=== PATIENT | male | born 1940 | race Caucasian/White ===

== ENCOUNTER 2017-03-30 23:27 | Inpatient (IN) | payer MEDICARE, OTHER ==
[2017-03-30 23:33] VITALS: BMI 29.0
--- NOTE | 2017-03-30 23:49 | C.PDOC ---
History Of Present Illness A 76 year old male with a hx of diabetes and HTN, presents to the ED c/o right sided headache then vision loss in the right eye with sudden onset at 22:30 today. Patient notes that he initially did not have any vision on the right eye but is gradually seeing light. Patient denies any nausea, vomiting, trauma, LOC , or any other complaints. He is not currently on any medication. Time Seen by Provider: 03/30/17 23:35 Chief Complaint (Nursing): Headache History Per: Patient History/Exam Limitations: no limitations Onset/Duration Of Symptoms: Hrs Current Symptoms Are (Timing): Still Present Severity: Mild Associated Symptoms: Other (Loss of vision). denies: Nausea, Vomiting Past Medical History Reviewed: Historical Data, Nursing Documentation, Vital Signs Vital Signs: Last Vital Signs Temp 97.5 F L 03/30/17 23:38 Pulse 64 03/30/17 23:38 Resp 20 03/30/17 23:38 BP 163/56 H 03/30/17 23:38 Pulse Ox 98 03/31/17 00:02 - Medical History PMH: Arthritis, HTN, Hypercholesterolemia (NO MED ) Denies: Hyperthyroidism, Hypothyroidism, Chronic Kidney Disease Family History: States: Unknown Family Hx Review Of Systems Except As Marked, All Systems Reviewed And Found Negative. Constitutional: Negative for: Other (Trauma) Eyes: Positive for: Vision Change (Loss of vision right eye) Gastrointestinal: Negative for: Nausea, Vomiting Neurological: Positive for: Headache. Negative for: Other (LOC) Physical Exam - Physical Exam Appears: Non-toxic, No Acute Distress Skin: Normal Color, Warm, Dry Head: Atraumatic, Normacephalic Eye(s): right: Abnormal Pupil (Cataracts), Other (Loss of vision), left: Normal Inspection Oral Mucosa: Moist Lips: Normal Appearing Neck: Normal ROM, No Midline Cervical Tenderness Lymphatic: No Adenopathy Chest: Symmetrical Cardiovascular: Rhythm Regular, No Murmur Respiratory: Normal Breath Sounds, No Rales, No Rhonchi, No Wheezing Gastrointestinal/Abdominal: Normal Exam, Soft Extremity: Normal ROM, No Pedal Edema, Capillary Refill (normal) Extremity: Bilateral: Atraumatic, Normal Color And Temperature Pulses: Left Carotid: Normal, Right Carotid: Normal Neurological/Psych: Oriented x3, Normal Speech, Normal Cognition, Normal Cranial Nerves, Normal Motor, Normal Sensation, Normal Reflexes, Eyes Open With Command Extremity: Right: No Drift, Left: No Drift, Upper: No Drift, Lower: No Drift ED Course And Treatment ECG: Interpreted By Me ECG Rhythm: Sinus Rhythm (with Q waves V1-2) ECG Interpretation: No Acute Changes O2 Sat by Pulse Oximetry: 98 (Room air) Pulse Ox Interpretation: Normal - CT Scan/US CT Head w/o IV contrast Other Rad Studies (CT/US): Interpreted By Me, Read By Radiologist CT/US Interpretation: EXAM: CT Head Without Intravenous Contrast. CLINICAL HISTORY: 76 years old, male; Signs and symptoms; Altered mental status/memory loss; Confusion or. disorientation; Additional info: Code stroke. TECHNIQUE: Axial computed tomography images of the head/brain without intravenous contrast. This CT exam. was performed using one or more of the following dose reduction techniques: automated exposure. control, adjustment of the mA and/or kV according to patient size, and/or use of iterative. reconstruction technique. COMPARISON: No relevant prior studies available. FINDINGS: Brain : Mild atrophy. No intracranial hemorrhage. No mass. Few scattered foci of decreased. attenuation within periventricular/subcortical white matter. Probable chronic lacunar infarct within. RIGHT centrum semiovale, RIGHT cerebellum. No definite edema. Ventricles: No hydrocephalus. Bones/joints: No acute fracture. Chronic fracture deformity LEFT zygomatic arch. Soft tissues: Unremarkable. Vasculature: Mild atherosclerotic disease of intracranial arteries. Sinuses: Scattered minimal mucosal thickening. Mastoid air cells: No mastoid effusion. Orbits: Unremarkable as visualized. Other findings: Periauricular calcifications. IMPRESSION: 1. Nonspecific white matter changes. Acute infarction may be CT occult within first 24 hours. If a. focal deficit persists, consider followup CT or MRI for further evaluation. 2. Incidental/non-acute findings are described above. Reevaluation Time: 00:27 Reassessment Condition: Improved (vision is returning to normal) - Physician Consult Information Time Consulting Physician Contacted: 00:28 Physician Contacted: Tej Wilson Outcome Of Conversation: Patient to be admitted for repeat DT or MRI and carotid dopplers in the morning. NIHSS Stroke Scale - Date/Time Evaluation Performed Date Performed: 03/30/17 Time Performed: 23:50 When Was NIHSS Performed: Baseline - How Severe is the Stoke Level of Consciousness: 0=Alert LOC to Questions: 0=Both comments correct LOC to commands: 0=Obeys both correctly Best Gaze: 1=Partial gaze palsy Visual: 1=Partial hemianopia Facial: 0=Normal Motor Arm - Left: 0=No drift Motor Arm - Right: 0=No drift Motor Leg - Left: 0=No drift Motor Leg - Right: 0=No drift Limb Ataxia: 0=Absent Sensory: 0=Normal Best Language: 0=No aphasia Dysarthia: 0=Normal articulation Extinction & Inattention (Neglect): 0=Normal, no object Score: 2 Severity Of Stroke: 1-4= Minor Stroke Medical Decision Making Medical Decision Making: Plans: -Blood labs -CT Head w/o contrast -EKG -CXR -Reassess and disposition Disposition Counseled Patient/Family Regarding: Studies Performed - Disposition Disposition: HOSPITALIZED Disposition Time: 00:28 Condition: IMPROVED - POA Present On Arrival: Poor Glycemic Control Core Measure Indicators: Code Stroke - Clinical Impression Clinical Impression: Transient ischemic attack (TIA) - Scribe Statement The provider has reviewed the documentation as recorded by the Scribe Latanya mcclain All medical record entries made by the Ludwinibadeola were at my direction and personally dictated by me. I have reviewed the chart and agree that the record accurately reflects my personal performance of the history, physical exam, medical decision making, and the department course for this patient. I have also personally directed, reviewed, and agree with the discharge instructions and disposition.
--- NOTE | 2017-03-30 23:58 | CT ---
EXAM: CT Head Without Intravenous Contrast CLINICAL HISTORY: 76 years old, male; Signs and symptoms; Altered mental status/memory loss; Confusion or disorientation; Additional info: Code stroke TECHNIQUE: Axial computed tomography images of the head/brain without intravenous contrast. This CT exam was performed using one or more of the following dose reduction techniques: automated exposure control, adjustment of the mA and/or kV according to patient size, and/or use of iterative reconstruction technique. COMPARISON: No relevant prior studies available. FINDINGS: Brain: Mild atrophy. No intracranial hemorrhage. No mass. Few scattered foci of decreased attenuation within periventricular/subcortical white matter. Probable chronic lacunar infarct within RIGHT centrum semiovale, RIGHT cerebellum. No definite edema. Ventricles: No hydrocephalus. Bones/joints: No acute fracture. Chronic fracture deformity LEFT zygomatic arch. Soft tissues: Unremarkable. Vasculature: Mild atherosclerotic disease of intracranial arteries. Sinuses: Scattered minimal mucosal thickening. Mastoid air cells: No mastoid effusion. Orbits: Unremarkable as visualized. Other findings: Periauricular calcifications. IMPRESSION: 1. Nonspecific white matter changes. Acute infarction may be CT occult within first 24 hours. If a focal deficit persists, consider followup CT or MRI for further evaluation. 2. Incidental/non-acute findings are described above.
[2017-03-31 00:12] LABS: EOS # 0.1 K/uL (0.0-0.7); EOS % 1.8 % (0.0-4.0); HEMATOCRIT 41.8 % (35.0-51.0); LYMPH # 2.2 K/uL (1.0-4.3); LYMPH % 46.5 % (20.0-40.0); MEAN CELL VOLUME 87.4 fL (80.0-94.0); MEAN CORPUSCULAR HEMOGLOBIN 29.4 pg (27.0-31.0); MEAN CORPUSCULAR HGB CONC 33.6 g/dL (33.0-37.0); MEAN PLATELET VOLUME 8.6 fL (7.2-11.7); MONO # 0.6 K/uL (0.0-0.8); MONO % 11.4 % (0.0-10.0); NRBC % 0.1 % (0.0-2.0); RED CELL DISTRIBUTION WIDTH 13.9 % (11.5-14.5); WHITE BLOOD COUNT 4.8 K/uL (4.8-10.8)
[2017-03-31 00:24] LABS: CHLORIDE 99 mmol/L (98-107); POTASSIUM 4.1 mmol/L (3.6-5.2); SODIUM 137 mmol/L (132-148)
[2017-03-31 00:26] LABS: ALB/GLOB RATIO 1.2 (1.0-2.1); AST/SGOT 52 U/L (17-59); BILIRUBIN,TOTAL 0.6 mg/dL (0.2-1.3); CARBON DIOXIDE 27 mmol/L (22-30); CHOLESTEROL 190 mg/dL (0-199); GFR AFRICAN-AMERICAN > 60; TOTAL PROTEIN 6.7 g/dL (6.3-8.3)
[2017-03-31 00:27] LABS: ALKALINE PHOSPHATASE 108 U/L (38-126); ALT/SGPT 48 U/L (21-72); BLOOD UREA NITROGEN 19 mg/dL (9-20); CALCIUM 8.5 mg/dl (8.6-10.4); GLUCOSE,RANDOM 260 mg/dL (75-110)
[2017-03-31] MEDS ORDERED: Sodium Chloride 0.9% 1,000 ML IV ONE (00:55)
[2017-03-31] MEDS: (Novolog) Insulin Aspart, Recombinant 100 u/ml 10 ml vial SC SCH ×4 (09:09→21:52)
[2017-03-31] MEDS: Enoxaparin 40 mg Syringe SC SCH (10:09)
--- NOTE | 2017-03-31 10:32 | RAD ---
HISTORY: code stroke COMPARISON: None available FINDINGS: LUNGS: Prominent consolidative airspace opacities in the mid to lower lung zone; right greater than left with associated bilateral pleural effusions. PLEURA: As above. CARDIOVASCULAR: Cardiomegaly. OSSEOUS STRUCTURES: No significant abnormalities. VISUALIZED UPPER ABDOMEN: Normal. OTHER FINDINGS: None. IMPRESSION: Prominent consolidative airspace opacities in the mid to lower lung zone; right greater than left with associated bilateral pleural effusions.
[2017-03-31] MEDS ORDERED: (Novolog) Insulin Aspart, Recombinant 100 u/ml 10 ml vial ONE (13:15)
--- NOTE | 2017-03-31 18:40 | CP.PCM.HP ---
History of Present Illness - History of Present Illness History of Present Illness: 76-year-old male with history of diabetes history of hypertension came to the emergency room because of patient Emily the chest without nausea and vomiting with the loss of vision on the right eye which only happens the patient came to the emergency room neurologist walked contacted the patient had a CAT scan which revealed an acute infarct is restarted on the ST study eventually patient is hospitalized for further workup Present on Admission - Present on Admission Any Indicators Present on Admission: No Past Patient History - Past Medical History & Family History Past Medical History?: Yes - Past Social History Smoking Status: Never Smoked - CARDIAC Hx Hypercholesterolemia: Yes (NO MED ) Hx Hypertension: Yes - PULMONARY Hx Respiratory Disorders: No - NEUROLOGICAL Hx Neurological Disorder: No - HEENT Hx HEENT Problems: No - RENAL Hx Chronic Kidney Disease: No - ENDOCRINE/METABOLIC Hx Hyperthyroidism: No Hx Hypothyroidism: No - HEMATOLOGICAL/ONCOLOGICAL Hx Blood Disorders: No - INTEGUMENTARY Hx Dermatological Problems: No - MUSCULOSKELETAL/RHEUMATOLOGICAL Hx Arthritis: Yes - GASTROINTESTINAL Hx Gastrointestinal Disorders: No - GENITOURINARY/GYNECOLOGICAL Hx Genitourinary Disorders: No - PSYCHIATRIC Hx Psychophysiologic Disorder: No Hx Substance Use: No - SURGICAL HISTORY Hx Surgeries: No - ANESTHESIA Hx Anesthesia: No Meds Home Medications: Home Medication List Medication Instructions Recorded Confirmed Type Aspirin [Aspirin Chewable] 81 mg PO DAILY #30 04/02/17 Rx Simvastatin 20 mg PO HS #30 tablet 04/02/17 Rx Allergies/Adverse Reactions: Allergies Allergy/AdvReac Type Severity Reaction Status Date / Time No Known Allergies Allergy Unverified 04/23/13 12:26 Physical Exam - Constitutional Appears: Well - Head Exam Head Exam: ATRAUMATIC, NORMAL INSPECTION, NORMOCEPHALIC - Eye Exam Eye Exam: EOMI, Normal appearance, PERRL Pupil Exam: NORMAL ACCOMODATION, PERRL - ENT Exam ENT Exam: Mucous Membranes Moist, Normal Exam - Neck Exam Neck exam: Positive for: Normal Inspection - Respiratory Exam Respiratory Exam: Decreased Breath Sounds - Cardiovascular Exam Cardiovascular Exam: REGULAR RHYTHM, +S1, +S2 - GI/Abdominal Exam GI & Abdominal Exam: Soft - Rectal Exam Rectal Exam: Deferred Results - Vital Signs Recent Vital Signs: Last Vital Signs Temp 97.9 F 03/31/17 13:15 Pulse 66 03/31/17 15:00 Resp 16 03/31/17 15:00 BP 138/70 03/31/17 15:00 Pulse Ox 100 03/31/17 15:00 - Labs Result Diagrams: 04/03/17 07:23 04/03/17 07:23 Labs: Laboratory Results - last 24 hr 03/31/17 03/31/17 03/31/17 08:40 12:37 16:30 POC Glucose (mg/dL) 137 H 184 H 94 Assessment & Plan (1) Transient ischemic attack (TIA) Status: Acute - Assessment and Plan (Free Text) Plan: Protonix aspirin restarts urology consultation Lovenox repeat MRI and carotid workup neurologic workup
[2017-04-01 01:37] VITALS: RESP 20
[2017-04-01] MEDS: (Novolog) Insulin Aspart, Recombinant 100 u/ml 10 ml vial SC SCH ×4 (08:14→22:00)
[2017-04-01] MEDS: Enoxaparin 40 mg Syringe SC SCH (09:43)
--- NOTE | 2017-04-01 10:28 | CON ---
DATE: 04/01/2017 REASON FOR CONSULTATION: Loss of vision, right eye. HISTORY OF PRESENT ILLNESS: The patient is a 76-year-old male who came to the Emergency Room with co mplaints of right-sided headache followed by visual loss in the right eye. It lasted for a few minut es and then gradually getting better. The patient denies any focal weakness ____ appropriate. At th e moment, he feels fine. REVIEW OF SYSTEMS: Denies any headache, dizziness, chest pain, shortness of breath, abdominal pain, constipation, diarrhea, dysuria, pyuria, cough, sputum production. PAST MEDICAL HISTORY: Includes hypertension and diabetes mellitus. MEDICATIONS AT HOME: Included metformin and lisinopril. ALLERGIES: No known drug allergies. SOCIAL HISTORY: Denies smoking, use of alcohol or illicit drugs. FAMILY HISTORY: Reviewed and noncontributory to the case. PHYSICAL EXAMINATION: GENERAL: The patient is an elderly male lying on the bed, in no acute distress. VITAL SIGNS: His blood pressure is 129/63, heart rate 58 per minute, breathing at a rate of 16 per m inute, temperature is 98.1 degrees Fahrenheit. HEENT: Head is normocephalic, atraumatic. NECK: Supple. There are no carotid bruits. LUNGS: Clear. CARDIOVASCULAR: S1, S2 audible. No murmurs. ABDOMEN: Soft, nontender. Bowel sounds present. NEUROLOGIC EXAMINATION: MENTAL STATUS: The patient is awake, alert, oriented to time, place, person. Speech is fluent. Nam ing and repetition normal. CRANIAL NERVES: Pupils are 3 mm bilaterally reactive to light. Visual nixon are full. Extraocular movements are intact. There is no facial asymmetry. Palate is upgoing bilaterally and tongue is mi dline. MOTOR: Tone is normal. Power is 5/5 bilaterally in all extremities. REFLEXES: +1 and symmetrical. Plantars downgoing bilaterally. CEREBELLAR: [id number]-[id number] shows no dysmetria. LABORATORY DATA: Reviewed. Shows WBC 4.8, hemoglobin 14.1, hematocrit 41.8 and platelets of 148. I NR is 1.0. Sodium 137, potassium 4.1, chloride 99, carbon dioxide content 27, BUN of 19, creatinine 1.1, and glucose of 137. He had a CT scan of the head done which showed nonspecific white matter changes. IMPRESSION: Transient ischemic attack with likely amaurosis fugax involving the right eye. RECOMMENDATIONS: 1. The patient to have MRI of the brain without contrast. 2. The patient also to have a carotid ultrasound. 3. The patient to be continued on aspirin and statin. 4. Please continue other treatment. Thank you for the opportunity to participate in the care of this patient. Alona Aguilar MD cc: [id number] TT: 04/01/2017 10:27:07 Confirmation # [id number] Dictation # [id number] mn
--- NOTE | 2017-04-01 13:59 | CARD ---
APPROVED REPORT EKG Measurement Heart [id number] IN [id number] <Conclusion> Normal sinus rhythm Septal infarct, age undetermined Abnormal ECG
--- NOTE | 2017-04-01 15:38 | MRI ---
PROCEDURE: MRI BRAIN WITHOUT CONTRAST HISTORY: tia COMPARISON: Comparison is made to the previous x-ray of the head dated 03/30/2017 TECHNIQUE: Multiplanar, multisequence MR images of the brain were obtained without intravenous contrast enhancement. FINDINGS: HEMORRHAGE: None DWI: Focal diffusion restriction seen at the right occipital lobe suggestive of acute/ early subacute infarct. BRAIN PARENCHYMA: No mass effect or edema. Mild atrophy is noted. Eaek-hy-hmdvgylx white matter changes are also seen. VENTRICLES: Unremarkable. No hydrocephalus. CRANIUM: Unremarkable. ORBITS: Grossly unremarkable. PARANASAL SINUSES/MASTOIDS: Clear VASCULAR SYSTEM: Skull base flow voids intact. OTHER FINDINGS: None. IMPRESSION: Right occipital acute/early subacute moderate size infarct. Mild atrophy and pbyp-ut-imqyhauq white matter chronic microvascular ischemic disease.
--- NOTE | 2017-04-01 16:53 | CP.PCM.PN ---
Subjective - Date & Time of Evaluation Date of Evaluation: 04/01/17 Time of Evaluation: 13:00 - Subjective Subjective: clinically same Objective - Vital Signs/Intake and Output Vital Signs (last 24 hours): Temp Pulse Resp BP Pulse Ox 97.7 F 59 L 20 132/73 93 L 04/01/17 16:30 04/01/17 16:30 04/01/17 16:30 04/01/17 16:30 04/01/17 16:30 Intake and Output: 04/01/17 04/01/17 06:59 18:59 Intake Total 240 720 Balance 240 720 - Medications Medications: Current Medications Aspirin (Aspirin Chewable) 81 mg PO DAILY [facility] Last Admin: 04/01/17 09:43 Dose: 81 mg Enoxaparin Sodium (Lovenox) 40 mg SC DAILY [facility] Last Admin: 04/01/17 09:43 Dose: 40 mg Insulin Aspart (Novolog) 0 unit SC [facility] PRN Reason: Protocol Last Admin: 04/01/17 12:42 Dose: 2 unit Lisinopril (Zestril) 10 mg PO DAILY [facility] Last Admin: 04/01/17 09:43 Dose: 10 mg Metformin HCl (Glucophage) 1,000 mg PO BIDBS [facility] Last Admin: 04/01/17 08:46 Dose: 1,000 mg Rosuvastatin Calcium (Crestor) 10 mg PO HS [facility] Last Admin: 03/31/17 21:24 Dose: 10 mg - Labs Labs: PT 11.1 SECONDS (9.7-12.2) 03/30/17 23:59 INR 1.0 03/30/17 23:59 APTT 31 SECONDS (21-34) 03/30/17 23:59 - Constitutional Appears: Well - Head Exam Head Exam: ATRAUMATIC, NORMAL INSPECTION, NORMOCEPHALIC - Eye Exam Eye Exam: EOMI, Normal appearance, PERRL Pupil Exam: NORMAL ACCOMODATION, PERRL - ENT Exam ENT Exam: Mucous Membranes Moist, Normal Exam - Neck Exam Neck Exam: Full ROM, Normal Inspection. absent: Lymphadenopathy - Respiratory Exam Respiratory Exam: Decreased Breath Sounds - Cardiovascular Exam Cardiovascular Exam: REGULAR RHYTHM, +S1, +S2 - GI/Abdominal Exam GI & Abdominal Exam: Soft, Diminished Bowel Sounds - Rectal Exam Rectal Exam: Deferred Assessment and Plan (1) Diabetes mellitus Status: Acute (2) Hypertension Status: Acute (3) Transient ischemic attack (TIA) Status: Acute - Assessment and Plan (Free Text) Plan: fs coverage insulin coverage Protonix Lovenox lisinopril neurological follow Verenice hankins
[2017-04-02] MEDS: (Novolog) Insulin Aspart, Recombinant 100 u/ml 10 ml vial SC SCH ×4 (07:51→21:56)
--- NOTE | 2017-04-02 08:33 | CP.PCM.PN ---
Addendum entered and electronically signed by Argentina Galeano DO 04/02/17 10: 42: CXR 04/02/17 - right lower lobe opacity seen - f/u official report F/U Chest CT without contrast Original Note: <Argentina Galeano - Last Filed: 04/02/17 08:30> Subjective - Date & Time of Evaluation Date of Evaluation: 04/02/17 Time of Evaluation: 08:05 - Subjective Subjective: PGY2 Medicine Note - Dr. Ilir Wilson's service: Patient seen and examined at bedside this AM. Patient has no complaints. Patient says he is walking well. Patient has no vision complaints at this time. Patient says vision came back completely. Patient has full strength in all four extremities. Patient denies headache, chest pain, SOB. Objective - Vital Signs/Intake and Output Vital Signs (last 24 hours): Temp Pulse Resp BP Pulse Ox 98.0 F 66 20 110/57 L 100 04/02/17 07:10 04/02/17 08:07 04/02/17 07:10 04/02/17 07:10 04/02/17 07:10 Intake and Output: 04/02/17 04/02/17 06:59 18:59 Intake Total 120 Balance 120 - Medications Medications: Current Medications Aspirin (Aspirin Chewable) 81 mg PO DAILY [facility] Last Admin: 04/01/17 09:43 Dose: 81 mg Enoxaparin Sodium (Lovenox) 40 mg SC DAILY [facility] Last Admin: 04/01/17 09:43 Dose: 40 mg Insulin Aspart (Novolog) 0 unit SC [facility] PRN Reason: Protocol Last Admin: 04/02/17 07:51 Dose: Not Given Lisinopril (Zestril) 10 mg PO DAILY [facility] Metformin HCl (Glucophage) 1,000 mg PO BIDBS [facility] Last Admin: 04/02/17 08:30 Dose: 1,000 mg Rosuvastatin Calcium (Crestor) 10 mg PO HS [facility] Last Admin: 04/01/17 22:05 Dose: 10 mg - Labs Labs: PT 11.1 SECONDS (9.7-12.2) 03/30/17 23:59 INR 1.0 03/30/17 23:59 APTT 31 SECONDS (21-34) 03/30/17 23:59 - Constitutional Appears: Non-toxic, No Acute Distress - Head Exam Head Exam: NORMAL INSPECTION - Eye Exam Eye Exam: EOMI - ENT Exam ENT Exam: Mucous Membranes Moist - Respiratory Exam Respiratory Exam: Clear to Ausculation Bilateral, NORMAL BREATHING PATTERN. absent: Rales, Rhonchi, Wheezes - Cardiovascular Exam Cardiovascular Exam: REGULAR RHYTHM, +S1, +S2. absent: Gallop, Rubs, Murmur - GI/Abdominal Exam GI & Abdominal Exam: Soft, Normal Bowel Sounds. 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 Mild atrophy and mild to moderate white matter chronic microvascular ischemic disease F/U carotid US Neurology consult - Dr. Stanley Aguilar - help appreciated Physical therapy discharged him from PT and recommends D/C home ASA 81mg PO daily Crestor 10mg PO HS Will be given scripts for ASA 81mg PO daily #30 and Simvastatin 20mg PO HS #30 upon discharge home Airspace opacities CXR 03/30/17 - prominent consolidative airspace opacities in mid to lower lung zone R>L with associated b/l pleural effusions (please see full report) Patient currently denying cough or trouble breathing Lungs sound good on auscultation F/U repeat CXR HTN Continue home med of lisinopril 10mg PO daily Controlled Monitor DM HgbA1C 8.8 --> patient needs to follow up with PMD about better control Metformin 1000mg PO BID RISS accuchecks Prophylaxis Lovenox 40mg SC daily Pepcid 20mg PO BID <Tej Wilson - Last Filed: 06/05/17 13:54> Objective - Vital Signs/Intake and Output Vital Signs (last 24 hours): Temp Pulse Resp BP Pulse Ox 97.9 F 63 20 124/63 97 04/03/17 07:10 04/03/17 09:06 04/03/17 07:10 04/03/17 07:10 04/03/17 07:10 - Labs Labs: 04/03/17 07:23 04/03/17 07:23 PT 11.1 SECONDS (9.7-12.2) 03/30/17 23:59 INR 1.0 03/30/17 23:59 APTT 31 SECONDS (21-34) 03/30/17 23:59 Assessment and Plan (1) Diabetes mellitus Status: Acute (2) Hypertension Status: Acute (3) Transient ischemic attack (TIA) Status: Acute Attending/Attestation - Attestation I have personally seen and examined this patient.: Yes I have fully participated in the care of the patient.: Yes I have reviewed all pertinent clinical information, including history, physical exam and plan: Yes Notes (Text): Patients can move all the extremities appears to be acute infarct number MRI right occipital acute infarct early subacute moderate size infarct Ultrasound of the carotid follow-up Neurology consultation PT OT Aspirin Chest x-ray prominent consolidative airspace opacities follow-up chest x-ray in 3 weeks after discharge
[2017-04-02] MEDS: Enoxaparin 40 mg Syringe SC SCH (09:24)
[2017-04-02 11:43] LABS: BASO % 0.8 % (0.0-2.0); EOS # 0.1 K/uL (0.0-0.7); EOS % 1.7 % (0.0-4.0); HEMATOCRIT 40.7 % (35.0-51.0); LYMPH # 1.6 K/uL (1.0-4.3); LYMPH % 38.7 % (20.0-40.0); MEAN CELL VOLUME 88.1 fL (80.0-94.0); MEAN CORPUSCULAR HEMOGLOBIN 28.9 pg (27.0-31.0); MEAN CORPUSCULAR HGB CONC 32.8 g/dL (33.0-37.0); MEAN PLATELET VOLUME 9.2 fL (7.2-11.7); MONO # 0.5 K/uL (0.0-0.8); MONO % 12.2 % (0.0-10.0); NRBC % 0.1 % (0.0-2.0); RED CELL DISTRIBUTION WIDTH 13.6 % (11.5-14.5); WHITE BLOOD COUNT 4.1 K/uL (4.8-10.8)
[2017-04-02 11:49] LABS: CHLORIDE 101 mmol/L (98-107); SODIUM 136 mmol/L (132-148)
[2017-04-02 11:50] LABS: POTASSIUM 4.4 mmol/L (3.6-5.2)
[2017-04-02 11:52] LABS: ALB/GLOB RATIO 1.2 (1.0-2.1); ALKALINE PHOSPHATASE 83 U/L (38-126); ALT/SGPT 25 U/L (21-72); AST/SGOT 22 U/L (17-59); BILIRUBIN,TOTAL 0.8 mg/dL (0.2-1.3); BLOOD UREA NITROGEN 18 mg/dL (9-20); CALCIUM 8.4 mg/dl (8.6-10.4); CARBON DIOXIDE 28 mmol/L (22-30); GFR AFRICAN-AMERICAN > 60; GLUCOSE,RANDOM 204 mg/dL (75-110)
--- NOTE | 2017-04-02 15:18 | RAD ---
HISTORY: f/u airspace opacities. no symptoms now. COMPARISON: Comparison is made to the previous study dated 03/30/2027 TECHNIQUE: Chest PA and lateral FINDINGS: LUNGS: Interval improvement in the lungs especially on the right since the previous exam. PLEURA: No significant pleural effusion identified. No pneumothorax apparent. CARDIOVASCULAR: Mild cardiomegaly is again noted. OSSEOUS STRUCTURES: No significant abnormalities. VISUALIZED UPPER ABDOMEN: Normal. OTHER FINDINGS: None. IMPRESSION: Interval significant improvement in the lungs with residual small opacity at the right lower lung. Follow-up reassessment 2 weeks is suggested.
--- NOTE | 2017-04-02 15:36 | PN ---
DATE: 04/02/2017 SUBJECTIVE: The patient is lying on the bed, in no acute distress. Denies having any headache or di zziness. PHYSICAL EXAMINATION: VITAL SIGNS: His blood pressure is 110/57, heart rate is 66 per minute, breathing at the rate of 16 per minute, temperature is 98 degrees Fahrenheit. HEENT: Normocephalic, atraumatic. NECK: Supple. There are no carotid bruits. LUNGS: Clear. CARDIOVASCULAR: S1, S2 audible. No murmurs. ABDOMEN: Soft, nontender. Bowel sounds present. NEUROLOGIC EXAMINATION: MENTAL STATUS: The patient is awake, alert, oriented to place, year, person. Speech is fluent. Nam ing and repetition are normal. CRANIAL NERVE EXAMINATION: Pupils 3 mm bilaterally reactive to light. Visual field decreased on the left side. Palate is upgoing bilaterally and tongue is midline. MOTOR EXAMINATION: Tone is normal and power is 5/5 bilaterally in all extremities. Reflexes +1 and symmetrical. Plantars downgoing bilaterally. CEREBELLAR: Zpekdx-do-sede shows no dysmetria. Gait is deferred at the moment. LABORATORY DATA: Labs reviewed. MRI of the brain showed right occipital acute/early subacute modera te sized infarct. Mild atrophy and jcty-in-[id number] white matter chronic microvascular ischemic dise ase. IMPRESSION: Cerebrovascular accident with a right occipital infarct. RECOMMENDATIONS: 1. The patient to have carotid Doppler study. 2. The patient also to have an echocardiogram. 3. The patient to be continued on aspirin. 4. The patient also to be continued on statin. 5. The patient to have physical therapy for gait imbalance. 6. Please continue other treatment and supportive care. Thank you for the opportunity to participate in the care of this patient. Alona Aguilar MD cc: [id number] TT: 04/02/2017 15:35:21 Confirmation # [id number] Dictation # [id number]
--- NOTE | 2017-04-02 18:51 | CP.PCM.PN ---
Subjective - Date & Time of Evaluation Date of Evaluation: 04/02/17 Time of Evaluation: 13:00 - Subjective Subjective: clinically same Objective - Vital Signs/Intake and Output Vital Signs (last 24 hours): Temp Pulse Resp BP Pulse Ox 98 F 59 L 20 126/63 99 04/02/17 16:02 04/02/17 16:02 04/02/17 16:02 04/02/17 16:02 04/02/17 16:02 Intake and Output: 04/02/17 04/02/17 06:59 18:59 Intake Total 120 720 Balance 120 720 - Medications Medications: Current Medications Aspirin (Aspirin Chewable) 81 mg PO DAILY [facility] Last Admin: 04/02/17 09:24 Dose: 81 mg Enoxaparin Sodium (Lovenox) 40 mg SC DAILY [facility] Last Admin: 04/02/17 09:24 Dose: 40 mg Famotidine (Pepcid) 20 mg PO BID [facility] Last Admin: 04/02/17 09:24 Dose: 20 mg Insulin Aspart (Novolog) 0 unit SC [facility] PRN Reason: Protocol Last Admin: 04/02/17 12:18 Dose: 1 unit Lisinopril (Zestril) 10 mg PO DAILY [facility] Last Admin: 04/02/17 09:24 Dose: 10 mg Metformin HCl (Glucophage) 1,000 mg PO BIDBS [facility] Last Admin: 04/02/17 08:30 Dose: 1,000 mg Rosuvastatin Calcium (Crestor) 10 mg PO HS [facility] Last Admin: 04/01/17 22:05 Dose: 10 mg - Labs Labs: 04/02/17 11:34 04/02/17 11:34 PT 11.1 SECONDS (9.7-12.2) 03/30/17 23:59 INR 1.0 03/30/17 23:59 APTT 31 SECONDS (21-34) 03/30/17 23:59 - Constitutional Appears: Well - Head Exam Head Exam: ATRAUMATIC, NORMAL INSPECTION, NORMOCEPHALIC - Eye Exam Eye Exam: EOMI, Normal appearance, PERRL Pupil Exam: NORMAL ACCOMODATION, PERRL - ENT Exam ENT Exam: Mucous Membranes Moist, Normal Exam - Neck Exam Neck Exam: Full ROM, Normal Inspection. absent: Lymphadenopathy - Respiratory Exam Respiratory Exam: Decreased Breath Sounds - Cardiovascular Exam Cardiovascular Exam: REGULAR RHYTHM, +S1, +S2 - GI/Abdominal Exam GI & Abdominal Exam: Soft, Diminished Bowel Sounds - Rectal Exam Rectal Exam: Deferred Assessment and Plan (1) Diabetes mellitus Status: Acute (2) Hypertension Status: Acute (3) Transient ischemic attack (TIA) Status: Acute - Assessment and Plan (Free Text) Plan: Patients can move all the extremities appears to be acute infarct number MRI right occipital acute infarct early subacute moderate size infarct Ultrasound of the carotid follow-up Neurology consultation PT OT Aspirin Chest x-ray prominent consolidative airspace opacities follow-up chest x-ray in 3 weeks after discharge
--- NOTE | 2017-04-02 19:14 | VASCLAB ---
PROCEDURE: HISTORY: tia COMPARISON: None available. TECHNIQUE: Grayscale and duplex Doppler evaluation of the cervical carotid and vertebral arteries were performed. The common carotid, carotid bifurcations and cervical Internal Carotid Artery (ICA) and proximal External Carotid Artery (ECA) were evaluated. The vertebral arteries were evaluated for gross patency and flow direction. Report prepared by Allan Gee, BS, RVT FINDINGS: RIGHT CAROTID ARTERIES: 1. Common Carotid Artery: Mild scattered heterogeneous plaque formation of the right common carotid artery. Intimal hyperplasia. Maximum Peak Systolic velocity: 64 cm/sec: End-diastolic velocity 10 cm/sec. 2. Carotid Bifurcation: Irregular Homogeneous plaque formation. Maximum Peak Systolic velocity: 58 cm/sec: End-diastolic velocity 10 cm/sec. 3. Internal Carotid Artery: Minimal plaque formation of the right proximal ICA which does not result in hemodynamically significant stenosis. Plaque description: Heterogeneous 3.1. Proximal Segment: Peak systolic velocity 62 cm/sec: End-diastolic velocity 12 cm/sec - % stenosis 0-15% 3.2. Middle Segment: Peak systolic velocity 97 cm/sec: End-diastolic velocity 22 cm/sec - % stenosis 0-15% 3.3. Distal Segment: Peak systolic velocity 97 cm/sec: End-diastolic velocity 21 cm/sec - % stenosis 0-15% 4. External Carotid Artery: Mild heterogeneous plaque formation. Peak systolic velocity 103 cm/sec 5. ICA/CCA Ratio: 1.5 LEFT CAROTID ARTERIES: 1. Common Carotid Artery: No significant focal plaque formation of the left common carotid artery. Intimal hyperplasia. Maximum Peak Systolic velocity: 85 cm/sec: End-diastolic velocity 11 cm/sec. 2. Carotid Bifurcation: Homogeneous plaque formation. Maximum Peak Systolic velocity: 81 cm/sec: End-diastolic velocity 10 cm/sec. 3. Internal Carotid Artery: Minimal plaque formation of the left proximal ICA which does not result in hemodynamically significant stenosis. Plaque description: Homogeneous 3.1. Proximal Segment: Peak systolic velocity 91 cm/sec: End-diastolic velocity 17 cm/sec - % stenosis 0-15% 3.2. Middle Segment: Peak systolic velocity 85 cm/sec: End-diastolic velocity 19 cm/sec - % stenosis 0-15% 3.3. Distal Segment: Peak systolic velocity 96 cm/sec: End-diastolic velocity 22 cm/sec - % stenosis 0-15% 4. External Carotid Artery: No significant focal plaque formation. Peak systolic velocity 103 cm/sec 5. ICA/CCA Ratio: 1.1 VERTEBRAL ARTERIES: 1. Right Vertebral Artery: The right vertebral artery flow direction is antegrade. 2. Left Vertebral Artery: The left vertebral artery flow direction is antegrade. OTHER FINDINGS: 1. Right Brachial Blood pressure: 120 mmHg. 2. Left Brachial Blood pressure: 120 mmHg. IMPRESSION: RIGHT: Duplex scan does not suggest hemodynamically significant stenosis of the right extracranial carotid arteries. LEFT: Duplex scan does not suggest hemodynamically significant stenosis of the left extracranial carotid arteries.
[2017-04-03 07:31] LABS: BASO % 0.6 % (0.0-2.0); EOS # 0.1 K/uL (0.0-0.7); EOS % 1.7 % (0.0-4.0); HEMATOCRIT 42.7 % (35.0-51.0); LYMPH # 2.2 K/uL (1.0-4.3); LYMPH % 41.9 % (20.0-40.0); MEAN CELL VOLUME 87.9 fL (80.0-94.0); MEAN CORPUSCULAR HEMOGLOBIN 28.9 pg (27.0-31.0); MEAN CORPUSCULAR HGB CONC 32.9 g/dL (33.0-37.0); MEAN PLATELET VOLUME 9.2 fL (7.2-11.7); MONO # 0.6 K/uL (0.0-0.8); MONO % 11.1 % (0.0-10.0); RED CELL DISTRIBUTION WIDTH 13.7 % (11.5-14.5); WHITE BLOOD COUNT 5.2 K/uL (4.8-10.8)
[2017-04-03 07:46] LABS: CHLORIDE 102 mmol/L (98-107); POTASSIUM 4.6 mmol/L (3.6-5.2); SODIUM 139 mmol/L (132-148)
[2017-04-03 07:48] LABS: BILIRUBIN,TOTAL 0.9 mg/dL (0.2-1.3); GFR AFRICAN-AMERICAN > 60
[2017-04-03 07:49] LABS: ALB/GLOB RATIO 1.2 (1.0-2.1); ALKALINE PHOSPHATASE 90 U/L (38-126); ALT/SGPT 37 U/L (21-72); AST/SGOT 26 U/L (17-59); BLOOD UREA NITROGEN 19 mg/dL (9-20); CARBON DIOXIDE 29 mmol/L (22-30); GLUCOSE,RANDOM 102 mg/dL (75-110); TOTAL PROTEIN 6.8 g/dL (6.3-8.3)
[2017-04-03 07:50] LABS: CALCIUM 8.7 mg/dl (8.6-10.4)
[2017-04-03] MEDS: (Novolog) Insulin Aspart, Recombinant 100 u/ml 10 ml vial SC SCH ×2 (07:52→12:11)
[2017-04-03 08:05] VITALS: BP 124/63; TEMP 97.9; O2SAT 97
--- NOTE | 2017-04-03 08:36 | PN ---
DATE: 04/03/2017 SUBJECTIVE: The patient is lying on the bed, in no acute distress. Denies having any headache or di zziness. PHYSICAL EXAMINATION: VITAL SIGNS: His blood pressure is 124/60, heart rate is 65 per minute, breathing at a rate of 16 pe r minute, temperature is 98.1 degrees Fahrenheit. HEENT: Head is normocephalic, atraumatic. NECK: Supple. There are no carotid bruits. LUNGS: Clear. CARDIOVASCULAR: S1, S2 audible. No murmurs. ABDOMEN: Soft, nontender, bowel sounds present. NEUROLOGIC EXAMINATION: MENTAL STATUS: The patient is awake, alert, oriented to place, year, person. Speech is fluent. Nam ing and repetition are normal. Memory and cognition appear intact. CRANIAL NERVE: Pupils are 3 mm, bilaterally reactive to light. Extraocular movements are intact. T here is decreased visual field on the left side. There is no facial asymmetry. MOTOR: Power appears to be 5/5 bilaterally in all extremities. Plantars downgoing bilaterally. LABORATORY DATA: Reviewed. Carotid Doppler shows no significant stenosis. IMPRESSION: Cerebrovascular accident with right occipital infarct causing left side visual field def ect. RECOMMENDATIONS: 1. The patient to have an echocardiogram. 2. The patient to be continued on aspirin. 3. The patient also to be continued on statin. 4. The patient to have physical therapy for gait and balance. 5. The patient had an echocardiogram done; however, the report is still awaited. 6. If the patient's echocardiogram does not show any evidence of thrombus, then he may be discharged on aspirin and statin with outpatient followup. Thank you for the opportunity to participate in the care of this patient. Alona Aguilar MD cc: [id number] TT: 04/03/2017 08:36:12 Confirmation # [id number] Dictation # [id number]
[2017-04-03 09:06] VITALS: PULSE 63
[2017-04-03] MEDS: Enoxaparin 40 mg Syringe SC SCH (09:43)
--- NOTE | 2017-04-03 11:28 | CP.PCM.PN ---
Subjective - Date & Time of Evaluation Date of Evaluation: 04/03/17 Time of Evaluation: 08:55 - Subjective Subjective: PGY2 Medicine Note - Dr. Ilir Wilson's service: Patient seen and examined at bedside this AM. Patient has no complaints. Patient says he is walking well. Patient has no vision complaints at this time. Patient says vision came back completely. Patient has full strength in all four extremities. Patient denies headache, chest pain, SOB, cough, fever, chills. Objective - Vital Signs/Intake and Output Vital Signs (last 24 hours): Temp Pulse Resp BP Pulse Ox 97.9 F 63 20 124/63 97 04/03/17 07:10 04/03/17 09:06 04/03/17 07:10 04/03/17 07:10 04/03/17 07:10 Intake and Output: 04/03/17 04/03/17 06:59 18:59 Intake Total 360 Balance 360 - Medications Medications: Current Medications Aspirin (Aspirin Chewable) 81 mg PO DAILY [facility] Last Admin: 04/03/17 09:43 Dose: 81 mg Enoxaparin Sodium (Lovenox) 40 mg SC DAILY [facility] Last Admin: 04/03/17 09:43 Dose: 40 mg Famotidine (Pepcid) 20 mg PO BID [facility] Last Admin: 04/02/17 18:50 Dose: 20 mg Insulin Aspart (Novolog) 0 unit SC [facility] PRN Reason: Protocol Last Admin: 04/03/17 07:52 Dose: Not Given Lisinopril (Zestril) 10 mg PO DAILY [facility] Last Admin: 04/03/17 09:43 Dose: 10 mg Metformin HCl (Glucophage) 1,000 mg PO BIDBS [facility] Last Admin: 04/03/17 08:34 Dose: 1,000 mg Rosuvastatin Calcium (Crestor) 10 mg PO HS [facility] Last Admin: 04/02/17 21:56 Dose: 10 mg - Labs Labs: 04/03/17 07:23 04/03/17 07:23 PT 11.1 SECONDS (9.7-12.2) 03/30/17 23:59 INR 1.0 03/30/17 23:59 APTT 31 SECONDS (21-34) 03/30/17 23:59 - Constitutional Appears: Non-toxic, No Acute Distress - Head Exam Head Exam: NORMAL INSPECTION - Eye Exam Eye Exam: EOMI - ENT Exam ENT Exam: Mucous Membranes Moist - Respiratory Exam Respiratory Exam: Rhonchi (right chest), NORMAL BREATHING PATTERN. absent: Accessory Muscle Use, Chest Wall Tenderness, Respiratory Distress - Cardiovascular Exam Cardiovascular Exam: REGULAR RHYTHM, +S1, +S2. absent: Gallop, Rubs, Murmur - GI/Abdominal Exam GI & Abdominal Exam: Soft, Normal Bowel Sounds. absent: Tenderness - Extremities Exam Extremities Exam: absent: Pedal Edema - Neurological Exam Neurological Exam: Alert, Oriented x3 - Psychiatric Exam Psychiatric exam: Normal Affect, Normal Mood - Skin Skin Exam: Normal Color, Warm Assessment and Plan - Assessment and Plan (Free Text) Assessment: TIA symptoms resolved within [address] - normal Brain MRI 04/01/17 - right occipital acute/ early subacute moderate size infarct. Mild atrophy and mild to moderate white matter chronic microvascular ischemic disease Carotid US negative for hemodynamically significant stenosis F/U ECHO report before discharge per Dr. Stanley Aguilar Neurology consult - Dr. Stanley Aguilar - help appreciated Physical therapy discharged him from PT and recommends D/C home ASA 81mg PO daily Crestor 10mg PO HS Will be given scripts for ASA 81mg PO daily #30 and Simvastatin 20mg PO HS #30 upon discharge home Airspace opacities CXR 03/30/17 - prominent consolidative airspace opacities in mid to lower lung zone R>L with associated b/l pleural effusions (please see full report) Patient currently denying cough or trouble breathing Lungs sound good on auscultation CXR 04/02/17 - right lower lobe opacity seen - f/u official report F/U Chest CT without contrast report Fluid or mass seen in right fissure - went to radiology floor but radiologist had just stepped out, awaiting call back from radiologist. Will go down again to follow up after lunch HTN Continue home med of lisinopril 10mg PO daily Controlled Monitor DM HgbA1C 8.8 --> patient needs to follow up with PMD about better control Metformin 1000mg PO BID RISS accuchecks Prophylaxis Lovenox 40mg SC daily Pepcid 20mg PO BID
--- NOTE | 2017-04-03 11:47 | CT ---
PROCEDURE: CT Chest without contrast HISTORY: right lobe opacity COMPARISON: April 02, 2017. Two-view chest. Summary of findings on the comparison examination: Interval improvement with residual small opacity right lower lobe. 03/30/2017 portable chest TECHNIQUE: Contiguous axial images were obtained through the chest without intravenous contrast enhancement. Sagittal and coronal reconstructions were performed. Radiation dose (DLP): 292.82 mGy-cm. This CT exam was performed using one or more of the following dose reduction techniques: Automated exposure control, adjustment of the mA and/or kV according to patient size, and/or use of iterative reconstruction technique. FINDINGS: LUNGS: Biapical scarring, areas of spiculation in the apices, the findings are indeterminate. Scarring can assume this appearance. Spiculated masses, primary neoplasm of the lungs could also assume this appearance. Scarring at the lung bases trace pleural effusions. MEDIASTINUM: Unremarkable thoracic aorta. No aneurysm. Cardiomegaly. No evidence of acute, significant cardiovascular disease. Mildly dilated main pulmonary artery 3.4 cm. No lymphadenopathy. . PLEURA: The correlate to findings on recent chest radiographs defect represents fluid in the major fissure. There is no discrete infiltrate in the right lung. BONES: No fracture. No destructive lesion. UPPER ABDOMEN: Cholelithiasis without CT evidence of acute cholecystitis. OTHER FINDINGS: None. IMPRESSION: Tech CT correlate to findings on recent chest x-rays status loculated fluid in the major fissure. Biapical scarring is likely accounting for findings in the apices. Neoplastic process ease are much less likely considerations. Cholelithiasis without CT evidence of acute cholecystitis.
--- NOTE | 2017-04-03 13:43 | CARD ---
APPROVED REPORT EXAM: Two-dimensional and M-mode echocardiogram with Doppler and color Doppler. Other Information Quality : GoodRhythm : NSR INDICATION CVA/TIA RISK FACTORS Hypertension Hyperlipidemia M-Mode DIMENSIONS Left Atrium (MM)4.37 (2.5-4.0cm)Aortic Root3.32 (2.2-3.7cm) Aortic Cusp Exc.2.19 (1.5-2.0cm) Aortic Valve AoV Peak Yawkzyaz796.1cm/Rito Peak GR.6mmHgAI P 1/2 [id number] Mitral Valve MV E Natadhcs89.5cm/sMV A Dufhowka76.2cm/sE/A ratio2.6 TDI E/Lateral E'0.0E/Medial E'0.0 Tricuspid Valve TR Peak [id number]/sTR Peak Gr.[id number] LEFT VENTRICLE The left ventricle is normal size. There is moderate concentric left ventricular hypertrophy. The Ejection Fraction is 55-60%. There is normal LV segmental wall motion. The left atrial pressure is mildly elevated. RIGHT VENTRICLE The right ventricle is normal size. The right ventricular systolic function is normal. ATRIA The left atrium is moderately dilated. The right atrium size is normal. The interatrial septum is intact with no evidence for an atrial septal defect. AORTIC VALVE The aortic valve is normal in structure. There is trace aortic regurgitation. MITRAL VALVE The mitral valve is normal in structure. Mitral regurgitation is mild. TRICUSPID VALVE The tricuspid valve is normal in structure. There is mild to moderate tricuspid regurgitation. Right ventricular systolic pressure is estimated at 58 mmHg. There is moderate pulmonary hypertension. PULMONIC VALVE The pulmonary valve is normal in structure. There is trace pulmonic valvular regurgitation. GREAT VESSELS The aortic root is normal in size. The IVC is normal in size and collapses >50% with inspiration. PERICARDIAL EFFUSION There is no pericardial effusion. <Conclusion> m mode is not available for lv. The left ventricle is normal size. There is moderate concentric left ventricular hypertrophy. The Ejection Fraction is 55-60%. The left atrial pressure is mildly elevated. The left atrium is moderately dilated. Mitral regurgitation is mild. There is mild to moderate tricuspid regurgitation. Right ventricular systolic pressure is estimated at 58 mmHg. There is moderate pulmonary hypertension.
== END 2017-04-03 14:58 | disposition home or self-care (01) | DRG 69 ==
LOC: C.ER 23:27 → C.9E 03-31 00:29 → C.6T 03-31 16:48
PROVIDERS: ADMIT Internal Medicine Nephrology; ATTEND Internal Medicine Nephrology
DX: G45.9 Transient cerebral ischemic attack, unspecified (principal); G45.3 Amaurosis fugax; E11.9 Type 2 diabetes mellitus without complications; I10 Essential (primary) hypertension; M19.90 Unspecified osteoarthritis, unspecified site; E78.00 Pure hypercholesterolemia, unspecified

== ENCOUNTER 2018-01-23 18:49 | Inpatient (IN) | payer MEDICARE, OTHER ==
[2018-01-23 18:50] VITALS: BMI 29.0
[2018-01-23] MEDS ORDERED: Sodium Chloride 0.9% 1,000 ML IV ONE ×2 (20:12→23:12)
--- NOTE | 2018-01-23 20:12 | C.PDOC ---
History Of Present Illness 77 y/o male presents to ED c/o diffuse crampy abdominal pain worse in the periumbilical region for the last 5-6 hours. Denies n/v/d, chest pain, palpitations, or fever. Time Seen by Provider: 01/23/18 20:12 Chief Complaint (Nursing): Abdominal Pain History Per: Patient History/Exam Limitations: no limitations Onset/Duration Of Symptoms: Hrs (6) Current Symptoms Are (Timing): Still Present Severity: Severe Pain Scale Rating Of: 8 Location Of Pain/Discomfort: Periumbilical Radiation Of Pain To:: None Quality Of Discomfort: Cramping Associated Symptoms: denies: Fever, Chills, Nausea, Vomiting, Diarrhea, Loss Of Appetite, Back Pain, Chest Pain, Constipation, Urinary Symptoms Exacerbating Factors: None Alleviating Factors: None Recent travel outside of the [place]: No Additional History Per: Patient Past Medical History Reviewed: Historical Data, Nursing Documentation, Vital Signs Vital Signs: Last Vital Signs Temp 102.7 F H 01/24/18 00:06 Pulse 88 01/24/18 00:06 Resp 18 01/24/18 00:06 BP 132/71 01/24/18 00:06 Pulse Ox 99 01/24/18 00:06 - Medical History PMH: Arthritis, HTN, Hypercholesterolemia (NO MED ) Denies: Hyperthyroidism, Hypothyroidism, Chronic Kidney Disease Family History: States: Unknown Family Hx - Social History Hx Alcohol Use: No Hx Substance Use: No - Immunization History Hx Tetanus Toxoid Vaccination: No Hx Influenza Vaccination: No Review Of Systems Constitutional: Positive for: Fever, Malaise. Negative for: Chills Cardiovascular: Negative for: Chest Pain, Palpitations Respiratory: Negative for: Cough, Shortness of Breath Gastrointestinal: Positive for: Abdominal Pain. Negative for: Nausea, Vomiting , Diarrhea, Constipation Genitourinary: Negative for: Dysuria, Frequency, Hematuria Musculoskeletal: Negative for: Neck Pain, Back Pain Skin: Negative for: Rash, Bruising Neurological: Negative for: Headache, Dizziness Psych: Negative for: Anxiety Physical Exam - Physical Exam Appears: Non-toxic Skin: Warm, Dry, No Rash Head: Normacephalic Eye(s): bilateral: Normal Inspection Oral Mucosa: Dry Neck: Trachea Midline, Supple Chest: Symmetrical Cardiovascular: Rhythm Regular Respiratory: No Accessory Muscle Use, No Rales, No Rhonchi, No Wheezing Gastrointestinal/Abdominal: Soft, Tenderness (periumbilical), Distention (mild) , Guarding (voluntary), No Rebound Back: Normal Inspection Extremity: Normal ROM Extremity: Bilateral: Atraumatic Pulses: Left Dorsalis Pedis: Normal, Right Dorsalis Pedis: Normal Neurological/Psych: Oriented x3 Gait: Steady ED Course And Treatment - Laboratory Results Result Diagrams: 01/23/18 20:22 01/23/18 20:22 ECG: Interpreted By Me, Viewed By Me ECG Rhythm: Sinus Rhythm (75), Nonspecific Changes O2 Sat by Pulse Oximetry: 99 Pulse Ox Interpretation: Normal - Radiology CXR: Interpreted by Me, Viewed By Me CXR Interpretation: No: Infiltrates, Fracture, Pnemothorax - CT Scan/US CT A/P Other Rad Studies (CT/US): Interpreted By Me, Read By Radiologist CT/US Interpretation: EXAM: CT Abdomen and Pelvis With Intravenous Contrast. EXAM DATE/TIME: Examination ordered 01/23/2018 8:35 PM. Image number total count reviewed 515. CLINICAL HISTORY: The patient is 77 years old and is male ; Pain; Abdominal pain; Periumbilical; Additional info: Periumbilical severe pain Facility exam id and description: Ct_abdpelciv abd pelvis iv contrast only. TECHNIQUE: Axial computed tomography images of the abdomen and pelvis with intravenous contrast. All CT. scans at this facility use one or more dose reduction techniques, viz.: automated exposure control;. ma/kV adjustment per patient size (including targeted exams where dose is matched to indication; i.e. head); or iterative reconstruction technique. Coronal and sagittal reformatted images were created and reviewed. CONTRAST: 100 mL of OMNIPAQUE 300 administered intravenously. COMPARISON: No relevant prior studies available. FINDINGS: LIMITATIONS: Lack of portal venous phase enhancement and endogenous fat contrast somewhat. limits the exam. There is also a lack of oral contrast. LOWER THORAX: There is marked cardiomegaly with moderate bilateral pleural effusions noted. There is LEFT ventricular hypertrophy. There is interstitial thickening at the lung bases suggesting. pulmonary edema. ABDOMEN: LIVER: Prominence of the intrahepatic veins and intrahepatic IVC could be related to tricuspid. regurgitation. GALLBLADDER AND BILE DUCTS: There is a large gallstone in the gallbladder with gallbladder. distention although NO wall thickening on CT. PANCREAS: There are fatty involutional changes of the pancreas. NO findings to suggest. pancreatitis. SPLEEN: Unremarkable. No splenomegaly. No splenic lesion noted. ADRENALS: Unremarkable. No mass. KIDNEYS AND URETERS: There is cortical thinning along with low-attenuation in the upper pole of. the LEFT kidney and this could represent a somewhat indistinct but possibly wedge-shaped subacute. infarct. It could also represent a more chronic infarct. Additionally, acute pyelonephritis may also. have this appearance, since the scan is in the arterial phase of imaging only and not the. nephrographic phase. Correlate with urinalysis and consider immediately rescanning the patient at. this time. STOMACH AND BOWEL: There is an abundant amount of stool within the colonic lumen. No obstruction. No mucosal thickening. APPENDIX: No findings to suggest acute appendicitis. PELVIS: BLADDER: The urinary bladder is unremarkable. REPRODUCTIVE: The prostate gland is enlarged. ABDOMEN and PELVIS: INTRAPERITONEAL SPACE: There is mild ascites in the RIGHT subhepatic region. Mild free fluid. is noted in the LEFT pelvis as well. This is an abnormal finding in a male patient. Etiology is unclear. No free air. BONES/JOINTS: There are degenerative changes of the spine. No acute fracture. No dislocation. SOFT TISSUES: Unremarkable. VASCULATURE: See above. LYMPH NODES : Unremarkable. No significant retroperitoneal or pelvic lymphadenopathy. IMPRESSION: 1. There is cortical thinning along with low-attenuation in the upper pole of the LEFT kidney and this. could represent a somewhat indistinct but possibly wedge-shaped subacute infarct. It could also. represent a more chronic infarct. Additionally, acute pyelonephritis may also have this appearance,. since the scan is in the arterial phase of imaging only and not the nephrographic phase. Correlate. with urinalysis and consider immediately rescanning the patient at this time. 2. There is mild ascites in the RIGHT subhepatic region. Mild free fluid is noted in the LEFT pelvis as. well. This is an abnormal finding in a male patient. Etiology is unclear but may be secondary to the. above. Thank you for allowing us to participate in the care of your patient. Dictated and Authenticated by: Adria Lopez MD. 01/23/2018 10 :41 PM Eastern Time ([place] & [place]) Critical Care Time - Critical Care Note Total Time (in mins): 30 Documented critical care: time excludes all time spent performing seperately billable procedures. Medical Decision Making Medical Decision Making: Plan: Blood work Urinalysis Abd & Pelvis CT CXR/EKG Morphine, Pepcid, Toradol, Zofran, IV fluids Disposition Discussed With : Tej Wilson Comment: accepted the pt on his service and took over the care at12:18 AM Doctor Will See Patient In The: Hospital Counseled Patient/Family Regarding: Studies Performed, Diagnosis - Disposition Disposition: HOSPITALIZED Disposition Time: 20:12 Condition: GUARDED Forms: [facility] ([place]) - POA Present On Arrival: Poor Glycemic Control - Clinical Impression Clinical Impression: Abdominal pain, CHF (congestive heart failure) - Scribe Statement The provider has reviewed the documentation as recorded by the Scribe John Wilson All medical record entries made by the Scribe were at my direction and personally dictated by me. I have reviewed the chart and agree that the record accurately reflects my personal performance of the history, physical exam, medical decision making, and the department course for this patient. I have also personally directed, reviewed, and agree with the discharge instructions and disposition.
[2018-01-23] MEDS ORDERED: Sodium Chloride 0.9% 1,000 ML ONE (20:26)
[2018-01-23 20:28] LABS: BASO % 0.5 % (0.0-2.0); EOS % 0.2 % (0.0-4.0); HEMOGLOBIN 12.2 g/dL (12.0-18.0); LYMPH # 0.8 K/uL (1.0-4.3); LYMPH % 15.1 % (20.0-40.0); MEAN CELL VOLUME 89.7 fL (80.0-94.0); MEAN CORPUSCULAR HGB CONC 33.5 g/dL (33.0-37.0); MEAN PLATELET VOLUME 8.9 fL (7.2-11.7); MONO # 0.4 K/uL (0.0-0.8); MONO % 7.5 % (0.0-10.0); NEUT # 4.1 K/uL (1.8-7.0); NEUT % 76.7 % (50.0-75.0); RBC 4.06 Mil/uL (4.40-5.90); RED CELL DISTRIBUTION WIDTH 14.1 % (11.5-14.5); WHITE BLOOD COUNT 5.3 K/uL (4.8-10.8)
[2018-01-23 20:40] LABS: CALCIUM 8.8 mg/dl (8.6-10.4); GFR AFRICAN-AMERICAN > 60; GFR NON-AFRICAN AMERICAN > 60; LIPASE 37 U/L (23-300)
[2018-01-23 20:41] LABS: ALB/GLOB RATIO 1.1 (1.0-2.1); ALBUMIN 3.6 g/dL (3.5-5.0); ALT/SGPT 40 U/L (21-72); AST/SGOT 39 U/L (17-59); BLOOD UREA NITROGEN 16 mg/dL (9-20)
[2018-01-23 20:43] LABS: INR 1.2; PROTHROMBIN TIME 13.6 SECONDS (9.7-12.2)
[2018-01-23] MEDS ORDERED: Iohexol 300 100 ML IJ ONE (21:00)
--- NOTE | 2018-01-23 22:41 | CT ---
EXAM: CT Abdomen and Pelvis With Intravenous Contrast EXAM DATE/TIME: Examination ordered 01/23/2018 8:35 PM. Image number total count reviewed 515 CLINICAL HISTORY: The patient is 77 years old and is male; Pain; Abdominal pain; Periumbilical; Additional info: Periumbilical severe pain Facility exam id and description: Ct abdpelciv abd pelvis iv contrast only TECHNIQUE: Axial computed tomography images of the abdomen and pelvis with intravenous contrast. All CT scans at this facility use one or more dose reduction techniques, viz.: automated exposure control; ma/kV adjustment per patient size (including targeted exams where dose is matched to indication; i.e. head); or iterative reconstruction technique. Coronal and sagittal reformatted images were created and reviewed. CONTRAST: 100 mL of OMNIPAQUE 300 administered intravenously. COMPARISON: No relevant prior studies available. FINDINGS: LIMITATIONS: Lack of portal venous phase enhancement and endogenous fat contrast somewhat limits the exam. There is also a lack of oral contrast. LOWER THORAX: There is marked cardiomegaly with moderate bilateral pleural effusions noted. There is LEFT ventricular hypertrophy. There is interstitial thickening at the lung bases suggesting pulmonary edema. ABDOMEN: LIVER: Prominence of the intrahepatic veins and intrahepatic IVC could be related to tricuspid regurgitation. GALLBLADDER AND BILE DUCTS: There is a large gallstone in the gallbladder with gallbladder distention although NO wall thickening on CT. PANCREAS: There are fatty involutional changes of the pancreas. NO findings to suggest pancreatitis. SPLEEN: Unremarkable. No splenomegaly. No splenic lesion noted. ADRENALS: Unremarkable. No mass. KIDNEYS AND URETERS: There is cortical thinning along with low-attenuation in the upper pole of the LEFT kidney and this could represent a somewhat indistinct but possibly wedge-shaped subacute infarct. It could also represent a more chronic infarct. Additionally, acute pyelonephritis may also have this appearance, since the scan is in the arterial phase of imaging only and not the nephrographic phase. Correlate with urinalysis and consider immediately rescanning the patient at this time. STOMACH AND BOWEL: There is an abundant amount of stool within the colonic lumen. No obstruction. No mucosal thickening. APPENDIX: No findings to suggest acute appendicitis. PELVIS: BLADDER: The urinary bladder is unremarkable. REPRODUCTIVE: The prostate gland is enlarged. ABDOMEN and PELVIS: INTRAPERITONEAL SPACE: There is mild ascites in the RIGHT subhepatic region. Mild free fluid is noted in the LEFT pelvis as well. This is an abnormal finding in a male patient. Etiology is unclear. No free air. BONES/JOINTS: There are degenerative changes of the spine. No acute fracture. No dislocation. SOFT TISSUES: Unremarkable. VASCULATURE: See above. LYMPH NODES: Unremarkable. No significant retroperitoneal or pelvic lymphadenopathy. IMPRESSION: 1. There is cortical thinning along with low-attenuation in the upper pole of the LEFT kidney and this could represent a somewhat indistinct but possibly wedge-shaped subacute infarct. It could also represent a more chronic infarct. Additionally, acute pyelonephritis may also have this appearance, since the scan is in the arterial phase of imaging only and not the nephrographic phase. Correlate with urinalysis and consider immediately rescanning the patient at this time. 2. There is mild ascites in the RIGHT subhepatic region. Mild free fluid is noted in the LEFT pelvis as well. This is an abnormal finding in a male patient. Etiology is unclear but may be secondary to the above.
[2018-01-24] MEDS ORDERED: Piperacillin/Tazobact 3.375 gm 100 ML IVPB STA (00:05)
[2018-01-24] MEDS ORDERED: Piperacillin/Tazobact 3.375 gm 100 ML IVPB ONE (00:10)
[2018-01-24] MEDS ORDERED: Vancomycin 1 GM 1 GM/250 ML BAG IVPB SCH (00:15)
[2018-01-24 00:35] LABS: URINE BACTERIA RARE (<OCC); URINE BILIRUBIN NEGATIVE (NEGATIVE); URINE BLOOD NEGATIVE (NEGATIVE); URINE CLARITY Clear (Clear); URINE COLOR Yellow (YELLOW); URINE GLUCOSE (UA) NORMAL (Normal); URINE LEUKOCYTE ESTERASE NEG Leu/uL (Negative); URINE NITRATE NEGATIVE (NEGATIVE); URINE PROTEIN 1+ mg/dL (NEGATIVE)
[2018-01-24] MEDS ORDERED: Vancomycin 1 gm/NS 200 ml 1 GM/200 ML BAG IVPB STA (00:55)
--- NOTE | 2018-01-24 06:54 | RAD ---
Chest x-ray single frontal view History: Abdominal pain. Comparison: 03/30/2017 Findings: Biapical pleural thickening with upper lobe granulomatous changes. Bibasilar breast and nipple shadows. Nodular density at the left lung base likely represents nipple shadow. Correlation with nipple marker may be helpful. Patchy increased markings at the right lung base. Bilateral hilar prominence. Venous congestion. Linear atelectasis in the right midlung zone. Mild cardiomegaly. Tortuous aorta. Degenerative changes in the spine and shoulders. Impression: Biapical pleural thickening with upper lobe granulomatous changes. Bibasilar breast and nipple shadows. Nodular density at the left lung base likely represents nipple shadow. Correlation with nipple marker may be helpful. Patchy increased markings at the right lung base. Bilateral hilar prominence. Venous congestion. Linear atelectasis in the right midlung zone.
[2018-01-24] MEDS ORDERED: TAZOBACTAM IVPB SCH (09:45)
[2018-01-24] MEDS ORDERED: PIPERACILLIN IVPB SCH (09:45)
--- NOTE | 2018-01-24 11:19 | CP.PCM.CON ---
<Kevin Stewart - Last Filed: 01/24/18 11:14> History of Present Illness - History of Present Illness History of Present Illness: PGY5 GI Fellow Consult Note Patient is a 77yo male with PMHx significant for HTN, DM, dyslipidemia, osteoarthritis, H pylori gastritis, pandiverticulosis who presented to the ED with abdominal pain. Pain began suddenly yesterday at 2PM in the left and right lower quadrants, slowly generalizing to the entire abdomen. He became nauseated , vomiting and felt short of breath, thus he had a family member bring him to the ED for further evaluation. States that since his arrival, pain medication has helped improve his symptoms which he rates 4/10 at this time. Admits to daily BM, most recently passing stool yesterday morning without issue. Denies any hematochezia, melena, weight loss, postprandial discomfort, heartburn. Of note, patient had fever 102.7F on arrival to the ED. He had CT scan of the abdomen revealing a large gallstone, questionable left kidney wedge infarct and significant constipation. PMHx: See HPI PSHx: Denies any prior surgical interventions FHx: Discussed with patient and denies any pertinent family history Social: Quit tobacco use >45 yrs ago, rare EtOH use, no illicit drug use Endo: EGD/Colonoscopy - 12/2015 - H pylori + gastritis, hyperplastic polyp of transverse colon, pandiverticulosis 12 system ROS performed and negative except where stated. Past Patient History - Infectious Disease Hx of Infectious Diseases: None - Past Medical History & Family History Past Medical History?: Yes - Past Social History Smoking Status: Never Smoked - CARDIAC Hx Hypercholesterolemia: Yes (NO MED ) Hx Hypertension: Yes - PULMONARY Hx Respiratory Disorders: No - NEUROLOGICAL Hx Neurological Disorder: No - HEENT Hx HEENT Problems: No - RENAL Hx Chronic Kidney Disease: No - ENDOCRINE/METABOLIC Hx Hyperthyroidism: No Hx Hypothyroidism: No - HEMATOLOGICAL/ONCOLOGICAL Hx Blood Disorders: No - INTEGUMENTARY Hx Dermatological Problems: No - MUSCULOSKELETAL/RHEUMATOLOGICAL Hx Arthritis: Yes - GASTROINTESTINAL Hx Gastrointestinal Disorders: No - GENITOURINARY/GYNECOLOGICAL Hx Genitourinary Disorders: No - PSYCHIATRIC Hx Substance Use: No - SURGICAL HISTORY Hx Surgeries: No - ANESTHESIA Hx Anesthesia: No Meds Allergies/Adverse Reactions: Allergies Allergy/AdvReac Type Severity Reaction Status Date / Time No Known Allergies Allergy Unverified 01/23/18 20:02 - Medications Medications: Current Medications Aspirin (Aspirin Chewable) 81 mg PO DAILY [facility] Piperacillin Sod/Tazobactam Sod (Zosyn 3.375 In Ns 100ml) 3.375 mls @ 100 mls/ hr IVPB Q6H [facility] Lisinopril (Zestril) 10 mg PO DAILY [facility] Rosuvastatin Calcium (Crestor) 5 mg PO HS [facility] Physical Exam - Constitutional Appears: Non-toxic, No Acute Distress - Eye Exam Eye Exam: EOMI, PERRL - ENT Exam ENT Exam: Mucous Membranes Moist - Respiratory Exam Respiratory Exam: Clear to Auscultation Bilateral. absent: Rales, Rhonchi, Wheezes - Cardiovascular Exam Cardiovascular Exam: RRR, +S1, +S2, Systolic Murmur - GI/Abdominal Exam GI & Abdominal Exam: Guarding, Normal Bowel Sounds, Soft, Tenderness (+Jo sign; tenderness in the LLQ/RLQ). absent: Distended, Firm, Hernia, Organomegaly , Rigid - Extremities Exam Extremities exam: Positive for: normal inspection. Negative for: pedal edema - Neurological Exam Neurological exam: Alert, Oriented x3 - Psychiatric Exam Psychiatric exam: Normal Affect, Normal Mood - Skin Skin Exam: Dry, Warm Results - Vital Signs Recent Vital Signs: Last Vital Signs Temp 97.9 F 01/24/18 09:43 Pulse 80 01/24/18 09:43 Resp 18 01/24/18 09:43 BP 116/68 01/24/18 09:43 Pulse Ox 98 01/24/18 09:43 - Labs Result Diagrams: 01/23/18 20:22 01/23/18 20:22 Labs: Laboratory Results - last 24 hr 01/23/18 01/23/18 01/23/18 20:07 20:22 20:22 WBC 5.3 RBC 4.06 L Hgb 12.2 Hct 36.4 MCV 89.7 MCH 30.0 MCHC 33.5 RDW 14.1 Plt Count 154 MPV 8.9 Neut % (Auto) 76.7 H Lymph % (Auto) 15.1 L [place] % (Auto) 7.5 Eos % (Auto) 0.2 Baso % (Auto) 0.5 Neut # (Auto) 4.1 Lymph # (Auto) 0.8 L [place] # (Auto) 0.4 Eos # (Auto) 0.0 Baso # (Auto) 0.0 PT 13.6 H INR 1.2 APTT 34 Sodium Potassium Chloride Carbon Dioxide Anion Gap BUN Creatinine Est GFR ( Amer) Est GFR (Non-Af Amer) POC Glucose (mg/dL) 174 H Random Glucose Calcium Total Bilirubin AST ALT Alkaline Phosphatase NT-Pro-B Natriuret Pep Total Protein Albumin Globulin Albumin/Globulin Ratio Lipase Urine Color Urine Clarity Urine pH Ur Specific [place] Urine Protein Urine Glucose (UA) Urine Ketones Urine Blood Urine Nitrate Urine Bilirubin Urine Urobilinogen Ur Leukocyte Esterase Urine WBC (Auto) Urine RBC (Auto) Ur Transition Epith Cell Urine Bacteria 01/23/18 01/23/18 01/24/18 20:22 23:46 00:25 WBC RBC Hgb Hct MCV MCH MCHC RDW Plt Count MPV Neut % (Auto) Lymph % (Auto) [place] % (Auto) Eos % (Auto) Baso % (Auto) Neut # (Auto) Lymph # (Auto) [place] # (Auto) Eos # (Auto) Baso # (Auto) PT INR APTT Sodium 135 Potassium 4.9 Chloride 99 Carbon Dioxide 24 Anion Gap 17 BUN 16 Creatinine 1.1 Est GFR ( Amer) > 60 Est GFR (Non-Af Amer) > 60 POC Glucose (mg/dL) Random Glucose 155 H Calcium 8.8 Total Bilirubin 1.2 AST 39 ALT 40 Alkaline Phosphatase 135 H NT-Pro-B Natriuret Pep 3400 H Total Protein 6.8 Albumin 3.6 Globulin 3.2 Albumin/Globulin Ratio 1.1 Lipase 37 Urine Color Yellow Urine Clarity Clear Urine pH 5.0 Ur Specific [place] > 1.060 H Urine Protein 1+ H Urine Glucose (UA) Normal Urine Ketones Trace Urine Blood Negative Urine Nitrate Negative Urine Bilirubin Negative Urine Urobilinogen 2.0 Ur Leukocyte Esterase Neg Urine WBC (Auto) < 1 Urine RBC (Auto) 2 Ur Transition Epith Cell < 1 Urine Bacteria Rare 01/24/18 09:12 WBC RBC Hgb Hct MCV MCH MCHC RDW Plt Count MPV Neut % (Auto) Lymph % (Auto) [place] % (Auto) Eos % (Auto) Baso % (Auto) Neut # (Auto) Lymph # (Auto) [place] # (Auto) Eos # (Auto) Baso # (Auto) PT INR APTT Sodium Potassium Chloride Carbon Dioxide Anion Gap BUN Creatinine Est GFR ( Amer) Est GFR (Non-Af Amer) POC Glucose (mg/dL) 84 Random Glucose Calcium Total Bilirubin AST ALT Alkaline Phosphatase NT-Pro-B Natriuret Pep Total Protein Albumin Globulin Albumin/Globulin Ratio Lipase Urine Color Urine Clarity Urine pH Ur Specific [place] Urine Protein Urine Glucose (UA) Urine Ketones Urine Blood Urine Nitrate Urine Bilirubin Urine Urobilinogen Ur Leukocyte Esterase Urine WBC (Auto) Urine RBC (Auto) Ur Transition Epith Cell Urine Bacteria Assessment & Plan - Assessment and Plan (Free Text) Assessment: Patient is a 77yo male with PMHx significant for HTN, DM, dyslipidemia, osteoarthritis, H pylori gastritis, pandiverticulosis who presented to the ED with abdominal pain -Abdominal pain, R/O acute cholecystits -Febrile illness, 102.7F on admission -Constipation -? left renal infarct noted on CT Plan: -Recommend U/S abdomen to R/O choledocolithiasis, cholecystitis -CT and blood work reviewed -Agree with broad spectrum antibiotic coverage -Check blood/urine cultures -Consider surgical evaluation pending U/S findings -Miralax 17g PO QD -Liquid diet for now - Date & Time Date: 01/24/18 Time: 10:40 <Lopez Florentino - Last Filed: 01/24/18 11:31> Meds - Medications Medications: Current Medications Aspirin (Aspirin Chewable) 81 mg PO DAILY [facility] Piperacillin Sod/Tazobactam Sod (Zosyn 3.375 In Ns 100ml) 3.375 mls @ 100 mls/ hr IVPB Q6H [facility] Lisinopril (Zestril) 10 mg PO DAILY [facility] Rosuvastatin Calcium (Crestor) 5 mg PO HS [facility] Results - Vital Signs Recent Vital Signs: Last Vital Signs Temp 97.9 F 01/24/18 09:43 Pulse 80 01/24/18 09:43 Resp 18 01/24/18 09:43 BP 116/68 01/24/18 09:43 Pulse Ox 98 01/24/18 09:43 - Labs Result Diagrams: 01/23/18 20:22 01/23/18 20:22 Labs: Laboratory Results - last 24 hr 01/23/18 01/23/18 01/23/18 20:07 20:22 20:22 WBC 5.3 RBC 4.06 L Hgb 12.2 Hct 36.4 MCV 89.7 MCH 30.0 MCHC 33.5 RDW 14.1 Plt Count 154 MPV 8.9 Neut % (Auto) 76.7 H Lymph % (Auto) 15.1 L [place] % (Auto) 7.5 Eos % (Auto) 0.2 Baso % (Auto) 0.5 Neut # (Auto) 4.1 Lymph # (Auto) 0.8 L [place] # (Auto) 0.4 Eos # (Auto) 0.0 Baso # (Auto) 0.0 PT 13.6 H INR 1.2 APTT 34 Sodium Potassium Chloride Carbon Dioxide Anion Gap BUN Creatinine Est GFR ( Amer) Est GFR (Non-Af Amer) POC Glucose (mg/dL) 174 H Random Glucose Calcium Total Bilirubin AST ALT Alkaline Phosphatase NT-Pro-B Natriuret Pep Total Protein Albumin Globulin Albumin/Globulin Ratio Lipase Urine Color Urine Clarity Urine pH Ur Specific [place] Urine Protein Urine Glucose (UA) Urine Ketones Urine Blood Urine Nitrate Urine Bilirubin Urine Urobilinogen Ur Leukocyte Esterase Urine WBC (Auto) Urine RBC (Auto) Ur Transition Epith Cell Urine Bacteria 01/23/18 01/23/18 01/24/18 20:22 23:46 00:25 WBC RBC Hgb Hct MCV MCH MCHC RDW Plt Count MPV Neut % (Auto) Lymph % (Auto) [place] % (Auto) Eos % (Auto) Baso % (Auto) Neut # (Auto) Lymph # (Auto) [place] # (Auto) Eos # (Auto) Baso # (Auto) PT INR APTT Sodium 135 Potassium 4.9 Chloride 99 Carbon Dioxide 24 Anion Gap 17 BUN 16 Creatinine 1.1 Est GFR ( Amer) > 60 Est GFR (Non-Af Amer) > 60 POC Glucose (mg/dL) Random Glucose 155 H Calcium 8.8 Total Bilirubin 1.2 AST 39 ALT 40 Alkaline Phosphatase 135 H NT-Pro-B Natriuret Pep 3400 H Total Protein 6.8 Albumin 3.6 Globulin 3.2 Albumin/Globulin Ratio 1.1 Lipase 37 Urine Color Yellow Urine Clarity Clear Urine pH 5.0 Ur Specific [place] > 1.060 H Urine Protein 1+ H Urine Glucose (UA) Normal Urine Ketones Trace Urine Blood Negative Urine Nitrate Negative Urine Bilirubin Negative Urine Urobilinogen 2.0 Ur Leukocyte Esterase Neg Urine WBC (Auto) < 1 Urine RBC (Auto) 2 Ur Transition Epith Cell < 1 Urine Bacteria Rare 01/24/18 09:12 WBC RBC Hgb Hct MCV MCH MCHC RDW Plt Count MPV Neut % (Auto) Lymph % (Auto) [place] % (Auto) Eos % (Auto) Baso % (Auto) Neut # (Auto) Lymph # (Auto) [place] # (Auto) Eos # (Auto) Baso # (Auto) PT INR APTT Sodium Potassium Chloride Carbon Dioxide Anion Gap BUN Creatinine Est GFR ( Amer) Est GFR (Non-Af Amer) POC Glucose (mg/dL) 84 Random Glucose Calcium Total Bilirubin AST ALT Alkaline Phosphatase NT-Pro-B Natriuret Pep Total Protein Albumin Globulin Albumin/Globulin Ratio Lipase Urine Color Urine Clarity Urine pH Ur Specific [place] Urine Protein Urine Glucose (UA) Urine Ketones Urine Blood Urine Nitrate Urine Bilirubin Urine Urobilinogen Ur Leukocyte Esterase Urine WBC (Auto) Urine RBC (Auto) Ur Transition Epith Cell Urine Bacteria Attending/Attestation - Attestation I have personally seen and examined this patient.: Yes I have fully participated in the care of the patient.: Yes I have reviewed all pertinent clinical information: Yes Notes (Text): 01/24/18 11:25 I have seen and examined patient with GI fellow. Agree with above documentation with the following additions. In brief, this is a 77 year old male with history of DM, HTN, hyperlipidemia who presents to hospital with complaint of abdominal pain. He describes sudden onset generalized discomfort, 6/10 intensity which started yesterday with radiation to RL/RUQ. This was associated with nausea and one episode of non-bloody emesis. Prior to this he was in usual state of health. He reports recent constipation with straining during defecation but otherwise denies weight loss or rectal bleeding. He was noted to be febrile on arrival to hospital. He had an EGD/colonoscopy in December 2015 which showed gardner diverticulosis, helicobacter pylori associated gastritis. Review of vitals from today are normal. DM / HTN Hyperlipidemia Constipation Abdominal pain, fever (tmax of 102.7) CT imaging reviewed by me showing fecal retention, cholelithiasis, ?renal infarct - Liquid diet as tolerated - Obtain abdominal US, r/o cholecystitis - Follow up blood culture results - LFTs normal, continue to monitor - Initiate bowel regimen for treatment of constipation - Continue with antibiotic therapy - Will continue to monitor patient clinical course
[2018-01-24 12:01] LABS: BASO % 0.4 % (0.0-2.0); HEMOGLOBIN 12.2 g/dL (12.0-18.0); LYMPH # 0.7 K/uL (1.0-4.3); LYMPH % 5.8 % (20.0-40.0); MEAN CELL VOLUME 90.3 fL (80.0-94.0); MEAN CORPUSCULAR HEMOGLOBIN 29.9 pg (27.0-31.0); MEAN CORPUSCULAR HGB CONC 33.1 g/dL (33.0-37.0); MEAN PLATELET VOLUME 8.9 fL (7.2-11.7); MONO # 0.6 K/uL (0.0-0.8); NEUT # 10.3 K/uL (1.8-7.0); NEUT % 88.8 % (50.0-75.0); PLATELET COUNT 152 K/uL (130-400); RBC 4.07 Mil/uL (4.40-5.90); RED CELL DISTRIBUTION WIDTH 13.9 % (11.5-14.5); WHITE BLOOD COUNT 11.6 K/uL (4.8-10.8)
[2018-01-24 12:12] LABS: ALB/GLOB RATIO 1.1 (1.0-2.1); ALBUMIN 3.4 g/dL (3.5-5.0); CALCIUM 8.3 mg/dl (8.6-10.4)
[2018-01-24] MEDS: POLYETHYLENE GLYCOL 3350 17 GM/Dose PACKET PO SCH (12:14)
[2018-01-24 12:42] LABS: ANISOCYTOSIS SLIGHT; BANDS 15 % (0-2); LYMPHOCYTE 7 % (20-40); MONOCYTE 4 % (0-10); NEUTROPHIL 74 % (50-75); PLATELET ESTIMATE NORMAL (NORMAL); TOTAL CELLS COUNTED 100
[2018-01-24 12:43] LABS: HYPOCHROMIC SLIGHT; POLYCHROMIC SLIGHT; TOXIC GRANULATION PRESENT
--- NOTE | 2018-01-24 14:25 | US ---
Abdominal ultrasound History: Abdominal pain. Comparison: CT scan dated 01/23/2018 Technique: Real-time sonography was performed through the abdomen. Findings: Liver: 16 centimeters in length. Prominent. Increased echogenicity suggestive for hepatic parenchymal disease versus fatty infiltration. Clinical correlation. Perihepatic ascites noted. Gallbladder: Cholelithiasis and sludge noted. Gallbladder wall is thickened measuring up 4.8 millimeters. Associated wall edema. Negative sonographic Jo's sign. Common bile duct measures 3 millimeters, within normal limits. Limited visualization of the pancreas. Spleen measures 10.4 centimeters in length, mildly prominent. Visualized aorta is preserved. Pulsatile bidirectional flow of the portal vein. Clinical correlation. Limited visualization of the aorta. Right kidney: 9.8 x 4.6 x 4.9 centimeters. Increased echogenicity of the renal parenchymal cortex suggestive for medical renal disease. No calculi or hydronephrosis. Left kidney: 9.8 x 5.2 x 5.0 centimeters. Increased echogenicity of the renal parenchymal cortex suggestive for medical renal disease. Focal area of low attenuation within the upper pole seen on recent CT scan was not as well delineated on this study. Lower pole hypoechoic cyst measuring 8 x 8 x 9 millimeters. Impression: 1. Cholelithiasis with gallbladder sludge with associated gallbladder wall thickening and edema. Underlying cholecystitis cannot entirely be excluded. Clinical correlation. 2. Prominent liver measuring up to 16 centimeters in length with increased echogenicity suggestive for fatty infiltration versus hepatic parenchymal disease. Clinical correlation. 3. Pulsatile bidirectional flow of the portal vein. Clinical correlation. 4. Limited visualization of the pancreas and aorta. 5. Increased echogenicity of the bilateral renal parenchymal cortices suggestive for medical renal disease. 6. 9 millimeter left renal cyst. 7. Hypoattenuated focus in the upper pole of the left kidney on the prior CT scan was not as well appreciated on the current study. 8. Abdominal ascites.
--- NOTE | 2018-01-24 16:56 | CP.PCM.HP ---
Past Patient History - Infectious Disease Hx of Infectious Diseases: None - Past Medical History & Family History Past Medical History?: Yes - Past Social History Smoking Status: Never Smoked - CARDIAC Hx Hypercholesterolemia: Yes (NO MED ) Hx Hypertension: Yes - PULMONARY Hx Respiratory Disorders: No - NEUROLOGICAL Hx Neurological Disorder: No - HEENT Hx HEENT Problems: No - RENAL Hx Chronic Kidney Disease: No - ENDOCRINE/METABOLIC Hx Hyperthyroidism: No Hx Hypothyroidism: No - HEMATOLOGICAL/ONCOLOGICAL Hx Blood Disorders: No - INTEGUMENTARY Hx Dermatological Problems: No - MUSCULOSKELETAL/RHEUMATOLOGICAL Hx Arthritis: Yes - GASTROINTESTINAL Hx Gastrointestinal Disorders: No - GENITOURINARY/GYNECOLOGICAL Hx Genitourinary Disorders: No - PSYCHIATRIC Hx Substance Use: No - SURGICAL HISTORY Hx Surgeries: No - ANESTHESIA Hx Anesthesia: No Meds Allergies/Adverse Reactions: Allergies Allergy/AdvReac Type Severity Reaction Status Date / Time No Known Allergies Allergy Unverified 01/23/18 20:02 Physical Exam - Constitutional Appears: Well - Head Exam Head Exam: ATRAUMATIC, NORMAL INSPECTION, NORMOCEPHALIC - Eye Exam Eye Exam: EOMI, Normal appearance, PERRL Pupil Exam: NORMAL ACCOMODATION, PERRL - ENT Exam ENT Exam: Mucous Membranes Moist, Normal Exam - Neck Exam Neck exam: Positive for: Normal Inspection - Respiratory Exam Respiratory Exam: Decreased Breath Sounds - Cardiovascular Exam Cardiovascular Exam: REGULAR RHYTHM, +S1, +S2 - GI/Abdominal Exam GI & Abdominal Exam: Diminished Bowel Sounds, Soft - Rectal Exam Rectal Exam: Deferred Results - Vital Signs Recent Vital Signs: Last Vital Signs Temp 97.9 F 01/24/18 09:43 Pulse 80 01/24/18 09:43 Resp 18 01/24/18 09:43 BP 116/68 01/24/18 09:43 Pulse Ox 98 01/24/18 09:43 - Labs Result Diagrams: 01/24/18 11:47 01/24/18 11:47 Labs: Laboratory Results - last 24 hr 01/23/18 01/23/18 01/23/18 20:07 20:22 20:22 WBC 5.3 RBC 4.06 L Hgb 12.2 Hct 36.4 MCV 89.7 MCH 30.0 MCHC 33.5 RDW 14.1 Plt Count 154 MPV 8.9 Neut % (Auto) 76.7 H Lymph % (Auto) 15.1 L [place] % (Auto) 7.5 Eos % (Auto) 0.2 Baso % (Auto) 0.5 Neut # (Auto) 4.1 Lymph # (Auto) 0.8 L [place] # (Auto) 0.4 Eos # (Auto) 0.0 Baso # (Auto) 0.0 Neutrophils % (Manual) Band Neutrophils % Lymphocytes % (Manual) Monocytes % (Manual) Toxic Granulation Platelet Estimate Polychromasia Hypochromasia (manual) Anisocytosis (manual) PT 13.6 H INR 1.2 APTT 34 Sodium Potassium Chloride Carbon Dioxide Anion Gap BUN Creatinine Est GFR ( Amer) Est GFR (Non-Af Amer) POC Glucose (mg/dL) 174 H Random Glucose Calcium Total Bilirubin AST ALT Alkaline Phosphatase NT-Pro-B Natriuret Pep Total Protein Albumin Globulin Albumin/Globulin Ratio Lipase Urine Color Urine Clarity Urine pH Ur Specific [place] Urine Protein Urine Glucose (UA) Urine Ketones Urine Blood Urine Nitrate Urine Bilirubin Urine Urobilinogen Ur Leukocyte Esterase Urine WBC (Auto) Urine RBC (Auto) Ur Transition Epith Cell Urine Bacteria 01/23/18 01/23/18 01/24/18 20:22 23:46 00:25 WBC RBC Hgb Hct MCV MCH MCHC RDW Plt Count MPV Neut % (Auto) Lymph % (Auto) [place] % (Auto) Eos % (Auto) Baso % (Auto) Neut # (Auto) Lymph # (Auto) [place] # (Auto) Eos # (Auto) Baso # (Auto) Neutrophils % (Manual) Band Neutrophils % Lymphocytes % (Manual) Monocytes % (Manual) Toxic Granulation Platelet Estimate Polychromasia Hypochromasia (manual) Anisocytosis (manual) PT INR APTT Sodium 135 Potassium 4.9 Chloride 99 Carbon Dioxide 24 Anion Gap 17 BUN 16 Creatinine 1.1 Est GFR ( Amer) > 60 Est GFR (Non-Af Amer) > 60 POC Glucose (mg/dL) Random Glucose 155 H Calcium 8.8 Total Bilirubin 1.2 AST 39 ALT 40 Alkaline Phosphatase 135 H NT-Pro-B Natriuret Pep 3400 H Total Protein 6.8 Albumin 3.6 Globulin 3.2 Albumin/Globulin Ratio 1.1 Lipase 37 Urine Color Yellow Urine Clarity Clear Urine pH 5.0 Ur Specific [place] > 1.060 H Urine Protein 1+ H Urine Glucose (UA) Normal Urine Ketones Trace Urine Blood Negative Urine Nitrate Negative Urine Bilirubin Negative Urine Urobilinogen 2.0 Ur Leukocyte Esterase Neg Urine WBC (Auto) < 1 Urine RBC (Auto) 2 Ur Transition Epith Cell < 1 Urine Bacteria Rare 01/24/18 01/24/18 01/24/18 09:12 11:47 11:47 WBC 11.6 H D RBC 4.07 L Hgb 12.2 Hct 36.8 MCV 90.3 MCH 29.9 MCHC 33.1 RDW 13.9 Plt Count 152 MPV 8.9 Neut % (Auto) 88.8 H Lymph % (Auto) 5.8 L [place] % (Auto) 5.0 Eos % (Auto) 0.0 Baso % (Auto) 0.4 Neut # (Auto) 10.3 H Lymph # (Auto) 0.7 L [place] # (Auto) 0.6 Eos # (Auto) 0.0 Baso # (Auto) 0.0 Neutrophils % (Manual) 74 Band Neutrophils % 15 H* Lymphocytes % (Manual) 7 L Monocytes % (Manual) 4 Toxic Granulation Present Platelet Estimate Normal Polychromasia Slight Hypochromasia (manual) Slight Anisocytosis (manual) Slight PT INR APTT Sodium 134 Potassium 5.1 Chloride 97 L Carbon Dioxide 26 Anion Gap 16 BUN 24 H Creatinine 1.5 Est GFR ( Amer) 55 Est GFR (Non-Af Amer) 45 POC Glucose (mg/dL) 84 Random Glucose 217 H Calcium 8.3 L Total Bilirubin 1.7 H AST 41 ALT 47 Alkaline Phosphatase 111 NT-Pro-B Natriuret Pep Total Protein 6.6 Albumin 3.4 L Globulin 3.2 Albumin/Globulin Ratio 1.1 Lipase Urine Color Urine Clarity Urine pH Ur Specific [place] Urine Protein Urine Glucose (UA) Urine Ketones Urine Blood Urine Nitrate Urine Bilirubin Urine Urobilinogen Ur Leukocyte Esterase Urine WBC (Auto) Urine RBC (Auto) Ur Transition Epith Cell Urine Bacteria
[2018-01-24] MEDS: Piperacillin/Tazobact 3.375 GM in Sodium Chloride 0.9% 100 ML IVPB SCH (20:30)
[2018-01-25] MEDS: Piperacillin/Tazobact 3.375 GM in Sodium Chloride 0.9% 100 ML IVPB SCH ×4 (02:26→20:00)
[2018-01-25] MEDS ORDERED: Influenza Vaccine 60 mcg/0.5 mL SYR (4YR UP) IM ONE (06:40)
[2018-01-25] MEDS ORDERED: Pneumococcal 23-Valent Vaccine IM ONE (06:40)
[2018-01-25 08:16] LABS: BASO % 0.3 % (0.0-2.0); HEMOGLOBIN 11.6 g/dL (12.0-18.0); LYMPH # 1.2 K/uL (1.0-4.3); LYMPH % 10.7 % (20.0-40.0); MEAN CELL VOLUME 89.1 fL (80.0-94.0); MEAN CORPUSCULAR HEMOGLOBIN 30.3 pg (27.0-31.0); MEAN PLATELET VOLUME 8.7 fL (7.2-11.7); MONO % 8.4 % (0.0-10.0); NEUT # 9.3 K/uL (1.8-7.0); NEUT % 80.6 % (50.0-75.0); RBC 3.83 Mil/uL (4.40-5.90); RED CELL DISTRIBUTION WIDTH 14.5 % (11.5-14.5); WHITE BLOOD COUNT 11.6 K/uL (4.8-10.8)
--- NOTE | 2018-01-25 08:31 | CP.PCM.PN ---
<Kevin Stewart - Last Filed: 01/25/18 10:11> Subjective - Date & Time of Evaluation Date of Evaluation: 01/25/18 Time of Evaluation: 07:15 - Subjective Subjective: PGY5 GI Fellow Progress Note Patient seen and examined bedside this morning. The patient states that he does not have much abdominal pain but is very tender on palpation of the abdomen. He had a BM last night. No fevers overnight. Denies any other complaints. 12 system ROS performed and negative except where stated. Objective - Vital Signs/Intake and Output Vital Signs (last 24 hours): Temp Pulse Resp BP Pulse Ox 98.6 F 94 H 22 147/78 96 01/25/18 03:21 01/25/18 03:21 01/25/18 03:21 01/25/18 03:21 01/25/18 03:21 Intake and Output: 01/25/18 01/25/18 06:59 18:59 Intake Total 210 Balance 210 - Medications Medications: Current Medications Aspirin (Aspirin Chewable) 81 mg PO DAILY [facility] Last Admin: 01/24/18 11:34 Dose: 81 mg Piperacillin Sod/Tazobactam (Sod 3.375 gm/ Sodium Chloride) 100 mls @ 100 mls/ hr IVPB Q6H [facility] Last Admin: 01/25/18 08:21 Dose: 100 mls/hr Lisinopril (Zestril) 10 mg PO DAILY [facility] Last Admin: 01/24/18 11:56 Dose: 10 mg Polyethylene Glycol (Miralax) 17 gm PO DAILY [facility] Last Admin: 01/24/18 12:14 Dose: 17 gm Rosuvastatin Calcium (Crestor) 5 mg PO HS [facility] Last Admin: 01/24/18 23:36 Dose: 5 mg - Labs Labs: 01/25/18 08:06 01/24/18 11:47 PT 13.6 SECONDS (9.7-12.2) H 01/23/18 20:22 INR 1.2 01/23/18 20:22 APTT 34 SECONDS (21-34) 01/23/18 20:22 - Constitutional Appears: Non-toxic, No Acute Distress - Eye Exam Eye Exam: EOMI, PERRL - ENT Exam ENT Exam: Mucous Membranes Moist - Respiratory Exam Respiratory Exam: Clear to Ausculation Bilateral. absent: Rales, Rhonchi, Wheezes - Cardiovascular Exam Cardiovascular Exam: RRR, +S1, +S2 - GI/Abdominal Exam GI & Abdominal Exam: Guarding, Soft, Tenderness (significant in RUQ, epigastric) , Normal Bowel Sounds. absent: Distended, Firm, Rigid, Organomegaly - Extremities Exam Extremities Exam: Normal Inspection. absent: Pedal Edema - Neurological Exam Neurological Exam: Alert, Awake, Oriented x3 - Psychiatric Exam Psychiatric exam: Normal Affect, Normal Mood - Skin Skin Exam: Dry, Warm Assessment and Plan - Assessment and Plan (Free Text) Assessment: Patient is a 77yo male with PMHx significant for HTN, DM, dyslipidemia, osteoarthritis, H pylori gastritis, pandiverticulosis who presented to the ED with abdominal pain -Abdominal pain, suspect acute cholecystits -Constipation -? left renal infarct noted on CT Plan: -U/S and clinical findings suspicious for acute cholecystitis - more tender in RUQ today -Recommend surgical consultation -Continue empiric antibiotic coverage with zosyn -Blood/urine cx pending - no growth thus far -Miralax 17g PO QD <Lopez Florentino - Last Filed: 01/25/18 10:34> Objective - Vital Signs/Intake and Output Vital Signs (last 24 hours): Temp Pulse Resp BP Pulse Ox 99.7 F H 82 20 134/73 99 01/25/18 08:45 01/25/18 08:45 01/25/18 08:45 01/25/18 08:45 01/25/18 08:45 Intake and Output: 01/25/18 01/25/18 06:59 18:59 Intake Total 210 Balance 210 - Medications Medications: Current Medications Aspirin (Aspirin Chewable) 81 mg PO DAILY [facility] Last Admin: 01/25/18 10:23 Dose: 81 mg Piperacillin Sod/Tazobactam (Sod 3.375 gm/ Sodium Chloride) 100 mls @ 100 mls/ hr IVPB Q6H [facility] Last Admin: 01/25/18 08:21 Dose: 100 mls/hr Lisinopril (Zestril) 10 mg PO DAILY [facility] Last Admin: 01/25/18 10:23 Dose: 10 mg Polyethylene Glycol (Miralax) 17 gm PO DAILY [facility] Last Admin: 01/25/18 10:23 Dose: 17 gm Rosuvastatin Calcium (Crestor) 5 mg PO HS [facility] Last Admin: 01/24/18 23:36 Dose: 5 mg - Labs Labs: 01/25/18 08:06 01/25/18 08:06 PT 13.6 SECONDS (9.7-12.2) H 01/23/18 20:22 INR 1.2 01/23/18 20:22 APTT 34 SECONDS (21-34) 01/23/18 20:22 Attending/Attestation - Attestation I have personally seen and examined this patient.: Yes I have fully participated in the care of the patient.: Yes I have reviewed all pertinent clinical information, including history, physical exam and plan: Yes Notes (Text): 01/25/18 10:28 I have seen and examined patient with GI fellow. No acute events overnight, he is seen resting in bed comfortably. He continues to endorse sharp abdominal pain, worse in RUQ. He otherwise denies nausea, vomiting, fever/chills. Tolerating PO liquids without difficultly. Review of vitals from today are normal. DM / HTN CHF Hyperlipidemia Abdominal pain Fever - resolved Abdominal US reviewed by me showing + abdominal smitha hepatic ascites, GB wall thickening and edema, normal caliber CBD - Liquid diet as tolerated - Continue with antibiotic therapy - Suggest surgical consultation given RUQ abdominal pain, initial fever on presentation to hospital, and radiographic findings on US - Follow up blood culture results - Recommend diagnostic paracentesis given presence of ascites - Obtain viral hepatitis panel - Will continue to monitor patient clinical course
[2018-01-25 08:48] LABS: CALCIUM 8.2 mg/dl (8.6-10.4)
[2018-01-25] MEDS: POLYETHYLENE GLYCOL 3350 17 GM/Dose PACKET PO SCH (10:23)
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
[2018-01-25] MEDS ORDERED: HYDROmorphone 0.5 mg/0.5 ml ISec IVP PRN (11:48)
[2018-01-25 13:48] LABS: HEPATITIS B SURFACE AG Negative (NEGATIVE)
[2018-01-25 13:55] LABS: HEPATITIS A IGM NEGATIVE (NEGATIVE); HEPATITIS B CORE AB NEGATIVE (NEGATIVE)
[2018-01-25 14:06] LABS: HEPATITIS C ANTIBODY NEGATIVE (NEGATIVE)
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
--- NOTE | 2018-01-25 16:27 | CP.PCM.PN ---
Subjective - Date & Time of Evaluation Date of Evaluation: 01/25/18 Time of Evaluation: 15:20 - Subjective Subjective: clinically same Objective - Vital Signs/Intake and Output Vital Signs (last 24 hours): Temp Pulse Resp BP Pulse Ox 99.7 F H 84 20 134/73 99 01/25/18 08:45 01/25/18 15:51 01/25/18 08:45 01/25/18 08:45 01/25/18 08:45 Intake and Output: 01/25/18 01/25/18 06:59 18:59 Intake Total 210 680 Output Total 600 Balance 210 80 - Medications Medications: Current Medications Aspirin (Aspirin Chewable) 81 mg PO DAILY [facility] Last Admin: 01/25/18 10:23 Dose: 81 mg Furosemide (Lasix) 40 mg PO DAILY [facility] Hydromorphone HCl (Dilaudid) 0.5 mg IVP Q6H PRN PRN Reason: Pain, severe (8-10) Piperacillin Sod/Tazobactam (Sod 3.375 gm/ Sodium Chloride) 100 mls @ 100 mls/ hr IVPB Q6H [facility] Last Admin: 01/25/18 14:25 Dose: 100 mls/hr Polyethylene Glycol (Miralax) 17 gm PO DAILY [facility] Last Admin: 01/25/18 10:23 Dose: 17 gm Rosuvastatin Calcium (Crestor) 5 mg PO HS [facility] Last Admin: 01/24/18 23:36 Dose: 5 mg - Labs Labs: 01/25/18 08:06 01/25/18 08:06 PT 13.6 SECONDS (9.7-12.2) H 01/23/18 20:22 INR 1.2 01/23/18 20:22 APTT 34 SECONDS (21-34) 01/23/18 20:22
[2018-01-26] MEDS: Piperacillin/Tazobact 3.375 GM in Sodium Chloride 0.9% 100 ML IVPB SCH ×4 (02:14→20:35)
[2018-01-26 07:43] LABS: MAGNESIUM 1.7 mg/dL (1.6-2.3)
--- NOTE | 2018-01-26 07:45 | CP.PCM.PN ---
<Kevin Stewart - Last Filed: 01/26/18 12:47> Subjective - Date & Time of Evaluation Date of Evaluation: 01/26/18 Time of Evaluation: 06:45 - Subjective Subjective: PGY5 GI Fellow Progress Note Patient seen and examined bedside this morning. The patient states that he is continuing to have 8-9/10 right sided abdominal pain. Symptoms are not exacerbated by liquid diet and worsened significantly with palpation. Denies any nausea, vomiting. No fever, chills since arrival in ED. 12 system ROS performed and negative except where stated. Objective - Vital Signs/Intake and Output Vital Signs (last 24 hours): Temp Pulse Resp BP Pulse Ox 99.5 F 81 20 113/67 98 01/25/18 23:10 01/25/18 23:10 01/25/18 23:10 01/25/18 23:10 01/25/18 23:10 Intake and Output: 01/26/18 01/26/18 06:59 18:59 Intake Total 100 Balance 100 - Medications Medications: Current Medications Aspirin (Aspirin Chewable) 81 mg PO DAILY [facility] Last Admin: 01/25/18 10:23 Dose: 81 mg Furosemide (Lasix) 40 mg PO DAILY [facility] Last Admin: 01/25/18 17:51 Dose: 40 mg Hydromorphone HCl (Dilaudid) 0.5 mg IVP Q6H PRN PRN Reason: Pain, severe (8-10) Piperacillin Sod/Tazobactam (Sod 3.375 gm/ Sodium Chloride) 100 mls @ 100 mls/ hr IVPB Q6H [facility] Last Admin: 01/26/18 02:14 Dose: 100 mls/hr Polyethylene Glycol (Miralax) 17 gm PO DAILY [facility] Last Admin: 01/25/18 10:23 Dose: 17 gm Rosuvastatin Calcium (Crestor) 5 mg PO HS [facility] Last Admin: 01/25/18 21:18 Dose: 5 mg - Labs Labs: 01/25/18 08:06 01/25/18 08:06 PT 13.6 SECONDS (9.7-12.2) H 01/23/18 20:22 INR 1.2 01/23/18 20:22 APTT 34 SECONDS (21-34) 01/23/18 20:22 - Constitutional Appears: Non-toxic, No Acute Distress - Eye Exam Eye Exam: EOMI, PERRL - ENT Exam ENT Exam: Mucous Membranes Moist - Respiratory Exam Respiratory Exam: Clear to Ausculation Bilateral. absent: Rales, Rhonchi, Wheezes - Cardiovascular Exam Cardiovascular Exam: RRR, +S1, +S2 - GI/Abdominal Exam GI & Abdominal Exam: Guarding, Soft, Tenderness (RUQ, epigastric), Normal Bowel Sounds. absent: Distended, Firm, Rigid, Hernia, Organomegaly - Extremities Exam Extremities Exam: Normal Inspection. absent: Pedal Edema - Neurological Exam Neurological Exam: Alert, Awake, Oriented x3 - Psychiatric Exam Psychiatric exam: Normal Affect, Normal Mood - Skin Skin Exam: Dry, Warm Assessment and Plan - Assessment and Plan (Free Text) Assessment: Patient is a 77yo male with PMHx significant for HTN, DM, dyslipidemia, osteoarthritis, H pylori gastritis, pandiverticulosis who presented to the ED with abdominal pain -Abdominal pain, suspect acute cholecystits -Perihepatic ascites on imaging -Constipation -? left renal infarct noted on CT Plan: -Continued RUQ/epigastric abdominal pain; not exacerbated with liquid diet -Patient has not requested any opiates PRN -U/S reviewed showing cholelithiasis, thickened GB wall and some edema, suspicious for acute cholecystitis in this clinical setting -Case discussed with educational institution president - MRCP ordered -MRCP was reviewed and negative for choledocolithiasis -Empiric antibiotic coverage with zosyn -Cultures with NGTD -Ascites noted on both CT and U/S - recommend diagnostic paracentesis with fluid analysis including cell count, albumin, total protein, C&S to help determine etiology - possibly cardiac in setting of BNP 3400 -Check echocardiogram -Hepatitis serologies negative -Miralax 17g PO QD <Pichardo,Taruna - Last Filed: 01/26/18 21:25> Objective - Vital Signs/Intake and Output Vital Signs (last 24 hours): Temp Pulse Resp BP Pulse Ox 97.3 F L 76 20 158/80 H 96 01/26/18 17:17 01/26/18 17:17 01/26/18 17:17 01/26/18 17:17 01/26/18 17:17 Intake and Output: 01/26/18 01/27/18 18:59 06:59 Intake Total 1250 Output Total 150 Balance 1100 - Medications Medications: Current Medications Aspirin (Aspirin Chewable) 81 mg PO DAILY [facility] Last Admin: 01/26/18 11:23 Dose: Not Given Furosemide (Lasix) 40 mg PO DAILY [facility] Last Admin: 01/26/18 11:30 Dose: 40 mg Hydromorphone HCl (Dilaudid) 0.5 mg IVP Q3H PRN PRN Reason: Pain, severe (8-10) Piperacillin Sod/Tazobactam (Sod 3.375 gm/ Sodium Chloride) 100 mls @ 100 mls/ hr IVPB Q6H [facility] Last Admin: 01/26/18 20:35 Dose: 100 mls/hr Lactated Ringer's (Lactated Ringer's) 1,000 mls @ 100 mls/hr IV .Q10H [facility] Last Admin: 01/26/18 16:09 Dose: Not Given Ondansetron HCl (Zofran Inj) 4 mg IV Q6 PRN PRN Reason: Nausea/Vomiting Polyethylene Glycol (Miralax) 17 gm PO DAILY [facility] Last Admin: 01/26/18 11:25 Dose: Not Given Rosuvastatin Calcium (Crestor) 5 mg PO HS [facility] Last Admin: 01/25/18 21:18 Dose: 5 mg - Labs Labs: 01/25/18 08:06 01/26/18 06:58 PT 13.6 SECONDS (9.7-12.2) H 01/23/18 20:22 INR 1.2 01/23/18 20:22 APTT 34 SECONDS (21-34) 01/23/18 20:22 Attending/Attestation - Attestation I have personally seen and examined this patient.: Yes I have fully participated in the care of the patient.: Yes I have reviewed all pertinent clinical information, including history, physical exam and plan: Yes Notes (Text): 01/26/18 21:23 Patient is a 77yo male with PMHx significant for HTN, DM, dyslipidemia, osteoarthritis, H pylori gastritis, pandiverticulosis who presented to the ED with abdominal pain in setting of acute cholecystits. Sonogram reviewed showing cholelithiasis, thickened GB wall and some edema, suspicious for acute cholecystitis in this clinical setting. MRCP was reviewed and negative for choledocolithiasis. Ascites noted on both CT and U/S - recommend diagnostic paracentesis with fluid analysis including cell count, albumin, total protein, C &S to help determine etiology - possibly cardiac in setting of BNP 3400. Check echocardiogram. Hepatitis serologies negative. Miralax 17g PO QD for constipation. Further plan per surgery. No role for ERCP
--- NOTE | 2018-01-26 11:23 | CP.PCM.PN ---
Subjective - Date & Time of Evaluation Date of Evaluation: 01/26/18 Time of Evaluation: 11:20 - Subjective Subjective: still with severe RUQ pain MRCP pending Renal scan also pending Has been febrile;no nausea, vomiting now renal function about same no new events otherwise Objective - Vital Signs/Intake and Output Vital Signs (last 24 hours): Temp Pulse Resp BP Pulse Ox 99.5 F 81 20 113/67 98 01/25/18 23:10 01/25/18 23:10 01/25/18 23:10 01/25/18 23:10 01/25/18 23:10 Intake and Output: 01/26/18 01/26/18 06:59 18:59 Intake Total 100 Balance 100 - Medications Medications: Current Medications Aspirin (Aspirin Chewable) 81 mg PO DAILY [facility] Last Admin: 01/25/18 10:23 Dose: 81 mg Furosemide (Lasix) 40 mg PO DAILY [facility] Last Admin: 01/25/18 17:51 Dose: 40 mg Hydromorphone HCl (Dilaudid) 0.5 mg IVP Q6H PRN PRN Reason: Pain, severe (8-10) Piperacillin Sod/Tazobactam (Sod 3.375 gm/ Sodium Chloride) 100 mls @ 100 mls/ hr IVPB Q6H [facility] Last Admin: 01/26/18 08:16 Dose: 100 mls/hr Polyethylene Glycol (Miralax) 17 gm PO DAILY [facility] Last Admin: 01/25/18 10:23 Dose: 17 gm Rosuvastatin Calcium (Crestor) 5 mg PO HS [facility] Last Admin: 01/25/18 21:18 Dose: 5 mg - Labs Labs: 01/25/18 08:06 01/26/18 06:58 PT 13.6 SECONDS (9.7-12.2) H 01/23/18 20:22 INR 1.2 01/23/18 20:22 APTT 34 SECONDS (21-34) 01/23/18 20:22 - Constitutional Appears: In Acute Distress, Chronically Ill - Head Exam Head Exam: ATRAUMATIC, NORMAL INSPECTION - Eye Exam Eye Exam: EOMI, Normal appearance - Neck Exam Neck Exam: Normal Inspection. absent: Tenderness - Respiratory Exam Respiratory Exam: Clear to Ausculation Bilateral, NORMAL BREATHING PATTERN - Cardiovascular Exam Cardiovascular Exam: REGULAR RHYTHM, +S1 - GI/Abdominal Exam GI & Abdominal Exam: Tenderness, Normal Bowel Sounds - Extremities Exam Extremities Exam: Tenderness. absent: Normal Inspection - Neurological Exam Neurological Exam: Alert, CN II-XII Intact - Skin Skin Exam: Dry, Warm Assessment and Plan (1) KARIS (acute kidney injury) Status: Acute (2) DM type 2 (diabetes mellitus, type 2) Status: Acute (3) CHF (congestive heart failure) Status: Acute (4) Gallstone Status: Acute - Assessment and Plan (Free Text) Plan: Repeat chemistries renal scan MRCP today hold WILL I IV ABs for now
--- NOTE | 2018-01-26 11:24 | MRI ---
PROCEDURE: Magnetic Resonance Cholangiopancreatography HISTORY: Abdominal pain COMPARISON: Comparison is made to the previous CT of the abdomen and pelvis dated 01/23/2018 ultrasound of the abdomen dated 01/24/2018. TECHNIQUE: Multiplanar, multisequence MR images of the abdomen were obtained, including heavily T2 weighted MRCP images of the biliary system. Rotating maximum intensity projection images of the biliary system were generated. FINDINGS: MRCP: The common bile duct is of slightly dilated measures 8.5 millimeter. No evidence of choledocholithiasis. No intrahepatic biliary ductal dilatation. LIVER: Mild hepatomegaly is noted. No evidence of mass lesion in the liver. Mild hepatic steatosis is noted. GALLBLADDER: The gallbladder is distended. There is large gallstone measures 1.8 x 2.3 centimeter. Diffuse mild gallbladder wall thickening is noted. SPLEEN: Unremarkable. PANCREAS: Unremarkable. ADRENALS: Unremarkable. KIDNEYS: Unremarkable. AORTA: No aneurysm. ASCITES: None. OTHER FINDINGS: Small bilateral pleural effusions are again noted. IMPRESSION: Slightly dilated common bile duct measures 8.5 millimeter. No evidence of choledocholithiasis. No evidence of intrahepatic biliary ductal dilatation. Mild hepatomegaly. Distended gallbladder demonstrate mild diffuse wall thickening and contains large gallstone. Small bilateral pleural effusions.
[2018-01-26] MEDS: POLYETHYLENE GLYCOL 3350 17 GM/Dose PACKET PO SCH (11:25)
[2018-01-26] MEDS ORDERED: Lidocaine/Epinephrine 1% 1:100000 10 ML IJ ONE (13:08)
[2018-01-26] MEDS ORDERED: Bupivacaine HCl 0.25% PF (10 ml) Inj ONE (13:08)
[2018-01-26] MEDS ORDERED: Propofol 10 mg/ml Inj (20 ML) ONE (13:18)
[2018-01-26] MEDS ORDERED: Midazolam 2 MG/2 ML VIAL ONE (13:18)
[2018-01-26] MEDS ORDERED: Rocuronium 10 mg/ml (10 ml) ONE (13:20)
[2018-01-26] MEDS ORDERED: Neostigmine Methylsulfate 3mg/3ml Syringe IV ONE (14:59)
--- NOTE | 2018-01-26 15:15 | NM ---
PROCEDURE: Renal scan and flow study HISTORY: evaluate left infarct COMPARISON: 01/23/2018 CT abdomen and pelvis TECHNIQUE: 20.3 mCi technetium 99 M DTPA administered intravenously. FINDINGS: Right Kidney: Flow component: Normal flow to the right kidney Time to peak: 2.5 minutes Peak to T1/2 Peak: 7 minutes Left Kidney: Flow component: Normal flow to the left kidney Time to peak: 3.5 minutes Peak to T1/2 Peak: 6 minutes. Split Renal Function: Right kidney 56 % Left kidney 44 % IMPRESSION: Mildly asymmetric renal function right greater than left (56% versus 44% of the left kidney.) Normal perfusion. No evidence of obstructive uropathy.
[2018-01-26] MEDS ORDERED: HYDROmorphone 0.5 mg/0.5 ml ISec IVP PRN (15:29)
--- NOTE | 2018-01-26 15:33 | PCM.SURG1 ---
Surgeon's Initial Post Op Note - Surgeon's Notes Surgeon: Madonna Formulation Scientist: [id number] Type of Anesthesia: General Endo, Local Pre-Operative Diagnosis: Acute cholelithiasis Operative Findings: gangrenous gallbladder, see op note Post-Operative Diagnosis: Acute cholelithiasis Operation Performed: Laparoscopic cholecystectomy, drainage of perihepatic abscess Specimen/Specimens Removed: gallbladder Estimated Blood Loss: EBL {In ML}: 30 Blood Products Given: N/A Drains Used: Binu Post-Op Condition: Good Date of Surgery/Procedure: 01/26/18 Time of Surgery/Procedure: 13:20
[2018-01-26] MEDS: Lactated Ringer's 1,000 ML IV SCH (16:09)
--- NOTE | 2018-01-26 19:20 | CP.PCM.PN ---
Subjective - Date & Time of Evaluation Date of Evaluation: 01/26/18 Time of Evaluation: 14:00 - Subjective Subjective: clinically same Objective - Vital Signs/Intake and Output Vital Signs (last 24 hours): Temp Pulse Resp BP Pulse Ox 97.3 F L 76 20 158/80 H 96 01/26/18 17:17 01/26/18 17:17 01/26/18 17:17 01/26/18 17:17 01/26/18 17:17 Intake and Output: 01/26/18 01/27/18 18:59 06:59 Intake Total 1250 Output Total 150 Balance 1100 - Medications Medications: Current Medications Aspirin (Aspirin Chewable) 81 mg PO DAILY [facility] Last Admin: 01/26/18 11:23 Dose: Not Given Furosemide (Lasix) 40 mg PO DAILY [facility] Last Admin: 01/26/18 11:30 Dose: 40 mg Hydromorphone HCl (Dilaudid) 0.5 mg IVP Q3H PRN PRN Reason: Pain, severe (8-10) Piperacillin Sod/Tazobactam (Sod 3.375 gm/ Sodium Chloride) 100 mls @ 100 mls/ hr IVPB Q6H [facility] Last Admin: 01/26/18 13:40 Dose: 100 mls Lactated Ringer's (Lactated Ringer's) 1,000 mls @ 100 mls/hr IV .Q10H [facility] Last Admin: 01/26/18 16:09 Dose: Not Given Ondansetron HCl (Zofran Inj) 4 mg IV Q6 PRN PRN Reason: Nausea/Vomiting Polyethylene Glycol (Miralax) 17 gm PO DAILY [facility] Last Admin: 01/26/18 11:25 Dose: Not Given Rosuvastatin Calcium (Crestor) 5 mg PO HS [facility] Last Admin: 01/25/18 21:18 Dose: 5 mg - Labs Labs: 01/25/18 08:06 01/26/18 06:58 PT 13.6 SECONDS (9.7-12.2) H 01/23/18 20:22 INR 1.2 01/23/18 20:22 APTT 34 SECONDS (21-34) 01/23/18 20:22 - Constitutional Appears: Well - Head Exam Head Exam: ATRAUMATIC, NORMAL INSPECTION, NORMOCEPHALIC - Eye Exam Eye Exam: EOMI, Normal appearance, PERRL Pupil Exam: NORMAL ACCOMODATION, PERRL - ENT Exam ENT Exam: Mucous Membranes Moist, Normal Exam - Neck Exam Neck Exam: Full ROM, Normal Inspection. absent: Lymphadenopathy - Respiratory Exam Respiratory Exam: Decreased Breath Sounds - Cardiovascular Exam Cardiovascular Exam: REGULAR RHYTHM, +S1, +S2 - GI/Abdominal Exam GI & Abdominal Exam: Soft, Diminished Bowel Sounds - Rectal Exam Rectal Exam: Deferred
[2018-01-27] MEDS: HYDROmorphone 0.5 mg/0.5 ml ISec IVP PRN ×2 (00:44→10:57)
[2018-01-27] MEDS: Piperacillin/Tazobact 3.375 GM in Sodium Chloride 0.9% 100 ML IVPB SCH ×4 (02:00→19:54)
[2018-01-27] MEDS: Lactated Ringer's 1,000 ML IV SCH ×3 (02:00→21:40)
--- NOTE | 2018-01-27 03:06 | OP ---
PROCEDURE DATE: 01/26/2018 PREOPERATIVE DIAGNOSES: 1. Acute cholecystitis. 2. Cholelithiasis with severe leukocytosis. 3. Sepsis. POSTOPERATIVE DIAGNOSES: 1. Wblay-ki-egcakjd phlegmonous and gangrenous cholecystitis. 2. Cholelithiasis. 3. Fatty hepatic abscess. 4. Phlegmonous postinflammatory extensive adhesions. PROCEDURES DONE: 1. Laparoscopic cholecystectomy. 2. Laparoscopic extensive lysis of adhesion. 3. Laparoscopic drainage of perihepatic and pericholecystic abscess. SURGEON: Silvano Peacock MD. DIRECTOR ENTERPRISE SYSTEMS: Eugene Maynard, PGY-4 Resident. TYPE OF ANESTHESIA: General endotracheal tube anesthesia. ESTIMATED BLOOD LOSS: Around 50 mL. DRAINS: 19 Ni[place] Binu drain was placed. COMPLICATIONS: None. PATHOLOGY: Gallstone was sent to Pathology. INTRAOPERATIVE FINDINGS: The patient had extensive postinfectious adhesion with large phlegmonous mass of omentum colon attached to the necrotic gallbladder with perihepatic and pericholecystic abscess and the patient had approximately 50 mL of blood loss and on intraoperative step, this 77-year-old male was diagnosed with acute cholecystitis and cholelithiasis and the patient was consented for laparoscopic cholecystectomy possible open. After MRCP report of normal CBD, the patient was brought to the OR, placed supine on the operating table. After induction of anesthesia, abdomen was prepped and draped in usual sterile fashion. A supraumbilical transverse incision was made after incising the skin, subcutaneous tissue, and the fascia. The Thomas port was placed, pneumo was created, a #2 5 mm port was placed in mid clavicular and antiaxillary line and a 12-mm port was placed in the midline. Below costal margin, 12 mm port was introduced and gallbladder appeared to be extremely thick and covered with large phlegmonous mass of the omentum with abscess in the perihepatic as well as the pericholecystic area. First, extensive lysis of adhesion was done to identify the gallbladder from the phlegmonous mass and the gallbladder was from the colon as well as from the duodenum and perihepatic abscess as well as pericholecystic collection was drained and the calot's triangle dissection was done. Cystic duct and cystic artery were identified, clipped at 3 places and cut in between 2 clips in the gallbladder. Gallbladder was dissected free from the gallbladder fossa. There was proper hemostasis in each and every part of the procedure and after proper suction irrigation, a 19-Niuean Binu drain was placed and gallbladder was taken out through the umbilical port site and sent to the table for the pathology. All the port was taken out under vision, pneumo was deflated, umbilical port site was closed in two layers, fascia with 0 Vicryl interrupted sutures, skin with 4-0 Monocryl and vascular dressing was applied. The patient tolerated the procedure well. Count of the instrument and gauze was correct. There was no apparent complication. Silvano Peacock MD [facility]
--- NOTE | 2018-01-27 07:53 | CARD ---
APPROVED REPORT EXAM: Two-dimensional and M-mode echocardiogram with Doppler and color Doppler. Other Information Quality : GoodRhythm : INDICATION Congestive Heart Failure RISK FACTORS Hypertension Hyperlipidemia 2D DIMENSIONS IVSd1.9 (0.7-1.1cm)LVDd4.8 (3.9-5.9cm) PWd1.4 (0.7-1.1cm)LVDs4.1 (2.5-4.0cm) FS (%) 14.4 %LVEF (%)30.6 (>50%) M-Mode DIMENSIONS RVDd2.60 (2.1-3.2cm)Left Atrium (MM)4.07 (2.5-4.0cm) IVSd2.01 (0.7-1.1cm)Aortic Root3.72 (2.2-3.7cm) LVDd5.03 (4.0-5.6cm)Aortic Cusp Exc.2.05 (1.5-2.0cm) PWd1.42 (0.7-1.1cm)FS (%) 12 % LVDs4.41 (2.0-3.8cm)LVEF (%)27 (>50%) Aortic Valve AI P 1/2 [id number] Mitral Valve MV E Mqberqzw39.7cm/sMV A Bcvtbutd45.6cm/sE/A ratio1.5 TDI E/Lateral E'0.0E/Medial E'0.0 Tricuspid Valve TR Peak [id number]/sTR Peak Gr.[id number] LEFT VENTRICLE The left ventricle is normal size. There is moderate to severe concentric left ventricular hypertrophy. Left ventricle systolic function is severely impaired. The Ejection Fraction is 25-30%. There is global severe hypokinesis of the left ventricle. The left ventricular diastolic function is normal. RIGHT VENTRICLE The right ventricle is moderately dilated. There is normal right ventricular wall thickness. Systolic function is severely reduced. ATRIA The left atrium is moderately dilated. The right atrium is moderately dilated. The interatrial septum is intact with no evidence for an atrial septal defect. AORTIC VALVE The aortic valve is normal in structure. There is moderate aortic regurgitation. There is no aortic valvular stenosis. MITRAL VALVE The mitral valve is normal in structure. There is no evidence of mitral valve prolapse. There is no mitral valve stenosis. Mitral regurgitation is mild to moderate. TRICUSPID VALVE The tricuspid valve is normal in structure. There is severe tricuspid regurgitation. Right ventricular systolic pressure is estimated at 50-60 mmHg. There is moderate-severe pulmonary hypertension. PULMONIC VALVE The pulmonic valve is not well visualized. There is mild pulmonic valvular regurgitation. GREAT VESSELS The aortic root is normal in size. Dilated IVC with poor inspiration collapse is consistent with elevated right atrial pressure. PERICARDIAL EFFUSION There is no significant pericardial effusion. <Conclusion> Left ventricle systolic function is severely impaired. The Ejection Fraction is 25-30%. Hypertensive heart disease. There is moderate aortic regurgitation. Mitral regurgitation is mild to moderate. There is severe tricuspid regurgitation. There is moderate-severe pulmonary hypertension. There is mild pulmonic valvular regurgitation.
--- NOTE | 2018-01-27 08:28 | CP.PCM.PN ---
Subjective - Date & Time of Evaluation Date of Evaluation: 01/27/18 Time of Evaluation: 06:45 - Subjective Subjective: General Surgery- Dr. Peacock patient seen and examined at bedside this AM. Had urinary retention post op. Mota was inserted and had 1500cc overnight. Binu 150cc serosang fluid since post op. Abdominal pain is better. appropriately tender around incision site. Objective - Vital Signs/Intake and Output Vital Signs (last 24 hours): Temp Pulse Resp BP Pulse Ox 99.7 F H 82 20 134/82 96 01/27/18 08:11 01/27/18 08:11 01/27/18 08:11 01/27/18 08:11 01/27/18 08:11 Intake and Output: 01/27/18 01/27/18 06:59 18:59 Intake Total 1320 Output Total 1710 Balance -390 - Medications Medications: Current Medications Aspirin (Aspirin Chewable) 81 mg PO DAILY COUNT INCLUDES [facility] Last Admin: 01/26/18 11:23 Dose: Not Given Furosemide (Lasix) 40 mg PO DAILY COUNT INCLUDES [facility] Last Admin: 01/26/18 11:30 Dose: 40 mg Hydromorphone HCl (Dilaudid) 0.5 mg IVP Q3H PRN PRN Reason: Pain, severe (8-10) Last Admin: 01/27/18 00:44 Dose: 0.5 mg Piperacillin Sod/Tazobactam (Sod 3.375 gm/ Sodium Chloride) 100 mls @ 100 mls/ hr IVPB Q6H COUNT INCLUDES THE [facility] Last Admin: 01/27/18 08:00 Dose: 100 mls/hr Lactated Ringer's (Lactated Ringer's) 1,000 mls @ 100 mls/hr IV .Q10H COUNT INCLUDES THE [facility] Last Admin: 01/27/18 02:00 Dose: Not Given Ondansetron HCl (Zofran Inj) 4 mg IV Q6 PRN PRN Reason: Nausea/Vomiting Polyethylene Glycol (Miralax) 17 gm PO DAILY COUNT [facility]CLUDES [facility] Last Admin: 01/26/18 11:25 Dose: Not Given Rosuvastatin Calcium (Crestor) 5 mg PO HS COUNT INCLUDES THE [facility] Last Admin: 01/26/18 21:48 Dose: Not Given - Labs Labs: 01/25/18 08:06 01/26/18 06:58 PT 13.6 SECONDS (9.7-12.2) H 01/23/18 20:22 INR 1.2 01/23/18 20:22 APTT 34 SECONDS (21-34) 01/23/18 20:22 - Constitutional Appears: Non-toxic, No Acute Distress - Eye Exam Eye Exam: EOMI. absent: Scleral icterus - ENT Exam ENT Exam: Mucous Membranes Moist - Respiratory Exam Respiratory Exam: NORMAL BREATHING PATTERN. absent: Accessory Muscle Use, Respiratory Distress - Cardiovascular Exam Cardiovascular Exam: +S1, +S2. absent: Bradycardia, Tachycardia - GI/Abdominal Exam GI & Abdominal Exam: Soft. absent: Firm, Guarding, Rigid, Tenderness - Neurological Exam Neurological Exam: Alert, Awake, Oriented x3 - Skin Skin Exam: Intact, Warm Assessment and Plan - Assessment and Plan (Free Text) Assessment: 77M s/p laparoscopic cholecystectomy of gangrenous GB, drainage of hepatic abscess POD#1 Plan: - IVabx - diet as tolerated - pain control and anti-emetic PRN - pull mota later today; void trial - encourage OOB and IC use - Trend labs - further recs per Dr. Peacock surgical attending PGY1
[2018-01-27 08:34] LABS: BASO # 0.1 K/uL (0.0-0.2); BASO % 0.5 % (0.0-2.0); EOS % 0.1 % (0.0-4.0); LYMPH % 7.6 % (20.0-40.0); MEAN CELL VOLUME 88.9 fL (80.0-94.0); MEAN CORPUSCULAR HGB CONC 33.8 g/dL (33.0-37.0); MEAN PLATELET VOLUME 8.6 fL (7.2-11.7); MONO # 1.3 K/uL (0.0-0.8); NEUT # 10.4 K/uL (1.8-7.0); NEUT % 81.8 % (50.0-75.0); PLATELET COUNT 193 K/uL (130-400); RBC 4.32 Mil/uL (4.40-5.90); RED CELL DISTRIBUTION WIDTH 14.3 % (11.5-14.5); WHITE BLOOD COUNT 12.7 K/uL (4.8-10.8)
[2018-01-27 08:56] LABS: ALB/GLOB RATIO 0.9 (1.0-2.1); ALT/SGPT 68 U/L (21-72); AST/SGOT 99 U/L (17-59); BLOOD UREA NITROGEN 24 mg/dL (9-20); CALCIUM 7.9 mg/dl (8.6-10.4); GFR AFRICAN-AMERICAN > 60; GFR NON-AFRICAN AMERICAN 53
--- NOTE | 2018-01-27 09:19 | CP.PCM.PN ---
<Kevin Stewart - Last Filed: 01/27/18 09:22> Subjective - Date & Time of Evaluation Date of Evaluation: 01/27/18 Time of Evaluation: 06:45 - Subjective Subjective: PGy5 GI Fellow Progress Note Patient seen and examined bedside this morning. The patient states that he is feeling much better following surgery yesterday. Pain is significantly lessened. No nausea, vomiting, fever, chills overnight. Tolerating liquid diet without issue. 12 system ROS performed and negative except where stated. Objective - Vital Signs/Intake and Output Vital Signs (last 24 hours): Temp Pulse Resp BP Pulse Ox 99.7 F H 82 20 134/82 96 01/27/18 08:11 01/27/18 08:11 01/27/18 08:11 01/27/18 08:11 01/27/18 08:11 Intake and Output: 01/27/18 01/27/18 06:59 18:59 Intake Total 1320 Output Total 1710 Balance -390 - Medications Medications: Current Medications Aspirin (Aspirin Chewable) 81 mg PO DAILY [facility] Last Admin: 01/26/18 11:23 Dose: Not Given Furosemide (Lasix) 40 mg PO DAILY [facility] Last Admin: 01/26/18 11:30 Dose: 40 mg Hydromorphone HCl (Dilaudid) 0.5 mg IVP Q3H PRN PRN Reason: Pain, severe (8-10) Last Admin: 01/27/18 00:44 Dose: 0.5 mg Piperacillin Sod/Tazobactam (Sod 3.375 gm/ Sodium Chloride) 100 mls @ 100 mls/ hr IVPB Q6H [facility] Last Admin: 01/27/18 08:00 Dose: 100 mls/hr Lactated Ringer's (Lactated Ringer's) 1,000 mls @ 100 mls/hr IV .Q10H [facility] Last Admin: 01/27/18 02:00 Dose: Not Given Ondansetron HCl (Zofran Inj) 4 mg IV Q6 PRN PRN Reason: Nausea/Vomiting Polyethylene Glycol (Miralax) 17 gm PO DAILY [facility] Last Admin: 01/26/18 11:25 Dose: Not Given Rosuvastatin Calcium (Crestor) 5 mg PO HS [facility] Last Admin: 01/26/18 21:48 Dose: Not Given - Labs Labs: 01/27/18 08:22 01/27/18 08:22 PT 13.6 SECONDS (9.7-12.2) H 01/23/18 20:22 INR 1.2 01/23/18 20:22 APTT 34 SECONDS (21-34) 01/23/18 20:22 - Constitutional Appears: Non-toxic, No Acute Distress - Eye Exam Eye Exam: EOMI, PERRL - ENT Exam ENT Exam: Mucous Membranes Moist - Respiratory Exam Respiratory Exam: Clear to Ausculation Bilateral. absent: Rales, Rhonchi, Wheezes - Cardiovascular Exam Cardiovascular Exam: RRR, +S1, +S2 - GI/Abdominal Exam GI & Abdominal Exam: Soft, Normal Bowel Sounds. absent: Distended, Firm, Guarding, Rigid, Tenderness, Organomegaly Additional comments: laparoscopic incision sites clean, covered, EMIR drain noted with serosanguinous output - Extremities Exam Extremities Exam: Normal Inspection. absent: Pedal Edema - Neurological Exam Neurological Exam: Alert, Awake, Oriented x3 - Psychiatric Exam Psychiatric exam: Normal Affect, Normal Mood - Skin Skin Exam: Dry, Warm Assessment and Plan - Assessment and Plan (Free Text) Assessment: Patient is a 77yo male with PMHx significant for HTN, DM, dyslipidemia, osteoarthritis, H pylori gastritis, pandiverticulosis who presented to the ED with abdominal pain -Acute cholecystits with perihepatic abscess formation s/p laparoscopic cholecystectomy POD#1 -Constipation -? left renal infarct noted on CT -Systolic CHF with significant drop in EF on echocardiogram Plan: -POD#1 laparoscopic cholecystectomy and perihepatic abscess drainage -Pain significantly improved -Liquid diet as tolerated -On continued antibiotic coverage with zosyn -Suspect perihepatic collection to have been abscess formation which was drained by surgery yesterday; cancel paracentesis and fluid analysis -Echo performed with concern for cardiac ascites - however it should be noted that EF has declined from 55-60% to 25-30% in approximately 9 months along with mod-severe pulm HTN -No active chest pain, breathlessness - would recommend cardiology evaluation or outpatient follow up -Miralax 17g PO QD <Lopez Florentino - Last Filed: 01/27/18 12:13> Objective - Vital Signs/Intake and Output Vital Signs (last 24 hours): Temp Pulse Resp BP Pulse Ox 99.7 F H 82 20 161/71 H 96 01/27/18 08:11 01/27/18 08:11 01/27/18 08:11 01/27/18 10:58 01/27/18 08:11 Intake and Output: 01/27/18 01/27/18 06:59 18:59 Intake Total 1320 Output Total 1710 Balance -390 - Medications Medications: Current Medications Aspirin (Aspirin Chewable) 81 mg PO DAILY [facility] Last Admin: 01/27/18 10:59 Dose: 81 mg Furosemide (Lasix) 40 mg PO DAILY [facility] Last Admin: 01/27/18 10:58 Dose: 40 mg Hydromorphone HCl (Dilaudid) 0.5 mg IVP Q3H PRN PRN Reason: Pain, severe (8-10) Last Admin: 01/27/18 10:57 Dose: 0.5 mg Piperacillin Sod/Tazobactam (Sod 3.375 gm/ Sodium Chloride) 100 mls @ 100 mls/ hr IVPB Q6H [facility] Last Admin: 01/27/18 08:00 Dose: 100 mls/hr Lactated Ringer's (Lactated Ringer's) 1,000 mls @ 100 mls/hr IV .Q10H [facility] Last Admin: 01/27/18 02:00 Dose: Not Given Ondansetron HCl (Zofran Inj) 4 mg IV Q6 PRN PRN Reason: Nausea/Vomiting Polyethylene Glycol (Miralax) 17 gm PO DAILY [facility] Last Admin: 01/27/18 10:58 Dose: 17 gm Rosuvastatin Calcium (Crestor) 5 mg PO HS [facility] Last Admin: 01/26/18 21:48 Dose: Not Given - Labs Labs: 01/27/18 08:22 01/27/18 08:22 PT 13.6 SECONDS (9.7-12.2) H 01/23/18 20:22 INR 1.2 01/23/18 20:22 APTT 34 SECONDS (21-34) 01/23/18 20:22 Attending/Attestation - Attestation I have personally seen and examined this patient.: Yes I have fully participated in the care of the patient.: Yes I have reviewed all pertinent clinical information, including history, physical exam and plan: Yes Notes (Text): 01/27/18 12:09 I have seen and examined patient with GI fellow. No acute events overnight, he underwent cholecystectomy yesterday. His abdominal pain has significantly improved and he denies nausea, vomiting, diarrhea, fever/chills. Tolerating PO liquids without difficulty. Review of vitals from today shows low grade temperature of 99.7 DM / HTN Hyperlipidemia Abdominal pain, acute cholecystitis s/p cholecystectomy Perihepatic abscess - Liquid diet as tolerated - Continue with antibiotic therapy - Follow up surgical recommendations - No follow up of suspected ascites indicated at this time, fluid visualized on imaging likely secondary to abscess - No further planned GI intervention, will sign off case. Please reconsult as necessary, thank you.
[2018-01-27 09:23] LABS: LYMPHOCYTE 5 % (20-40); MONOCYTE 4 % (0-10); NEUTROPHIL 91 % (50-75); TOTAL CELLS COUNTED 100
[2018-01-27 09:25] LABS: PLATELET ESTIMATE NORMAL (NORMAL)
[2018-01-27] MEDS: POLYETHYLENE GLYCOL 3350 17 GM/Dose PACKET PO SCH (10:58)
--- NOTE | 2018-01-27 12:29 | CP.PCM.PN ---
Subjective - Date & Time of Evaluation Date of Evaluation: 01/27/18 Time of Evaluation: 12:28 - Subjective Subjective: seen and examined s/p surgery for acute cholecystitis on liquid diet Renal US, REnal scan and abd CT report reviewed pt is somewhat somnolent, c/o pain in abdomen. Received dilaudid this am. mota out, hasnt urinated since Objective - Vital Signs/Intake and Output Vital Signs (last 24 hours): Temp Pulse Resp BP Pulse Ox 99.7 F H 82 20 161/71 H 96 01/27/18 08:11 01/27/18 08:11 01/27/18 08:11 01/27/18 10:58 01/27/18 08:11 Intake and Output: 01/27/18 01/27/18 06:59 18:59 Intake Total 1320 Output Total 1710 Balance -390 - Medications Medications: Current Medications Aspirin (Aspirin Chewable) 81 mg PO DAILY [facility] Last Admin: 01/27/18 10:59 Dose: 81 mg Furosemide (Lasix) 40 mg PO DAILY [facility] Last Admin: 01/27/18 10:58 Dose: 40 mg Hydromorphone HCl (Dilaudid) 0.5 mg IVP Q3H PRN PRN Reason: Pain, severe (8-10) Last Admin: 01/27/18 10:57 Dose: 0.5 mg Piperacillin Sod/Tazobactam (Sod 3.375 gm/ Sodium Chloride) 100 mls @ 100 mls/ hr IVPB Q6H [facility] Last Admin: 01/27/18 08:00 Dose: 100 mls/hr Lactated Ringer's (Lactated Ringer's) 1,000 mls @ 100 mls/hr IV .Q10H [facility] Last Admin: 01/27/18 02:00 Dose: Not Given Ondansetron HCl (Zofran Inj) 4 mg IV Q6 PRN PRN Reason: Nausea/Vomiting Polyethylene Glycol (Miralax) 17 gm PO DAILY [facility] Last Admin: 01/27/18 10:58 Dose: 17 gm Rosuvastatin Calcium (Crestor) 5 mg PO HS [facility] Last Admin: 01/26/18 21:48 Dose: Not Given - Labs Labs: 01/27/18 08:22 01/27/18 08:22 PT 13.6 SECONDS (9.7-12.2) H 01/23/18 20:22 INR 1.2 01/23/18 20:22 APTT 34 SECONDS (21-34) 01/23/18 20:22 - Constitutional Appears: Non-toxic, No Acute Distress, Chronically Ill - Head Exam Head Exam: ATRAUMATIC, NORMAL INSPECTION - Eye Exam Eye Exam: Normal appearance, PERRL - ENT Exam ENT Exam: Mucous Membranes Moist, Normal Exam - Neck Exam Neck Exam: Normal Inspection - Respiratory Exam Respiratory Exam: Decreased Breath Sounds, NORMAL BREATHING PATTERN - Cardiovascular Exam Cardiovascular Exam: REGULAR RHYTHM, RRR - GI/Abdominal Exam GI & Abdominal Exam: Distended, Guarding (dressing ), Soft - Exam Bimanual exam: Uterine Enlargement - Extremities Exam Extremities Exam: Normal Inspection - Neurological Exam Neurological Exam: Alert, Awake - Psychiatric Exam Psychiatric exam: Normal Affect, Normal Mood - Skin Skin Exam: Dry, Warm Assessment and Plan (1) KARIS (acute kidney injury) Status: Acute (2) Abdominal pain Status: Acute (3) CHF (congestive heart failure) Status: Acute (4) DM type 2 (diabetes mellitus, type 2) Status: Acute (5) Hypertension Status: Acute - Assessment and Plan (Free Text) Assessment: improving renal function, hold ACEI/ARB on lasix no indication of renal infarct on repeat scans. if unable to urinate- replace mota. RN aware
--- NOTE | 2018-01-27 17:56 | CP.PCM.PN ---
Subjective - Date & Time of Evaluation Date of Evaluation: 01/27/18 Time of Evaluation: 15:40 - Subjective Subjective: clinically same Objective - Vital Signs/Intake and Output Vital Signs (last 24 hours): Temp Pulse Resp BP Pulse Ox 97.9 F 84 20 159/84 H 97 01/27/18 15:20 01/27/18 16:00 01/27/18 15:20 01/27/18 15:20 01/27/18 15:20 Intake and Output: 01/27/18 01/27/18 06:59 18:59 Intake Total 1320 1160 Output Total 1710 471 Balance -390 689 - Medications Medications: Current Medications Aspirin (Aspirin Chewable) 81 mg PO DAILY [facility] Last Admin: 01/27/18 10:59 Dose: 81 mg Furosemide (Lasix) 40 mg PO DAILY [facility] Last Admin: 01/27/18 10:58 Dose: 40 mg Hydromorphone HCl (Dilaudid) 0.5 mg IVP Q3H PRN PRN Reason: Pain, severe (8-10) Last Admin: 01/27/18 10:57 Dose: 0.5 mg Piperacillin Sod/Tazobactam (Sod 3.375 gm/ Sodium Chloride) 100 mls @ 100 mls/ hr IVPB Q6H [facility] Last Admin: 01/27/18 13:50 Dose: 100 mls/hr Lactated Ringer's (Lactated Ringer's) 1,000 mls @ 100 mls/hr IV .Q10H [facility] Last Admin: 01/27/18 12:45 Dose: 100 mls/hr Ondansetron HCl (Zofran Inj) 4 mg IV Q6 PRN PRN Reason: Nausea/Vomiting Polyethylene Glycol (Miralax) 17 gm PO DAILY [facility] Last Admin: 01/27/18 10:58 Dose: 17 gm Rosuvastatin Calcium (Crestor) 5 mg PO HS [facility] Last Admin: 01/26/18 21:48 Dose: Not Given Tamsulosin HCl (Flomax) 0.4 mg PO DAILY [facility] - Labs Labs: 01/27/18 08:22 01/27/18 08:22 PT 13.6 SECONDS (9.7-12.2) H 01/23/18 20:22 INR 1.2 01/23/18 20:22 APTT 34 SECONDS (21-34) 01/23/18 20:22 - Constitutional Appears: Well - Head Exam Head Exam: ATRAUMATIC, NORMAL INSPECTION, NORMOCEPHALIC - Eye Exam Eye Exam: EOMI, Normal appearance, PERRL Pupil Exam: NORMAL ACCOMODATION, PERRL - ENT Exam ENT Exam: Mucous Membranes Moist, Normal Exam - Neck Exam Neck Exam: Full ROM, Normal Inspection. absent: Lymphadenopathy - Respiratory Exam Respiratory Exam: Decreased Breath Sounds - Cardiovascular Exam Cardiovascular Exam: REGULAR RHYTHM, +S1, +S2 - GI/Abdominal Exam GI & Abdominal Exam: Soft, Diminished Bowel Sounds - Rectal Exam Rectal Exam: Deferred
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
[2018-01-28] MEDS: Piperacillin/Tazobact 3.375 GM in Sodium Chloride 0.9% 100 ML IVPB SCH ×3 (01:01→13:45)
[2018-01-28] MEDS: Lactated Ringer's 1,000 ML IV SCH ×3 (01:02→17:54)
[2018-01-28] MEDS: HYDROmorphone 0.5 mg/0.5 ml ISec IVP PRN (06:41)
--- NOTE | 2018-01-28 07:51 | CARD ---
APPROVED REPORT EKG Measurement Heart [id number] <Conclusion> Normal sinus rhythm Right axis deviation T wave abnormality, consider inferior ischemia Abnormal ECG
[2018-01-28 08:00] LABS: ALBUMIN 2.9 g/dL (3.5-5.0); ALT/SGPT 55 U/L (21-72); AST/SGOT 62 U/L (17-59); BLOOD UREA NITROGEN 19 mg/dL (9-20); GFR AFRICAN-AMERICAN > 60; GFR NON-AFRICAN AMERICAN > 60
[2018-01-28] MEDS: POLYETHYLENE GLYCOL 3350 17 GM/Dose PACKET PO SCH (10:16)
--- NOTE | 2018-01-28 12:43 | CP.PCM.PN ---
Subjective - Date & Time of Evaluation Date of Evaluation: 01/28/18 Time of Evaluation: 12:40 - Subjective Subjective: s/p lap choley and abscess drainage renal function has improved only excisional pain, tired but feels better BP stable K low- needs repletion Objective - Vital Signs/Intake and Output Vital Signs (last 24 hours): Temp Pulse Resp BP Pulse Ox 97.3 F L 64 20 132/71 99 01/28/18 08:53 01/28/18 08:53 01/28/18 08:53 01/28/18 10:16 01/28/18 08:53 Intake and Output: 01/28/18 01/28/18 06:59 18:59 Intake Total 2100 Output Total 1690 Balance 410 - Medications Medications: Current Medications Aspirin (Aspirin Chewable) 81 mg PO DAILY [facility] Last Admin: 01/28/18 10:16 Dose: 81 mg Furosemide (Lasix) 40 mg PO DAILY [facility] Last Admin: 01/28/18 10:16 Dose: 40 mg Hydromorphone HCl (Dilaudid) 0.5 mg IVP Q3H PRN PRN Reason: Pain, severe (8-10) Last Admin: 01/28/18 06:41 Dose: 0.5 mg Piperacillin Sod/Tazobactam (Sod 3.375 gm/ Sodium Chloride) 100 mls @ 100 mls/ hr IVPB Q6H [facility] Last Admin: 01/28/18 08:09 Dose: 100 mls/hr Lactated Ringer's (Lactated Ringer's) 1,000 mls @ 100 mls/hr IV .Q10H [facility] Last Admin: 01/28/18 12:06 Dose: Not Given Ondansetron HCl (Zofran Inj) 4 mg IV Q6 PRN PRN Reason: Nausea/Vomiting Polyethylene Glycol (Miralax) 17 gm PO DAILY [facility] Last Admin: 01/28/18 10:16 Dose: 17 gm Rosuvastatin Calcium (Crestor) 5 mg PO HS [facility] Last Admin: 01/27/18 21:31 Dose: 5 mg Tamsulosin HCl (Flomax) 0.4 mg PO DAILY [facility] Last Admin: 01/28/18 10:16 Dose: 0.4 mg - Labs Labs: 01/27/18 08:22 01/28/18 07:19 PT 13.6 SECONDS (9.7-12.2) H 01/23/18 20:22 INR 1.2 01/23/18 20:22 APTT 34 SECONDS (21-34) 01/23/18 20:22 - Constitutional Appears: No Acute Distress, Chronically Ill - Head Exam Head Exam: ATRAUMATIC, NORMAL INSPECTION - Eye Exam Eye Exam: EOMI, Normal appearance - Neck Exam Neck Exam: Normal Inspection. absent: Tenderness - Respiratory Exam Respiratory Exam: Clear to Ausculation Bilateral, NORMAL BREATHING PATTERN - Cardiovascular Exam Cardiovascular Exam: REGULAR RHYTHM, +S1 - GI/Abdominal Exam GI & Abdominal Exam: Soft, Tenderness - Extremities Exam Extremities Exam: Tenderness. absent: Normal Inspection - Neurological Exam Neurological Exam: Awake, CN II-XII Intact - Skin Skin Exam: Dry, Warm Assessment and Plan (1) KARIS (acute kidney injury) Status: Acute (2) DM type 2 (diabetes mellitus, type 2) Status: Acute (3) CHF (congestive heart failure) Status: Acute (4) Gallstone Status: Acute - Assessment and Plan (Free Text) Plan: Replete K follow up lytes no evidence of renal infarct
[2018-01-28] MEDS ORDERED: Potassium Chloride 20 mEq/15 ml LIQ UD PO ONE (12:45)
[2018-01-28 16:05] VITALS: BP 131/67; RESP 18; TEMP 97.2; O2SAT 96
[2018-01-28 16:35] VITALS: PULSE 76
--- NOTE | 2018-01-28 17:14 | CP.PCM.PN ---
Subjective - Date & Time of Evaluation Date of Evaluation: 01/28/18 Time of Evaluation: 17:11 - Subjective Subjective: General surgery progress note for Dr. Angi Bosch, PGY-1 Pt S & E at bedside. Pt reports abdominal pain minimal. Still with drain in place, with 75cc serous output over last 12H. Denies N & V, F & C. Pt taught how to empty drain at bedside. Objective - Vital Signs/Intake and Output Vital Signs (last 24 hours): Temp Pulse Resp BP Pulse Ox 97.2 F L 76 18 131/67 96 01/28/18 15:34 01/28/18 16:00 01/28/18 15:34 01/28/18 15:34 01/28/18 15:34 Intake and Output: 01/28/18 01/28/18 06:59 18:59 Intake Total 2100 1400 Output Total 1690 475 Balance 410 925 - Medications Medications: Current Medications Aspirin (Aspirin Chewable) 81 mg PO DAILY [facility] Last Admin: 01/28/18 10:16 Dose: 81 mg Furosemide (Lasix) 40 mg PO DAILY [facility] Last Admin: 01/28/18 10:16 Dose: 40 mg Hydromorphone HCl (Dilaudid) 0.5 mg IVP Q3H PRN PRN Reason: Pain, severe (8-10) Last Admin: 01/28/18 06:41 Dose: 0.5 mg Piperacillin Sod/Tazobactam (Sod 3.375 gm/ Sodium Chloride) 100 mls @ 100 mls/ hr IVPB Q6H [facility] Last Admin: 01/28/18 13:45 Dose: 100 mls/hr Lactated Ringer's (Lactated Ringer's) 1,000 mls @ 100 mls/hr IV .Q10H [facility] Last Admin: 01/28/18 12:06 Dose: Not Given Ondansetron HCl (Zofran Inj) 4 mg IV Q6 PRN PRN Reason: Nausea/Vomiting Polyethylene Glycol (Miralax) 17 gm PO DAILY [facility] Last Admin: 01/28/18 10:16 Dose: 17 gm Rosuvastatin Calcium (Crestor) 5 mg PO HS [facility] Last Admin: 01/27/18 21:31 Dose: 5 mg Tamsulosin HCl (Flomax) 0.4 mg PO DAILY [facility] Last Admin: 01/28/18 10:16 Dose: 0.4 mg - Labs Labs: 01/27/18 08:22 01/28/18 07:19 PT 13.6 SECONDS (9.7-12.2) H 01/23/18 20:22 INR 1.2 01/23/18 20:22 APTT 34 SECONDS (21-34) 01/23/18 20:22 - Constitutional Appears: Non-toxic, No Acute Distress - Head Exam Head Exam: ATRAUMATIC, NORMAL INSPECTION, NORMOCEPHALIC - Eye Exam Eye Exam: EOMI, Normal appearance - ENT Exam ENT Exam: Mucous Membranes Moist, Normal Exam - Neck Exam Neck Exam: Full ROM, Normal Inspection - Respiratory Exam Respiratory Exam: NORMAL BREATHING PATTERN - Cardiovascular Exam Cardiovascular Exam: REGULAR RHYTHM, +S1, +S2 - GI/Abdominal Exam GI & Abdominal Exam: Soft, Tenderness (over surgical sites ). absent: Distended , Firm, Guarding Additional comments: abdomen with dressings in place, lap sites dressings clean/dry/intact. Drain saturated with serous output- changed - Extremities Exam Extremities Exam: Full ROM, Normal Inspection - Neurological Exam Neurological Exam: Alert, Awake, CN II-XII Intact, Oriented x3 - Psychiatric Exam Psychiatric exam: Normal Affect, Normal Mood - Skin Skin Exam: Dry, Intact, Normal Color, Warm Assessment and Plan - Assessment and Plan (Free Text) Assessment: 77M s/p laparoscopic cholecystectomy of gangrenous GB, drainage of hepatic abscess POD#2 Plan: Pt cleared for d/c home or [facility] with instructions on how to empty drain and Rx for ABx x 5 days (in chart). Recommend home nursing for drain care Pain control Diet as tolerated OOBTC Ambulate Encourage IS To FU w/Dr Peacock in the office next week To record drain output at home Educated at bedside how to empty drain DW attending Danitza, PGY-1
--- NOTE | 2018-01-28 17:14 | CP.PCM.PN ---
Subjective - Date & Time of Evaluation Date of Evaluation: 01/28/18 Time of Evaluation: 17:00 Objective - Vital Signs/Intake and Output Vital Signs (last 24 hours): Temp Pulse Resp BP Pulse Ox 97.2 F L 76 18 131/67 96 01/28/18 15:34 01/28/18 16:00 01/28/18 15:34 01/28/18 15:34 01/28/18 15:34 Intake and Output: 01/28/18 01/28/18 06:59 18:59 Intake Total 2100 1400 Output Total 1690 475 Balance 410 925 - Medications Medications: Current Medications Aspirin (Aspirin Chewable) 81 mg PO DAILY [facility] Last Admin: 01/28/18 10:16 Dose: 81 mg Furosemide (Lasix) 40 mg PO DAILY [facility] Last Admin: 01/28/18 10:16 Dose: 40 mg Hydromorphone HCl (Dilaudid) 0.5 mg IVP Q3H PRN PRN Reason: Pain, severe (8-10) Last Admin: 01/28/18 06:41 Dose: 0.5 mg Piperacillin Sod/Tazobactam (Sod 3.375 gm/ Sodium Chloride) 100 mls @ 100 mls/ hr IVPB Q6H [facility] Last Admin: 01/28/18 13:45 Dose: 100 mls/hr Lactated Ringer's (Lactated Ringer's) 1,000 mls @ 100 mls/hr IV .Q10H [facility] Last Admin: 01/28/18 12:06 Dose: Not Given Ondansetron HCl (Zofran Inj) 4 mg IV Q6 PRN PRN Reason: Nausea/Vomiting Polyethylene Glycol (Miralax) 17 gm PO DAILY [facility] Last Admin: 01/28/18 10:16 Dose: 17 gm Rosuvastatin Calcium (Crestor) 5 mg PO HS [facility] Last Admin: 01/27/18 21:31 Dose: 5 mg Tamsulosin HCl (Flomax) 0.4 mg PO DAILY [facility] Last Admin: 01/28/18 10:16 Dose: 0.4 mg - Labs Labs: 01/27/18 08:22 01/28/18 07:19 PT 13.6 SECONDS (9.7-12.2) H 01/23/18 20:22 INR 1.2 01/23/18 20:22 APTT 34 SECONDS (21-34) 01/23/18 20:22
--- NOTE | 2018-01-28 17:46 | CP.PCM.PN ---
Subjective - Date & Time of Evaluation Date of Evaluation: 01/28/18 Time of Evaluation: 15:00 - Subjective Subjective: clinically same Objective - Vital Signs/Intake and Output Vital Signs (last 24 hours): Temp Pulse Resp BP Pulse Ox 97.2 F L 76 18 131/67 96 01/28/18 15:34 01/28/18 16:00 01/28/18 15:34 01/28/18 15:34 01/28/18 15:34 Intake and Output: 01/28/18 01/28/18 06:59 18:59 Intake Total 2100 1400 Output Total 1690 475 Balance 410 925 - Medications Medications: Current Medications Aspirin (Aspirin Chewable) 81 mg PO DAILY [facility] Last Admin: 01/28/18 10:16 Dose: 81 mg Furosemide (Lasix) 40 mg PO DAILY [facility] Last Admin: 01/28/18 10:16 Dose: 40 mg Hydromorphone HCl (Dilaudid) 0.5 mg IVP Q3H PRN PRN Reason: Pain, severe (8-10) Last Admin: 01/28/18 06:41 Dose: 0.5 mg Piperacillin Sod/Tazobactam (Sod 3.375 gm/ Sodium Chloride) 100 mls @ 100 mls/ hr IVPB Q6H [facility] Last Admin: 01/28/18 13:45 Dose: 100 mls/hr Lactated Ringer's (Lactated Ringer's) 1,000 mls @ 100 mls/hr IV .Q10H [facility] Last Admin: 01/28/18 12:06 Dose: Not Given Ondansetron HCl (Zofran Inj) 4 mg IV Q6 PRN PRN Reason: Nausea/Vomiting Polyethylene Glycol (Miralax) 17 gm PO DAILY [facility] Last Admin: 01/28/18 10:16 Dose: 17 gm Rosuvastatin Calcium (Crestor) 5 mg PO HS [facility] Last Admin: 01/27/18 21:31 Dose: 5 mg Tamsulosin HCl (Flomax) 0.4 mg PO DAILY [facility] Last Admin: 01/28/18 10:16 Dose: 0.4 mg - Labs Labs: 01/27/18 08:22 01/28/18 07:19 PT 13.6 SECONDS (9.7-12.2) H 01/23/18 20:22 INR 1.2 01/23/18 20:22 APTT 34 SECONDS (21-34) 01/23/18 20:22 - Constitutional Appears: Well - Head Exam Head Exam: ATRAUMATIC, NORMAL INSPECTION, NORMOCEPHALIC - Eye Exam Eye Exam: EOMI, Normal appearance, PERRL Pupil Exam: NORMAL ACCOMODATION, PERRL - ENT Exam ENT Exam: Mucous Membranes Moist, Normal Exam - Neck Exam Neck Exam: Full ROM, Normal Inspection. absent: Lymphadenopathy - Respiratory Exam Respiratory Exam: Decreased Breath Sounds - Cardiovascular Exam Cardiovascular Exam: REGULAR RHYTHM, +S1, +S2 - GI/Abdominal Exam GI & Abdominal Exam: Soft, Diminished Bowel Sounds - Rectal Exam Rectal Exam: Deferred
[2018-01-29] MEDS ORDERED: Potassium Chloride 10 mEq ER Tab PO SCH (08:00)
--- NOTE | 2018-01-29 23:05 | CARD ---
APPROVED REPORT EKG Measurement Heart [id number] <Conclusion> Normal sinus rhythm Low voltage QRS Septal infarct, age undetermined Abnormal ECG
== END 2018-01-28 19:20 | disposition home or self-care (01) | DRG 417 ==
LOC: C.ER 18:49 → C.9E 01-24 00:12 → C.6T 01-25 02:01
PROVIDERS: ADMIT Internal Medicine Nephrology; ATTEND Internal Medicine Nephrology
PROC: 0FT44ZZ Resection of Gallbladder, Percutaneous Endoscopic Approach (ICD-10-PCS; 2018-01-26)
PROC: 0F904ZZ Drainage of Liver, Percutaneous Endoscopic Approach (ICD-10-PCS; 2018-01-26)
PROC: 0DNW4ZZ Release Peritoneum, Percutaneous Endoscopic Approach (ICD-10-PCS; principal; 2018-01-26 13:30)
DX: K80.00 Calculus of gallbladder with acute cholecystitis without obstruction (principal); K75.0 Abscess of liver; I11.0 Hypertensive heart disease with heart failure; N17.9 Acute kidney failure, unspecified; R18.8 Other ascites; I50.22 Chronic systolic (congestive) heart failure; E11.9 Type 2 diabetes mellitus without complications; K66.0 Peritoneal adhesions (postprocedural) (postinfection); Z87.891 Personal history of nicotine dependence; E78.5 Hyperlipidemia, unspecified; E78.00 Pure hypercholesterolemia, unspecified; R33.9 Retention of urine, unspecified; Z79.899 Other long term (current) drug therapy

== ENCOUNTER 2018-01-31 16:13 | Observation (INO) | payer MEDICARE, OTHER ==
[2018-01-31 16:14] VITALS: BMI 29.0
--- NOTE | 2018-01-31 16:36 | C.PDOC ---
History Of Present Illness Pt is a 77 yo male who is 1 week s/p lap yuli with Dr Snider,now with c/o increased drainage from around the site of EMIR drain.Denies any fevers chills, worsening pain. Pt apparently had a gangrenous GB at the time of the lap yuli with hepatic abscess hence the EMIR drain Chief Complaint (Nursing): Abdominal Pain Past Medical History Vital Signs: Last Vital Signs Temp 97.5 F L 01/31/18 17:56 Pulse 82 01/31/18 17:56 Resp 20 01/31/18 17:56 BP 153/78 H 01/31/18 17:56 Pulse Ox 98 01/31/18 17:56 - Medical History PMH: Arthritis, CHF, HTN, Hypercholesterolemia (NO MED ) Denies: Hyperthyroidism, Hypothyroidism, Chronic Kidney Disease Surgical History: Cholecystectomy (Jan 2018) - [facility] Procedures DRAINAGE OF LIVER, PERCUTANEOUS ENDOSCOPIC APPROACH (01/24/18) RELEASE PERITONEUM, PERCUTANEOUS ENDOSCOPIC APPROACH (01/24/18) RESECTION OF GALLBLADDER, PERCUTANEOUS ENDOSCOPIC APPROACH (01/24/18) Family History: States: Unknown Family Hx - Social History Hx Alcohol Use: No Hx Substance Use: No - Immunization History Hx Tetanus Toxoid Vaccination: No Hx Influenza Vaccination: No Physical Exam - Physical Exam Appears: In Acute Distress Skin: Normal Color Head: Atraumatic Nose: Normal Oral Mucosa: Moist Tongue: Normal Appearing Neck: Normal Lymphatic: Deferred Chest: Symmetrical Cardiovascular: Rhythm Regular Respiratory: Normal Breath Sounds Gastrointestinal/Abdominal: Normal Exam, Other (EMIR drain noted to R costal margin at ant axill line.Serous drainage emanating from around the tube) Back: Normal Inspection Extremity: Normal ROM Neurological/Psych: Oriented x3 ED Course And Treatment - Laboratory Results Result Diagrams: 01/31/18 17:00 01/31/18 17:00 O2 Sat by Pulse Oximetry: 98 Disposition - Disposition Disposition: HOSPITALIZED Disposition Time: 00:25 Condition: FAIR - Clinical Impression Clinical Impression: Abdominal colic, Post-op pain
[2018-01-31] MEDS ORDERED: Morphine 4 MG/ML VIAL IV ONE (16:38)
[2018-01-31 17:03] LABS: BASO # 0.1 K/uL (0.0-0.2); BASO % 1.6 % (0.0-2.0); EOS # 0.1 K/uL (0.0-0.7); EOS % 2.1 % (0.0-4.0); HEMOGLOBIN 13.2 g/dL (12.0-18.0); LYMPH # 1.1 K/uL (1.0-4.3); LYMPH % 16.5 % (20.0-40.0); MEAN CELL VOLUME 88.1 fL (80.0-94.0); MEAN CORPUSCULAR HEMOGLOBIN 29.7 pg (27.0-31.0); MEAN CORPUSCULAR HGB CONC 33.8 g/dL (33.0-37.0); MEAN PLATELET VOLUME 7.7 fL (7.2-11.7); MONO # 0.7 K/uL (0.0-0.8); MONO % 10.1 % (0.0-10.0); NEUT # 4.7 K/uL (1.8-7.0); NEUT % 69.7 % (50.0-75.0); RBC 4.44 Mil/uL (4.40-5.90); RED CELL DISTRIBUTION WIDTH 14.1 % (11.5-14.5); WHITE BLOOD COUNT 6.7 K/uL (4.8-10.8)
[2018-01-31 17:11] LABS: URINE BACTERIA RARE (<OCC); URINE BILIRUBIN NEGATIVE (NEGATIVE); URINE BLOOD NEGATIVE (NEGATIVE); URINE CLARITY Clear (Clear); URINE COLOR Yellow (YELLOW); URINE GLUCOSE (UA) 1+ mg/dL (Normal); URINE LEUKOCYTE ESTERASE NEG Leu/uL (Negative); URINE NITRATE NEGATIVE (NEGATIVE); URINE PROTEIN 1+ mg/dL (NEGATIVE)
[2018-01-31] MEDS ORDERED: Morphine 4 MG/ML VIAL ONE (17:22)
[2018-01-31 17:23] LABS: ALB/GLOB RATIO 0.9 (1.0-2.1); ALBUMIN 2.9 g/dL (3.5-5.0); ALT/SGPT 47 U/L (21-72); AST/SGOT 41 U/L (17-59); BLOOD UREA NITROGEN 15 mg/dL (9-20); CALCIUM 8.4 mg/dl (8.6-10.4); GFR AFRICAN-AMERICAN > 60; GFR NON-AFRICAN AMERICAN > 60; LIPASE 65 U/L (23-300)
[2018-01-31 18:08] VITALS: RESP 20
--- NOTE | 2018-01-31 18:13 | CP.PCM.HP ---
Past Patient History - Infectious Disease Hx of Infectious Diseases: None - Past Medical History & Family History Past Medical History?: Yes - Past Social History Smoking Status: Former Smoker - CARDIAC Hx Congestive Heart Failure: Yes Hx Hypercholesterolemia: Yes (NO MED ) Hx Hypertension: Yes - PULMONARY Hx Respiratory Disorders: No - NEUROLOGICAL Hx Neurological Disorder: No - HEENT Hx HEENT Problems: No - RENAL Hx Chronic Kidney Disease: No - ENDOCRINE/METABOLIC Hx Hyperthyroidism: No Hx Hypothyroidism: No - HEMATOLOGICAL/ONCOLOGICAL Hx Blood Disorders: No - INTEGUMENTARY Hx Dermatological Problems: No - MUSCULOSKELETAL/RHEUMATOLOGICAL Hx Arthritis: Yes - GASTROINTESTINAL Hx Gastrointestinal Disorders: No - GENITOURINARY/GYNECOLOGICAL Hx Genitourinary Disorders: No - PSYCHIATRIC Hx Substance Use: No - SURGICAL HISTORY Hx Cholecystectomy: Yes (Jan 2018) - ANESTHESIA Hx Anesthesia: Yes Hx Anesthesia Reactions: No Hx Malignant Hyperthermia: No Meds Allergies/Adverse Reactions: Allergies Allergy/AdvReac Type Severity Reaction Status Date / Time No Known Allergies Allergy Verified 01/31/18 16:29 Physical Exam - Constitutional Appears: Well - Head Exam Head Exam: ATRAUMATIC, NORMAL INSPECTION, NORMOCEPHALIC - Eye Exam Eye Exam: EOMI, Normal appearance, PERRL Pupil Exam: NORMAL ACCOMODATION, PERRL - ENT Exam ENT Exam: Mucous Membranes Moist, Normal Exam - Neck Exam Neck exam: Positive for: Normal Inspection - Respiratory Exam Respiratory Exam: Decreased Breath Sounds - Cardiovascular Exam Cardiovascular Exam: REGULAR RHYTHM, +S1, +S2 - GI/Abdominal Exam GI & Abdominal Exam: Diminished Bowel Sounds, Soft - Rectal Exam Rectal Exam: Deferred Results - Vital Signs Recent Vital Signs: Last Vital Signs Temp 97.5 F L 01/31/18 17:56 Pulse 82 01/31/18 17:56 Resp 20 01/31/18 17:56 BP 153/78 H 01/31/18 17:56 Pulse Ox 98 01/31/18 17:56 - Labs Result Diagrams: 01/31/18 17:00 01/31/18 17:00 Labs: Laboratory Results - last 24 hr 01/31/18 01/31/18 01/31/18 17:00 17:00 17:04 WBC 6.7 RBC 4.44 Hgb 13.2 Hct 39.1 MCV 88.1 MCH 29.7 MCHC 33.8 RDW 14.1 Plt Count 306 D MPV 7.7 Neut % (Auto) 69.7 Lymph % (Auto) 16.5 L [place] % (Auto) 10.1 H Eos % (Auto) 2.1 Baso % (Auto) 1.6 Neut # (Auto) 4.7 Lymph # (Auto) 1.1 [place] # (Auto) 0.7 Eos # (Auto) 0.1 Baso # (Auto) 0.1 Sodium 135 Potassium 4.0 Chloride 98 Carbon Dioxide 29 Anion Gap 12 BUN 15 Creatinine 0.8 Est GFR ( Amer) > 60 Est GFR (Non-Af Amer) > 60 Random Glucose 185 H Calcium 8.4 L Total Bilirubin 0.9 AST 41 ALT 47 Alkaline Phosphatase 173 H D Total Protein 6.2 L Albumin 2.9 L Globulin 3.3 Albumin/Globulin Ratio 0.9 L Lipase 65 Urine Color Yellow Urine Clarity Clear Urine pH 7.0 Ur Specific [place] 1.015 Urine Protein 1+ H Urine Glucose (UA) 1+ H Urine Ketones Negative Urine Blood Negative Urine Nitrate Negative Urine Bilirubin Negative Urine Urobilinogen 2.0 Ur Leukocyte Esterase Neg Urine WBC (Auto) < 1 Urine RBC (Auto) 1 Urine Bacteria Rare Assessment & Plan - Assessment and Plan (Free Text) Plan: Surgical consult with Dr. vaughn ID antibiotic As needed for ID consultations Rocephin IV daily Protonix daily Lovenox daily Continue same
[2018-01-31] MEDS ORDERED: Piperacillin/Tazobact 3.375 GM in Sodium Chloride 0.9% 100 ML IVPB SCH (19:00)
--- NOTE | 2018-01-31 19:16 | CP.PCM.CON ---
<Wayne Montesinos - Last Filed: 01/31/18 19:11> History of Present Illness - History of Present Illness History of Present Illness: General Surgery: Dr Peacock Pt S&E. Post-op one week from lap yuli for gangrenous gallbladder. Pt was sent to ED for evaluation because home nurse felt there was too much output from YE drain. Family is bedside who reports pt has had ~350cc daily since discharge. Pt states he has no abdominal pain except some tenderness around drain insertion site. Has been tolerating diet, though has minimal appetite. Denies N/V, F/C. Review of Systems - Review of Systems All systems: reviewed and no additional remarkable complaints except (as per hpi ) Past Patient History - Infectious Disease Hx of Infectious Diseases: None - Past Medical History & Family History Past Medical History?: Yes - Past Social History Smoking Status: Former Smoker - CARDIAC Hx Congestive Heart Failure: Yes Hx Hypercholesterolemia: Yes (NO MED ) Hx Hypertension: Yes - PULMONARY Hx Respiratory Disorders: No - NEUROLOGICAL Hx Neurological Disorder: No - HEENT Hx HEENT Problems: No - RENAL Hx Chronic Kidney Disease: No - ENDOCRINE/METABOLIC Hx Hyperthyroidism: No Hx Hypothyroidism: No - HEMATOLOGICAL/ONCOLOGICAL Hx Blood Disorders: No - INTEGUMENTARY Hx Dermatological Problems: No - MUSCULOSKELETAL/RHEUMATOLOGICAL Hx Falls: No - GASTROINTESTINAL Hx Gastrointestinal Disorders: No - GENITOURINARY/GYNECOLOGICAL Hx Genitourinary Disorders: No - PSYCHIATRIC Hx Substance Use: No - SURGICAL HISTORY Hx Cholecystectomy: Yes (Jan 2018) - ANESTHESIA Hx Anesthesia: Yes Hx Anesthesia Reactions: No Hx Malignant Hyperthermia: No Meds Allergies/Adverse Reactions: Allergies Allergy/AdvReac Type Severity Reaction Status Date / Time No Known Allergies Allergy Verified 01/31/18 16:29 - Medications Medications: Current Medications Aspirin (Aspirin Chewable) 81 mg PO DAILY [facility] Lisinopril (Zestril) 10 mg PO DAILY [facility] Metformin HCl (Glucophage) 1,000 mg PO BID [facility] Pantoprazole Sodium (Protonix Ec Tab) 40 mg PO DAILY [facility] Rosuvastatin Calcium (Crestor) 5 mg PO HS [facility] Physical Exam - Constitutional Appears: Non-toxic, No Acute Distress - Head Exam Head Exam: NORMAL INSPECTION - ENT Exam ENT Exam: Mucous Membranes Moist - Respiratory Exam Respiratory Exam: absent: Accessory Muscle Use, Respiratory Distress - Cardiovascular Exam Cardiovascular Exam: REGULAR RHYTHM. absent: Tachycardia - GI/Abdominal Exam GI & Abdominal Exam: Soft, Tenderness (around drain site but otherwise non- tender). absent: Distended, Firm, Guarding, Hernia, Rigid Additional comments: Ye with serosanguinous output - Extremities Exam Extremities exam: Negative for: pedal edema - Neurological Exam Neurological exam: Alert, Oriented x3 - Psychiatric Exam Psychiatric exam: Normal Affect - Skin Skin Exam: Normal Color, Warm Results - Vital Signs Recent Vital Signs: Last Vital Signs Temp 97.5 F L 01/31/18 17:56 Pulse 82 01/31/18 17:56 Resp 20 01/31/18 17:56 BP 153/78 H 01/31/18 17:56 Pulse Ox 98 01/31/18 17:56 - Labs Result Diagrams: 01/31/18 17:00 01/31/18 17:00 Labs: Laboratory Results - last 24 hr 01/31/18 01/31/18 01/31/18 17:00 17:00 17:04 WBC 6.7 RBC 4.44 Hgb 13.2 Hct 39.1 MCV 88.1 MCH 29.7 MCHC 33.8 RDW 14.1 Plt Count 306 D MPV 7.7 Neut % (Auto) 69.7 Lymph % (Auto) 16.5 L [place] % (Auto) 10.1 H Eos % (Auto) 2.1 Baso % (Auto) 1.6 Neut # (Auto) 4.7 Lymph # (Auto) 1.1 [place] # (Auto) 0.7 Eos # (Auto) 0.1 Baso # (Auto) 0.1 Sodium 135 Potassium 4.0 Chloride 98 Carbon Dioxide 29 Anion Gap 12 BUN 15 Creatinine 0.8 Est GFR ( Amer) > 60 Est GFR (Non-Af Amer) > 60 Random Glucose 185 H Calcium 8.4 L Total Bilirubin 0.9 AST 41 ALT 47 Alkaline Phosphatase 173 H D Total Protein 6.2 L Albumin 2.9 L Globulin 3.3 Albumin/Globulin Ratio 0.9 L Lipase 65 Urine Color Yellow Urine Clarity Clear Urine pH 7.0 Ur Specific [place] 1.015 Urine Protein 1+ H Urine Glucose (UA) 1+ H Urine Ketones Negative Urine Blood Negative Urine Nitrate Negative Urine Bilirubin Negative Urine Urobilinogen 2.0 Ur Leukocyte Esterase Neg Urine WBC (Auto) < 1 Urine RBC (Auto) 1 Urine Bacteria Rare Assessment & Plan - Assessment and Plan (Free Text) Assessment: 77M readmitted s/p lap yuli due to drain output Plan: given gangrenous nature of gallbladder there is nothing unusual about the drain output labs all WNL resume regular diet no need for abx pt clear for discharge from surgical standpoint f/u in office next friday will d/w Dr Madonna Montesinos, PGY3 <Silvano Peacock B - Last Filed: 02/02/18 11:37> Meds - Medications Medications: Current Medications Albuterol/Ipratropium (Duoneb 3 Mg/0.5 Mg (3 Ml) Ud) 3 ml INH RQ6 [facility] Last Admin: 02/02/18 07:37 Dose: 3 ml Aspirin (Aspirin Chewable) 81 mg PO DAILY [facility] Last Admin: 02/02/18 09:56 Dose: 81 mg Enoxaparin Sodium (Lovenox) 40 mg SC DAILY [facility] Last Admin: 02/02/18 09:55 Dose: 40 mg Insulin Human Regular (Novolin R) 0 unit SC [facility] PRN Reason: Protocol Lisinopril (Zestril) 10 mg PO DAILY [facility] Last Admin: 02/02/18 09:56 Dose: 10 mg Metformin HCl (Glucophage) 1,000 mg PO BID [facility] Last Admin: 02/02/18 09:56 Dose: 1,000 mg Methylprednisolone (Solu-Medrol) 40 mg IVP Q8 [facility] Last Admin: 02/02/18 05:53 Dose: 40 mg Metoclopramide HCl (Reglan) 5 mg PO Q6 PRN PRN Reason: Hiccups Last Admin: 02/02/18 10:08 Dose: 5 mg Morphine Sulfate (Morphine) 1 mg IVP Q4 PRN PRN Reason: Pain, severe (8-10) Last Admin: 02/02/18 05:53 Dose: 1 mg Pantoprazole Sodium (Protonix Ec Tab) 40 mg PO DAILY [facility] Last Admin: 02/02/18 09:56 Dose: 40 mg Rosuvastatin Calcium (Crestor) 5 mg PO HS [facility] Last Admin: 02/01/18 22:07 Dose: 5 mg Results - Vital Signs Recent Vital Signs: Last Vital Signs Temp 98.2 F 02/02/18 07:57 Pulse 80 02/02/18 07:57 Resp 20 02/02/18 07:57 BP 151/79 H 02/02/18 07:57 Pulse Ox 100 02/02/18 07:57 - Labs Result Diagrams: 01/31/18 17:00 01/31/18 17:00 Labs: Laboratory Results - last 24 hr 02/01/18 02/01/18 02/01/18 14:08 14:08 14:08 POC Glucose (mg/dL) Lactic Acid 1.2 Total Creatine Kinase 35 L CK-MB (Mass) 1.52 Troponin I 0.1140 NT-Pro-B Natriuret Pep 74675 H Procalcitonin 0.28 02/01/18 02/01/18 02/02/18 18:16 21:45 07:05 POC Glucose (mg/dL) 163 H 256 H 244 H Lactic Acid Total Creatine Kinase CK-MB (Mass) Troponin I NT-Pro-B Natriuret Pep Procalcitonin 02/02/18 11:09 POC Glucose (mg/dL) 327 H Lactic Acid Total Creatine Kinase CK-MB (Mass) Troponin I NT-Pro-B Natriuret Pep Procalcitonin Attending/Attestation - Attestation I have personally seen and examined this patient.: Yes I have fully participated in the care of the patient.: Yes I have reviewed all pertinent clinical information: Yes Notes (Text): Pt was seen and examined at bedside Agree with above note and assessment Pt is s/p Lap cholecystectomy, GRAY and Drainage of collection Pt was sent back to hospital due to Serous Drain out put Abdomen: Soft, NT, ND Labs and radiology reviewed C/w current mx Drain removal DC plan Plan d.w pt in detail. Risk and benefit explained in detail
[2018-01-31] MEDS ORDERED: Pneumococcal 23-Valent Vaccine IM ONE (19:17)
--- NOTE | 2018-02-01 06:22 | CP.PCM.PN ---
<Wayne Montesinos - Last Filed: 02/01/18 06:20> Subjective - Date & Time of Evaluation Date of Evaluation: 02/01/18 Time of Evaluation: 06:20 - Subjective Subjective: General Surgery: Dr Peacock Pt S&E. [place]. Resting comfortably. Condition remains unchanged. Tolerating diet. Denies N/V, F/C, or SOB. EMIR remains serous with no evidence of bleed or bile leak. Objective - Vital Signs/Intake and Output Vital Signs (last 24 hours): Temp Pulse Resp BP Pulse Ox 97.5 F L 74 20 142/74 98 02/01/18 00:00 02/01/18 00:00 02/01/18 00:00 02/01/18 00:00 02/01/18 00:26 Intake and Output: 01/31/18 02/01/18 18:59 06:59 Output Total 10 Balance -10 - Medications Medications: Current Medications Aspirin (Aspirin Chewable) 81 mg PO DAILY [facility] Enoxaparin Sodium (Lovenox) 40 mg SC DAILY [facility] Ceftriaxone Sodium 1 gm/ (Sodium Chloride) 100 mls @ 100 mls/hr IVPB DAILY [facility] Azithromycin 500 mg/ Sodium (Chloride) 250 mls @ 250 mls/hr IVPB DAILY [facility] Lisinopril (Zestril) 10 mg PO DAILY [facility] Metformin HCl (Glucophage) 1,000 mg PO BID [facility] Pantoprazole Sodium (Protonix Ec Tab) 40 mg PO DAILY [facility] Pneumococcal Polyvalent Vaccine (Pneumovax 23 Vaccine) 0.5 ml IM .ONCE ONE Stop: 02/02/18 10:01 Rosuvastatin Calcium (Crestor) [address] [facility] Last Admin: 01/31/18 21:24 Dose: 5 mg - Labs Labs: 01/31/18 17:00 01/31/18 17:00 - Constitutional Appears: Non-toxic, No Acute Distress - ENT Exam ENT Exam: Mucous Membranes Moist - Respiratory Exam Respiratory Exam: absent: Respiratory Distress - Cardiovascular Exam Cardiovascular Exam: REGULAR RHYTHM. absent: Tachycardia - GI/Abdominal Exam GI & Abdominal Exam: Soft. absent: Distended, Firm, Guarding, Tenderness - Neurological Exam Neurological Exam: Alert, Awake, Oriented x3 - Psychiatric Exam Psychiatric exam: Normal Affect, Normal Mood - Skin Skin Exam: Normal Color, Warm Assessment and Plan - Assessment and Plan (Free Text) Assessment: 77M s/p lap yuli w/ increased drain output Plan: cont regular diet no need for abx or CT scan pt is clear for d/c and follow up with Dr Peacock in office friday explained to pt ok to remove dressings and take a shower d/w Dr Madonna Montesinos, PGY3 <Silvano Peacock B - Last Filed: 02/02/18 11:38> Objective - Vital Signs/Intake and Output Vital Signs (last 24 hours): Temp Pulse Resp BP Pulse Ox 98.2 F 80 20 151/79 H 100 02/02/18 07:57 02/02/18 07:57 02/02/18 07:57 02/02/18 07:57 02/02/18 07:57 Intake and Output: 02/02/18 02/02/18 06:59 18:59 Intake Total 180 Balance 180 - Medications Medications: Current Medications Albuterol/Ipratropium (Duoneb 3 Mg/0.5 Mg (3 Ml) Ud) 3 ml INH RQ6 [facility] Last Admin: 02/02/18 07:37 Dose: 3 ml Aspirin (Aspirin Chewable) 81 mg PO DAILY [facility] Last Admin: 02/02/18 09:56 Dose: 81 mg Enoxaparin Sodium (Lovenox) 40 mg SC DAILY [facility] Last Admin: 02/02/18 09:55 Dose: 40 mg Insulin Human Regular (Novolin R) 0 unit SC ACHS [facility] PRN Reason: Protocol Lisinopril (Zestril) 10 mg PO DAILY [facility] Last Admin: 02/02/18 09:56 Dose: 10 mg Metformin HCl (Glucophage) 1,000 mg PO BID [facility] Last Admin: 02/02/18 09:56 Dose: 1,000 mg Methylprednisolone (Solu-Medrol) 40 mg IVP Q12H [facility] Metoclopramide HCl (Reglan) 5 mg PO Q6 PRN PRN Reason: Hiccups Last Admin: 02/02/18 10:08 Dose: 5 mg Morphine Sulfate (Morphine) 1 mg IVP Q4 PRN PRN Reason: Pain, severe (8-10) Last Admin: 02/02/18 05:53 Dose: 1 mg Pantoprazole Sodium (Protonix Ec Tab) 40 mg PO DAILY [facility] Last Admin: 02/02/18 09:56 Dose: 40 mg Rosuvastatin Calcium (Crestor) 5 mg PO HS [facility] Last Admin: 02/01/18 22:07 Dose: 5 mg - Labs Labs: 01/31/18 17:00 01/31/18 17:00 Attending/Attestation - Attestation I have personally seen and examined this patient.: Yes I have fully participated in the care of the patient.: Yes I have reviewed all pertinent clinical information, including history, physical exam and plan: Yes Notes (Text): Pt was seen and examined at bedside Agree with above note and assessment Pt is improving clinically Drain removal DC Plan Plan d.w pt in detail.
[2018-02-01] MEDS ORDERED: Azithromycin 500 MG in Sodium Chloride 0.9% 250 ML IVPB SCH (10:00)
[2018-02-01] MEDS: Enoxaparin 40 mg Syringe SC SCH (10:35)
[2018-02-01] MEDS: Pantoprazole 40 mg EC Tab PO SCH (10:35)
[2018-02-01] MEDS ORDERED: Simethicone 80 mg Chewtab PO ONE (13:09)
[2018-02-01] MEDS: MethylPREDNISolone 40 mg Vial IVP SCH ×2 (14:02→22:07)
[2018-02-01 14:43] LABS: CK-MB 1.52 ng/mL (0.0-3.38); TROPONIN I 0.114 ng/mL (0.00-0.120)
--- NOTE | 2018-02-01 15:49 | CP.PCM.PN ---
Subjective - Date & Time of Evaluation Date of Evaluation: 02/01/18 Time of Evaluation: 08:10 - Subjective Subjective: clinically same Objective - Vital Signs/Intake and Output Vital Signs (last 24 hours): Temp Pulse Resp BP Pulse Ox 98.7 F 92 H 20 159/76 H 96 02/01/18 09:36 02/01/18 09:36 02/01/18 09:36 02/01/18 09:36 02/01/18 09:36 Intake and Output: 02/01/18 02/01/18 06:59 18:59 Intake Total 180 Output Total 110 Balance 70 - Medications Medications: Current Medications Albuterol/Ipratropium (Duoneb 3 Mg/0.5 Mg (3 Ml) Ud) 3 ml INH RQ6 [facility] Aspirin (Aspirin Chewable) 81 mg PO DAILY [facility] Last Admin: 02/01/18 10:33 Dose: 81 mg Enoxaparin Sodium (Lovenox) 40 mg SC DAILY [facility] Last Admin: 02/01/18 10:35 Dose: 40 mg Ceftriaxone Sodium 1 gm/ (Sodium Chloride) 100 mls @ 100 mls/hr IVPB DAILY [facility] Last Admin: 02/01/18 10:36 Dose: 100 mls/hr Azithromycin 500 mg/ Sodium (Chloride) 250 mls @ 250 mls/hr IVPB DAILY [facility] Last Admin: 02/01/18 11:24 Dose: 250 mls/hr Lisinopril (Zestril) 10 mg PO DAILY [facility] Last Admin: 02/01/18 10:32 Dose: 10 mg Metformin HCl (Glucophage) 1,000 mg PO BID [facility] Last Admin: 02/01/18 10:33 Dose: 1,000 mg Methylprednisolone (Solu-Medrol) 40 mg IVP Q8 [facility] Last Admin: 02/01/18 14:02 Dose: 40 mg Metoclopramide HCl (Reglan) 10 mg PO ONCE ONE Stop: 02/01/18 16:01 Morphine Sulfate (Morphine) 1 mg IVP Q4 PRN PRN Reason: Pain, severe (8-10) Last Admin: 02/01/18 14:02 Dose: 1 mg Pantoprazole Sodium (Protonix Ec Tab) 40 mg PO DAILY [facility] Last Admin: 02/01/18 10:35 Dose: 40 mg Pneumococcal Polyvalent Vaccine (Pneumovax 23 Vaccine) 0.5 ml IM .ONCE ONE Stop: 02/02/18 10:01 Prochlorperazine (Compazine Tab) 5 mg PO TID [facility] Last Admin: 02/01/18 14:04 Dose: Not Given Rosuvastatin Calcium (Crestor) 5 mg PO HS [facility] Last Admin: 01/31/18 21:24 Dose: 5 mg - Labs Labs: 01/31/18 17:00 01/31/18 17:00 - Constitutional Appears: Well - Head Exam Head Exam: ATRAUMATIC, NORMAL INSPECTION, NORMOCEPHALIC - Eye Exam Eye Exam: EOMI, Normal appearance, PERRL Pupil Exam: NORMAL ACCOMODATION, PERRL - ENT Exam ENT Exam: Mucous Membranes Moist, Normal Exam - Neck Exam Neck Exam: Full ROM, Normal Inspection. absent: Lymphadenopathy - Respiratory Exam Respiratory Exam: Decreased Breath Sounds - Cardiovascular Exam Cardiovascular Exam: REGULAR RHYTHM, +S1, +S2 - GI/Abdominal Exam GI & Abdominal Exam: Soft, Diminished Bowel Sounds - Rectal Exam Rectal Exam: Deferred Assessment and Plan (1) Abdominal colic Status: Acute (2) Post-op pain Status: Acute (3) KARIS (acute kidney injury) Status: Acute (4) Abdominal pain Status: Acute (5) CHF (congestive heart failure) Status: Acute (6) CHF (congestive heart failure) Status: Acute (7) DM type 2 (diabetes mellitus, type 2) Status: Acute (8) Diabetes mellitus Status: Acute (9) Gallstone Status: Acute (10) Hypertension Status: Acute (11) Transient ischemic attack (TIA) Status: Acute - Assessment and Plan (Free Text) Plan: Spoke to the surgical doctor removed the drain Patient can be discharged tomorrow Continue Lovenox and Protonix Continue Solu-Medrol Continue other medications as ordered No need for an antibiotic as per the surgical Dr. Status post ceftriaxone if needed will resume it
[2018-02-01] MEDS ORDERED: Metoclopramide 10 mg/10 ml Cup PO ONE (16:00)
[2018-02-01] MEDS: Albuterol-Ipratrop 3 mg / 0.5 (3 ml) UD INH SCH (19:10)
[2018-02-02 00:43] VITALS: O2SAT 100
[2018-02-02] MEDS: Albuterol-Ipratrop 3 mg / 0.5 (3 ml) UD INH SCH ×3 (01:02→13:28)
[2018-02-02] MEDS: MethylPREDNISolone 40 mg Vial IVP SCH (05:53)
[2018-02-02 07:59] VITALS: TEMP 98.2
--- NOTE | 2018-02-02 08:00 | CP.PCM.CON ---
<Misty Wilson - Last Filed: 02/02/18 09:27> History of Present Illness - History of Present Illness History of Present Illness: Initial PGY4 GI Consult Note Reza Whittington is a 77M w/ a hx of HTN, DM, dyslipidemia, osteoarthritis, H pylori gastritis, pandiverticulosis who presented to the ED with complaints of drainage around his EMIR drain. He was recently discharged from [facility] for Acute Cholecystitis w/ perihepatic abcess formation s/p lap charisse and EMIR drain. Pt's family was concerned due to increased oupt from the drain and came to the ER for evaluation. Upon arrival, he was noted to have intractable hiccups. He states that the hiccups started 3 days ago and have been constant. He denies any abd pain. He denies any previous episode. He was given compazine without any significant improvement. A x1 dose of 10mg reglan PO, did decrease his symptoms overnight. Pt notes regular BM with blood, melena. Denies any nausea, vomiting or diarrhea. PMHx: See HPI PSHx: Denies any prior surgical interventions FHx: Discussed with patient and denies any pertinent family history Social: Quit tobacco use >45 yrs ago, rare EtOH use, no illicit drug use Endo: EGD/Colonoscopy - 12/2015 - H pylori + gastritis, hyperplastic polyp of transverse colon, pandiverticulosis 12 system ROS performed and negative except where stated. Past Patient History - Infectious Disease Hx of Infectious Diseases: None - Past Medical History & Family History Past Medical History?: Yes - Past Social History Smoking Status: Former Smoker - CARDIAC Hx Congestive Heart Failure: Yes Hx Hypercholesterolemia: Yes (NO MED ) Hx Hypertension: Yes - PULMONARY Hx Respiratory Disorders: No - NEUROLOGICAL Hx Neurological Disorder: No - HEENT Hx HEENT Problems: No - RENAL Hx Chronic Kidney Disease: No - ENDOCRINE/METABOLIC Hx Hyperthyroidism: No Hx Hypothyroidism: No - HEMATOLOGICAL/ONCOLOGICAL Hx Blood Disorders: No - INTEGUMENTARY Hx Dermatological Problems: No - MUSCULOSKELETAL/RHEUMATOLOGICAL Hx Arthritis: Yes - GASTROINTESTINAL Hx Gastrointestinal Disorders: No - GENITOURINARY/GYNECOLOGICAL Hx Genitourinary Disorders: No - PSYCHIATRIC Hx Substance Use: No - SURGICAL HISTORY Hx Cholecystectomy: Yes (Jan 2018) - ANESTHESIA Hx Anesthesia: Yes Hx Anesthesia Reactions: No Hx Malignant Hyperthermia: No Meds Allergies/Adverse Reactions: Allergies Allergy/AdvReac Type Severity Reaction Status Date / Time No Known Allergies Allergy Verified 01/31/18 16:29 - Medications Medications: Current Medications Albuterol/Ipratropium (Duoneb 3 Mg/0.5 Mg (3 Ml) Ud) 3 ml INH RQ6 [facility] Last Admin: 02/02/18 07:37 Dose: 3 ml Aspirin (Aspirin Chewable) 81 mg PO DAILY [facility] Last Admin: 02/01/18 10:33 Dose: 81 mg Enoxaparin Sodium (Lovenox) 40 mg SC DAILY [facility] Last Admin: 02/01/18 10:35 Dose: 40 mg Lisinopril (Zestril) 10 mg PO DAILY [facility] Last Admin: 02/01/18 10:32 Dose: 10 mg Metformin HCl (Glucophage) 1,000 mg PO BID [facility] Last Admin: 02/01/18 18:12 Dose: 1,000 mg Methylprednisolone (Solu-Medrol) 40 mg IVP Q8 [facility] Last Admin: 02/02/18 05:53 Dose: 40 mg Morphine Sulfate (Morphine) 1 mg IVP Q4 PRN PRN Reason: Pain, severe (8-10) Last Admin: 02/02/18 05:53 Dose: 1 mg Pantoprazole Sodium (Protonix Ec Tab) 40 mg PO DAILY [facility] Last Admin: 02/01/18 10:35 Dose: 40 mg Pneumococcal Polyvalent Vaccine (Pneumovax 23 Vaccine) 0.5 ml IM .ONCE ONE Stop: 02/02/18 10:01 Prochlorperazine (Compazine Tab) 5 mg PO TID [facility] Last Admin: 02/01/18 18:11 Dose: 5 mg Rosuvastatin Calcium (Crestor) 5 mg PO HS [facility] Last Admin: 02/01/18 22:07 Dose: 5 mg Physical Exam - Constitutional Appears: No Acute Distress - Head Exam Head Exam: ATRAUMATIC, NORMOCEPHALIC - Eye Exam Eye Exam: Normal appearance - ENT Exam ENT Exam: Mucous Membranes Moist, Normal Exam - Neck Exam Neck exam: Positive for: Normal Inspection - Respiratory Exam Respiratory Exam: Clear to Auscultation Bilateral, NORMAL BREATHING PATTERN. absent: Rales, Rhonchi, Wheezes, Respiratory Distress - Cardiovascular Exam Cardiovascular Exam: REGULAR RHYTHM, +S1, +S2 - GI/Abdominal Exam GI & Abdominal Exam: Normal Bowel Sounds, Soft. absent: Distended, Guarding, Hernia, Rebound, Rigid, Tenderness - Extremities Exam Extremities exam: Negative for: joint swelling, pedal edema - Neurological Exam Neurological exam: Alert, Oriented x3 - Psychiatric Exam Psychiatric exam: Normal Affect, Normal Mood - Skin Skin Exam: Dry, Intact, Normal Color, Warm Results - Vital Signs Recent Vital Signs: Last Vital Signs Temp 98.2 F 02/02/18 07:57 Pulse 80 02/02/18 07:57 Resp 20 02/02/18 07:57 BP 151/79 H 02/02/18 07:57 Pulse Ox 100 02/02/18 07:57 - Labs Result Diagrams: 01/31/18 17:00 01/31/18 17:00 Labs: Laboratory Results - last 24 hr 02/01/18 02/01/18 02/01/18 10:26 14:08 14:08 POC Glucose (mg/dL) 213 H Lactic Acid Total Creatine Kinase 35 L CK-MB (Mass) 1.52 Troponin I 0.1140 NT-Pro-B Natriuret Pep 08671 H Procalcitonin 0.28 02/01/18 02/01/18 02/01/18 14:08 18:16 21:45 POC Glucose (mg/dL) 163 H 256 H Lactic Acid 1.2 Total Creatine Kinase CK-MB (Mass) Troponin I NT-Pro-B Natriuret Pep Procalcitonin 02/02/18 07:05 POC Glucose (mg/dL) 244 H Lactic Acid Total Creatine Kinase CK-MB (Mass) Troponin I NT-Pro-B Natriuret Pep Procalcitonin Assessment & Plan - Assessment and Plan (Free Text) Assessment: Reza Whittington is a 77M w/ hx of HTN, DM, OA, h. pylori gastritis, s/p lap charisse for gangrenous GB and perihepatic abscess who was admitted for EMIR drain eval. GI was consulted for intractable hiccups Intractable Hiccups, etiology unknown, DDx: post surgery, GERD, abd abscess. S/P Lap Charisse for gangrenous GB Parahepatic Abscess, s/p EMIR drain hx of h. pylori Plan: -continue PPI, Protontix 40mg Po daily -will d/c compazine -Reglan PRN for breakthrough symptoms, watch out for extrapyramidal signs -surgery evaluated -nurse notes that dressing overnight was soaked with serous fluid and continues to drain -would recommend repeat CT abd, if okay with surgery -follow-up with Surgery in 1 week Will D/W Dr. Pichardo <Tyler Pichardo - Last Filed: 02/02/18 12:07> Meds - Medications Medications: Current Medications Albuterol/Ipratropium (Duoneb 3 Mg/0.5 Mg (3 Ml) Ud) 3 ml INH RQ6 [facility] Last Admin: 02/02/18 07:37 Dose: 3 ml Aspirin (Aspirin Chewable) 81 mg PO DAILY [facility] Last Admin: 02/02/18 09:56 Dose: 81 mg Enoxaparin Sodium (Lovenox) 40 mg SC DAILY [facility] Last Admin: 02/02/18 09:55 Dose: 40 mg Insulin Human Regular (Novolin R) 0 unit SC ACHS [facility] PRN Reason: Protocol Lisinopril (Zestril) 10 mg PO DAILY [facility] Last Admin: 02/02/18 09:56 Dose: 10 mg Metformin HCl (Glucophage) 1,000 mg PO BID [facility] Last Admin: 02/02/18 09:56 Dose: 1,000 mg Methylprednisolone (Solu-Medrol) 40 mg IVP Q12H [facility] Metoclopramide HCl (Reglan) 5 mg PO Q6 PRN PRN Reason: Hiccups Last Admin: 02/02/18 10:08 Dose: 5 mg Morphine Sulfate (Morphine) 1 mg IVP Q4 PRN PRN Reason: Pain, severe (8-10) Last Admin: 02/02/18 05:53 Dose: 1 mg Pantoprazole Sodium (Protonix Ec Tab) 40 mg PO DAILY [facility] Last Admin: 02/02/18 09:56 Dose: 40 mg Rosuvastatin Calcium (Crestor) 5 mg PO HS [facility] Last Admin: 02/01/18 22:07 Dose: 5 mg Results - Vital Signs Recent Vital Signs: Last Vital Signs Temp 98.2 F 02/02/18 07:57 Pulse 80 02/02/18 07:57 Resp 20 02/02/18 07:57 BP 151/79 H 02/02/18 07:57 Pulse Ox 100 02/02/18 07:57 - Labs Result Diagrams: 01/31/18 17:00 01/31/18 17:00 Labs: Laboratory Results - last 24 hr 02/01/18 02/01/18 02/01/18 14:08 14:08 14:08 POC Glucose (mg/dL) Lactic Acid 1.2 Total Creatine Kinase 35 L CK-MB (Mass) 1.52 Troponin I 0.1140 NT-Pro-B Natriuret Pep 18577 H Procalcitonin 0.28 02/01/18 02/01/18 02/02/18 18:16 21:45 07:05 POC Glucose (mg/dL) 163 H 256 H 244 H Lactic Acid Total Creatine Kinase CK-MB (Mass) Troponin I NT-Pro-B Natriuret Pep Procalcitonin 02/02/18 11:09 POC Glucose (mg/dL) 327 H Lactic Acid Total Creatine Kinase CK-MB (Mass) Troponin I NT-Pro-B Natriuret Pep Procalcitonin Attending/Attestation - Attestation I have personally seen and examined this patient.: Yes I have fully participated in the care of the patient.: Yes I have reviewed all pertinent clinical information: Yes Notes (Text): 02/02/18 12:01 Patient seen at bedside this am with GI fellow. This is a 77 year old M with history of HTN, DM, OA, and H. pylori gastritis, s/p lap cholecystectomy for gangrenous GB and perihepatic abscess 2 weeks ago now who was admitted for EMIR drain evaluation. GI was consulted for intractable hiccups which have resolved on reglan. His EMIR drain was pulled out by surgery. He had a bandage on right side with serosanguinous output. -continue PPI 40mg Po daily -Reglan PRN for breakthrough symptoms, watch out for extrapyramidal signs -surgery evaluation recommended for continous drainage from EMIR site. - Will sign of fnow. Thank you for letting us participate in the care of your patient
[2018-02-02] MEDS: Enoxaparin 40 mg Syringe SC SCH (09:55)
[2018-02-02] MEDS: Pantoprazole 40 mg EC Tab PO SCH (09:56)
[2018-02-02] MEDS ORDERED: Pneumococcal 23-Valent Vaccine IM ONE (10:00)
[2018-02-02] MEDS ORDERED: MethylPREDNISolone 40 mg Vial IVP SCH ×2 (12:00→22:00)
[2018-02-02 15:56] VITALS: BP 133/64; PULSE 87
[2018-02-02] MEDS ORDERED: (Novolin R) Insulin Human Regular 100 units/ml vial SC SCH (16:30)
--- NOTE | 2018-02-02 16:44 | CP.PCM.PN ---
Subjective - Date & Time of Evaluation Date of Evaluation: 02/02/18 Time of Evaluation: 16:44 - Subjective Subjective: ALERT AND ORIENTEDX3, DENIES PAIN. Objective - Vital Signs/Intake and Output Vital Signs (last 24 hours): Temp Pulse Resp BP Pulse Ox 98.2 F 87 20 133/64 100 02/02/18 15:15 02/02/18 15:15 02/02/18 15:15 02/02/18 15:15 02/02/18 15:15 Intake and Output: 02/02/18 02/02/18 06:59 18:59 Intake Total 180 Balance 180 - Medications Medications: Current Medications Albuterol/Ipratropium (Duoneb 3 Mg/0.5 Mg (3 Ml) Ud) 3 ml INH RQ6 [facility] Last Admin: 02/02/18 13:28 Dose: 3 ml Aspirin (Aspirin Chewable) 81 mg PO DAILY [facility] Last Admin: 02/02/18 09:56 Dose: 81 mg Enoxaparin Sodium (Lovenox) 40 mg SC DAILY [facility] Last Admin: 02/02/18 09:55 Dose: 40 mg Insulin Human Regular (Novolin R) 0 unit SC [facility] PRN Reason: Protocol Lisinopril (Zestril) 10 mg PO DAILY [facility] Last Admin: 02/02/18 09:56 Dose: 10 mg Metformin HCl (Glucophage) 1,000 mg PO BID [facility] Last Admin: 02/02/18 09:56 Dose: 1,000 mg Methylprednisolone (Solu-Medrol) 40 mg IVP Q12H [facility] Metoclopramide HCl (Reglan) 5 mg PO Q6 PRN PRN Reason: Hiccups Last Admin: 02/02/18 10:08 Dose: 5 mg Morphine Sulfate (Morphine) 1 mg IVP Q4 PRN PRN Reason: Pain, severe (8-10) Last Admin: 02/02/18 05:53 Dose: 1 mg Pantoprazole Sodium (Protonix Ec Tab) 40 mg PO DAILY [facility] Last Admin: 02/02/18 09:56 Dose: 40 mg Rosuvastatin Calcium (Crestor) 5 mg PO HS [facility] Last Admin: 02/01/18 22:07 Dose: 5 mg - Labs Labs: 01/31/18 17:00 01/31/18 17:00 Assessment and Plan - Assessment and Plan (Free Text) Assessment: Patient admitted with post operative drainage output evaluation, cleared by surgery and GI for discharge home. Seen and examined, alert and orientedx3, denies acute complaints of pain or distress. Abdominal drainage site with soaked dressing. Discussed with DR Naima Wilson, plan to discharge home today. Dressing changed, advised to change as needed. Advised to follow up at DR Keene's office tomorrow.
--- NOTE | 2018-02-02 23:11 | CP.PCM.PN ---
Subjective - Date & Time of Evaluation Date of Evaluation: 02/02/18 Objective - Vital Signs/Intake and Output Vital Signs (last 24 hours): Temp Pulse Resp BP Pulse Ox 98.2 F 87 20 133/64 100 02/02/18 15:15 02/02/18 15:15 02/02/18 15:15 02/02/18 15:15 02/02/18 15:15 Intake and Output: 02/02/18 02/03/18 18:59 06:59 Intake Total 480 Balance 480 - Labs Labs: 01/31/18 17:00 01/31/18 17:00 Assessment and Plan (1) Abdominal colic Status: Acute (2) Post-op pain Status: Acute (3) KARIS (acute kidney injury) Status: Acute (4) Abdominal pain Status: Acute (5) CHF (congestive heart failure) Status: Acute (6) CHF (congestive heart failure) Status: Acute (7) DM type 2 (diabetes mellitus, type 2) Status: Acute (8) Diabetes mellitus Status: Acute (9) Gallstone Status: Acute (10) Hypertension Status: Acute (11) Transient ischemic attack (TIA) Status: Acute
[2018-02-03] MEDS ORDERED: Influenza Vaccine 60 mcg/0.5 mL SYR (4YR UP) IM ONE (10:00)
== END 2018-02-02 18:43 | disposition home or self-care (01) ==
LOC: C.ER 16:13 → C.9E 16:43 → C.3T 17:10
PROVIDERS: ADMIT Internal Medicine Nephrology; ATTEND Internal Medicine Nephrology
DX: R10.0 Acute abdomen (principal); R06.6 Hiccough; K29.70 Gastritis, unspecified, without bleeding; K57.90 Diverticulosis of intestine, part unspecified, without perforation or abscess without bleeding; Z87.891 Personal history of nicotine dependence; E78.00 Pure hypercholesterolemia, unspecified; E11.9 Type 2 diabetes mellitus without complications; I11.0 Hypertensive heart disease with heart failure; I50.9 Heart failure, unspecified; G89.18 Other acute postprocedural pain
CPT/HCPCS: 36415; 80053; 81001; 82948; 83605; 83690; 83880; 84145; 84484; 85025; 90732; 94640; 99284; G0009; G0378; J0456; J0696; J1650; J2270; J2920; J7050; Q0164

== ENCOUNTER 2018-04-15 10:25 | Inpatient (IN) | payer MEDICARE, OTHER ==
[2018-04-15 10:50] VITALS: BMI 21.5
--- NOTE | 2018-04-15 11:22 | RAD ---
PROCEDURE: CHEST RADIOGRAPH, 1 VIEW HISTORY: SOB COMPARISON: Chest radiograph dated 01/23/2018 FINDINGS: LUNGS: Questionable bibasilar atelectasis versus overlying soft tissue. PLEURA: No pneumothorax or pleural fluid seen. CARDIOVASCULAR: Atherosclerotic aortic calcifications. Cardiomediastinal silhouette stably enlarged. OSSEOUS STRUCTURES: Unchanged. VISUALIZED UPPER ABDOMEN: Normal. OTHER FINDINGS: None. IMPRESSION: Questionable bibasilar atelectasis versus underpenetrated overlying soft tissue.
[2018-04-15 11:23] LABS: BASO % 0.8 % (0.0-2.0); EOS % 0.8 % (0.0-4.0); HEMOGLOBIN 13.6 g/dL (12.0-18.0); LYMPH # 1.1 K/uL (1.0-4.3); LYMPH % 27.9 % (20.0-40.0); MEAN CELL VOLUME 89.8 fL (80.0-94.0); MEAN CORPUSCULAR HEMOGLOBIN 30.7 pg (27.0-31.0); MEAN CORPUSCULAR HGB CONC 34.2 g/dL (33.0-37.0); MEAN PLATELET VOLUME 9.1 fL (7.2-11.7); MONO # 0.4 K/uL (0.0-0.8); MONO % 10.5 % (0.0-10.0); NEUT # 2.4 K/uL (1.8-7.0); NRBC % 0.1 % (0.0-2.0); RBC 4.44 Mil/uL (4.40-5.90); RED CELL DISTRIBUTION WIDTH 15.4 % (11.5-14.5)
[2018-04-15 11:31] LABS: INR 1.3; PROTHROMBIN TIME 14.1 SECONDS (9.7-12.2)
[2018-04-15 11:41] LABS: ALB/GLOB RATIO 1.2 (1.0-2.1); ALT/SGPT 36 U/L (21-72); AST/SGOT 69 U/L (17-59); BLOOD UREA NITROGEN 16 mg/dL (9-20); GFR AFRICAN-AMERICAN > 60; GFR NON-AFRICAN AMERICAN > 60
[2018-04-15 11:54] LABS: B-TYPE NATRIURETIC PEPTIDE 2790 pg/mL (0-900)
--- NOTE | 2018-04-15 12:50 | C.PDOC ---
History Of Present Illness 77-year-old male presents to the emergency department with complaints of shortness of breath, that worsens with laying flat and with exertion for the past four months. Patient denies chest pain, palpitations, cough, fever, abdominal pain, nausea/vomiting/diarrhea. Patient also admits to worsening leg swelling over the same amount of time. Time Seen by Provider: 04/15/18 10:58 Chief Complaint (Nursing): Shortness Of Breath History Per: Patient History/Exam Limitations: no limitations Onset/Duration Of Symptoms: Gradual, Persistent Current Symptoms Are (Timing): Still Present Current Respiratory Medications: See Home Med List Severity: Moderate Past Medical History Reviewed: Historical Data, Nursing Documentation, Vital Signs Vital Signs: Last Vital Signs Temp 97.7 F 04/22/18 07:00 Pulse 77 04/22/18 07:57 Resp 20 04/22/18 07:00 BP 156/82 H 04/22/18 07:00 Pulse Ox 100 04/22/18 08:49 - Medical History PMH: Arthritis, CHF, Gall Bladder Disease, HTN, Hypercholesterolemia Surgical History: Cholecystectomy - [facility] Procedures DRAINAGE OF LIVER, PERCUTANEOUS ENDOSCOPIC APPROACH (01/24/18) RELEASE PERITONEUM, PERCUTANEOUS ENDOSCOPIC APPROACH (01/24/18) RESECTION OF GALLBLADDER, PERCUTANEOUS ENDOSCOPIC APPROACH (01/24/18) Family History: States: No Known Family Hx - Social History Hx Alcohol Use: No Hx Substance Use: No - Immunization History Hx Tetanus Toxoid Vaccination: No Hx Influenza Vaccination: No Review Of Systems Constitutional: Negative for: Fever, Chills Cardiovascular: Positive for: Orthopnea, Edema. Negative for: Chest Pain, Palpitations Respiratory: Positive for: Shortness of Breath, SOB with Excertion. Negative for: Cough Gastrointestinal: Negative for: Nausea, Vomiting, Abdominal Pain, Diarrhea Musculoskeletal: Negative for: Back Pain Neurological: Negative for: Weakness, Numbness, Headache, Dizziness Physical Exam - Physical Exam Appears: Well, Non-toxic, No Acute Distress, Other (speaking in full sentences) Skin: Normal Color, Warm, Dry, No Diaphoretic, No Rash Head: Normacephalic Eye(s): bilateral: Normal Inspection Oral Mucosa: Moist Neck: Normal, Normal ROM Chest: Symmetrical Cardiovascular: Rhythm Regular, Murmur (3/6, holosystolic) Respiratory: No Accessory Muscle Use, Rales (B/L), No Rhonchi, No Wheezing Gastrointestinal/Abdominal: Normal Exam, Bowel Sounds, Soft, No Tenderness Extremity: Normal ROM, Pedal Edema (+2, pitting edema, B/L LEs), No Calf Tenderness Pulses: Left Dorsalis Pedis: Normal, Right Dorsalis Pedis: Normal Neurological/Psych: Oriented x3 ED Course And Treatment - Laboratory Results Result Diagrams: 04/20/18 06:00 04/20/18 06:00 ECG: Interpreted By Me, Viewed By Me (NSR 84 nbpm, normal axis, low voltage QRS , T wave inversions V5-V6) ECG Interpretation: Abnormal O2 Sat by Pulse Oximetry: 100 (RA) Pulse Ox Interpretation: Normal - Other Rad CXR X-Ray: Viewed By Me, Read By Radiologist Interpretation: Accession No. : [id number]. Patient Name / ID : MAURICE Sullivan / [id number]. Exam Date : 04/15/2018 11:09:05 ( Approved ). Study Comment : Sex / Age : M / 77Y. Creator : Navarro Styles MD. Dictator : Navarro Styles MD. Conical Mixer : Digital Media Coordinator : Navarro Styles MD. Approver2 : Report Date : 04/15/2018 11:21:09. My Comment : . PROCEDURE: CHEST RADIOGRAPH, 1 VIEW. HISTORY: SOB. COMPARISON: Chest radiograph dated 01/23/2018. FINDINGS: LUNGS: Questionable bibasilar atelectasis versus overlying soft tissue. PLEURA: No pneumothorax or pleural fluid seen. CARDIOVASCULAR: Atherosclerotic aortic calcifications. Cardiomediastinal silhouette stably enlarged. OSSEOUS STRUCTURES: Unchanged. VISUALIZED UPPER ABDOMEN: Normal. OTHER FINDINGS: None. IMPRESSION: Questionable bibasilar atelectasis versus underpenetrated overlying soft tissue. Progress Note: Blood work, EKG, Chest XR ordered and reviewed. Patient given PO ASA and IV Lasix. EKG with low voltage QRS and CXR shows significant cardiomegaly - cardiac echo ordered to evaluate for possible pericardial effusion. Patient has elevated toponin, but current without chest pain and without acute ST ekg changes - do not suspect NSTEMI. - Physician Consult Information Physician Contacted: Tej Wilson Outcome Of Conversation: Discussed patient with PMD, agrees with admission for chf exacerbation, dyspnea, elevated troponin, orthopnea. Critical Care Time - Critical Care Note Total Time (in mins): 35 Documented critical care: time excludes all time spent performing seperately billable procedures. Disposition - Disposition Disposition: HOSPITALIZED Disposition Time: 12:54 Condition: FAIR - Clinical Impression Clinical Impression: CHF exacerbation, Dyspnea, Orthopnea, Elevated troponin - Scribe Statement The provider has reviewed the documentation as recorded by the Scribe (Eloina Escalona) All medical record entries made by the Scribe were at my direction and personally dictated by me. I have reviewed the chart and agree that the record accurately reflects my personal performance of the history, physical exam, medical decision making, and the department course for this patient. I have also personally directed, reviewed, and agree with the discharge instructions and disposition. Decision To Admit - Pt Status Changed To: Hospital Disposition Of: Inpatient - Admit Certification Admit to Inpatient:: After my assessment, the patient will require hospitalization for at least two midnights. This is because of the severity of symptoms shown, intensity of services needed, and/or the medical risk in this patient being treated as an outpatient. - InPatient: Physician Admission Certification: I certify that this patient requires 2 or more midnights of care for the following reason:: see notes - . Bed Request Type: Telemetry Admitting Physician: Tej Wilson Patient Diagnosis: CHF exacerbation, Dyspnea, Orthopnea, Elevated troponin
--- NOTE | 2018-04-15 13:25 | CP.PCM.HP ---
Past Patient History - Infectious Disease Hx of Infectious Diseases: None - Past Medical History & Family History Past Medical History?: Yes - Past Social History Smoking Status: Former Smoker - CARDIAC Hx Congestive Heart Failure: Yes Hx Hypercholesterolemia: Yes Hx Hypertension: Yes - PULMONARY Hx Respiratory Disorders: No - NEUROLOGICAL Hx Neurological Disorder: No - HEENT Hx HEENT Problems: No - RENAL Hx Chronic Kidney Disease: No - ENDOCRINE/METABOLIC Hx Hyperthyroidism: No Hx Hypothyroidism: No - HEMATOLOGICAL/ONCOLOGICAL Hx Blood Disorders: No - INTEGUMENTARY Hx Dermatological Problems: No - MUSCULOSKELETAL/RHEUMATOLOGICAL Hx Arthritis: Yes - GASTROINTESTINAL Hx Gall Bladder Disease: Yes - GENITOURINARY/GYNECOLOGICAL Hx Genitourinary Disorders: No - PSYCHIATRIC Hx Substance Use: No - SURGICAL HISTORY Hx Cholecystectomy: Yes - ANESTHESIA Hx Anesthesia: Yes Hx Anesthesia Reactions: No Hx Malignant Hyperthermia: No Meds Allergies/Adverse Reactions: Allergies Allergy/AdvReac Type Severity Reaction Status Date / Time No Known Allergies Allergy Verified 04/15/18 10:49 Physical Exam - Constitutional Appears: Well - Head Exam Head Exam: ATRAUMATIC, NORMAL INSPECTION, NORMOCEPHALIC - Eye Exam Eye Exam: EOMI, Normal appearance, PERRL Pupil Exam: NORMAL ACCOMODATION, PERRL - ENT Exam ENT Exam: Mucous Membranes Moist, Normal Exam - Neck Exam Neck exam: Positive for: Normal Inspection - Respiratory Exam Respiratory Exam: Decreased Breath Sounds - Cardiovascular Exam Cardiovascular Exam: REGULAR RHYTHM, +S1, +S2 - GI/Abdominal Exam GI & Abdominal Exam: Diminished Bowel Sounds, Soft - Rectal Exam Rectal Exam: Deferred Results - Vital Signs Recent Vital Signs: Last Vital Signs Temp 97.8 F 04/15/18 10:50 Pulse 91 H 04/15/18 12:33 Resp 20 04/15/18 12:33 BP 140/91 H 04/15/18 12:33 Pulse Ox 100 04/15/18 13:20 - Labs Result Diagrams: 04/15/18 11:20 04/15/18 11:20 Labs: Laboratory Results - last 24 hr 04/15/18 04/15/18 04/15/18 11:20 11:20 11:20 WBC 4.0 L RBC 4.44 Hgb 13.6 Hct 39.9 MCV 89.8 MCH 30.7 MCHC 34.2 RDW 15.4 H Plt Count 129 L D MPV 9.1 Neut % (Auto) 60.0 Lymph % (Auto) 27.9 Brooks % (Auto) 10.5 H Eos % (Auto) 0.8 Baso % (Auto) 0.8 Neut # (Auto) 2.4 Lymph # (Auto) 1.1 Brooks # (Auto) 0.4 Eos # (Auto) 0.0 Baso # (Auto) 0.0 PT 14.1 H INR 1.3 APTT 31 Sodium 140 Potassium 4.7 Chloride 101 Carbon Dioxide 25 Anion Gap 19 BUN 16 Creatinine 1.0 Est GFR ( Amer) > 60 Est GFR (Non-Af Amer) > 60 POC Glucose (mg/dL) Random Glucose 229 H Calcium 9.0 Total Bilirubin 1.4 H AST 69 H D ALT 36 Alkaline Phosphatase 254 H D Total Creatine Kinase 92 CK-MB (Mass) 2.50 Troponin I 0.1610 H* NT-Pro-B Natriuret Pep 2790 H Total Protein 7.4 Albumin 4.0 Globulin 3.3 Albumin/Globulin Ratio 1.2 04/15/18 11:24 WBC RBC Hgb Hct MCV MCH MCHC RDW Plt Count MPV Neut % (Auto) Lymph % (Auto) Brooks % (Auto) Eos % (Auto) Baso % (Auto) Neut # (Auto) Lymph # (Auto) Brooks # (Auto) Eos # (Auto) Baso # (Auto) PT INR APTT Sodium Potassium Chloride Carbon Dioxide Anion Gap BUN Creatinine Est GFR ( Amer) Est GFR (Non-Af Amer) POC Glucose (mg/dL) 216 H Random Glucose Calcium Total Bilirubin AST ALT Alkaline Phosphatase Total Creatine Kinase CK-MB (Mass) Troponin I NT-Pro-B Natriuret Pep Total Protein Albumin Globulin Albumin/Globulin Ratio
[2018-04-15 21:38] LABS: CK-MB 2.29 ng/mL (0.0-3.38); TROPONIN I 0.214 ng/mL (0.00-0.120)
[2018-04-16] MEDS: Albuterol-Ipratrop 3 mg / 0.5 (3 ml) UD INH SCH ×4 (01:26→19:28)
[2018-04-16 03:05] LABS: CK-MB 2.15 ng/mL (0.0-3.38); TROPONIN I 0.198 ng/mL (0.00-0.120)
[2018-04-16] MEDS: Azithromycin 500 MG in Sodium Chloride 0.9% 250 ML IVPB SCH (09:35)
[2018-04-16] MEDS: Pantoprazole 40 mg EC Tab PO SCH (09:37)
--- NOTE | 2018-04-16 12:50 | CP.PCM.CON ---
History of Present Illness - History of Present Illness History of Present Illness: reason for consultation: shortness of breath Reza Whittington is a 77M w/ a hx of HTN, DM, dyslipidemia, osteoarthritis, H pylori gastritis, pandiverticulosis who presented to the ED with complaints of Progressively worsening shortness of breath. Denies cough, denies fever chills, denies chest pain. Echocardiogram done in January showed ejection fraction of 20-25%. Also complaining of orthopnea. Denies any chest pain. Review of Systems - Review of Systems All systems: reviewed and no additional remarkable complaints except (shortness of breath) Past Patient History - Infectious Disease Hx of Infectious Diseases: None - Past Medical History & Family History Past Medical History?: Yes - Past Social History Smoking Status: Former Smoker - CARDIAC Hx Cardiac Disorders: Yes Hx Congestive Heart Failure: Yes Hx Hypercholesterolemia: Yes Hx Hypertension: Yes - PULMONARY Hx Respiratory Disorders: No - NEUROLOGICAL Hx Neurological Disorder: No - HEENT Hx HEENT Problems: No - RENAL Hx Chronic Kidney Disease: No - ENDOCRINE/METABOLIC Hx Endocrine Disorders: Yes Hx Diabetes Mellitus Type 2: Yes - HEMATOLOGICAL/ONCOLOGICAL Hx Blood Disorders: No - INTEGUMENTARY Hx Dermatological Problems: No - MUSCULOSKELETAL/RHEUMATOLOGICAL Hx Falls: No - GASTROINTESTINAL Hx Gastrointestinal Disorders: Yes Hx Gall Bladder Disease: Yes - GENITOURINARY/GYNECOLOGICAL Hx Genitourinary Disorders: No - PSYCHIATRIC Hx Psychophysiologic Disorder: No Hx Sexual Abuse: No Hx Substance Use: No - SURGICAL HISTORY Hx Surgeries: Yes Hx Cholecystectomy: Yes - ANESTHESIA Hx Anesthesia: Yes Hx Anesthesia Reactions: No Hx Malignant Hyperthermia: No Has any member of the family had a problem w/ anesthesia?: No Meds Allergies/Adverse Reactions: Allergies Allergy/AdvReac Type Severity Reaction Status Date / Time No Known Allergies Allergy Verified 04/15/18 10:49 - Medications Medications: Current Medications Albuterol/Ipratropium (Duoneb 3 Mg/0.5 Mg (3 Ml) Ud) 3 ml INH RQ6 [facility] Last Admin: 04/16/18 07:23 Dose: Not Given Aspirin (Aspirin Chewable) 81 mg PO DAILY [facility] Last Admin: 04/16/18 09:37 Dose: 81 mg Furosemide (Lasix) 40 mg IVP DAILY [facility] Last Admin: 04/16/18 09:36 Dose: 40 mg Azithromycin 500 mg/ Sodium (Chloride) 250 mls @ 250 mls/hr IVPB DAILY [facility] PRN Reason: Protocol Last Admin: 04/16/18 09:35 Dose: 250 mls/hr Lisinopril (Zestril) 10 mg PO DAILY [facility] Last Admin: 04/16/18 09:38 Dose: 10 mg Metformin HCl (Glucophage) 1,000 mg PO BID [facility] Last Admin: 04/16/18 09:37 Dose: 1,000 mg Pantoprazole Sodium (Protonix Ec Tab) 40 mg PO DAILY [facility] Last Admin: 04/16/18 09:37 Dose: 40 mg Rosuvastatin Calcium (Crestor) 5 mg PO HS [facility] Last Admin: 04/15/18 21:43 Dose: 5 mg Physical Exam - Head Exam Head Exam: ATRAUMATIC, NORMOCEPHALIC - Eye Exam Eye Exam: Normal appearance - ENT Exam ENT Exam: Mucous Membranes Moist - Neck Exam Neck exam: Positive for: Normal Inspection - Respiratory Exam Respiratory Exam: Rales - Cardiovascular Exam Cardiovascular Exam: REGULAR RHYTHM Results - Vital Signs Recent Vital Signs: Last Vital Signs Temp 97.9 F 04/16/18 08:47 Pulse 90 04/16/18 12:00 Resp 18 04/16/18 08:47 BP 111/74 04/16/18 09:36 Pulse Ox 100 04/16/18 08:47 - Labs Result Diagrams: 04/15/18 11:20 04/15/18 11:20 Labs: Laboratory Results - last 24 hr 04/15/18 04/15/18 04/15/18 17:07 20:38 22:05 POC Glucose (mg/dL) 105 194 H Total Creatine Kinase 77 CK-MB (Mass) 2.29 Troponin I 0.2140 H* 04/16/18 04/16/18 02:14 11:42 POC Glucose (mg/dL) 313 H Total Creatine Kinase 68 CK-MB (Mass) 2.15 Troponin I 0.1980 H* Assessment & Plan (1) Acute on chronic systolic and diastolic heart failure, NYHA class 2 Status: Acute Comment: Continue diuretics. elevated troponin. Management as per cardiology
--- NOTE | 2018-04-16 13:12 | CP.PCM.CON ---
History of Present Illness - History of Present Illness History of Present Illness: I was asked to evaluate patient by Dr Wilson patient is a 77 year old male with PMH HTN, hypercholesteroemia and DM who presents with orythopnea, and progressive dsypnea. Patient states symptoms began in December whne he developed dyspnea on exertion. he also developed 2 pillow orthopnea. Echocardiogram perfomred in January revealed dilated cardiomyopathy and severe LV dsyfunction. The results of his cardiovascular management are nto available to me form that time. The patient has devleoped persistent progressive dyspnea, and orthopnea. He has a 1/2 block exercise tolerance. he was admitted with pulmonary vascular congestion, elevated pro BNP and elevated troponin. He currently has no chest pain or dyspnea at rest. Review of Systems - Constitutional Constitutional: absent: As Per HPI, Anorexia, Chills, Daytime Sleepiness, Excessive Sweating, Fatigue, Fever, Frequent Falls, Headache, Increased Appetite , Lethargy, Malaise, Night Sweats, Snoring, Sleep Apnea, Weight Gain, Weight Loss, Weakness, Other - EENT Eyes: absent: As Per HPI, Blind Spots, Blurred Vision, Change in Vision, Decreased Night Vision, Diplopia, Discharge, Dry Eye, Exophthalmos, Floaters, Irritation, Itchy Eyes, Loss of Peripheral Vision, Pain, Photophobia, Requires Corrective Lenses, Sees Flashes, Spots in Vision, Tunnel Vision, Other Visual Disturbances, Loss of Vision, Other Ears: absent: As Per HPI, Decreased Hearing, Ear Discharge, Ear Pain, Tinnitus, Abnormal Hearing, Disequilibrium, Dizziness, Other Nose/Mouth/Throat: absent: As Per HPI, Epistaxis, Nasal Congestion, Nasal Discharge, Nasal Obstruction, Nasal Trauma, Nose Pain, Post Nasal Drip, Sinus Pain, Sinus Pressure, Bleeding Gums, Change in Voice, Dental Pain, Dry Mouth, Dysphagia, Halitosis, Hoarsness, Lip Swelling, Mouth Lesions, Mouth Pain, Odynophagia, Sore Throat, Throat Swelling, Tongue Swelling, Facial Pain, Neck Pain, Neck Mass, Other - Cardiovascular Cardiovascular: Dyspnea, Orthopnea, Paroxysmal Nocturnal Dyspnea - Respiratory Respiratory: Dyspnea - Gastrointestinal Gastrointestinal: absent: As Per HPI, Abdominal Pain, Belching, Bloating, Change in Bowel Habits, Change in Stool Character, Coffee Ground Emesis, Constipation, Cramping, Diarrhea, Dyspepsia, Dysphagia, Early Satiety, Excessive Flatus, Fecal Incontinence, Heartburn, Hematemesis, Hematochezia, Loose Stools, Melena, Nausea, Odynophagia, Temesmus, Vomiting, Other - Genitourinary Genitourinary: absent: As Per HPI, Change in Urinary Stream, Difficulty Urinating, Dysuria, Flank Pain, Hematuria, Pyuria, Nocturia, Urinary Incontinence, Urinary Frequency, Urinary Hesitance, Urinary Urgency, Voiding Freq/Small Amts, Freq UTI, Hx Renal/Bladder Calculi, Hx /Renal Surgery, Bladder Distension, Other - Musculoskeletal Musculoskeletal: absent: As Per HPI, Abnormal Gait, Arthralgias, Atrophy, Back Pain, Deformity, Joint Swelling, Limited Range of Motion, Loss of Height, Muscle Cramps, Muscle Weakness, Myalgias, Neck Pain, Numbness, Radiating Pain into Limb, Stiffness, Tingling, Other - Integumentary Integumentary: absent: As Per HPI, Acne, Alopecia, Bleeding Lesions, Change in Hair, Change in Nails, Change in Pigmentation, Changing Lesions, Dry Skin, Erythema, Furuncle, Hirsutism, Lesions, New Lesions, Non-Healing Lesions, Photosensitivity, Pruritus, Rash, Skin Pain, Skin Ulcer, Sores, Striae, Swelling , Unusual Bruising, Wounds, Jaundice, Other - Neurological Neurological: absent: As Per HPI, Abnormal Gait, Abnormal Hearing, Abnormal Movements, Abnormal Speech, Behavioral Changes, Burning Sensations, Confusion, Convulsions, Disequilibrium, Dizziness, Numbness, Focal Weakness, Frequent Falls , Headaches, Lack of Coordination, Loss of Vision, Memory Loss, Paresthesias, Radicular Pain, Restless Legs, Sensory Deficit, Syncope, Tingling, Tremor, Vertigo, Weakness, Other Visual Disturbances, Other - Psychiatric Psychiatric: absent: As Per HPI, Abnormal Sleep Pattern, Anhedonia, Anxiety, Auditory Hallucinations, Behavioral Changes, Change in Appetite, Change in Libido, Confusion, Depression, Difficulty Concentrating, Hallucinations, Homicidal Ideation, Hopelessness, Irritability, Memory Loss, Mood Swings, Panic Attacks, Paranoia, Suicidal Ideation, Visual Hallucinations, Tactile Hallucinations, Other - Endocrine Endocrine: absent: As Per HPI, Change in Body Appearance, Change in Libido, Cold Intolorance, Deepening of Voice, Excessive Sweating, Fatigue, Flushing, Heat Intolorance, Increase in Ring/Shoe/Hat Size, Palpitations, Polydipsia, Polyphagia, Polyuria, Other - Hematologic/Lymphatic Hematologic: absent: As Per HPI, Easy Bleeding, Easy Bruising, Lymphadenopathy, Other Past Patient History - Infectious Disease Hx of Infectious Diseases: None - Past Medical History & Family History Past Medical History?: Yes - Past Social History Smoking Status: Former Smoker - CARDIAC Hx Cardiac Disorders: Yes Hx Congestive Heart Failure: Yes Hx Hypercholesterolemia: Yes Hx Hypertension: Yes - PULMONARY Hx Respiratory Disorders: No - NEUROLOGICAL Hx Neurological Disorder: No - HEENT Hx HEENT Problems: No - RENAL Hx Chronic Kidney Disease: No - ENDOCRINE/METABOLIC Hx Endocrine Disorders: Yes Hx Diabetes Mellitus Type 2: Yes - HEMATOLOGICAL/ONCOLOGICAL Hx Blood Disorders: No - INTEGUMENTARY Hx Dermatological Problems: No - MUSCULOSKELETAL/RHEUMATOLOGICAL Hx Falls: No - GASTROINTESTINAL Hx Gastrointestinal Disorders: Yes Hx Gall Bladder Disease: Yes - GENITOURINARY/GYNECOLOGICAL Hx Genitourinary Disorders: No - PSYCHIATRIC Hx Psychophysiologic Disorder: No Hx Sexual Abuse: No Hx Substance Use: No - SURGICAL HISTORY Hx Surgeries: Yes Hx Cholecystectomy: Yes - ANESTHESIA Hx Anesthesia: Yes Hx Anesthesia Reactions: No Hx Malignant Hyperthermia: No Has any member of the family had a problem w/ anesthesia?: No Meds Allergies/Adverse Reactions: Allergies Allergy/AdvReac Type Severity Reaction Status Date / Time No Known Allergies Allergy Verified 04/15/18 10:49 - Medications Medications: Current Medications Albuterol/Ipratropium (Duoneb 3 Mg/0.5 Mg (3 Ml) Ud) 3 ml INH RQ6 [facility] Last Admin: 04/16/18 07:23 Dose: Not Given Aspirin (Aspirin Chewable) 81 mg PO DAILY [facility] Last Admin: 04/16/18 09:37 Dose: 81 mg Furosemide (Lasix) 40 mg IVP DAILY [facility] Last Admin: 04/16/18 09:36 Dose: 40 mg Azithromycin 500 mg/ Sodium (Chloride) 250 mls @ 250 mls/hr IVPB DAILY [facility] PRN Reason: Protocol Last Admin: 04/16/18 09:35 Dose: 250 mls/hr Lisinopril (Zestril) 10 mg PO DAILY [facility] Last Admin: 04/16/18 09:38 Dose: 10 mg Metformin HCl (Glucophage) 1,000 mg PO BID [facility] Last Admin: 04/16/18 09:37 Dose: 1,000 mg Pantoprazole Sodium (Protonix Ec Tab) 40 mg PO DAILY [facility] Last Admin: 04/16/18 09:37 Dose: 40 mg Rosuvastatin Calcium (Crestor) 5 mg PO HS [facility] Last Admin: 04/15/18 21:43 Dose: 5 mg Physical Exam - Constitutional Appears: Non-toxic - Head Exam Head Exam: NORMAL INSPECTION - Eye Exam Eye Exam: Normal appearance - ENT Exam ENT Exam: Mucous Membranes Moist - Neck Exam Neck exam: Positive for: Normal Inspection - Respiratory Exam Respiratory Exam: Decreased Breath Sounds - Cardiovascular Exam Cardiovascular Exam: REGULAR RHYTHM - GI/Abdominal Exam GI & Abdominal Exam: Normal Bowel Sounds - Rectal Exam Rectal Exam: Deferred - Extremities Exam Extremities exam: Positive for: pedal edema - Back Exam Back exam: NORMAL INSPECTION - Neurological Exam Neurological exam: Alert, Oriented x3 - Psychiatric Exam Psychiatric exam: Normal Affect - Skin Skin Exam: Normal Color Results - Vital Signs Recent Vital Signs: Last Vital Signs Temp 97.9 F 04/16/18 08:47 Pulse 90 04/16/18 12:00 Resp 18 04/16/18 08:47 BP 111/74 04/16/18 09:36 Pulse Ox 100 04/16/18 08:47 - Labs Result Diagrams: 04/15/18 11:20 04/15/18 11:20 Labs: Laboratory Results - last 24 hr 04/15/18 04/15/18 04/15/18 17:07 20:38 22:05 POC Glucose (mg/dL) 105 194 H Total Creatine Kinase 77 CK-MB (Mass) 2.29 Troponin I 0.2140 H* 04/16/18 04/16/18 02:14 11:42 POC Glucose (mg/dL) 313 H Total Creatine Kinase 68 CK-MB (Mass) 2.15 Troponin I 0.1980 H* - EKG Data EKG Interpreted by: Myself EKG shows normal: Sinus rhythm Assessment & Plan (1) Acute on chronic systolic and diastolic heart failure, NYHA class 2 Assessment and Plan: patient will need medical optimization. add cardioselective betablocker. continue WILL inhibitor. will paln for cardiac cath as will need assessment of coronary anatomy and pulmonary pressures. Status: Acute (2) Diabetes mellitus Assessment and Plan: risk factor for CAD. Status: Acute (3) Hypertension Assessment and Plan: add Coreg Status: Acute
--- NOTE | 2018-04-16 15:59 | CP.PCM.PN ---
Subjective - Date & Time of Evaluation Date of Evaluation: 04/16/18 Time of Evaluation: 10:40 - Subjective Subjective: clinically same Objective - Vital Signs/Intake and Output Vital Signs (last 24 hours): Temp Pulse Resp BP Pulse Ox 97.9 F 104 H 18 126/72 100 04/16/18 08:47 04/16/18 15:54 04/16/18 08:47 04/16/18 14:01 04/16/18 08:47 Intake and Output: 04/16/18 04/16/18 06:59 18:59 Intake Total 420 Output Total 350 900 Balance 70 -900 - Medications Medications: Current Medications Albuterol/Ipratropium (Duoneb 3 Mg/0.5 Mg (3 Ml) Ud) 3 ml INH RQ6 [facility] Last Admin: 04/16/18 13:10 Dose: 3 ml Aspirin (Aspirin Chewable) 81 mg PO DAILY [facility] Last Admin: 04/16/18 09:37 Dose: 81 mg Carvedilol (Coreg) 6.25 mg PO BID [facility] Last Admin: 04/16/18 13:59 Dose: 6.25 mg Furosemide (Lasix) 40 mg IVP DAILY [facility] Last Admin: 04/16/18 09:36 Dose: 40 mg Azithromycin 500 mg/ Sodium (Chloride) 250 mls @ 250 mls/hr IVPB DAILY [facility] PRN Reason: Protocol Last Admin: 04/16/18 09:35 Dose: 250 mls/hr Lisinopril (Zestril) 10 mg PO DAILY [facility] Last Admin: 04/16/18 09:38 Dose: 10 mg Metformin HCl (Glucophage) 1,000 mg PO BID [facility] Last Admin: 04/16/18 09:37 Dose: 1,000 mg Pantoprazole Sodium (Protonix Ec Tab) 40 mg PO DAILY [facility] Last Admin: 04/16/18 09:37 Dose: 40 mg Rosuvastatin Calcium (Crestor) 5 mg PO HS [facility] Last Admin: 04/15/18 21:43 Dose: 5 mg - Labs Labs: 04/15/18 11:20 04/15/18 11:20 PT 14.1 SECONDS (9.7-12.2) H 04/15/18 11:20 INR 1.3 04/15/18 11:20 APTT 31 SECONDS (21-34) 04/15/18 11:20 - Constitutional Appears: Well - Head Exam Head Exam: ATRAUMATIC, NORMAL INSPECTION, NORMOCEPHALIC - Eye Exam Eye Exam: EOMI, Normal appearance, PERRL Pupil Exam: NORMAL ACCOMODATION, PERRL - ENT Exam ENT Exam: Mucous Membranes Moist, Normal Exam - Neck Exam Neck Exam: Full ROM, Normal Inspection. absent: Lymphadenopathy - Respiratory Exam Respiratory Exam: Decreased Breath Sounds - Cardiovascular Exam Cardiovascular Exam: REGULAR RHYTHM, +S1, +S2 - GI/Abdominal Exam GI & Abdominal Exam: Soft, Diminished Bowel Sounds - Rectal Exam Rectal Exam: Deferred
[2018-04-17] MEDS: Albuterol-Ipratrop 3 mg / 0.5 (3 ml) UD INH SCH ×4 (02:01→19:34)
[2018-04-17] MEDS: Pantoprazole 40 mg EC Tab PO SCH (10:06)
[2018-04-17] MEDS: Azithromycin 500 MG in Sodium Chloride 0.9% 250 ML IVPB SCH (10:09)
[2018-04-17] MEDS ORDERED: Etomidate 20 mg/10ml Inj IV ONE (11:46)
[2018-04-17] MEDS ORDERED: Sodium Chloride 0.9% 500 ML IV ONE (11:47)
--- NOTE | 2018-04-17 11:50 | PCM.RRT ---
AIR BAG BUILDER Nurses Assessment - Situation Date: 04/17/18 Time AIR BAG BUILDER was called: 11:40 AIR BAG BUILDER Responder Arrival Time:: 11:40 AIR BAG BUILDER Location:: Med/Surg Room Number: 652A AIR BAG BUILDER Reason for Call: Hypotension AIR BAG BUILDER Called By: RN - IV IV Inserted during AIR BAG BUILDER?: No - Respiratory AIR BAG BUILDER Delivery Method: Intubated Oxygen Flow Rate: 10 Received Nebulizer Treatments: No Was the Patient Intubated?: Yes Was the Patient Placed on a Ventilator?: No - Medication Medications Administered During AIR BAG BUILDER: Etomidate 20 IV. NS 500ml Bolus - Diagnostic Test Ordered EKG: No I.Reason for AIR BAG BUILDER - A) Acute Change in Patient: (Select all that apply): Acute change in SBP below (68/20) Subjective: AIR BAG BUILDER called at 1137 AM by nursing staff for hypotension. Initial BP 65/24. Patient found to be cold, clammy, and in respiratory distress. Patient placed in trendelenburg position - repeat BP 110/46. NS 500cc bolus given. EMR reviewed : patient admitted on 04/15/18 for CHF exacerbation/elevated troponins, with pertinent hx of severe systolic CHF (ECHO 01/2018). No labs since Friday, 04/15. Patient with elevated troponins at admission but on no prophylactic anticoagulation (lovenox/heparin drip). Patient intubated at bedside by Dr. Hogue due to worsening SOB - Etomidate 20mg IV ordered. Scheduled for cardiac cath today with Dr. Quan. - Neurological Status (Select all that apply): Alert, Responsive, Verbal - Respiratory Oxygen Delivery Method: Intubated (in field by Dr. Hogue/anesthesia) - Constitutional Appears: In Acute Distress - Head Head Exam: ATRAUMATIC, NORMAL INSPECTION - Eyes Eye Exam: EOMI - Respiratory Exam Respiratory Exam: Respiratory Distress - Cardiovascular Exam Cardiovascular Exam: Tachycardia, +S1, +S2 - GI/Abdominal Exam GI & Abdominal Exam: Soft. absent: Tenderness - Neurological Exam Neurological Exam: Alert, Awake - Extremities Exam Extremities Exam: Pedal Edema. absent: Normal Inspection Plan - Assessment of Findings&Treatment Plan Hypotension Trendelenberg position NS 500 cc bolus Elevated troponin Start heparin drip, give 5000 unit bolus Intubation by Dr. Hogue - Etomidate 20mg IV once Cardiac cath with Dr. Quan scheduled for today Transfer to ICU - pt accepted by attending, Dr. Hogue STAT CBC/CMP/MG/PHOS, ABG, CXR, TROPONIN Attending Dr. Angel Wilson notified at 1157AM by Dr. Schmid
--- NOTE | 2018-04-17 12:14 | CP.PCM.CON ---
<Aftab Ratliff - Last Filed: 04/17/18 18:02> History of Present Illness - History of Present Illness History of Present Illness: Critical Care Consult NOTE Reza Whittington is a 77M w/ a hx of HTN, DM, dyslipidemia, osteoarthritis, H pylori gastritis, pandiverticulosis who presented to the ED with complaints of Progressively worsening shortness of breath. Denies cough, denies fever chills, denies chest pain. Echocardiogram done in January showed ejection fraction of 20-25%. ENVIRONMENTAL SERVICES SUPERVISOR called at 1137 AM by nursing staff for hypotension. Initial BP 65/ 24. Patient found to be cold, clammy, and in respiratory distress. Patient placed in trendelenburg position - repeat BP 110/46. NS 500cc bolus given. EMR reviewed: patient admitted on 04/15/18 for CHF exacerbation/elevated troponins, with pertinent hx of severe systolic CHF (ECHO 01/2018). No labs since Friday , 04/15/18. Patient with elevated troponins at admission but on no prophylactic anticoagulation (lovenox/heparin drip). Patient intubated at bedside by Dr. Florentino due to worsening SOB - Etomidate 20mg IV ordered. Patient was to be scheduled for cardiac cath today with Dr. Quan. ICU consulted on this patient for worsening SOB. Patient is on Levophed and Dobutamine. Patient is currently intubated and sedated with Precedex. ROS could not be obtained. Review of Systems - Review of Systems Systems not reviewed;Unavailable: Intubated Past Patient History - Infectious Disease Hx of Infectious Diseases: None - Past Medical History & Family History Past Medical History?: Yes - Past Social History Smoking Status: Former Smoker - CARDIAC Hx Cardiac Disorders: Yes Hx Congestive Heart Failure: Yes Hx Hypercholesterolemia: Yes Hx Hypertension: Yes - PULMONARY Hx Respiratory Disorders: No - NEUROLOGICAL Hx Neurological Disorder: No - HEENT Hx HEENT Problems: No - RENAL Hx Chronic Kidney Disease: No - ENDOCRINE/METABOLIC Hx Endocrine Disorders: Yes Hx Diabetes Mellitus Type 2: Yes - HEMATOLOGICAL/ONCOLOGICAL Hx Blood Disorders: No - INTEGUMENTARY Hx Dermatological Problems: No - MUSCULOSKELETAL/RHEUMATOLOGICAL Hx Falls: No - GASTROINTESTINAL Hx Gastrointestinal Disorders: Yes Hx Gall Bladder Disease: Yes - GENITOURINARY/GYNECOLOGICAL Hx Genitourinary Disorders: No - PSYCHIATRIC Hx Psychophysiologic Disorder: No Hx Sexual Abuse: No Hx Substance Use: No - SURGICAL HISTORY Hx Surgeries: Yes Hx Cholecystectomy: Yes - ANESTHESIA Hx Anesthesia: Yes Hx Anesthesia Reactions: No Hx Malignant Hyperthermia: No Has any member of the family had a problem w/ anesthesia?: No Meds Allergies/Adverse Reactions: Allergies Allergy/AdvReac Type Severity Reaction Status Date / Time No Known Allergies Allergy Verified 04/15/18 10:49 - Medications Medications: Current Medications Albuterol/Ipratropium (Duoneb 3 Mg/0.5 Mg (3 Ml) Ud) 3 ml INH RQ6 [facility] Last Admin: 04/17/18 07:29 Dose: 3 ml Aspirin (Aspirin Chewable) 81 mg PO DAILY [facility] Last Admin: 04/17/18 10:06 Dose: 81 mg Carvedilol (Coreg) 6.25 mg PO BID [facility] Last Admin: 04/17/18 10:08 Dose: 6.25 mg Etomidate (Amidate) 20 mg IV ONCE ONE Stop: 04/17/18 11:47 Furosemide (Lasix) 40 mg IVP DAILY [facility] Last Admin: 04/17/18 10:09 Dose: 40 mg Heparin Sodium (Porcine) (Heparin) 5,000 units IV ONCE ONE Stop: 04/17/18 11:53 Azithromycin 500 mg/ Sodium (Chloride) 250 mls @ 250 mls/hr IVPB DAILY [facility] PRN Reason: Protocol Last Admin: 04/17/18 10:09 Dose: 250 mls/hr Sodium Chloride (Sodium Chloride 0.9%) 500 mls @ 1,000 mls/hr IV .Q30M ONE Stop: 04/17/18 12:16 Heparin Sodium/Sodium Chloride (Heparin 80990 Units/250ml 1/2 Normal Saline) 25 ,000 units in 250 mls @ 8.818 mls/hr IV .Q24H PRN; Protocol; 12 UNITS/KG/HR PRN Reason: PROTOCOL Lisinopril (Zestril) 10 mg PO DAILY [facility] Last Admin: 04/17/18 10:05 Dose: 10 mg Metformin HCl (Glucophage) 1,000 mg PO BID [facility] Last Admin: 04/17/18 10:08 Dose: 1,000 mg Pantoprazole Sodium (Protonix Ec Tab) 40 mg PO DAILY [facility] Last Admin: 04/17/18 10:06 Dose: 40 mg Rosuvastatin Calcium (Crestor) 5 mg PO HS [facility] Last Admin: 04/16/18 21:07 Dose: 5 mg Physical Exam - Constitutional Appears: Chronically Ill - Head Exam Head Exam: ATRAUMATIC, NORMAL INSPECTION, NORMOCEPHALIC - Eye Exam Pupil Exam: Fixed, Miosis. absent: PERRL - Neck Exam Neck exam: Positive for: Normal Inspection - Respiratory Exam Respiratory Exam: Clear to Auscultation Bilateral Additional comments: Intubated on Mechanical Vent. - Cardiovascular Exam Cardiovascular Exam: RRR, +S1, +S2 - GI/Abdominal Exam GI & Abdominal Exam: Normal Bowel Sounds. absent: Organomegaly - Extremities Exam Extremities exam: Positive for: pedal edema (Trace, B/L) - Skin Skin Exam: Dry, Intact, Normal Color, Warm Results - Vital Signs Recent Vital Signs: Last Vital Signs Temp 97.5 F L 04/17/18 07:00 Pulse 73 04/17/18 08:00 Resp 18 04/17/18 07:00 BP 107/65 04/17/18 10:09 Pulse Ox 97 04/17/18 07:00 - Labs Result Diagrams: 04/17/18 13:41 04/17/18 13:41 Labs: Laboratory Results - last 24 hr 04/16/18 04/16/18 04/17/18 16:34 21:19 06:09 POC Glucose (mg/dL) 251 H 165 H 126 H 04/17/18 04/17/18 11:20 11:37 POC Glucose (mg/dL) 161 H 149 H Assessment & Plan - Assessment and Plan (Free Text) Assessment: Reza Whittington is a 77M w/ a hx of HTN, DM, dyslipidemia, osteoarthritis, H pylori gastritis, pandiverticulosis who presented to the ED with complaints of Progressively worsening shortness of breath. Denies cough, denies fever chills, denies chest pain. Echocardiogram done in January showed ejection fraction of 20-25%. ENVIRONMENTAL SERVICES SUPERVISOR called at 1137 AM by nursing staff for hypotension. Initial BP 65/ 24. Patient found to be cold, clammy, and in respiratory distress. Patient placed in trendelenburg position - repeat BP 110/46. NS 500cc bolus given. EMR reviewed: patient admitted on 04/15/18 for CHF exacerbation/elevated troponins, with pertinent hx of severe systolic CHF (ECHO 01/2018). No labs since Friday , 04/15/18. Patient with elevated troponins at admission but on no prophylactic anticoagulation (lovenox/heparin drip). Patient intubated at bedside by Dr. Florentino due to worsening SOB - Etomidate 20mg IV ordered. Patient was to be scheduled for cardiac cath today with Dr. Quan. ICU consulted on this patient for worsening SOB. Patient is on Levophed and Dobutamine. Patient is currently intubated and sedated with Precedex. ROS could not be obtained. Plan: Neuro: GCS: 3T Sedation: Precedex Ativan 2mg IVP Q3H PRN Cardio: A: Systolic CHF (EF=25%), Hypotension, NSTEMI, HLD Cardiology on Consult, Recs Appreciated. Cardiac Cath post-poned until patient is stabilized Hold Coreg 6.25 BID until pressors are off , Cont. ASA, Cont. Dobutamine and Levophed. Will attempt to wean. Cont. Crestor. Cont. Heparin Drip Pulm: A: Dyspnea Pulmonlogy on Consult. GI A: Elevated LFT's LFTs likely due to Shock Liver Monitor Consider Dietary Consult if patient is not awake and alert to eat by tomorrow. Consider gentle Hydration with D5. Endo: A: DM Regular ISS Hold Home Metformin due to KARIS. Renal: A: Hyperkalemia, KARIS Insulin, D50, Kayexlate, Calcium Gluconate Given for Hyperkalemia 1 AMP of sodium bicarb given today. Cr. 1.6 likely due to hypoperfusion vs Medication induced Repeat BMP at 20:00 ID Afebrile, No Leukocytosis Emperic Coverage with Azithromycin? F/U Urine Culture Proph Protonix Daily Heparin Drip Patient seen and discussed with Attending Aftab Ratliff, PGY-1 <Mulugeta Florentino S - Last Filed: 04/17/18 18:54> Meds - Medications Medications: Current Medications Albuterol/Ipratropium (Duoneb 3 Mg/0.5 Mg (3 Ml) Ud) 3 ml INH RQ6 [facility] Last Admin: 04/17/18 13:50 Dose: Not Given Aspirin (Aspirin Chewable) 81 mg PO DAILY [facility] Last Admin: 04/17/18 10:06 Dose: 81 mg Carvedilol (Coreg) 6.25 mg PO BID [facility] Last Admin: 04/17/18 17:47 Dose: Not Given Azithromycin 500 mg/ Sodium (Chloride) 250 mls @ 250 mls/hr IVPB DAILY [facility] PRN Reason: Protocol Last Admin: 04/17/18 10:09 Dose: 250 mls/hr Heparin Sodium/Sodium Chloride (Heparin 00532 Units/250ml 1/2 Normal Saline) 25 ,000 units in 250 mls @ 8.818 mls/hr IV .Q24H PRN; Protocol; 12 UNITS/KG/HR PRN Reason: PROTOCOL Last Admin: 04/17/18 13:42 Dose: 12 units/kg/hr, 8.818 mls/hr Norepinephrine Bitartrate 4 mg (/ Sodium Chloride) 254 mls @ 15.24 mls/hr IV .[id number] PRN; Protocol; 4 MCG/MIN PRN Reason: TITRATE PER MD ORDER Last Titration: 04/17/18 16:00 Dose: 3.93 mcg/min, 15 mls/hr Dobutamine HCl/Dextrose (Dobutamine/Dextrose 5% 500mg/250ml) 500 mg in 250 mls @ 5.511 mls/hr IV .Q24H PRN; Protocol; 2.5 MCG/KG/MIN PRN Reason: FOLLOW TITRATION PROTOCOL Last Admin: 04/17/18 15:28 Dose: 2.5 mcg/kg/min, 5.511 mls/hr Dexmedetomidine HCl 200 mcg/ (Sodium Chloride) 50 mls @ 3.67 mls/hr IV TITR PRN ; Protocol; 0.2 MCG/KG/HR PRN Reason: Agitation Last Admin: 04/17/18 15:43 Dose: 0.2 mcg/kg/hr, 3.67 mls/hr Insulin Human Regular (Novolin R) 0 unit SC ACHS [facility] PRN Reason: Protocol Lorazepam (Ativan) 2 mg IVP Q3H PRN PRN Reason: Anxiety Last Admin: 04/17/18 15:35 Dose: 2 mg Pantoprazole Sodium (Protonix Ec Tab) 40 mg PO DAILY [facility] Last Admin: 04/17/18 10:06 Dose: 40 mg Rosuvastatin Calcium (Crestor) 5 mg PO HS [facility] Last Admin: 04/16/18 21:07 Dose: 5 mg Results - Vital Signs Recent Vital Signs: Last Vital Signs Temp 93 F L 04/17/18 16:00 Pulse 56 L 04/17/18 17:31 Resp 0 L 04/17/18 17:31 BP 98/47 L 04/17/18 17:31 Pulse Ox 35 L 04/17/18 14:03 - Labs Result Diagrams: 04/17/18 13:41 04/17/18 13:41 Labs: Laboratory Results - last 24 hr 04/16/18 04/17/18 04/17/18 21:19 06:09 11:20 WBC RBC Hgb Hct MCV MCH MCHC RDW Plt Count MPV Neut % (Auto) Lymph % (Auto) [place] % (Auto) Eos % (Auto) Baso % (Auto) Neut # (Auto) Lymph # (Auto) [place] # (Auto) Eos # (Auto) Baso # (Auto) PT INR Puncture Site pCO2 pO2 HCO3 ABG pH ABG Total CO2 ABG O2 Saturation ABG Base Excess Cecil Test ABG Potassium VBG pH VBG pCO2 VBG HCO3 VBG Total CO2 VBG O2 Sat (Calc) VBG Base Excess VBG Potassium A-a O2 Difference Respiratory Index Sodium Chloride Glucose Lactate Vent Mode Mechanical Rate FiO2 Tidal Volume PEEP Crit Value Called To Crit Value Called By Crit Value Read Back Blood Gas Notified Time Potassium Carbon Dioxide Anion Gap BUN Creatinine Est GFR ( Amer) Est GFR (Non-Af Amer) POC Glucose (mg/dL) 165 H 126 H 161 H Random Glucose Calcium Phosphorus Magnesium Total Bilirubin AST ALT Alkaline Phosphatase Troponin I Total Protein Albumin Globulin Albumin/Globulin Ratio Arterial Blood Potassium Venous Blood Potassium 04/17/18 04/17/18 04/17/18 11:37 13:20 13:41 WBC RBC Hgb Hct MCV MCH MCHC RDW Plt Count MPV Neut % (Auto) Lymph % (Auto) [place] % (Auto) Eos % (Auto) Baso % (Auto) Neut # (Auto) Lymph # (Auto) [place] # (Auto) Eos # (Auto) Baso # (Auto) PT 15.0 H INR 1.4 Puncture Site Rr pCO2 19 L* pO2 441 H HCO3 21.6 ABG pH 7.53 H ABG Total CO2 16.5 L ABG O2 Saturation 99.9 H ABG Base Excess -4.3 L Cecil Test Na ABG Potassium 5.9 H VBG pH VBG pCO2 VBG HCO3 VBG Total CO2 VBG O2 Sat (Calc) VBG Base Excess VBG Potassium A-a O2 Difference 248.0 Respiratory Index 0.6 Sodium 130.0 L Chloride 106.0 Glucose 127 H Lactate 4.1 H* Vent Mode Prvc Mechanical Rate 14 FiO2 100.0 Tidal Volume 500 PEEP 5 Crit Value Called To Dr ina florentino Crit Value Called By Shelby steen lead carpenter Crit Value Read Back Y Blood Gas Notified Time 1325 Potassium Carbon Dioxide Anion Gap BUN Creatinine Est GFR ( Amer) Est GFR (Non-Af Amer) POC Glucose (mg/dL) 149 H Random Glucose Calcium Phosphorus Magnesium Total Bilirubin AST ALT Alkaline Phosphatase Troponin I Total Protein Albumin Globulin Albumin/Globulin Ratio Arterial Blood Potassium 5.9 H Venous Blood Potassium 04/17/18 04/17/18 04/17/18 13:41 13:41 17:40 WBC 4.1 L RBC 4.10 L Hgb 12.3 Hct 37.0 MCV 90.3 MCH 30.0 MCHC 33.2 RDW 15.3 H Plt Count 104 L D MPV 9.1 Neut % (Auto) 54.8 Lymph % (Auto) 36.0 [place] % (Auto) 7.6 Eos % (Auto) 1.0 Baso % (Auto) 0.6 Neut # (Auto) 2.2 Lymph # (Auto) 1.5 [place] # (Auto) 0.3 Eos # (Auto) 0.0 Baso # (Auto) 0.0 PT INR Puncture Site pCO2 pO2 29 L HCO3 ABG pH ABG Total CO2 ABG O2 Saturation ABG Base Excess Cecil Test ABG Potassium VBG pH 7.36 VBG pCO2 49 VBG HCO3 24.9 VBG Total CO2 29.2 H VBG O2 Sat (Calc) 52.1 VBG Base Excess 1.5 VBG Potassium 3.9 A-a O2 Difference Respiratory Index Sodium 136 138.0 Chloride 102 105.0 Glucose 59 L Lactate 1.7 Vent Mode Mechanical Rate FiO2 60.0 Tidal Volume PEEP 5 Crit Value Called To Crit Value Called By Crit Value Read Back Blood Gas Notified Time Potassium 7.1 H* D Carbon Dioxide 22 Anion Gap 20 BUN 22 H Creatinine 1.6 H Est GFR ( Amer) 51 Est GFR (Non-Af Amer) 42 POC Glucose (mg/dL) Random Glucose 104 Calcium 8.4 L Phosphorus 4.5 Magnesium 1.8 Total Bilirubin 1.6 H AST 133 H D ALT 63 Alkaline Phosphatase 273 H Troponin I 0.1430 H* Total Protein 6.3 Albumin 3.3 L Globulin 3.0 Albumin/Globulin Ratio 1.1 Arterial Blood Potassium Venous Blood Potassium 3.9 Assessment & Plan (1) Acute on chronic systolic and diastolic heart failure, NYHA class 2 Status: Acute Attending/Attestation - Attestation I have personally seen and examined this patient.: Yes I have fully participated in the care of the patient.: Yes I have reviewed all pertinent clinical information: Yes Notes (Text): 04/17/18 18:52 patient seen and examined 77-year-old male transferred to ICU for hypotension and respiratory failure requiring ventilatory support Patient started on pressors for hypotension Patient treated for hyperkalemia Follow-up lites and renal function Cardiac cath once stable continue heparin drip Repeat echocardiogram
--- NOTE | 2018-04-17 13:09 | CARD ---
APPROVED REPORT EKG Measurement Heart [id number] <Conclusion> Normal sinus rhythm Low voltage QRS Septal infarct, age undetermined Abnormal ECG
--- NOTE | 2018-04-17 13:18 | CARD ---
APPROVED REPORT EKG Measurement Heart [id number] [id number] <Conclusion> Normal sinus rhythm Low voltage QRS Septal infarct, age undetermined cannot be excluded Abnormal ECG
--- NOTE | 2018-04-17 13:20 | CARD ---
APPROVED REPORT EKG Measurement Heart [id number] <Conclusion> Normal sinus rhythm Septal infarct, age undetermined cannot be excluded Low voltage Nonspecific ST/T abnormality Abnormal ECG
[2018-04-17 13:24] LABS: ARTERIAL BLOOD GAS HCO3 21.6 mmol/L (21-28); ARTERIAL BLOOD GAS O2 SAT 99.9 % (95-98); ARTERIAL BLOOD GAS PCO2 19 mm/Hg (35-45); ARTERIAL BLOOD GAS PH 7.53 (7.35-7.45); ARTERIAL BLOOD GAS PO2 441 mm/Hg (80-100); ARTERIAL BLOOD GAS TCO2 16.5 mmol/L (22-28)
--- NOTE | 2018-04-17 13:25 | RAD ---
HISTORY: hypotension; rapid fluid bolus COMPARISON: 04/15/2018 FINDINGS: LUNGS: No active pulmonary disease. PLEURA: No significant pleural effusion identified, no pneumothorax apparent. CARDIOVASCULAR: Cardiomegaly. No congestive change. Endotracheal tube tip approximately 6 mm above the tracheal carlotta. This should be withdrawn or repositioned. OSSEOUS STRUCTURES: No significant abnormalities. VISUALIZED UPPER ABDOMEN: Normal. OTHER FINDINGS: None. IMPRESSION: Endotracheal tube tip 6 mm above the tracheal carlotta. Please reposition. These findings were discussed with the patient's nurse, Flaca, By telephone at 1:22 p.m. on 04/17/2018.
--- NOTE | 2018-04-17 13:38 | RAD ---
HISTORY: Status post central line placement. COMPARISON: Multiple serial examinations preceding the most recent study: April 17, 2018. Time of the most recent examination: 12:11 FINDINGS: LUNGS: No active pulmonary disease. PLEURA: No significant pleural effusion identified, no pneumothorax apparent. CARDIOVASCULAR: Cardiomegaly. No evidence of acute, significant cardiovascular disease. Venous access catheter in satisfactory position. OSSEOUS STRUCTURES: No significant abnormalities. VISUALIZED UPPER ABDOMEN: Normal. OTHER FINDINGS: Reposition of endotracheal to results in the tip residing 5 cm above the carlotta. IMPRESSION: Satisfactory placement of right IJ catheter. No pneumothorax. Satisfactory repositioning of endotracheal tube now 5 cm above the carlotta.
[2018-04-17] MEDS: Heparin25000 units/250ml 1/2NS 25,000 UNITS/250 ML BAG IV PRN (13:42)
[2018-04-17 13:45] LABS: BASO % 0.6 % (0.0-2.0); HEMOGLOBIN 12.3 g/dL (12.0-18.0); LYMPH # 1.5 K/uL (1.0-4.3); MEAN CELL VOLUME 90.3 fL (80.0-94.0); MEAN CORPUSCULAR HGB CONC 33.2 g/dL (33.0-37.0); MEAN PLATELET VOLUME 9.1 fL (7.2-11.7); MONO # 0.3 K/uL (0.0-0.8); MONO % 7.6 % (0.0-10.0); NEUT # 2.2 K/uL (1.8-7.0); NEUT % 54.8 % (50.0-75.0); RBC 4.1 Mil/uL (4.40-5.90); RED CELL DISTRIBUTION WIDTH 15.3 % (11.5-14.5); WHITE BLOOD COUNT 4.1 K/uL (4.8-10.8)
[2018-04-17 13:53] LABS: INR 1.4
[2018-04-17] MEDS ORDERED: Sodium Chloride 0.9% 1,000 ML IV ONE (14:11)
[2018-04-17] MEDS ORDERED: DOBUTamine 500mg/250ml D5W 500 MG/250 ML BAG IV PRN (14:15)
[2018-04-17 14:18] LABS: ALB/GLOB RATIO 1.1 (1.0-2.1); ALBUMIN 3.3 g/dL (3.5-5.0); CALCIUM 8.4 mg/dl (8.6-10.4); TROPONIN I 0.143 ng/mL (0.00-0.120)
[2018-04-17] MEDS ORDERED: Sodium Bicarbonate (8.4%) 50 Meq Syringe IVP ONE (14:19)
[2018-04-17] MEDS ORDERED: Dextrose 50% SYRINGE Inj (50 ml) IV STA (14:19)
[2018-04-17] MEDS ORDERED: (Novolin R) Insulin Human Regular 100 units/ml vial IV ONE (14:19)
[2018-04-17] MEDS ORDERED: Calcium Gluconate 4.65 mEq/10 ml Inj IVP ONE (14:23)
[2018-04-17] MEDS ORDERED: Sod Polystyrene Sulf 15 gm/60 ml Susp PO ONE (14:33)
[2018-04-17] MEDS: Dexmedetomidine Hydrochloride 200 MCG in Sodium Chloride 0.9% 48 ML IV PRN (15:43)
--- NOTE | 2018-04-17 16:58 | CP.PCM.PN ---
Subjective - Date & Time of Evaluation Date of Evaluation: 04/17/18 Time of Evaluation: 11:40 - Subjective Subjective: clinically same Objective - Vital Signs/Intake and Output Vital Signs (last 24 hours): Temp Pulse Resp BP Pulse Ox 97.5 F L 65 23 117/55 L 97 04/17/18 07:00 04/17/18 15:28 04/17/18 15:28 04/17/18 15:28 04/17/18 07:00 Intake and Output: 04/17/18 04/17/18 06:59 18:59 Intake Total 11.5 Output Total 500 Balance -500 11.5 - Medications Medications: Current Medications Albuterol/Ipratropium (Duoneb 3 Mg/0.5 Mg (3 Ml) Ud) 3 ml INH RQ6 [facility] Last Admin: 04/17/18 13:50 Dose: Not Given Aspirin (Aspirin Chewable) 81 mg PO DAILY [facility] Last Admin: 04/17/18 10:06 Dose: 81 mg Carvedilol (Coreg) 6.25 mg PO BID [facility] Last Admin: 04/17/18 10:08 Dose: 6.25 mg Azithromycin 500 mg/ Sodium (Chloride) 250 mls @ 250 mls/hr IVPB DAILY [facility] PRN Reason: Protocol Last Admin: 04/17/18 10:09 Dose: 250 mls/hr Heparin Sodium/Sodium Chloride (Heparin 80257 Units/250ml 1/2 Normal Saline) 25 ,000 units in 250 mls @ 8.818 mls/hr IV .Q24H PRN; Protocol; 12 UNITS/KG/HR PRN Reason: PROTOCOL Last Admin: 04/17/18 13:42 Dose: 12 units/kg/hr, 8.818 mls/hr Norepinephrine Bitartrate 4 mg (/ Sodium Chloride) 254 mls @ 15.24 mls/hr IV .[id number] PRN; Protocol; 4 MCG/MIN PRN Reason: TITRATE PER MD ORDER Last Titration: 04/17/18 14:00 Dose: 7.87 mcg/min, 30 mls/hr Dobutamine HCl/Dextrose (Dobutamine/Dextrose 5% 500mg/250ml) 500 mg in 250 mls @ 5.511 mls/hr IV .Q24H PRN; Protocol; 2.5 MCG/KG/MIN PRN Reason: FOLLOW TITRATION PROTOCOL Last Admin: 04/17/18 15:28 Dose: 2.5 mcg/kg/min, 5.511 mls/hr Dexmedetomidine HCl 200 mcg/ (Sodium Chloride) 50 mls @ 3.67 mls/hr IV TITR PRN ; Protocol; 0.2 MCG/KG/HR PRN Reason: Agitation Last Admin: 04/17/18 15:43 Dose: 0.2 mcg/kg/hr, 3.67 mls/hr Lorazepam (Ativan) 2 mg IVP Q3H PRN PRN Reason: Anxiety Last Admin: 04/17/18 15:35 Dose: 2 mg Metformin HCl (Glucophage) 1,000 mg PO BID [facility] Last Admin: 04/17/18 10:08 Dose: 1,000 mg Pantoprazole Sodium (Protonix Ec Tab) 40 mg PO DAILY [facility] Last Admin: 04/17/18 10:06 Dose: 40 mg Rosuvastatin Calcium (Crestor) 5 mg PO HS [facility] Last Admin: 04/16/18 21:07 Dose: 5 mg - Labs Labs: 04/17/18 13:41 04/17/18 13:41 PT 15.0 SECONDS (9.7-12.2) H 04/17/18 13:41 INR 1.4 04/17/18 13:41 APTT 31 SECONDS (21-34) 04/15/18 11:20 - Constitutional Appears: Well - Head Exam Head Exam: ATRAUMATIC, NORMAL INSPECTION, NORMOCEPHALIC - Eye Exam Eye Exam: EOMI, Normal appearance, PERRL Pupil Exam: NORMAL ACCOMODATION, PERRL - ENT Exam ENT Exam: Mucous Membranes Moist, Normal Exam - Neck Exam Neck Exam: Full ROM, Normal Inspection. absent: Lymphadenopathy - Respiratory Exam Respiratory Exam: Decreased Breath Sounds - Cardiovascular Exam Cardiovascular Exam: REGULAR RHYTHM, +S1, +S2 - GI/Abdominal Exam GI & Abdominal Exam: Soft, Diminished Bowel Sounds - Rectal Exam Rectal Exam: Deferred
[2018-04-17 17:46] LABS: VENOUS BLOOD GAS BASE EXCESS 1.5 mmol/L (0.0-2.0); VENOUS BLOOD GAS PCO2 49 mmHg (40-60); VENOUS BLOOD GAS PO2 29 mm/Hg (30-55); VENOUS BLOOD PH 7.36 (7.32-7.43)
--- NOTE | 2018-04-17 18:42 | CP.PCM.PN ---
Subjective - Date & Time of Evaluation Date of Evaluation: 04/17/18 Time of Evaluation: 18:30 - Subjective Subjective: events noted. patient intubated. hyperkalemic s/p calcium Objective - Vital Signs/Intake and Output Vital Signs (last 24 hours): Temp Pulse Resp BP Pulse Ox 93 F L 56 L 0 L 98/47 L 35 L 04/17/18 16:00 04/17/18 17:31 04/17/18 17:31 04/17/18 17:31 04/17/18 14:03 Intake and Output: 04/17/18 04/17/18 06:59 18:59 Intake Total 71.5 Output Total 500 Balance -500 71.5 - Medications Medications: Current Medications Albuterol/Ipratropium (Duoneb 3 Mg/0.5 Mg (3 Ml) Ud) 3 ml INH RQ6 [facility] Last Admin: 04/17/18 13:50 Dose: Not Given Aspirin (Aspirin Chewable) 81 mg PO DAILY [facility] Last Admin: 04/17/18 10:06 Dose: 81 mg Carvedilol (Coreg) 6.25 mg PO BID [facility] Last Admin: 04/17/18 17:47 Dose: Not Given Azithromycin 500 mg/ Sodium (Chloride) 250 mls @ 250 mls/hr IVPB DAILY [facility] PRN Reason: Protocol Last Admin: 04/17/18 10:09 Dose: 250 mls/hr Heparin Sodium/Sodium Chloride (Heparin 48732 Units/250ml 1/2 Normal Saline) 25 ,000 units in 250 mls @ 8.818 mls/hr IV .Q24H PRN; Protocol; 12 UNITS/KG/HR PRN Reason: PROTOCOL Last Admin: 04/17/18 13:42 Dose: 12 units/kg/hr, 8.818 mls/hr Norepinephrine Bitartrate 4 mg (/ Sodium Chloride) 254 mls @ 15.24 mls/hr IV .[id number] PRN; Protocol; 4 MCG/MIN PRN Reason: TITRATE PER MD ORDER Last Titration: 04/17/18 16:00 Dose: 3.93 mcg/min, 15 mls/hr Dobutamine HCl/Dextrose (Dobutamine/Dextrose 5% 500mg/250ml) 500 mg in 250 mls @ 5.511 mls/hr IV .Q24H PRN; Protocol; 2.5 MCG/KG/MIN PRN Reason: FOLLOW TITRATION PROTOCOL Last Admin: 04/17/18 15:28 Dose: 2.5 mcg/kg/min, 5.511 mls/hr Dexmedetomidine HCl 200 mcg/ (Sodium Chloride) 50 mls @ 3.67 mls/hr IV TITR PRN ; Protocol; 0.2 MCG/KG/HR PRN Reason: Agitation Last Admin: 04/17/18 15:43 Dose: 0.2 mcg/kg/hr, 3.67 mls/hr Insulin Human Regular (Novolin R) 0 unit SC ACHS [facility] PRN Reason: Protocol Lorazepam (Ativan) 2 mg IVP Q3H PRN PRN Reason: Anxiety Last Admin: 04/17/18 15:35 Dose: 2 mg Pantoprazole Sodium (Protonix Ec Tab) 40 mg PO DAILY [facility] Last Admin: 04/17/18 10:06 Dose: 40 mg Rosuvastatin Calcium (Crestor) 5 mg PO HS [facility] Last Admin: 04/16/18 21:07 Dose: 5 mg - Labs Labs: 04/17/18 13:41 04/17/18 13:41 PT 15.0 SECONDS (9.7-12.2) H 04/17/18 13:41 INR 1.4 04/17/18 13:41 APTT 31 SECONDS (21-34) 04/15/18 11:20 - Constitutional Appears: Toxic - Head Exam Head Exam: NORMAL INSPECTION - Eye Exam Eye Exam: Normal appearance - ENT Exam ENT Exam: Mucous Membranes Moist - Neck Exam Neck Exam: absent: Lymphadenopathy - Respiratory Exam Respiratory Exam: Decreased Breath Sounds - Cardiovascular Exam Cardiovascular Exam: REGULAR RHYTHM - GI/Abdominal Exam GI & Abdominal Exam: Normal Bowel Sounds - Rectal Exam Rectal Exam: Deferred - Extremities Exam Extremities Exam: Pedal Edema - Back Exam Back Exam: NORMAL INSPECTION - Neurological Exam Neurological Exam: Alert - Psychiatric Exam Psychiatric exam: Normal Affect - Skin Skin Exam: Normal Color Assessment and Plan (1) Acute on chronic systolic and diastolic heart failure, NYHA class 2 Assessment & Plan: currently intubated. will defer cath until stabilized. Status: Acute (2) Diabetes mellitus Status: Acute (3) Hypertension Assessment & Plan: hold coreg as patient is hypotnesive and requiring pressors. Status: Acute
[2018-04-17 19:00] LABS: URINE BACTERIA OCC (<OCC); URINE BILIRUBIN NEGATIVE (NEGATIVE); URINE BLOOD 2+ (NEGATIVE); URINE CLARITY Hazy (Clear); URINE COLOR Yellow (YELLOW); URINE GLUCOSE (UA) 1+ mg/dL (Normal); URINE LEUKOCYTE ESTERASE NEG Leu/uL (Negative); URINE PROTEIN 1+ mg/dL (NEGATIVE); URINE UROBILINOGEN NORMAL mg/dL (0.2-1.0)
[2018-04-17 20:56] LABS: CALCIUM 8.9 mg/dl (8.6-10.4)
[2018-04-17] MEDS ORDERED: (Novolin R) Insulin Human Regular 100 units/ml vial SC SCH (22:00)
[2018-04-18] MEDS ORDERED: Dextrose 50% SYRINGE Inj (50 ml) ONE
[2018-04-18] MEDS ORDERED: Dextrose 50% SYRINGE Inj (50 ml) IV STA (00:17)
[2018-04-18] MEDS: Dexmedetomidine Hydrochloride 200 MCG in Sodium Chloride 0.9% 48 ML IV PRN (01:01)
[2018-04-18] MEDS: Albuterol-Ipratrop 3 mg / 0.5 (3 ml) UD INH SCH ×4 (01:31→19:54)
[2018-04-18 05:57] LABS: ARTERIAL BLOOD GAS HCO3 25.9 mmol/L (21-28); ARTERIAL BLOOD GAS HEMOGLOBIN 12.1 g/dL (11.7-17.4); ARTERIAL BLOOD GAS O2 SAT 100.1 % (95-98); ARTERIAL BLOOD GAS PCO2 35 mm/Hg (35-45); ARTERIAL BLOOD GAS PH 7.46 (7.35-7.45); ARTERIAL BLOOD GAS PO2 289 mm/Hg (80-100)
[2018-04-18] MEDS: (Novolin R) Insulin Human Regular 100 units/ml vial SC SCH ×2 (06:00)
[2018-04-18 07:14] LABS: BASO % 0.6 % (0.0-2.0); EOS # 0.1 K/uL (0.0-0.7); EOS % 1.2 % (0.0-4.0); LYMPH # 1.4 K/uL (1.0-4.3); LYMPH % 24.3 % (20.0-40.0); MEAN CORPUSCULAR HEMOGLOBIN 30.1 pg (27.0-31.0); MEAN CORPUSCULAR HGB CONC 33.8 g/dL (33.0-37.0); MEAN PLATELET VOLUME 9.9 fL (7.2-11.7); MONO # 0.5 K/uL (0.0-0.8); MONO % 9.3 % (0.0-10.0); NEUT # 3.7 K/uL (1.8-7.0); NEUT % 64.6 % (50.0-75.0); NRBC % 0.1 % (0.0-2.0); RBC 3.99 Mil/uL (4.40-5.90); WHITE BLOOD COUNT 5.7 K/uL (4.8-10.8)
--- NOTE | 2018-04-18 07:30 | CP.PCM.PN ---
Subjective - Date & Time of Evaluation Date of Evaluation: 04/18/18 Time of Evaluation: 07:00 - Subjective Subjective: remains intubated. Objective - Vital Signs/Intake and Output Vital Signs (last 24 hours): Temp Pulse Resp BP Pulse Ox 98.6 F 67 22 127/61 100 04/18/18 04:00 04/18/18 05:00 04/18/18 05:00 04/18/18 04:55 04/18/18 05:00 Intake and Output: 04/18/18 04/18/18 06:59 18:59 Intake Total 510.3 14.3 Output Total 530 30 Balance -19.7 -15.7 - Medications Medications: Current Medications Albuterol/Ipratropium (Duoneb 3 Mg/0.5 Mg (3 Ml) Ud) 3 ml INH RQ6 [facility] Last Admin: 04/18/18 01:31 Dose: 3 ml Aspirin (Aspirin Chewable) 81 mg PO DAILY [facility] Last Admin: 04/17/18 10:06 Dose: 81 mg Carvedilol (Coreg) 6.25 mg PO BID [facility] Last Admin: 04/17/18 17:47 Dose: Not Given Azithromycin 500 mg/ Sodium (Chloride) 250 mls @ 250 mls/hr IVPB DAILY [facility] PRN Reason: Protocol Last Admin: 04/17/18 10:09 Dose: 250 mls/hr Heparin Sodium/Sodium Chloride (Heparin 13765 Units/250ml 1/2 Normal Saline) 25 ,000 units in 250 mls @ 8.818 mls/hr IV .Q24H PRN; Protocol; 12 UNITS/KG/HR PRN Reason: PROTOCOL Last Titration: 04/17/18 22:15 Dose: 8.98 units/kg/hr, 6.6 mls/hr Norepinephrine Bitartrate 4 mg (/ Sodium Chloride) 254 mls @ 15.24 mls/hr IV .[id number] PRN; Protocol; 4 MCG/MIN PRN Reason: TITRATE PER MD ORDER Last Titration: 04/18/18 02:00 Dose: 0 mcg/min, 0 mls/hr Dobutamine HCl/Dextrose (Dobutamine/Dextrose 5% 500mg/250ml) 500 mg in 250 mls @ 5.511 mls/hr IV .Q24H PRN; Protocol; 2.5 MCG/KG/MIN PRN Reason: FOLLOW TITRATION PROTOCOL Last Admin: 04/17/18 15:28 Dose: 2.5 mcg/kg/min, 5.511 mls/hr Dexmedetomidine HCl 200 mcg/ (Sodium Chloride) 50 mls @ 3.67 mls/hr IV TITR PRN ; Protocol; 0.2 MCG/KG/HR PRN Reason: Agitation Last Admin: 04/18/18 01:01 Dose: 0.2 mcg/kg/hr, 3.67 mls/hr Insulin Human Regular (Novolin R) 0 unit SC Q6 [facility] PRN Reason: Protocol Last Admin: 04/18/18 00:00 Dose: Not Given Lorazepam (Ativan) 2 mg IVP Q3H PRN PRN Reason: Anxiety Last Admin: 04/18/18 03:30 Dose: 2 mg Pantoprazole Sodium (Protonix Ec Tab) 40 mg PO DAILY [facility] Last Admin: 04/17/18 10:06 Dose: 40 mg Rosuvastatin Calcium (Crestor) 5 mg PO HS [facility] Last Admin: 04/17/18 22:57 Dose: 5 mg - Labs Labs: 04/18/18 07:04 04/17/18 20:34 PT 15.0 SECONDS (9.7-12.2) H 04/17/18 13:41 INR 1.4 04/17/18 13:41 APTT 96 SECONDS (21-34) H D 04/18/18 04:45 - Constitutional Appears: Toxic - Head Exam Head Exam: NORMAL INSPECTION - Eye Exam Eye Exam: Normal appearance - ENT Exam ENT Exam: Mucous Membranes Moist - Neck Exam Neck Exam: absent: Lymphadenopathy - Respiratory Exam Respiratory Exam: Decreased Breath Sounds - Cardiovascular Exam Cardiovascular Exam: REGULAR RHYTHM - GI/Abdominal Exam GI & Abdominal Exam: Normal Bowel Sounds - Rectal Exam Rectal Exam: Deferred - Extremities Exam Extremities Exam: absent: Pedal Edema - Back Exam Back Exam: NORMAL INSPECTION - Neurological Exam Neurological Exam: Alert - Psychiatric Exam Psychiatric exam: Normal Affect - Skin Skin Exam: Normal Color Assessment and Plan (1) Acute on chronic systolic and diastolic heart failure, NYHA class 2 Assessment & Plan: intubated due to hypotension, hyperkalemia. will need eventual cardaic cath to assess coronary anatomy, but will defer at this time. Status: Acute (2) Diabetes mellitus Status: Acute
[2018-04-18 07:45] LABS: ALB/GLOB RATIO 1.2 (1.0-2.1); ALBUMIN 3.3 g/dL (3.5-5.0); CALCIUM 8.2 mg/dl (8.6-10.4)
--- NOTE | 2018-04-18 08:23 | RAD ---
Chest x-ray single frontal view History: Ventilated. Comparison: 04/17/2018 Findings: Endotracheal tube extending into midthoracic trachea. NG tube extending into the stomach. Other lines and tubes are in stable position. Mild venous congestion. Right hilar prominence. Patchy increased markings at the lung bases. Biapical pleural thickening with upper lobe granulomatous changes. Calcification at the aortic knob. Mild cardiomegaly. Degenerative changes in the spine and shoulders. Impression: Endotracheal tube extending into midthoracic trachea. NG tube extending into the stomach. Other lines and tubes are in stable position. Mild venous congestion. Right hilar prominence. Patchy increased markings at the lung bases. Biapical pleural thickening with upper lobe granulomatous changes. Calcification at the aortic knob. Mild cardiomegaly.
[2018-04-18] MEDS: Pantoprazole 40 mg EC Tab PO SCH (10:00)
[2018-04-18] MEDS: Azithromycin 500 MG in Sodium Chloride 0.9% 250 ML IVPB SCH (11:00)
--- NOTE | 2018-04-18 11:43 | CP.PCM.PN ---
Subjective - Date & Time of Evaluation Date of Evaluation: 04/18/18 Time of Evaluation: 13:40 - Subjective Subjective: clinically same Objective - Vital Signs/Intake and Output Vital Signs (last 24 hours): Temp Pulse Resp BP Pulse Ox 98.6 F 70 23 140/71 100 04/18/18 04:00 04/18/18 10:05 04/18/18 10:05 04/18/18 10:05 04/18/18 10:05 Intake and Output: 04/18/18 04/18/18 06:59 18:59 Intake Total 510.3 57.2 Output Total 530 30 Balance -19.7 27.2 - Medications Medications: Current Medications Albuterol/Ipratropium (Duoneb 3 Mg/0.5 Mg (3 Ml) Ud) 3 ml INH RQ6 [facility] Last Admin: 04/18/18 08:17 Dose: 3 ml Aspirin (Aspirin Chewable) 81 mg PO DAILY [facility] Last Admin: 04/18/18 11:38 Dose: 81 mg Carvedilol (Coreg) 6.25 mg PO BID [facility] Last Admin: 04/17/18 17:47 Dose: Not Given Azithromycin 500 mg/ Sodium (Chloride) 250 mls @ 250 mls/hr IVPB DAILY [facility] PRN Reason: Protocol Last Admin: 04/17/18 10:09 Dose: 250 mls/hr Heparin Sodium/Sodium Chloride (Heparin 80175 Units/250ml 1/2 Normal Saline) 25 ,000 units in 250 mls @ 8.818 mls/hr IV .Q24H PRN; Protocol; 12 UNITS/KG/HR PRN Reason: PROTOCOL Last Titration: 04/17/18 22:15 Dose: 8.98 units/kg/hr, 6.6 mls/hr Norepinephrine Bitartrate 4 mg (/ Sodium Chloride) 254 mls @ 15.24 mls/hr IV .[id number] PRN; Protocol; 4 MCG/MIN PRN Reason: TITRATE PER MD ORDER Last Titration: 04/18/18 02:00 Dose: 0 mcg/min, 0 mls/hr Dobutamine HCl/Dextrose (Dobutamine/Dextrose 5% 500mg/250ml) 500 mg in 250 mls @ 5.511 mls/hr IV .Q24H PRN; Protocol; 2.5 MCG/KG/MIN PRN Reason: FOLLOW TITRATION PROTOCOL Last Admin: 04/17/18 15:28 Dose: 2.5 mcg/kg/min, 5.511 mls/hr Dexmedetomidine HCl 200 mcg/ (Sodium Chloride) 50 mls @ 3.67 mls/hr IV TITR PRN ; Protocol; 0.2 MCG/KG/HR PRN Reason: Agitation Last Admin: 04/18/18 01:01 Dose: 0.2 mcg/kg/hr, 3.67 mls/hr Insulin Human Regular (Novolin R) 0 unit SC Q6 [facility] PRN Reason: Protocol Last Admin: 04/18/18 06:00 Dose: Not Given Lorazepam (Ativan) 2 mg IVP Q3H PRN PRN Reason: Anxiety Last Admin: 04/18/18 03:30 Dose: 2 mg Pantoprazole Sodium (Protonix Ec Tab) 40 mg PO DAILY [facility] Last Admin: 04/18/18 10:00 Dose: 40 mg Rosuvastatin Calcium (Crestor) 5 mg PO HS [facility] Last Admin: 04/17/18 22:57 Dose: 5 mg - Labs Labs: 04/18/18 07:04 04/18/18 07:01 PT 15.0 SECONDS (9.7-12.2) H 04/17/18 13:41 INR 1.4 04/17/18 13:41 APTT 96 SECONDS (21-34) H D 04/18/18 04:45 - Constitutional Appears: Well - Head Exam Head Exam: ATRAUMATIC, NORMAL INSPECTION, NORMOCEPHALIC - Eye Exam Eye Exam: EOMI, Normal appearance, PERRL Pupil Exam: NORMAL ACCOMODATION, PERRL - ENT Exam ENT Exam: Mucous Membranes Moist, Normal Exam - Neck Exam Neck Exam: Full ROM, Normal Inspection. absent: Lymphadenopathy - Respiratory Exam Respiratory Exam: Decreased Breath Sounds - Cardiovascular Exam Cardiovascular Exam: REGULAR RHYTHM, +S1, +S2 - GI/Abdominal Exam GI & Abdominal Exam: Soft, Diminished Bowel Sounds - Rectal Exam Rectal Exam: Deferred
--- NOTE | 2018-04-18 12:43 | CP.CCUPN ---
CCU Subjective - Physician Review Subjective (Free Text): 04/18/18 12:39 Patient seen and examined at bedside Patient intubated, off pressors, currently getting IV dobutamine, IV heparin and Iv precedex. patient is not responsive to sternal rub Critical Care Time Spent (in minutes): 35 CCU Objective - Vital Signs / Intake & Output Vital Signs (Last 4 hours): Vital Signs Pulse Resp BP Pulse Ox 04/18/18 12:05 70 24 145/72 100 04/18/18 12:00 69 23 100 04/18/18 11:05 70 23 143/72 100 04/18/18 11:00 69 23 100 04/18/18 10:05 70 23 140/71 100 04/18/18 10:00 71 22 100 04/18/18 09:05 70 23 144/70 100 04/18/18 09:00 71 23 100 Intake and Output (Last 8hrs): Intake & Output 04/17/18 04/18/18 04/18/18 22:59 06:59 14:59 Intake Total 472.7 332.4 85.8 Output Total 600 330 30 Balance -127.3 2.4 55.8 Weight 163 lb 0.16 oz Intake: IV 122 177.5 Intake, IV Amount 250.7 154.9 85.8 Right Distal Port Forearm 54.3 51.3 30.6 Right Distal Port 25.9 29.6 22.2 Internal Jugular Right Medial Port 35.5 44.0 33.0 Right Proximal Port 135 30.0 Internal Jugular Tube Feeding 100 Output: Urine 600 330 30 Urethral (Smith) 600 330 30 - Physical Exam Head: Positive for: Atraumatic, Normocephalic Mouth: Positive for: Moist Mucous Membranes Respiratory/Chest: Positive for: Good Air Exchange, Rales Cardiovascular: Positive for: Murmurs, Normal S1, S2. Negative for: Tachycardic Abdomen: Positive for: Normal Bowel Sounds. Negative for: Tenderness Lower Extremity: Positive for: Swelling - Medications Active Medications: Active Medications Generic Name Dose Route Start Last Admin Trade Name Freq PRN Reason Stop Dose Admin Albuterol/Ipratropium 3 ml 04/16/18 02:00 04/18/18 08:17 Duoneb 3 Mg/0.5 Mg (3 Ml) Ud INH 3 ml RQ6 JESE Administration Aspirin 81 mg 04/16/18 10:00 04/18/18 11:38 Aspirin Chewable PO 81 mg DAILY JESE Administration Furosemide 40 mg 04/18/18 12:36 Lasix IVP 04/18/18 12:37 STAT STA Azithromycin 500 mg/ Sodium 250 mls @ 250 mls/hr 04/16/18 10:00 04/17/18 10: 09 Chloride IVPB 250 mls/hr DAILY JESE Administration Protocol Heparin Sodium/Sodium Chloride 25,000 units in 250 mls @ 8.818 mls/hr 12:28 04/17/18 22:15 Heparin 14353 Units/250ml 1/2 Normal Saline IV 8.98 units/kg/hr .Q24H PRN 6.6 mls/hr PROTOCOL Titration Protocol 12 UNITS/KG/HR Norepinephrine Bitartrate 4 mg 254 mls @ 15.24 mls/hr 04/17/18 13:30 02:00 / Sodium Chloride IV 0 mcg/min .[id number] PRN 0 mls/hr TITRATE PER MD ORDER Titration Protocol 4 MCG/MIN Dobutamine HCl/Dextrose 500 mg in 250 mls @ 5.511 mls/hr 04/17/18 14:15 04/17 15:28 Dobutamine/Dextrose 5% 500mg/250ml IV 2.5 mcg/kg/min .Q24H PRN 5.511 mls/hr FOLLOW TITRATION PROTOCOL Administration Protocol 2.5 MCG/KG/MIN Dexmedetomidine HCl 200 mcg/ 50 mls @ 3.67 mls/hr 04/17/18 15:30 04/18/18 01: 01 Sodium Chloride IV 0.2 mcg/kg/hr TITR PRN 3.67 mls/hr Agitation Administration Protocol 0.2 MCG/KG/HR Insulin Human Regular 0 unit 04/18/18 01:00 04/18/18 06:00 Novolin R SC Not Given Q6 JESE Protocol Pantoprazole Sodium 40 mg 04/16/18 10:00 04/18/18 10:00 Protonix Ec Tab PO 40 mg DAILY JESE Administration Rosuvastatin Calcium 5 mg 04/15/18 22:00 04/17/18 22:57 Crestor PO 5 mg HS JESE Administration - Patient Studies Lab Studies: Lab Studies 04/18/18 04/18/18 04/18/18 Range/Units 07:04 07:01 05:22 WBC 5.7 (4.8-10.8) K/uL RBC 3.99 L (4.40-5.90) Mil/uL Hgb 12.0 (12.0-18.0) g/dL Hct 35.5 (35.0-51.0) % MCV 89.0 (80.0-94.0) fL MCH 30.1 (27.0-31.0) pg MCHC 33.8 (33.0-37.0) g/dL RDW 15.0 H (11.5-14.5) % Plt Count 101 L (130-400) K/uL MPV 9.9 (7.2-11.7) fL Neut % (Auto) 64.6 (50.0-75.0) % Lymph % (Auto) 24.3 (20.0-40.0) % Meagher % (Auto) 9.3 (0.0-10.0) % Eos % (Auto) 1.2 (0.0-4.0) % Baso % (Auto) 0.6 (0.0-2.0) % Neut # (Auto) 3.7 (1.8-7.0) K/uL Lymph # (Auto) 1.4 (1.0-4.3) K/uL Meagher # (Auto) 0.5 (0.0-0.8) K/uL Eos # (Auto) 0.1 (0.0-0.7) K/uL Baso # (Auto) 0.0 (0.0-0.2) K/uL PT (9.7-12.2) SECONDS INR APTT (21-34) SECONDS Puncture Site Rb pCO2 35 (35-45) mm/Hg pO2 289 H (80-100) mm/Hg HCO3 25.9 (21-28) mmol/L ABG pH 7.46 H (7.35-7.45) ABG Total CO2 26.0 (22-28) mmol/L ABG O2 Saturation 100.1 H (95-98) % ABG Base Excess 1.3 (-2.0-3.0) mmol/L ABG Hemoglobin 12.1 (11.7-17.4) g/dL ABG Carboxyhemoglobin 1.7 H (0.5-1.5) % POC ABG HHb (Measured) -0.1 L (0.0-5.0) % ABG Methemoglobin 1.3 (0.0-3.0) % Cecil Test Na ABG Potassium (3.6-5.2) mmol/L VBG pH (7.32-7.43) VBG pCO2 (40-60) mmHg VBG HCO3 mmol/L VBG Total CO2 (22-28) mmol/L VBG O2 Sat (Calc) (40-65) % VBG Base Excess (0.0-2.0) mmol/L VBG Potassium (3.6-5.2) mmol/L A-a O2 Difference 95.0 mm/Hg Respiratory Index 0.3 Hgb O2 Saturation 97.1 (95.0-98.0) % Sodium 137 (132-148) mmol/l Chloride 101 (98-107) mmol/L Glucose (75-110) mg/dl Lactate (0.7-2.1) mmol/L Vent Mode Prvc Mechanical Rate 14 FiO2 60.0 % Tidal Volume 450 PEEP 5 Crit Value Called To Crit Value Called By Crit Value Read Back Blood Gas Notified Time Potassium 4.1 (3.6-5.2) mmol/L Carbon Dioxide 28 (22-30) mmol/L Anion Gap 12 (10-20) BUN 27 H (9-20) mg/dL Creatinine 1.5 (0.8-1.5) mg/dL Est GFR ( Amer) 55 Est GFR (Non-Af Amer) 45 Random Glucose 73 L (75-110) mg/dL Calcium 8.2 L (8.6-10.4) mg/dl Phosphorus 3.9 (2.5-4.5) mg/dL Magnesium 1.5 L (1.6-2.3) mg/dL Total Bilirubin 1.9 H (0.2-1.3) mg/dL AST 137 H (17-59) U/L ALT 87 H D (21-72) U/L Alkaline Phosphatase 255 H (38-126) U/L Troponin I (0.00-0.120) ng/mL Total Protein 6.2 L (6.3-8.3) g/dL Albumin 3.3 L (3.5-5.0) g/dL Globulin 2.9 (2.2-3.9) gm/dL Albumin/Globulin Ratio 1.2 (1.0-2.1) Arterial Blood Potassium (3.6-5.2) mmol/L Venous Blood Potassium (3.6-5.2) mmol/L Urine Color (YELLOW) Urine Clarity (Clear) Urine pH (5.0-8.0) Ur Specific Olar (1.003-1.030) Urine Protein (NEGATIVE) mg/dL Urine Glucose (UA) (Normal) mg/dL Urine Ketones (NEGATIVE) mg/dL Urine Blood (NEGATIVE) Urine Nitrate (NEGATIVE) Urine Bilirubin (NEGATIVE) Urine Urobilinogen (0.2-1.0) mg/dL Ur Leukocyte Esterase (Negative) Satish/uL Urine WBC (Auto) (0-5) /hpf Urine RBC (Auto) (0-3) /hpf Urine Bacteria (<OCC) Hyaline Casts (0-2) /lpf 04/18/18 04/17/18 04/17/18 Range/Units 04:45 20:34 20:34 WBC (4.8-10.8) K/uL RBC (4.40-5.90) Mil/uL Hgb (12.0-18.0) g/dL Hct (35.0-51.0) % MCV (80.0-94.0) fL MCH (27.0-31.0) pg MCHC (33.0-37.0) g/dL RDW (11.5-14.5) % Plt Count (130-400) K/uL MPV (7.2-11.7) fL Neut % (Auto) (50.0-75.0) % Lymph % (Auto) (20.0-40.0) % Meagher % (Auto) (0.0-10.0) % Eos % (Auto) (0.0-4.0) % Baso % (Auto) (0.0-2.0) % Neut # (Auto) (1.8-7.0) K/uL Lymph # (Auto) (1.0-4.3) K/uL Meagher # (Auto) (0.0-0.8) K/uL Eos # (Auto) (0.0-0.7) K/uL Baso # (Auto) (0.0-0.2) K/uL PT (9.7-12.2) SECONDS INR APTT 96 H D 226 H* D (21-34) SECONDS Puncture Site pCO2 (35-45) mm/Hg pO2 (80-100) mm/Hg HCO3 (21-28) mmol/L ABG pH (7.35-7.45) ABG Total CO2 (22-28) mmol/L ABG O2 Saturation (95-98) % ABG Base Excess (-2.0-3.0) mmol/L ABG Hemoglobin (11.7-17.4) g/dL ABG Carboxyhemoglobin (0.5-1.5) % POC ABG HHb (Measured) (0.0-5.0) % ABG Methemoglobin (0.0-3.0) % Cecil Test ABG Potassium (3.6-5.2) mmol/L VBG pH (7.32-7.43) VBG pCO2 (40-60) mmHg VBG HCO3 mmol/L VBG Total CO2 (22-28) mmol/L VBG O2 Sat (Calc) (40-65) % VBG Base Excess (0.0-2.0) mmol/L VBG Potassium (3.6-5.2) mmol/L A-a O2 Difference mm/Hg Respiratory Index Hgb O2 Saturation (95.0-98.0) % Sodium 138 (132-148) mmol/l Chloride 102 (98-107) mmol/L Glucose (75-110) mg/dl Lactate (0.7-2.1) mmol/L Vent Mode Mechanical Rate FiO2 % Tidal Volume PEEP Crit Value Called To Crit Value Called By Crit Value Read Back Blood Gas Notified Time Potassium 4.3 (3.6-5.2) mmol/L Carbon Dioxide 27 (22-30) mmol/L Anion Gap 14 (10-20) BUN 27 H (9-20) mg/dL Creatinine 1.5 (0.8-1.5) mg/dL Est GFR ( Amer) 55 Est GFR (Non-Af Amer) 45 Random Glucose 65 L (75-110) mg/dL Calcium 8.9 (8.6-10.4) mg/dl Phosphorus (2.5-4.5) mg/dL Magnesium (1.6-2.3) mg/dL Total Bilirubin (0.2-1.3) mg/dL AST (17-59) U/L ALT (21-72) U/L Alkaline Phosphatase (38-126) U/L Troponin I (0.00-0.120) ng/mL Total Protein (6.3-8.3) g/dL Albumin (3.5-5.0) g/dL Globulin (2.2-3.9) gm/dL Albumin/Globulin Ratio (1.0-2.1) Arterial Blood Potassium (3.6-5.2) mmol/L Venous Blood Potassium (3.6-5.2) mmol/L Urine Color (YELLOW) Urine Clarity (Clear) Urine pH (5.0-8.0) Ur Specific Olar (1.003-1.030) Urine Protein (NEGATIVE) mg/dL Urine Glucose (UA) (Normal) mg/dL Urine Ketones (NEGATIVE) mg/dL Urine Blood (NEGATIVE) Urine Nitrate (NEGATIVE) Urine Bilirubin (NEGATIVE) Urine Urobilinogen (0.2-1.0) mg/dL Ur Leukocyte Esterase (Negative) Satish/uL Urine WBC (Auto) (0-5) /hpf Urine RBC (Auto) (0-3) /hpf Urine Bacteria (<OCC) Hyaline Casts (0-2) /lpf 04/17/18 04/17/18 04/17/18 Range/Units 18:48 17:40 13:41 WBC (4.8-10.8) K/uL RBC (4.40-5.90) Mil/uL Hgb (12.0-18.0) g/dL Hct (35.0-51.0) % MCV (80.0-94.0) fL MCH (27.0-31.0) pg MCHC (33.0-37.0) g/dL RDW (11.5-14.5) % Plt Count (130-400) K/uL MPV (7.2-11.7) fL Neut % (Auto) (50.0-75.0) % Lymph % (Auto) (20.0-40.0) % Meagher % (Auto) (0.0-10.0) % Eos % (Auto) (0.0-4.0) % Baso % (Auto) (0.0-2.0) % Neut # (Auto) (1.8-7.0) K/uL Lymph # (Auto) (1.0-4.3) K/uL Meagher # (Auto) (0.0-0.8) K/uL Eos # (Auto) (0.0-0.7) K/uL Baso # (Auto) (0.0-0.2) K/uL PT (9.7-12.2) SECONDS INR APTT (21-34) SECONDS Puncture Site pCO2 (35-45) mm/Hg pO2 29 L (80-100) mm/Hg HCO3 (21-28) mmol/L ABG pH (7.35-7.45) ABG Total CO2 (22-28) mmol/L ABG O2 Saturation (95-98) % ABG Base Excess (-2.0-3.0) mmol/L ABG Hemoglobin (11.7-17.4) g/dL ABG Carboxyhemoglobin (0.5-1.5) % POC ABG HHb (Measured) (0.0-5.0) % ABG Methemoglobin (0.0-3.0) % Cecil Test ABG Potassium (3.6-5.2) mmol/L VBG pH 7.36 (7.32-7.43) VBG pCO2 49 (40-60) mmHg VBG HCO3 24.9 mmol/L VBG Total CO2 29.2 H (22-28) mmol/L VBG O2 Sat (Calc) 52.1 (40-65) % VBG Base Excess 1.5 (0.0-2.0) mmol/L VBG Potassium 3.9 (3.6-5.2) mmol/L A-a O2 Difference mm/Hg Respiratory Index Hgb O2 Saturation (95.0-98.0) % Sodium 138.0 136 (132-148) mmol/l Chloride 105.0 102 (98-107) mmol/L Glucose 59 L (75-110) mg/dl Lactate 1.7 (0.7-2.1) mmol/L Vent Mode Mechanical Rate FiO2 60.0 % Tidal Volume PEEP 5 Crit Value Called To Crit Value Called By Crit Value Read Back Blood Gas Notified Time Potassium 7.1 H* D (3.6-5.2) mmol/L Carbon Dioxide 22 (22-30) mmol/L Anion Gap 20 (10-20) BUN 22 H (9-20) mg/dL Creatinine 1.6 H (0.8-1.5) mg/dL Est GFR ( Amer) 51 Est GFR (Non-Af Amer) 42 Random Glucose 104 (75-110) mg/dL Calcium 8.4 L (8.6-10.4) mg/dl Phosphorus 4.5 (2.5-4.5) mg/dL Magnesium 1.8 (1.6-2.3) mg/dL Total Bilirubin 1.6 H (0.2-1.3) mg/dL AST 133 H D (17-59) U/L ALT 63 (21-72) U/L Alkaline Phosphatase 273 H (38-126) U/L Troponin I 0.1430 H* (0.00-0.120) ng/mL Total Protein 6.3 (6.3-8.3) g/dL Albumin 3.3 L (3.5-5.0) g/dL Globulin 3.0 (2.2-3.9) gm/dL Albumin/Globulin Ratio 1.1 (1.0-2.1) Arterial Blood Potassium (3.6-5.2) mmol/L Venous Blood Potassium 3.9 (3.6-5.2) mmol/L Urine Color Yellow (YELLOW) Urine Clarity Hazy (Clear) Urine pH 6.0 (5.0-8.0) Ur Specific Olar 1.008 (1.003-1.030) Urine Protein 1+ H (NEGATIVE) mg/dL Urine Glucose (UA) 1+ H (Normal) mg/dL Urine Ketones Negative (NEGATIVE) mg/dL Urine Blood 2+ H (NEGATIVE) Urine Nitrate Negative (NEGATIVE) Urine Bilirubin Negative (NEGATIVE) Urine Urobilinogen Normal (0.2-1.0) mg/dL Ur Leukocyte Esterase Neg (Negative) Satish/uL Urine WBC (Auto) 3 (0-5) /hpf Urine RBC (Auto) 16 H (0-3) /hpf Urine Bacteria Occ H (<OCC) Hyaline Casts 3-5 H (0-2) /lpf 05/18/18 05/18/18 05/18/18 Range/Units 13:41 13:41 13:20 WBC 4.1 L (4.8-10.8) K/uL RBC 4.10 L (4.40-5.90) Mil/uL Hgb 12.3 (12.0-18.0) g/dL Hct 37.0 (35.0-51.0) % MCV 90.3 (80.0-94.0) fL MCH 30.0 (27.0-31.0) pg MCHC 33.2 (33.0-37.0) g/dL RDW 15.3 H (11.5-14.5) % Plt Count 104 L D (130-400) K/uL MPV 9.1 (7.2-11.7) fL Neut % (Auto) 54.8 (50.0-75.0) % Lymph % (Auto) 36.0 (20.0-40.0) % Meagher % (Auto) 7.6 (0.0-10.0) % Eos % (Auto) 1.0 (0.0-4.0) % Baso % (Auto) 0.6 (0.0-2.0) % Neut # (Auto) 2.2 (1.8-7.0) K/uL Lymph # (Auto) 1.5 (1.0-4.3) K/uL Meagher # (Auto) 0.3 (0.0-0.8) K/uL Eos # (Auto) 0.0 (0.0-0.7) K/uL Baso # (Auto) 0.0 (0.0-0.2) K/uL PT 15.0 H (9.7-12.2) SECONDS INR 1.4 APTT (21-34) SECONDS Puncture Site Rr pCO2 19 L* (35-45) mm/Hg pO2 441 H (80-100) mm/Hg HCO3 21.6 (21-28) mmol/L ABG pH 7.53 H (7.35-7.45) ABG Total CO2 16.5 L (22-28) mmol/L ABG O2 Saturation 99.9 H (95-98) % ABG Base Excess -4.3 L (-2.0-3.0) mmol/L ABG Hemoglobin (11.7-17.4) g/dL ABG Carboxyhemoglobin (0.5-1.5) % POC ABG HHb (Measured) (0.0-5.0) % ABG Methemoglobin (0.0-3.0) % Cecil Test Na ABG Potassium 5.9 H (3.6-5.2) mmol/L VBG pH (7.32-7.43) VBG pCO2 (40-60) mmHg VBG HCO3 mmol/L VBG Total CO2 (22-28) mmol/L VBG O2 Sat (Calc) (40-65) % VBG Base Excess (0.0-2.0) mmol/L VBG Potassium (3.6-5.2) mmol/L A-a O2 Difference 248.0 mm/Hg Respiratory Index 0.6 Hgb O2 Saturation (95.0-98.0) % Sodium 130.0 L (132-148) mmol/l Chloride 106.0 (98-107) mmol/L Glucose 127 H (75-110) mg/dl Lactate 4.1 H* (0.7-2.1) mmol/L Vent Mode Prvc Mechanical Rate 14 FiO2 100.0 % Tidal Volume 500 PEEP 5 Crit Value Called To Dr ina florentino Crit Value Called By Shelby steen damper maker Crit Value Read Back Y Blood Gas Notified Time 1325 Potassium (3.6-5.2) mmol/L Carbon Dioxide (22-30) mmol/L Anion Gap (10-20) BUN (9-20) mg/dL Creatinine (0.8-1.5) mg/dL Est GFR ( Amer) Est GFR (Non-Af Amer) Random Glucose (75-110) mg/dL Calcium (8.6-10.4) mg/dl Phosphorus (2.5-4.5) mg/dL Magnesium (1.6-2.3) mg/dL Total Bilirubin (0.2-1.3) mg/dL AST (17-59) U/L ALT (21-72) U/L Alkaline Phosphatase (38-126) U/L Troponin I (0.00-0.120) ng/mL Total Protein (6.3-8.3) g/dL Albumin (3.5-5.0) g/dL Globulin (2.2-3.9) gm/dL Albumin/Globulin Ratio (1.0-2.1) Arterial Blood Potassium 5.9 H (3.6-5.2) mmol/L Venous Blood Potassium (3.6-5.2) mmol/L Urine Color (YELLOW) Urine Clarity (Clear) Urine pH (5.0-8.0) Ur Specific Olar (1.003-1.030) Urine Protein (NEGATIVE) mg/dL Urine Glucose (UA) (Normal) mg/dL Urine Ketones (NEGATIVE) mg/dL Urine Blood (NEGATIVE) Urine Nitrate (NEGATIVE) Urine Bilirubin (NEGATIVE) Urine Urobilinogen (0.2-1.0) mg/dL Ur Leukocyte Esterase (Negative) Satish/uL Urine WBC (Auto) (0-5) /hpf Urine RBC (Auto) (0-3) /hpf Urine Bacteria (<OCC) Hyaline Casts (0-2) /lpf Laboratory Results - last 24 hr 04/17/18 04/17/18 04/17/18 13:20 13:41 13:41 WBC 4.1 L RBC 4.10 L Hgb 12.3 Hct 37.0 MCV 90.3 MCH 30.0 MCHC 33.2 RDW 15.3 H Plt Count 104 L D MPV 9.1 Neut % (Auto) 54.8 Lymph % (Auto) 36.0 Meagher % (Auto) 7.6 Eos % (Auto) 1.0 Baso % (Auto) 0.6 Neut # (Auto) 2.2 Lymph # (Auto) 1.5 Meagher # (Auto) 0.3 Eos # (Auto) 0.0 Baso # (Auto) 0.0 PT 15.0 H INR 1.4 APTT Puncture Site Rr pCO2 19 L* pO2 441 H HCO3 21.6 ABG pH 7.53 H ABG Total CO2 16.5 L ABG O2 Saturation 99.9 H ABG Base Excess -4.3 L ABG Hemoglobin ABG Carboxyhemoglobin POC ABG HHb (Measured) ABG Methemoglobin Cecil Test Na ABG Potassium 5.9 H VBG pH VBG pCO2 VBG HCO3 VBG Total CO2 VBG O2 Sat (Calc) VBG Base Excess VBG Potassium A-a O2 Difference 248.0 Respiratory Index 0.6 Hgb O2 Saturation Sodium 130.0 L Chloride 106.0 Glucose 127 H Lactate 4.1 H* Vent Mode Prvc Mechanical Rate 14 FiO2 100.0 Tidal Volume 500 PEEP 5 Crit Value Called To Dr ina florentino Crit Value Called By Shelby steen damper maker Crit Value Read Back Y Blood Gas Notified Time 1325 Potassium Carbon Dioxide Anion Gap BUN Creatinine Est GFR ( Amer) Est GFR (Non-Af Amer) Random Glucose Calcium Phosphorus Magnesium Total Bilirubin AST ALT Alkaline Phosphatase Troponin I Total Protein Albumin Globulin Albumin/Globulin Ratio Arterial Blood Potassium 5.9 H Venous Blood Potassium Urine Color Urine Clarity Urine pH Ur Specific Olar Urine Protein Urine Glucose (UA) Urine Ketones Urine Blood Urine Nitrate Urine Bilirubin Urine Urobilinogen Ur Leukocyte Esterase Urine WBC (Auto) Urine RBC (Auto) Urine Bacteria Hyaline Casts 04/17/18 04/17/18 04/17/18 13:41 17:40 18:48 WBC RBC Hgb Hct MCV MCH MCHC RDW Plt Count MPV Neut % (Auto) Lymph % (Auto) Meagher % (Auto) Eos % (Auto) Baso % (Auto) Neut # (Auto) Lymph # (Auto) Meagher # (Auto) Eos # (Auto) Baso # (Auto) PT INR APTT Puncture Site pCO2 pO2 29 L HCO3 ABG pH ABG Total CO2 ABG O2 Saturation ABG Base Excess ABG Hemoglobin ABG Carboxyhemoglobin POC ABG HHb (Measured) ABG Methemoglobin Cecil Test ABG Potassium VBG pH 7.36 VBG pCO2 49 VBG HCO3 24.9 VBG Total CO2 29.2 H VBG O2 Sat (Calc) 52.1 VBG Base Excess 1.5 VBG Potassium 3.9 A-a O2 Difference Respiratory Index Hgb O2 Saturation Sodium 136 138.0 Chloride 102 105.0 Glucose 59 L Lactate 1.7 Vent Mode Mechanical Rate FiO2 60.0 Tidal Volume PEEP 5 Crit Value Called To Crit Value Called By Crit Value Read Back Blood Gas Notified Time Potassium 7.1 H* D Carbon Dioxide 22 Anion Gap 20 BUN 22 H Creatinine 1.6 H Est GFR ( Amer) 51 Est GFR (Non-Af Amer) 42 Random Glucose 104 Calcium 8.4 L Phosphorus 4.5 Magnesium 1.8 Total Bilirubin 1.6 H AST 133 H D ALT 63 Alkaline Phosphatase 273 H Troponin I 0.1430 H* Total Protein 6.3 Albumin 3.3 L Globulin 3.0 Albumin/Globulin Ratio 1.1 Arterial Blood Potassium Venous Blood Potassium 3.9 Urine Color Yellow Urine Clarity Hazy Urine pH 6.0 Ur Specific Olar 1.008 Urine Protein 1+ H Urine Glucose (UA) 1+ H Urine Ketones Negative Urine Blood 2+ H Urine Nitrate Negative Urine Bilirubin Negative Urine Urobilinogen Normal Ur Leukocyte Esterase Neg Urine WBC (Auto) 3 Urine RBC (Auto) 16 H Urine Bacteria Occ H Hyaline Casts 3-5 H 04/17/18 04/17/18 04/18/18 20:34 20:34 04:45 WBC RBC Hgb Hct MCV MCH MCHC RDW Plt Count MPV Neut % (Auto) Lymph % (Auto) Meagher % (Auto) Eos % (Auto) Baso % (Auto) Neut # (Auto) Lymph # (Auto) Meagher # (Auto) Eos # (Auto) Baso # (Auto) PT INR APTT 226 H* D 96 H D Puncture Site pCO2 pO2 HCO3 ABG pH ABG Total CO2 ABG O2 Saturation ABG Base Excess ABG Hemoglobin ABG Carboxyhemoglobin POC ABG HHb (Measured) ABG Methemoglobin Cecil Test ABG Potassium VBG pH VBG pCO2 VBG HCO3 VBG Total CO2 VBG O2 Sat (Calc) VBG Base Excess VBG Potassium A-a O2 Difference Respiratory Index Hgb O2 Saturation Sodium 138 Chloride 102 Glucose Lactate Vent Mode Mechanical Rate FiO2 Tidal Volume PEEP Crit Value Called To Crit Value Called By Crit Value Read Back Blood Gas Notified Time Potassium 4.3 Carbon Dioxide 27 Anion Gap 14 BUN 27 H Creatinine 1.5 Est GFR ( Amer) 55 Est GFR (Non-Af Amer) 45 Random Glucose 65 L Calcium 8.9 Phosphorus Magnesium Total Bilirubin AST ALT Alkaline Phosphatase Troponin I Total Protein Albumin Globulin Albumin/Globulin Ratio Arterial Blood Potassium Venous Blood Potassium Urine Color Urine Clarity Urine pH Ur Specific Olar Urine Protein Urine Glucose (UA) Urine Ketones Urine Blood Urine Nitrate Urine Bilirubin Urine Urobilinogen Ur Leukocyte Esterase Urine WBC (Auto) Urine RBC (Auto) Urine Bacteria Hyaline Casts 04/18/18 04/18/18 04/18/18 05:22 07:01 07:04 WBC 5.7 RBC 3.99 L Hgb 12.0 Hct 35.5 MCV 89.0 MCH 30.1 MCHC 33.8 RDW 15.0 H Plt Count 101 L MPV 9.9 Neut % (Auto) 64.6 Lymph % (Auto) 24.3 Meagher % (Auto) 9.3 Eos % (Auto) 1.2 Baso % (Auto) 0.6 Neut # (Auto) 3.7 Lymph # (Auto) 1.4 Meagher # (Auto) 0.5 Eos # (Auto) 0.1 Baso # (Auto) 0.0 PT INR APTT Puncture Site Rb pCO2 35 pO2 289 H HCO3 25.9 ABG pH 7.46 H ABG Total CO2 26.0 ABG O2 Saturation 100.1 H ABG Base Excess 1.3 ABG Hemoglobin 12.1 ABG Carboxyhemoglobin 1.7 H POC ABG HHb (Measured) -0.1 L ABG Methemoglobin 1.3 Cecil Test Na ABG Potassium VBG pH VBG pCO2 VBG HCO3 VBG Total CO2 VBG O2 Sat (Calc) VBG Base Excess VBG Potassium A-a O2 Difference 95.0 Respiratory Index 0.3 Hgb O2 Saturation 97.1 Sodium 137 Chloride 101 Glucose Lactate Vent Mode Prvc Mechanical Rate 14 FiO2 60.0 Tidal Volume 450 PEEP 5 Crit Value Called To Crit Value Called By Crit Value Read Back Blood Gas Notified Time Potassium 4.1 Carbon Dioxide 28 Anion Gap 12 BUN 27 H Creatinine 1.5 Est GFR ( Amer) 55 Est GFR (Non-Af Amer) 45 Random Glucose 73 L Calcium 8.2 L Phosphorus 3.9 Magnesium 1.5 L Total Bilirubin 1.9 H AST 137 H ALT 87 H D Alkaline Phosphatase 255 H Troponin I Total Protein 6.2 L Albumin 3.3 L Globulin 2.9 Albumin/Globulin Ratio 1.2 Arterial Blood Potassium Venous Blood Potassium Urine Color Urine Clarity Urine pH Ur Specific Olar Urine Protein Urine Glucose (UA) Urine Ketones Urine Blood Urine Nitrate Urine Bilirubin Urine Urobilinogen Ur Leukocyte Esterase Urine WBC (Auto) Urine RBC (Auto) Urine Bacteria Hyaline Casts Fingerstick Blood Sugar Results: 83 Review of Systems - Review of Systems Review of Systems: patient intubated and unbale to obtaine ROS Critical Care Progress Note - Nutrition Nutrition: Nutrition Category Date Time Status Heart Healthy Diet [DIET] Diets 04/15/18 Lunch Active Assessment/Plan - Assessment and Plan (Free Text) Plan: Hypoxic respiratory failure: continue ventilation to keep spo2 >92 and ph b/w 7.35-7.45, CPAP daily, RSBI 56 -Severe systolic herat failrue: will benfit from negative balance, off pressors , -CAD/NSTEMI: continue asa, statin, hold (AV sav shonda ) as patient is no [place] Hr normal -?sepsis: empriically on abx, lactic normalizing, if culture neg, shorten course -Starge NG tube feeds: glucerna -BGM q6hrs, ISS aspart -dvt ppx heparin -PUD ppx protoni - Date & Time Date: 04/18/18 Time: 12:44
--- NOTE | 2018-04-18 13:05 | CP.PCM.PN ---
Subjective - Date & Time of Evaluation Date of Evaluation: 04/18/18 Time of Evaluation: 10:25 - Subjective Subjective: patient seen and examined Remains intubated on ventilatory support FiO2 40% Sedated on Precedex On Dobutrex and heparin drip Afebrile Good urine output Objective - Vital Signs/Intake and Output Vital Signs (last 24 hours): Temp Pulse Resp BP Pulse Ox 98.6 F 70 24 145/72 100 04/18/18 04:00 04/18/18 12:05 04/18/18 12:05 04/18/18 12:05 04/18/18 12:05 Intake and Output: 04/18/18 04/18/18 06:59 18:59 Intake Total 510.3 85.8 Output Total 530 30 Balance -19.7 55.8 - Medications Medications: Current Medications Albuterol/Ipratropium (Duoneb 3 Mg/0.5 Mg (3 Ml) Ud) 3 ml INH RQ6 JESE Last Admin: 04/18/18 08:17 Dose: 3 ml Aspirin (Aspirin Chewable) 81 mg PO DAILY [facility] Last Admin: 04/18/18 11:38 Dose: 81 mg Azithromycin 500 mg/ Sodium (Chloride) 250 mls @ 250 mls/hr IVPB DAILY JESE PRN Reason: Protocol Last Admin: 04/17/18 10:09 Dose: 250 mls/hr Heparin Sodium/Sodium Chloride (Heparin 30225 Units/250ml 1/2 Normal Saline) 25 ,000 units in 250 mls @ 8.818 mls/hr IV .Q24H PRN; Protocol; 12 UNITS/KG/HR PRN Reason: PROTOCOL Last Titration: 04/17/18 22:15 Dose: 8.98 units/kg/hr, 6.6 mls/hr Dobutamine HCl/Dextrose (Dobutamine/Dextrose 5% 500mg/250ml) 500 mg in 250 mls @ 5.511 mls/hr IV .Q24H PRN; Protocol; 2.5 MCG/KG/MIN PRN Reason: FOLLOW TITRATION PROTOCOL Last Admin: 04/17/18 15:28 Dose: 2.5 mcg/kg/min, 5.511 mls/hr Dexmedetomidine HCl 200 mcg/ (Sodium Chloride) 50 mls @ 3.67 mls/hr IV TITR PRN ; Protocol; 0.2 MCG/KG/HR PRN Reason: Agitation Last Admin: 04/18/18 01:01 Dose: 0.2 mcg/kg/hr, 3.67 mls/hr Insulin Aspart (Novolog) 0 unit SC Q6H [facility] PRN Reason: Protocol Pantoprazole Sodium (Protonix Ec Tab) 40 mg PO DAILY [facility] Last Admin: 04/18/18 10:00 Dose: 40 mg Rosuvastatin Calcium (Crestor) 5 mg PO HS [facility] Last Admin: 04/17/18 22:57 Dose: 5 mg - Labs Labs: 04/18/18 07:04 04/18/18 07:01 PT 15.0 SECONDS (9.7-12.2) H 04/17/18 13:41 INR 1.4 04/17/18 13:41 APTT 96 SECONDS (21-34) H D 04/18/18 04:45 - Head Exam Head Exam: ATRAUMATIC, NORMOCEPHALIC - ENT Exam ENT Exam: Mucous Membranes Moist - Neck Exam Neck Exam: Normal Inspection - Respiratory Exam Respiratory Exam: Clear to Ausculation Bilateral - Cardiovascular Exam Cardiovascular Exam: REGULAR RHYTHM - GI/Abdominal Exam GI & Abdominal Exam: Soft, Normal Bowel Sounds Assessment and Plan (1) Acute on chronic systolic and diastolic heart failure, NYHA class 2 Assessment & Plan: On Dobutrex drip Continue heparin Echocardiogram Cardiac catheter when stable Continue nebulizer treatment Weaning protocol Status: Acute
[2018-04-18] MEDS: (Novolog) Insulin Aspart, Recombinant 100 u/ml 10 ml vial SC SCH ×2 (13:31→19:38)
[2018-04-18] MEDS: Cefepime IV 1 gm in Dextrose 1 GM/50 ML BAG IVPB SCH (20:41)
[2018-04-19] MEDS: Dexmedetomidine Hydrochloride 200 MCG in Sodium Chloride 0.9% 48 ML IV PRN (00:48)
[2018-04-19] MEDS: (Novolog) Insulin Aspart, Recombinant 100 u/ml 10 ml vial SC SCH ×4 (00:50→19:23)
[2018-04-19 06:16] LABS: ABG ALLEN TEST NG; ARTERIAL BLOOD GAS HCO3 26.8 mmol/L (21-28); ARTERIAL BLOOD GAS O2 SAT 99.9 % (95-98); ARTERIAL BLOOD GAS PCO2 39 mm/Hg (35-45); ARTERIAL BLOOD GAS PH 7.44 (7.35-7.45); ARTERIAL BLOOD GAS PO2 199 mm/Hg (80-100); ARTERIAL BLOOD GAS TCO2 27.7 mmol/L (22-28)
[2018-04-19] MEDS: Heparin25000 units/250ml 1/2NS 25,000 UNITS/250 ML BAG IV PRN (06:21)
[2018-04-19 06:45] LABS: BASO % 0.8 % (0.0-2.0); EOS # 0.1 K/uL (0.0-0.7); EOS % 1.7 % (0.0-4.0); LYMPH # 1.1 K/uL (1.0-4.3); LYMPH % 23.2 % (20.0-40.0); MEAN CORPUSCULAR HEMOGLOBIN 30.1 pg (27.0-31.0); MEAN CORPUSCULAR HGB CONC 33.8 g/dL (33.0-37.0); MEAN PLATELET VOLUME 9.3 fL (7.2-11.7); MONO # 0.6 K/uL (0.0-0.8); MONO % 12.4 % (0.0-10.0); NEUT # 2.9 K/uL (1.8-7.0); NEUT % 61.9 % (50.0-75.0); RBC 4.33 Mil/uL (4.40-5.90); RED CELL DISTRIBUTION WIDTH 14.7 % (11.5-14.5); WHITE BLOOD COUNT 4.7 K/uL (4.8-10.8)
[2018-04-19 07:05] LABS: ALBUMIN 2.9 g/dL (3.5-5.0); ALT/SGPT 63 U/L (21-72); AST/SGOT 73 U/L (17-59); BLOOD UREA NITROGEN 30 mg/dL (9-20); CALCIUM 8.3 mg/dl (8.6-10.4); GFR AFRICAN-AMERICAN > 60; GFR NON-AFRICAN AMERICAN 59
[2018-04-19] MEDS: Albuterol-Ipratrop 3 mg / 0.5 (3 ml) UD INH SCH ×3 (07:53→19:49)
--- NOTE | 2018-04-19 08:51 | CP.PCM.PN ---
Subjective - Date & Time of Evaluation Date of Evaluation: 04/19/18 Time of Evaluation: 08:40 - Subjective Subjective: remains intubated Objective - Vital Signs/Intake and Output Vital Signs (last 24 hours): Temp Pulse Resp BP Pulse Ox 98.8 F 75 13 159/78 H 100 04/19/18 06:00 04/19/18 07:05 04/19/18 07:05 04/19/18 07:05 04/19/18 07:05 Intake and Output: 04/19/18 04/19/18 06:59 18:59 Intake Total 381.2 41.0 Output Total 1490 100 Balance -1108.8 -59.0 - Medications Medications: Current Medications Albuterol/Ipratropium (Duoneb 3 Mg/0.5 Mg (3 Ml) Ud) 3 ml INH RQ6 [facility] Last Admin: 04/19/18 07:53 Dose: 3 ml Aspirin (Aspirin Chewable) 81 mg PO DAILY [facility] Last Admin: 04/18/18 11:38 Dose: 81 mg Azithromycin 500 mg/ Sodium (Chloride) 250 mls @ 250 mls/hr IVPB DAILY [facility] PRN Reason: Protocol Last Admin: 04/18/18 11:00 Dose: 250 mls/hr Heparin Sodium/Sodium Chloride (Heparin 81845 Units/250ml 1/2 Normal Saline) 25 ,000 units in 250 mls @ 8.818 mls/hr IV .Q24H PRN; Protocol; 12 UNITS/KG/HR PRN Reason: PROTOCOL Last Titration: 04/19/18 07:45 Dose: 8.94 units/kg/hr, 6.569 mls/hr Dobutamine HCl/Dextrose (Dobutamine/Dextrose 5% 500mg/250ml) 500 mg in 250 mls @ 5.511 mls/hr IV .Q24H PRN; Protocol; 2.5 MCG/KG/MIN PRN Reason: FOLLOW TITRATION PROTOCOL Last Admin: 04/17/18 15:28 Dose: 2.5 mcg/kg/min, 5.511 mls/hr Dexmedetomidine HCl 200 mcg/ (Sodium Chloride) 50 mls @ 3.67 mls/hr IV TITR PRN ; Protocol; 0.2 MCG/KG/HR PRN Reason: Agitation Last Admin: 04/19/18 00:48 Dose: 0.2 mcg/kg/hr, 3.67 mls/hr Cefepime HCl (Maxipime Iv 1 Gm Premix) 1 gm in 50 mls @ 100 mls/hr IVPB Q24H [facility] PRN Reason: Protocol Last Admin: 04/18/18 20:41 Dose: 100 mls/hr Insulin Aspart (Novolog) 0 unit SC Q6H [facility] PRN Reason: Protocol Last Admin: 04/19/18 06:27 Dose: Not Given Pantoprazole Sodium (Protonix Ec Tab) 40 mg PO DAILY [facility] Last Admin: 04/18/18 10:00 Dose: 40 mg Rosuvastatin Calcium (Crestor) 5 mg PO HS [facility] Last Admin: 04/18/18 21:30 Dose: 5 mg - Labs Labs: 04/19/18 06:33 04/19/18 06:35 PT 15.0 SECONDS (9.7-12.2) H 04/17/18 13:41 INR 1.4 04/17/18 13:41 APTT 41 SECONDS (21-34) H D 04/19/18 06:34 - Constitutional Appears: Toxic - Head Exam Head Exam: NORMAL INSPECTION - Eye Exam Eye Exam: Normal appearance - ENT Exam ENT Exam: Mucous Membranes Moist - Neck Exam Neck Exam: Full ROM - Respiratory Exam Respiratory Exam: Decreased Breath Sounds - Cardiovascular Exam Cardiovascular Exam: REGULAR RHYTHM - GI/Abdominal Exam GI & Abdominal Exam: Normal Bowel Sounds - Rectal Exam Rectal Exam: Deferred - Extremities Exam Extremities Exam: absent: Pedal Edema - Back Exam Back Exam: NORMAL INSPECTION - Skin Skin Exam: Normal Color Assessment and Plan (1) Acute on chronic systolic and diastolic heart failure, NYHA class 2 Assessment & Plan: maintain dobutamine. on heparin drip. wean to extubate. eventual cardiac cath Status: Acute
[2018-04-19] MEDS ORDERED: Cefepime IV 2 gm in Dextrose 2 GM/100 ML BAG IVPB SCH (10:00)
[2018-04-19] MEDS: Pantoprazole 40 mg EC Tab PO SCH (10:00)
[2018-04-19] MEDS: Azithromycin 500 MG in Sodium Chloride 0.9% 250 ML IVPB SCH (10:00)
[2018-04-19] MEDS: Magnesium Sulfate 1 gm in D5W 1 GM/100 ML BAG IVPB SCH ×2 (10:55→11:55)
--- NOTE | 2018-04-19 13:19 | RAD ---
HISTORY: Evaluate endotracheal tube position. COMPARISON: Multiple serial examinations preceding the most recent study: April 18, 2018. FINDINGS: LUNGS: Edema mild pulmonary vascular congestion a new finding compared to the most recent chest x-ray PLEURA: No significant pleural effusion identified, no pneumothorax apparent. CARDIOVASCULAR: Stable cardiomegaly OSSEOUS STRUCTURES: No significant abnormalities. VISUALIZED UPPER ABDOMEN: Normal. OTHER FINDINGS: Stable, satisfactory position ventilatory, vascular and nasogastric apparatus. IMPRESSION: Stable position of support apparatus. Worsening pulmonary vascular congestion/ pulmonary edema.
--- NOTE | 2018-04-19 14:59 | CT ---
PROCEDURE: CT HEAD WITHOUT CONTRAST. HISTORY: AMS COMPARISON: Comparison is made to the previous study dated 03/30/2017. Comparison is also made to the previous MRI of the brain dated 04/01/2017 TECHNIQUE: Axial computed tomography images were obtained through the head/brain without intravenous contrast. Radiation dose: Total exam DLP = 1173.46 mGy-cm. This CT exam was performed using one or more of the following dose reduction techniques: Automated exposure control, adjustment of the mA and/or kV according to patient size, and/or use of iterative reconstruction technique. FINDINGS: HEMORRHAGE: No intracranial hemorrhage. 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 There is interval appearance of focal hypodensity at the right posterior upper frontal lobe image 49 series 4 since the previous study. The possibility of subacute ischemic changes or bruit brain lesion should be considered. Mild atrophy and moderate chronic microvascular white matter ischemic disease are again noted. VENTRICLES: Mildly dilated without evidence of hydrocephalus. CALVARIUM: Unremarkable. PARANASAL SINUSES: Unremarkable as visualized. No significant inflammatory changes. MASTOID AIR CELLS: Unremarkable as visualized. No inflammatory changes. OTHER FINDINGS: Foci of calcification are again noted at the right external portion of the ear. IMPRESSION: No evidence of acute intracranial hemorrhage. 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 New focal area of hypodensity seen at the right frontal lobe may represent subacute infarction or new brain lesion. If clinically warranted further assessment by MRI is suggested. Atrophy and chronic microvascular white matter ischemic changes.
--- NOTE | 2018-04-19 15:12 | CP.PCM.CON ---
History of Present Illness - History of Present Illness History of Present Illness: 77 year old male presents with orythopnea, and progressive dsypnea. Patient states symptoms began in December whne he developed dyspnea on exertion. he also developed 2 pillow orthopnea. Echocardiogram perfomred in January revealed dilated cardiomyopathy and severe LV dsyfunction. he was admitted with pulmonary vascular congestion, elevated pro BNP and elevated troponin. ID consulted for possible pneumonia/ ? sepsis PMH HTN, hypercholesteroemia and DM Review of Systems - Constitutional Constitutional: absent: As Per HPI, Anorexia, Chills, Daytime Sleepiness, Excessive Sweating, Fatigue, Fever, Frequent Falls, Headache, Increased Appetite , Lethargy, Malaise, Night Sweats, Snoring, Sleep Apnea, Weight Gain, Weight Loss, Weakness, Other - EENT Eyes: absent: As Per HPI, Blind Spots, Blurred Vision, Change in Vision, Decreased Night Vision, Diplopia, Discharge, Dry Eye, Exophthalmos, Floaters, Irritation, Itchy Eyes, Loss of Peripheral Vision, Pain, Photophobia, Requires Corrective Lenses, Sees Flashes, Spots in Vision, Tunnel Vision, Other Visual Disturbances, Loss of Vision, Other Ears: absent: As Per HPI, Decreased Hearing, Ear Discharge, Ear Pain, Tinnitus, Abnormal Hearing, Disequilibrium, Dizziness, Other Nose/Mouth/Throat: absent: As Per HPI, Epistaxis, Nasal Congestion, Nasal Discharge, Nasal Obstruction, Nasal Trauma, Nose Pain, Post Nasal Drip, Sinus Pain, Sinus Pressure, Bleeding Gums, Change in Voice, Dental Pain, Dry Mouth, Dysphagia, Halitosis, Hoarsness, Lip Swelling, Mouth Lesions, Mouth Pain, Odynophagia, Sore Throat, Throat Swelling, Tongue Swelling, Facial Pain, Neck Pain, Neck Mass, Other - Cardiovascular Cardiovascular: Dyspnea, Orthopnea, Paroxysmal Nocturnal Dyspnea - Respiratory Respiratory: Dyspnea - Gastrointestinal Gastrointestinal: absent: As Per HPI, Abdominal Pain, Belching, Bloating, Change in Bowel Habits, Change in Stool Character, Coffee Ground Emesis, Constipation, Cramping, Diarrhea, Dyspepsia, Dysphagia, Early Satiety, Excessive Flatus, Fecal Incontinence, Heartburn, Hematemesis, Hematochezia, Loose Stools, Melena, Nausea, Odynophagia, Temesmus, Vomiting, Other - Genitourinary Genitourinary: absent: As Per HPI, Change in Urinary Stream, Difficulty Urinating, Dysuria, Flank Pain, Hematuria, Pyuria, Nocturia, Urinary Incontinence, Urinary Frequency, Urinary Hesitance, Urinary Urgency, Voiding Freq/Small Amts, Freq UTI, Hx Renal/Bladder Calculi, Hx /Renal Surgery, Bladder Distension, Other - Musculoskeletal Musculoskeletal: absent: As Per HPI, Abnormal Gait, Arthralgias, Atrophy, Back Pain, Deformity, Joint Swelling, Limited Range of Motion, Loss of Height, Muscle Cramps, Muscle Weakness, Myalgias, Neck Pain, Numbness, Radiating Pain into Limb, Stiffness, Tingling, Other - Integumentary Integumentary: absent: As Per HPI, Acne, Alopecia, Bleeding Lesions, Change in Hair, Change in Nails, Change in Pigmentation, Changing Lesions, Dry Skin, Erythema, Furuncle, Hirsutism, Lesions, New Lesions, Non-Healing Lesions, Photosensitivity, Pruritus, Rash, Skin Pain, Skin Ulcer, Sores, Striae, Swelling , Unusual Bruising, Wounds, Jaundice, Other - Neurological Neurological: absent: As Per HPI, Abnormal Gait, Abnormal Hearing, Abnormal Movements, Abnormal Speech, Behavioral Changes, Burning Sensations, Confusion, Convulsions, Disequilibrium, Dizziness, Numbness, Focal Weakness, Frequent Falls , Headaches, Lack of Coordination, Loss of Vision, Memory Loss, Paresthesias, Radicular Pain, Restless Legs, Sensory Deficit, Syncope, Tingling, Tremor, Vertigo, Weakness, Other Visual Disturbances, Other - Psychiatric Psychiatric: absent: As Per HPI, Abnormal Sleep Pattern, Anhedonia, Anxiety, Auditory Hallucinations, Behavioral Changes, Change in Appetite, Change in Libido, Confusion, Depression, Difficulty Concentrating, Hallucinations, Homicidal Ideation, Hopelessness, Irritability, Memory Loss, Mood Swings, Panic Attacks, Paranoia, Suicidal Ideation, Visual Hallucinations, Tactile Hallucinations, Other - Endocrine Endocrine: absent: As Per HPI, Change in Body Appearance, Change in Libido, Cold Intolorance, Deepening of Voice, Excessive Sweating, Fatigue, Flushing, Heat Intolorance, Increase in Ring/Shoe/Hat Size, Palpitations, Polydipsia, Polyphagia, Polyuria, Other - Hematologic/Lymphatic Hematologic: absent: As Per HPI, Easy Bleeding, Easy Bruising, Lymphadenopathy, Other Past Patient History - Infectious Disease Hx of Infectious Diseases: None - Past Medical History & Family History Past Medical History?: Yes - Past Social History Smoking Status: Former Smoker - CARDIAC Hx Cardiac Disorders: Yes Hx Congestive Heart Failure: Yes Hx Hypercholesterolemia: Yes Hx Hypertension: Yes - PULMONARY Hx Respiratory Disorders: No - NEUROLOGICAL Hx Neurological Disorder: No - HEENT Hx HEENT Problems: No - RENAL Hx Chronic Kidney Disease: No - ENDOCRINE/METABOLIC Hx Endocrine Disorders: Yes Hx Diabetes Mellitus Type 2: Yes - HEMATOLOGICAL/ONCOLOGICAL Hx Blood Disorders: No - INTEGUMENTARY Hx Dermatological Problems: No - MUSCULOSKELETAL/RHEUMATOLOGICAL Hx Falls: No - GASTROINTESTINAL Hx Gastrointestinal Disorders: Yes Hx Gall Bladder Disease: Yes - GENITOURINARY/GYNECOLOGICAL Hx Genitourinary Disorders: No - PSYCHIATRIC Hx Psychophysiologic Disorder: No Hx Sexual Abuse: No Hx Substance Use: No - SURGICAL HISTORY Hx Surgeries: Yes Hx Cholecystectomy: Yes - ANESTHESIA Hx Anesthesia: Yes Hx Anesthesia Reactions: No Hx Malignant Hyperthermia: No Has any member of the family had a problem w/ anesthesia?: No Meds Allergies/Adverse Reactions: Allergies Allergy/AdvReac Type Severity Reaction Status Date / Time No Known Allergies Allergy Verified 04/15/18 10:49 - Medications Medications: Current Medications Albuterol/Ipratropium (Duoneb 3 Mg/0.5 Mg (3 Ml) Ud) 3 ml INH RQ6 [facility] Last Admin: 04/19/18 13:33 Dose: 3 ml Aspirin (Aspirin Chewable) 81 mg PO DAILY [facility] Last Admin: 04/19/18 10:00 Dose: Not Given Furosemide (Lasix) 20 mg IVP DAILY [facility] Azithromycin 500 mg/ Sodium (Chloride) 250 mls @ 250 mls/hr IVPB DAILY [facility] PRN Reason: Protocol Last Admin: 04/19/18 10:00 Dose: 250 mls/hr Heparin Sodium/Sodium Chloride (Heparin 38541 Units/250ml 1/2 Normal Saline) 25 ,000 units in 250 mls @ 8.818 mls/hr IV .Q24H PRN; Protocol; 12 UNITS/KG/HR PRN Reason: PROTOCOL Last Titration: 04/19/18 07:45 Dose: 8.94 units/kg/hr, 6.569 mls/hr Cefepime HCl (Maxipime Iv 1 Gm Premix) 1 gm in 50 mls @ 100 mls/hr IVPB Q24H [facility] PRN Reason: Protocol Last Admin: 04/18/18 20:41 Dose: 100 mls/hr Insulin Aspart (Novolog) 0 unit SC Q6H [facility] PRN Reason: Protocol Last Admin: 04/19/18 13:00 Dose: Not Given Pantoprazole Sodium (Protonix Ec Tab) 40 mg PO DAILY [facility] Last Admin: 04/19/18 10:00 Dose: Not Given Rosuvastatin Calcium (Crestor) 5 mg PO HS [facility] Last Admin: 04/18/18 21:30 Dose: 5 mg Physical Exam - Constitutional Appears: Confused, Cachectic, Chronically Ill - Head Exam Head Exam: ATRAUMATIC, NORMOCEPHALIC - Eye Exam Eye Exam: PERRL. absent: Scleral icterus - ENT Exam ENT Exam: Mucous Membranes Dry - Neck Exam Neck exam: Negative for: Lymphadenopathy - Respiratory Exam Respiratory Exam: Decreased Breath Sounds, Rales, Rhonchi - Cardiovascular Exam Cardiovascular Exam: REGULAR RHYTHM, +S1, +S2 - GI/Abdominal Exam GI & Abdominal Exam: Diminished Bowel Sounds, Soft. absent: Tenderness - Rectal Exam Rectal Exam: Deferred - Exam Exam: NORMAL INSPECTION - Extremities Exam Extremities exam: Positive for: pedal edema, pedal pulses present. Negative for : calf tenderness, tenderness - Back Exam Back exam: absent: CVA tenderness (L), CVA tenderness (R), paraspinal tenderness - Neurological Exam Neurological exam: Alert, Altered, CN II-XII Intact - Psychiatric Exam Psychiatric exam: Depressed - Skin Skin Exam: Dry Results - Vital Signs Recent Vital Signs: Last Vital Signs Temp 98.8 F 04/19/18 06:00 Pulse 75 04/19/18 07:05 Resp 13 04/19/18 07:05 BP 159/78 H 04/19/18 07:05 Pulse Ox 100 04/19/18 07:05 - Labs Result Diagrams: 04/19/18 06:33 04/19/18 06:35 Labs: Laboratory Results - last 24 hr 04/19/18 04/19/18 04/19/18 05:30 06:33 06:34 WBC 4.7 L RBC 4.33 L Hgb 13.0 Hct 38.5 MCV 89.0 MCH 30.1 MCHC 33.8 RDW 14.7 H Plt Count 120 L MPV 9.3 Neut % (Auto) 61.9 Lymph % (Auto) 23.2 [place] % (Auto) 12.4 H Eos % (Auto) 1.7 Baso % (Auto) 0.8 Neut # (Auto) 2.9 Lymph # (Auto) 1.1 [place] # (Auto) 0.6 Eos # (Auto) 0.1 Baso # (Auto) 0.0 APTT 41 H D Puncture Site Rb pCO2 39 pO2 199 H HCO3 26.8 ABG pH 7.44 ABG Total CO2 27.7 ABG O2 Saturation 99.9 H ABG Base Excess 2.3 Cecil Test Ng ABG Potassium 3.3 L A-a O2 Difference 37.0 Respiratory Index 0.2 Sodium 137.0 Chloride 102.0 Glucose 80 Lactate 0.8 Vent Mode Prvc Mechanical Rate 14 FiO2 40.0 Tidal Volume 450 PEEP 5 Potassium Carbon Dioxide Anion Gap BUN Creatinine Est GFR ( Amer) Est GFR (Non-Af Amer) Random Glucose Calcium Phosphorus Magnesium Total Bilirubin AST ALT Alkaline Phosphatase Total Protein Albumin Globulin Albumin/Globulin Ratio Arterial Blood Potassium 3.3 L 04/19/18 06:35 WBC RBC Hgb Hct MCV MCH MCHC RDW Plt Count MPV Neut % (Auto) Lymph % (Auto) [place] % (Auto) Eos % (Auto) Baso % (Auto) Neut # (Auto) Lymph # (Auto) [place] # (Auto) Eos # (Auto) Baso # (Auto) APTT Puncture Site pCO2 pO2 HCO3 ABG pH ABG Total CO2 ABG O2 Saturation ABG Base Excess Cecil Test ABG Potassium A-a O2 Difference Respiratory Index Sodium 138 Chloride 100 Glucose Lactate Vent Mode Mechanical Rate FiO2 Tidal Volume PEEP Potassium 3.7 Carbon Dioxide 28 Anion Gap 14 BUN 30 H Creatinine 1.2 Est GFR ( Amer) > 60 Est GFR (Non-Af Amer) 59 Random Glucose 72 L Calcium 8.3 L Phosphorus 3.8 Magnesium 1.5 L Total Bilirubin 1.9 H AST 73 H D ALT 63 Alkaline Phosphatase 242 H Total Protein 5.9 L Albumin 2.9 L Globulin 3.0 Albumin/Globulin Ratio 1.0 Arterial Blood Potassium Assessment & Plan (1) Acute on chronic systolic and diastolic heart failure, NYHA class 2 Status: Acute (2) CHF (congestive heart failure) Status: Acute (3) DM type 2 (diabetes mellitus, type 2) Status: Acute - Assessment and Plan (Free Text) Assessment: severe CHF possible ischemic cardiomyopathy/ diabetic likely copd hx DM II for cardiac cath when stable consider d/c antibiotics
--- NOTE | 2018-04-19 15:41 | CP.PCM.PN ---
Subjective - Date & Time of Evaluation Date of Evaluation: 04/19/18 Time of Evaluation: 12:20 - Subjective Subjective: clinically same Objective - Vital Signs/Intake and Output Vital Signs (last 24 hours): Temp Pulse Resp BP Pulse Ox 98.8 F 75 13 159/78 H 100 04/19/18 06:00 04/19/18 07:05 04/19/18 07:05 04/19/18 07:05 04/19/18 07:05 Intake and Output: 04/19/18 04/19/18 06:59 18:59 Intake Total 381.2 47.5 Output Total 1490 150 Balance -1108.8 -102.5 - Medications Medications: Current Medications Albuterol/Ipratropium (Duoneb 3 Mg/0.5 Mg (3 Ml) Ud) 3 ml INH RQ6 [facility] Last Admin: 04/19/18 13:33 Dose: 3 ml Aspirin (Aspirin Chewable) 81 mg PO DAILY [facility] Last Admin: 04/19/18 10:00 Dose: Not Given Furosemide (Lasix) 20 mg IVP DAILY [facility] Azithromycin 500 mg/ Sodium (Chloride) 250 mls @ 250 mls/hr IVPB DAILY [facility] PRN Reason: Protocol Last Admin: 04/19/18 10:00 Dose: 250 mls/hr Heparin Sodium/Sodium Chloride (Heparin 97876 Units/250ml 1/2 Normal Saline) 25 ,000 units in 250 mls @ 8.818 mls/hr IV .Q24H PRN; Protocol; 12 UNITS/KG/HR PRN Reason: PROTOCOL Last Titration: 04/19/18 07:45 Dose: 8.94 units/kg/hr, 6.569 mls/hr Cefepime HCl (Maxipime Iv 1 Gm Premix) 1 gm in 50 mls @ 100 mls/hr IVPB Q24H [facility] PRN Reason: Protocol Last Admin: 04/18/18 20:41 Dose: 100 mls/hr Insulin Aspart (Novolog) 0 unit SC Q6H [facility] PRN Reason: Protocol Last Admin: 04/19/18 13:00 Dose: Not Given Pantoprazole Sodium (Protonix Ec Tab) 40 mg PO DAILY [facility] Last Admin: 04/19/18 10:00 Dose: Not Given Rosuvastatin Calcium (Crestor) 5 mg PO HS [facility] Last Admin: 04/18/18 21:30 Dose: 5 mg - Labs Labs: 04/19/18 06:33 04/19/18 06:35 PT 15.0 SECONDS (9.7-12.2) H 04/17/18 13:41 INR 1.4 04/17/18 13:41 APTT 41 SECONDS (21-34) H D 04/19/18 06:34 - Constitutional Appears: Well - Head Exam Head Exam: ATRAUMATIC, NORMAL INSPECTION, NORMOCEPHALIC - Eye Exam Eye Exam: EOMI, Normal appearance, PERRL Pupil Exam: NORMAL ACCOMODATION, PERRL - ENT Exam ENT Exam: Mucous Membranes Moist, Normal Exam - Neck Exam Neck Exam: Full ROM, Normal Inspection. absent: Lymphadenopathy - Respiratory Exam Respiratory Exam: Decreased Breath Sounds - Cardiovascular Exam Cardiovascular Exam: REGULAR RHYTHM, +S1, +S2 - GI/Abdominal Exam GI & Abdominal Exam: Soft, Diminished Bowel Sounds - Rectal Exam Rectal Exam: Deferred
--- NOTE | 2018-04-19 16:34 | CP.PCM.PN ---
Subjective - Date & Time of Evaluation Date of Evaluation: 04/19/18 Time of Evaluation: 14:30 - Subjective Subjective: Patient seen and examined Patient extubated and in no respiratory distress Patient is awake and responsive on heparin and Dubutrex drip Afebrile Possible cardiac cath soon Objective - Vital Signs/Intake and Output Vital Signs (last 24 hours): Temp Pulse Resp BP Pulse Ox 98.8 F 94 H 22 121/65 97 04/19/18 14:00 04/19/18 16:00 04/19/18 16:00 04/19/18 15:05 04/19/18 16:00 Intake and Output: 04/19/18 04/19/18 06:59 18:59 Intake Total 381.2 112.2 Output Total 1490 250 Balance -1108.8 -137.8 - Medications Medications: Current Medications Albuterol/Ipratropium (Duoneb 3 Mg/0.5 Mg (3 Ml) Ud) 3 ml INH RQ6 [facility] Last Admin: 04/19/18 13:33 Dose: 3 ml Aspirin (Aspirin Chewable) 81 mg PO DAILY [facility] Last Admin: 04/19/18 10:00 Dose: Not Given Furosemide (Lasix) 20 mg IVP DAILY [facility] Azithromycin 500 mg/ Sodium (Chloride) 250 mls @ 250 mls/hr IVPB DAILY [facility] PRN Reason: Protocol Last Admin: 04/19/18 10:00 Dose: 250 mls/hr Heparin Sodium/Sodium Chloride (Heparin 56674 Units/250ml 1/2 Normal Saline) 25 ,000 units in 250 mls @ 8.818 mls/hr IV .Q24H PRN; Protocol; 12 UNITS/KG/HR PRN Reason: PROTOCOL Last Titration: 04/19/18 07:45 Dose: 8.94 units/kg/hr, 6.569 mls/hr Cefepime HCl (Maxipime Iv 1 Gm Premix) 1 gm in 50 mls @ 100 mls/hr IVPB Q24H [facility] PRN Reason: Protocol Last Admin: 04/18/18 20:41 Dose: 100 mls/hr Insulin Aspart (Novolog) 0 unit SC Q6H [facility] PRN Reason: Protocol Last Admin: 04/19/18 13:00 Dose: Not Given Pantoprazole Sodium (Protonix Ec Tab) 40 mg PO DAILY [facility] Last Admin: 04/19/18 10:00 Dose: Not Given Rosuvastatin Calcium (Crestor) 5 mg PO HS [facility] Last Admin: 04/18/18 21:30 Dose: 5 mg - Labs Labs: 04/19/18 06:33 04/19/18 06:35 PT 15.0 SECONDS (9.7-12.2) H 04/17/18 13:41 INR 1.4 04/17/18 13:41 APTT 56 SECONDS (21-34) H D 04/19/18 15:49 Assessment and Plan (1) Acute on chronic systolic and diastolic heart failure, NYHA class 2 Status: Acute
--- NOTE | 2018-04-19 18:13 | CP.PCM.PN ---
Subjective - Date & Time of Evaluation Date of Evaluation: 04/19/18 Time of Evaluation: 09:30 - Subjective Subjective: FiO2 requirement decreasing, tolerating CPAP, awake alert following commands Objective - Vital Signs/Intake and Output Vital Signs (last 24 hours): Temp Pulse Resp BP Pulse Ox 98.8 F 98 H 23 135/70 100 04/19/18 14:00 04/19/18 17:05 04/19/18 17:05 04/19/18 17:05 04/19/18 17:05 Intake and Output: 04/19/18 04/19/18 06:59 18:59 Intake Total 381.2 525.2 Output Total 1490 550 Balance -1108.8 -24.8 - Medications Medications: Current Medications Albuterol/Ipratropium (Duoneb 3 Mg/0.5 Mg (3 Ml) Ud) 3 ml INH RQ6 [facility] Last Admin: 04/19/18 13:33 Dose: 3 ml Aspirin (Aspirin Chewable) 81 mg PO DAILY [facility] Last Admin: 04/19/18 10:00 Dose: Not Given Carvedilol (Coreg) 12.5 mg PO BID [facility] Furosemide (Lasix) 20 mg IVP DAILY [facility] Azithromycin 500 mg/ Sodium (Chloride) 250 mls @ 250 mls/hr IVPB DAILY [facility] PRN Reason: Protocol Last Admin: 04/19/18 10:00 Dose: 250 mls/hr Heparin Sodium/Sodium Chloride (Heparin 10939 Units/250ml 1/2 Normal Saline) 25 ,000 units in 250 mls @ 8.818 mls/hr IV .Q24H PRN; Protocol; 12 UNITS/KG/HR PRN Reason: PROTOCOL Last Titration: 04/19/18 07:45 Dose: 8.94 units/kg/hr, 6.569 mls/hr Cefepime HCl (Maxipime Iv 1 Gm Premix) 1 gm in 50 mls @ 100 mls/hr IVPB Q24H [facility] PRN Reason: Protocol Last Admin: 04/18/18 20:41 Dose: 100 mls/hr Insulin Aspart (Novolog) 0 unit SC Q6H [facility] PRN Reason: Protocol Last Admin: 04/19/18 13:00 Dose: Not Given Pantoprazole Sodium (Protonix Ec Tab) 40 mg PO DAILY [facility] Last Admin: 04/19/18 10:00 Dose: Not Given Rosuvastatin Calcium (Crestor) 5 mg PO HS [facility] Last Admin: 04/18/18 21:30 Dose: 5 mg - Labs Labs: 04/19/18 06:33 04/19/18 06:35 PT 15.0 SECONDS (9.7-12.2) H 04/17/18 13:41 INR 1.4 04/17/18 13:41 APTT 56 SECONDS (21-34) H D 04/19/18 15:49 - Head Exam Head Exam: ATRAUMATIC, NORMAL INSPECTION - Eye Exam Eye Exam: Normal appearance - ENT Exam ENT Exam: Mucous Membranes Moist - Neck Exam Neck Exam: Normal Inspection - Respiratory Exam Respiratory Exam: NORMAL BREATHING PATTERN. absent: Rales, Wheezes - Cardiovascular Exam Cardiovascular Exam: REGULAR RHYTHM, RRR, +S1, +S2 - GI/Abdominal Exam GI & Abdominal Exam: Soft - Extremities Exam Extremities Exam: Normal Capillary Refill Assessment and Plan - Assessment and Plan (Free Text) Assessment: Hypoxic respiratory failure: diuresed well, rsbi 42, weaning protocol and extubate -Severe systolic herat failrue: will benfit from negative balance, off pressors , start av sav shonda -CAD/NSTEMI: continue asa, statin, hold dobutmaine, start coreg, continue lasix -sepsis: continue abx, lactic normalizing, if culture neg, shorten course -passed speech and swallow, start oral diet -BGM ACHS, aspart -check and repalce magnesiumn -dvt ppx heparin -PUD ppx protoni Patient extubated.
[2018-04-19] MEDS: Cefepime IV 1 gm in Dextrose 1 GM/50 ML BAG IVPB SCH (20:27)
--- NOTE | 2018-04-19 23:41 | CON ---
DATE: 04/19/2018 ATTENDING PHYSICIAN: Dr. Ilir Wilson. REASON FOR CONSULTATION: Worsening mental state. Neuro consult was requested to rule out neurological etiology for patient's mental state worsening. HISTORY OF PRESENT ILLNESS: The patient is a 77-year-old gentleman with past medical history of hypertension, hyperlipidemia, CHF, cardiomyopathy, left ventricular dysfunction, non-insulin dependent diabetes mellitus. The patient was admitted because of dyspnea since December and progressively getting worse. The patient was admitted with respiratory failure and needed intubation. Neuro consult was requested for evaluation because of the patient's confusion and the patient extubated himself. Currently, the patient is awake, alert, coughing, productive cough. The patient is awake and alert, unable to give full detailed history. History mostly taken from the chart and slightly with the patient. The patient stated that his son brought him to the hospital. PAST MEDICAL HISTORY: As mentioned above. SOCIAL HISTORY: Non ethanol drug abuser. The patient is a former smoker. MEDICATIONS: Albuterol, aspirin, furosemide, azithromycin, lisinopril, metformin, pantoprazole, rosuvastatin. FAMILY HISTORY: Noncontributory. PHYSICAL EXAMINATION: VITAL SIGNS: Blood pressure 111/74, pule 90, respirations 18, temperature afebrile. LABORATORY DATA: Sodium 140, potassium 4.7, chloride 102, CO2 25, BUN 16, creatinine 1, glucose 229, white blood cells 4.7, red blood cells hemoglobin 13, hematocrit 38, platelets 120. MENTAL STATUS: The patient is alert, awake, oriented to place and person and partially to time although the patient knew the month and the year and the season. Able to follow two step command, unable to follow three steps commands, so much of processing, decreased attention span, short term memory. No right or left confusion. No finger agnosia. Double simultaneous stimulation intact. Cranial nerves, pupil 2 mm bilaterally sluggish, reactive. No nystagmus. No double vision. There is muscle wasting of temporalis and bilateral facial muscles. No facial palsy. V1 to V3 intact. No hearing deficit. Tongue midline. Gag intact. Motor, normal tone in upper and lower extremities slightly increased in the lower extremities; however, the patient is not relaxing well. Upper extremities, deltoid, elbow 5/5, lower extremities hip flexion knee flexion and extension, ankle 5/5. Deep tendon reflexes 1 to 2 in upper and lower extremities. Plantar flexion. Sensory, pinprick, and light touch intact. Coordination finger to nose intact. IMPRESSION AND PLAN: Mildly encephalopathic probably secondary to hypoxia, although the patient is relatively oriented except for time but slow mental processing. The patient is cognitively mildly impaired most likely secondary to hypoxic etiology although the patient's baseline is not known, the patient has mild baseline dementia. CAT scan of the brain pending. Labs reviewed. No further recommendations at this point except for EEG and CAT scan of the brain. DVT prophylaxis, physical therapy at bedside. Keep head set around 40 degrees. Thank you for the consultation and Dr. Cheng will follow up the patient tomorrow. Matthew He MD
[2018-04-20] MEDS: Albuterol-Ipratrop 3 mg / 0.5 (3 ml) UD INH SCH ×4 (01:47→20:25)
[2018-04-20 06:11] LABS: BASO % 0.4 % (0.0-2.0); EOS # 0.1 K/uL (0.0-0.7); EOS % 2.4 % (0.0-4.0); HEMOGLOBIN 12.1 g/dL (12.0-18.0); LYMPH # 1.2 K/uL (1.0-4.3); LYMPH % 24.9 % (20.0-40.0); MEAN CELL VOLUME 89.1 fL (80.0-94.0); MEAN CORPUSCULAR HEMOGLOBIN 30.2 pg (27.0-31.0); MEAN CORPUSCULAR HGB CONC 33.9 g/dL (33.0-37.0); MEAN PLATELET VOLUME 9.1 fL (7.2-11.7); MONO # 0.5 K/uL (0.0-0.8); MONO % 10.6 % (0.0-10.0); NEUT % 61.7 % (50.0-75.0); RED CELL DISTRIBUTION WIDTH 14.8 % (11.5-14.5); WHITE BLOOD COUNT 4.9 K/uL (4.8-10.8)
[2018-04-20 06:27] LABS: ALT/SGPT 55 U/L (21-72); AST/SGOT 53 U/L (17-59); BLOOD UREA NITROGEN 29 mg/dL (9-20); CALCIUM 8.6 mg/dl (8.6-10.4); GFR AFRICAN-AMERICAN > 60; GFR NON-AFRICAN AMERICAN > 60
[2018-04-20] MEDS: (Novolog) Insulin Aspart, Recombinant 100 u/ml 10 ml vial SC SCH ×4 (07:35→21:12)
[2018-04-20 07:54] LABS: HEPATITIS B SURFACE AG Negative (NEGATIVE)
[2018-04-20 07:59] LABS: HEPATITIS A IGM NEGATIVE (NEGATIVE); HEPATITIS B CORE AB NEGATIVE (NEGATIVE)
--- NOTE | 2018-04-20 08:04 | CP.PCM.PN ---
Subjective - Date & Time of Evaluation Date of Evaluation: 04/20/18 Time of Evaluation: 07:55 - Subjective Subjective: extubated. currently sitting in chair. Objective - Vital Signs/Intake and Output Vital Signs (last 24 hours): Temp Pulse Resp BP Pulse Ox 98.2 F 73 13 119/52 L 98 04/20/18 06:00 04/20/18 07:05 04/20/18 07:05 04/20/18 07:05 04/20/18 07:05 Intake and Output: 04/20/18 04/20/18 06:59 18:59 Intake Total 518.0 6.5 Output Total 450 Balance 68.0 6.5 - Medications Medications: Current Medications Albuterol/Ipratropium (Duoneb 3 Mg/0.5 Mg (3 Ml) Ud) 3 ml INH RQ6 [facility] Last Admin: 04/20/18 01:47 Dose: 3 ml Aspirin (Aspirin Chewable) 81 mg PO DAILY [facility] Last Admin: 04/19/18 10:00 Dose: Not Given Carvedilol (Coreg) 12.5 mg PO BID [facility] Last Admin: 04/19/18 18:48 Dose: 12.5 mg Furosemide (Lasix) 20 mg IVP DAILY [facility] Azithromycin 500 mg/ Sodium (Chloride) 250 mls @ 250 mls/hr IVPB DAILY [facility] PRN Reason: Protocol Last Admin: 04/19/18 10:00 Dose: 250 mls/hr Heparin Sodium/Sodium Chloride (Heparin 83887 Units/250ml 1/2 Normal Saline) 25 ,000 units in 250 mls @ 8.818 mls/hr IV .Q24H PRN; Protocol; 12 UNITS/KG/HR PRN Reason: PROTOCOL Last Titration: 04/19/18 07:45 Dose: 8.94 units/kg/hr, 6.569 mls/hr Cefepime HCl (Maxipime Iv 1 Gm Premix) 1 gm in 50 mls @ 100 mls/hr IVPB Q24H [facility] PRN Reason: Protocol Last Admin: 04/19/18 20:27 Dose: 100 mls/hr Insulin Aspart (Novolog) 0 unit SC ACHS [facility] PRN Reason: Protocol Pantoprazole Sodium (Protonix Ec Tab) 40 mg PO DAILY [facility] Last Admin: 04/19/18 10:00 Dose: Not Given Rosuvastatin Calcium (Crestor) 5 mg PO HS [facility] Last Admin: 04/19/18 21:29 Dose: 5 mg - Labs Labs: 04/20/18 06:00 04/20/18 06:00 PT 15.0 SECONDS (9.7-12.2) H 04/17/18 13:41 INR 1.4 04/17/18 13:41 APTT 52 SECONDS (21-34) H D 04/20/18 06:00 - Constitutional Appears: Non-toxic - Head Exam Head Exam: NORMAL INSPECTION - Eye Exam Eye Exam: Normal appearance - ENT Exam ENT Exam: Mucous Membranes Moist - Neck Exam Neck Exam: Full ROM - Respiratory Exam Respiratory Exam: Decreased Breath Sounds - Cardiovascular Exam Cardiovascular Exam: REGULAR RHYTHM - GI/Abdominal Exam GI & Abdominal Exam: Normal Bowel Sounds - Rectal Exam Rectal Exam: Deferred - Extremities Exam Extremities Exam: absent: Pedal Edema - Back Exam Back Exam: NORMAL INSPECTION - Neurological Exam Neurological Exam: Alert - Psychiatric Exam Psychiatric exam: Normal Affect - Skin Skin Exam: Normal Color Assessment and Plan (1) Acute on chronic systolic and diastolic heart failure, NYHA class 2 Assessment & Plan: extubated. will attemtpt to schedule for cardiac cath. can d/c heparin drip. Status: Acute
[2018-04-20 08:11] LABS: HEPATITIS C ANTIBODY NEGATIVE (NEGATIVE)
[2018-04-20 08:42] LABS: FREE T4 1.71 ng/dL (0.78-2.19)
[2018-04-20] MEDS: Pantoprazole 40 mg EC Tab PO SCH ×2 (09:09→09:30)
[2018-04-20] MEDS: Azithromycin 500 MG in Sodium Chloride 0.9% 250 ML IVPB SCH (09:10)
--- NOTE | 2018-04-20 11:07 | PN ---
DATE: 04/20/2018 TIME OF EVALUATION: 07:05 a.m. NEUROLOGICAL PROBLEM: Change in mental status. PHYSICAL EXAMINATION: VITAL SIGNS: Blood pressure 122/64, mean arterial pressure of 83, respiratory rate 16, temperature afebrile with pulse rate 74 and regular. The patient was seen by Dr. He over the weekend to assess his neuro status. His recommended workup is on progress. Mr. Reza Whittington presenting with severe cardiomyopathy, respiratory failure, status post intubation and self extubation. The patient is awake, alert, oriented to person and place. He is very pleasurable on examination. Follows all commands. He moves all four extremities against gravity. The examination does not show any homonymous hemianopsia. No facial asymmetry. Moves all 4 extremities. Areflexic. Plantars are upgoing. His recent CT of the head had been reviewed by me, it showed atrophy with right MCA territory ischemia, which was manifested as encephalomalacia over the right MCA territory, which is probably embolic process. This may be secondary to his underlying cardiomyopathy versus carotid artery thrombogenesis. His recent blood workup: WBC 4.9, hemoglobin 12.1, hematocrit 35.6, platelets 113. Sodium 137, potassium 3.6, chloride , bicarbonate 32, BUN 29, creatinine 1.1, GFR more than 60. Considering abnormal CAT scan and reported as new subacute process of right frontal stroke, the patient needs further workup for the same. Carotid Doppler/MRI of the brain and EEG to be done. The patient should be on antiplatelets, statin and angiotensin receptor blockers. The patient is also followed by classroom instructional aide. The patient will be followed while he is in the hospital. Adán Cheng MD
--- NOTE | 2018-04-20 12:59 | CP.PCM.PN ---
Subjective - Date & Time of Evaluation Date of Evaluation: 04/20/18 Time of Evaluation: 09:00 - Subjective Subjective: less sob alert awake Objective - Vital Signs/Intake and Output Vital Signs (last 24 hours): Temp Pulse Resp BP Pulse Ox 98.7 F 81 16 140/79 97 04/20/18 08:00 04/20/18 12:42 04/20/18 12:39 04/20/18 12:39 04/20/18 12:00 Intake and Output: 04/20/18 04/20/18 06:59 18:59 Intake Total 518.0 276.0 Output Total 450 950 Balance 68.0 -674.0 - Medications Medications: Current Medications Albuterol/Ipratropium (Duoneb 3 Mg/0.5 Mg (3 Ml) Ud) 3 ml INH RQ6 [facility] Last Admin: 04/20/18 08:22 Dose: 3 ml Aspirin (Aspirin Chewable) 81 mg PO DAILY [facility] Last Admin: 04/19/18 10:00 Dose: Not Given Carvedilol (Coreg) 12.5 mg PO BID [facility] Last Admin: 04/20/18 10:00 Dose: Not Given Furosemide (Lasix) 20 mg IVP DAILY [facility] Last Admin: 04/20/18 09:09 Dose: 20 mg Heparin Sodium (Porcine) (Heparin) 5,000 units SC Q8 [facility] Cefepime HCl (Maxipime Iv 1 Gm Premix) 1 gm in 50 mls @ 100 mls/hr IVPB Q24H [facility] PRN Reason: Protocol Last Admin: 04/19/18 20:27 Dose: 100 mls/hr Insulin Aspart (Novolog) 0 unit SC ACHS [facility] PRN Reason: Protocol Last Admin: 04/20/18 11:30 Dose: Not Given Pantoprazole Sodium (Protonix Ec Tab) 40 mg PO DAILY [facility] Last Admin: 04/19/18 10:00 Dose: Not Given Rosuvastatin Calcium (Crestor) 5 mg PO HS [facility] Last Admin: 04/19/18 21:29 Dose: 5 mg - Labs Labs: 04/20/18 06:00 04/20/18 06:00 PT 15.0 SECONDS (9.7-12.2) H 04/17/18 13:41 INR 1.4 04/17/18 13:41 APTT 52 SECONDS (21-34) H D 04/20/18 06:00 - Constitutional Appears: Non-toxic, Chronically Ill - Head Exam Head Exam: NORMOCEPHALIC - Eye Exam Eye Exam: absent: Scleral icterus - ENT Exam ENT Exam: Mucous Membranes Dry, Normal External Ear Exam - Neck Exam Neck Exam: absent: Lymphadenopathy - Respiratory Exam Respiratory Exam: Decreased Breath Sounds - Cardiovascular Exam Cardiovascular Exam: REGULAR RHYTHM - GI/Abdominal Exam GI & Abdominal Exam: Distended, Soft - Rectal Exam Rectal Exam: Deferred - Exam Exam: NORMAL INSPECTION Assessment and Plan (1) Acute on chronic systolic and diastolic heart failure, NYHA class 2 Status: Acute (2) CHF (congestive heart failure) Status: Acute (3) DM type 2 (diabetes mellitus, type 2) Status: Acute
--- NOTE | 2018-04-20 14:36 | CP.PCM.PN ---
Subjective - Date & Time of Evaluation Date of Evaluation: 04/20/18 Time of Evaluation: 12:20 - Subjective Subjective: clinically same Objective - Vital Signs/Intake and Output Vital Signs (last 24 hours): Temp Pulse Resp BP Pulse Ox 98 F 85 17 140/79 97 04/20/18 12:00 04/20/18 14:00 04/20/18 14:00 04/20/18 13:00 04/20/18 12:00 Intake and Output: 04/20/18 04/20/18 06:59 18:59 Intake Total 518.0 276.0 Output Total 450 950 Balance 68.0 -674.0 - Medications Medications: Current Medications Albuterol/Ipratropium (Duoneb 3 Mg/0.5 Mg (3 Ml) Ud) 3 ml INH RQ6 [facility] Last Admin: 04/20/18 14:26 Dose: 3 ml Aspirin (Aspirin Chewable) 81 mg PO DAILY [facility] Last Admin: 04/19/18 10:00 Dose: Not Given Carvedilol (Coreg) 12.5 mg PO BID [facility] Last Admin: 04/20/18 10:00 Dose: Not Given Furosemide (Lasix) 20 mg IVP DAILY [facility] Last Admin: 04/20/18 09:09 Dose: 20 mg Heparin Sodium (Porcine) (Heparin) 5,000 units SC Q8 [facility] Cefepime HCl (Maxipime Iv 1 Gm Premix) 1 gm in 50 mls @ 100 mls/hr IVPB Q24H [facility] PRN Reason: Protocol Last Admin: 04/19/18 20:27 Dose: 100 mls/hr Insulin Aspart (Novolog) 0 unit SC ACHS [facility] PRN Reason: Protocol Last Admin: 04/20/18 11:30 Dose: Not Given Pantoprazole Sodium (Protonix Ec Tab) 40 mg PO DAILY [facility] Last Admin: 04/19/18 10:00 Dose: Not Given Rosuvastatin Calcium (Crestor) 5 mg PO HS [facility] Last Admin: 04/19/18 21:29 Dose: 5 mg - Labs Labs: 04/20/18 06:00 04/20/18 06:00 PT 15.0 SECONDS (9.7-12.2) H 04/17/18 13:41 INR 1.4 04/17/18 13:41 APTT 32 SECONDS (21-34) D 04/20/18 13:19 - Constitutional Appears: Well - Head Exam Head Exam: ATRAUMATIC, NORMAL INSPECTION, NORMOCEPHALIC - Eye Exam Eye Exam: EOMI, Normal appearance, PERRL Pupil Exam: NORMAL ACCOMODATION, PERRL - ENT Exam ENT Exam: Mucous Membranes Moist, Normal Exam - Neck Exam Neck Exam: Full ROM, Normal Inspection. absent: Lymphadenopathy - Respiratory Exam Respiratory Exam: Decreased Breath Sounds - Cardiovascular Exam Cardiovascular Exam: REGULAR RHYTHM, +S1, +S2 - GI/Abdominal Exam GI & Abdominal Exam: Soft, Diminished Bowel Sounds - Rectal Exam Rectal Exam: Deferred
[2018-04-20 16:19] LABS: HDL CHOLESTEROL 26 mg/dL (30-70)
[2018-04-20 16:32] LABS: LDL CHOLESTEROL 48 mg/dL (0-129)
--- NOTE | 2018-04-20 17:17 | CP.PCM.PN ---
Subjective - Date & Time of Evaluation Date of Evaluation: 04/20/18 Time of Evaluation: 09:20 - Subjective Subjective: Patient seen and examined No shortness of breath Off dobutrex and heparin drip Awake and responsive possible cardiac catheter tomorrow Objective - Vital Signs/Intake and Output Vital Signs (last 24 hours): Temp Pulse Resp BP Pulse Ox 97.8 F 94 H 18 160/90 H 98 04/20/18 16:00 04/20/18 16:00 04/20/18 16:00 04/20/18 16:00 04/20/18 16:00 Intake and Output: 04/20/18 04/20/18 06:59 18:59 Intake Total 518.0 276.0 Output Total 450 950 Balance 68.0 -674.0 - Medications Medications: Current Medications Albuterol/Ipratropium (Duoneb 3 Mg/0.5 Mg (3 Ml) Ud) 3 ml INH RQ6 [facility] Last Admin: 04/20/18 14:26 Dose: 3 ml Aspirin (Aspirin Chewable) 81 mg PO DAILY [facility] Last Admin: 04/20/18 09:30 Dose: Not Given Carvedilol (Coreg) 12.5 mg PO BID [facility] Last Admin: 04/20/18 10:00 Dose: Not Given Furosemide (Lasix) 20 mg IVP DAILY [facility] Last Admin: 04/20/18 09:09 Dose: 20 mg Heparin Sodium (Porcine) (Heparin) 5,000 units SC Q8 [facility] Last Admin: 04/20/18 14:36 Dose: Not Given Cefepime HCl (Maxipime Iv 1 Gm Premix) 1 gm in 50 mls @ 100 mls/hr IVPB Q24H [facility] PRN Reason: Protocol Last Admin: 04/19/18 20:27 Dose: 100 mls/hr Insulin Aspart (Novolog) 0 unit SC ACHS [facility] PRN Reason: Protocol Last Admin: 04/20/18 16:16 Dose: Not Given Pantoprazole Sodium (Protonix Ec Tab) 40 mg PO DAILY [facility] Last Admin: 04/20/18 09:30 Dose: Not Given Rosuvastatin Calcium (Crestor) 5 mg PO HS [facility] Last Admin: 04/19/18 21:29 Dose: 5 mg - Labs Labs: 04/20/18 06:00 04/20/18 06:00 PT 15.0 SECONDS (9.7-12.2) H 04/17/18 13:41 INR 1.4 04/17/18 13:41 APTT 32 SECONDS (21-34) D 04/20/18 13:19 Assessment and Plan (1) Acute on chronic systolic and diastolic heart failure, NYHA class 2 Status: Acute
[2018-04-20] MEDS ORDERED: Lidocaine Hydrochloride 10 ML INJ ONE (18:01)
[2018-04-20] MEDS ORDERED: Midazolam 2 MG/2 ML VIAL ONE (18:04)
--- NOTE | 2018-04-20 19:10 | CATH ---
APPROVED REPORT HISTORY The patient is a 77 year-old male with a history of : previous CHF, hypertension. INDICATION The indication(s) include : chest pain, dyspnea. CASE TECHNIQUE The patient was brought electively to the Cardiac Catheterization Laboratory in a fasting state and was prepped and draped in a sterile manner. The right femoral groin was infiltrated with 2% Lidocaine subcutaneous anesthesia. A sheath was inserted into the right femoral artery without difficulty. Coronary angiography was performed using coronary diagnostic catheters. The left coronary system was accessed and visualized with a Diagnostic catheter. The right coronary system was accessed and visualized with a Diagnostic catheter. The left ventricle was accessed and visualized with a Diagnostic catheter. Left ventricular/Aortic Valve gradient assessed on pullback. Left ventriculogram was performed in TAYLOR projection. A Right Heart Catheterization was performed with a 7 Fr. Gladstone-Lidia catheter and pressure were recorded. A 7 sheath was inserted into the right femoral vein without difficulty. Coronary angiography was performed using coronary diagnostic catheters. Cardiac outputs were obtained by the Loyda method. Pre-demployment femoral angiogram was performed . Closure device was deployed with a 6 Fr Mynx without any complications. The patient tolerated the procedure well and there were no complications associated with the procedure. minx was deployed in the RCFV as well as the RCFA Vessel Analysis The patient's coronary anatomy is right dominant. The left main coronary artery is a medium size vessel without significant stenosis. The left main trifurcates to the left anterior descending, circumflex, and ramus. The left anterior descending artery is a medium size vessel without stenosis. The first diagonal branch is a small size vessel without significant stenosis. The circumflex artery is a medium size vessel without significant stenosis. The first obtuse marginal branch is a medium size vessel without significant stenosis. The second obtuse marginal branch is a medium size vessel without significant stenosis. The ramus intermedius artery is a small size vessel without significant stenosis. The right coronary artery is a medium size vessel without significant stenosis. The right posterior descending artery is a medium size vessel without significant stenosis. The right posterolateral branch is a medium size vessel without significant stenosis. Left Ventricle The left ventricle is normal in size with decreased contractility. The left ventricular ejection fraction is estimated to be 35-40%. The left ventricular end diastolic pressure is 35 mmHg. There was no gradient across the aortic valve upon pullback. Right Heart Cath Findings The Right Atrial Pressure is 10 mmHg. The Right Ventricular Pressure is 48/11 mmHg. The Pulmonary Artery Pressure is 53/26 mmHg. The Pulmonary Catheter Wedge Pressure is 31 mmHg. The cardiac output and index were assessed using the Loyda method. The Cardiac Output is 5.70 L/min. The Cardiac index is 3.00 L/min/m2. cardiac index is likely overestimated. there is significant TR noted on right heart cath and ra wave forms. Valves mvp is noted. 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 Recommendations Aggressive Medical TherapyCardiac Risk Reduction Program
[2018-04-20] MEDS: Cefepime IV 1 gm in Dextrose 1 GM/50 ML BAG IVPB SCH (20:22)
[2018-04-21] MEDS: Ipratropium 0.02% Inhal Soln (0.5 mg/2.5 ml) UD IH SCH ×4 (01:11→19:42)
[2018-04-21] MEDS ORDERED: Albuterol 0.083% Inhal Sol (2.5 mg/3 mL) UD INH SCH (02:00)
[2018-04-21] MEDS: (Novolog) Insulin Aspart, Recombinant 100 u/ml 10 ml vial SC SCH ×4 (08:08→22:40)
[2018-04-21] MEDS: Albuterol 0.083% Inhal Sol (2.5 mg/3 mL) UD INH SCH ×3 (08:16→19:42)
[2018-04-21] MEDS: Pantoprazole 40 mg EC Tab PO SCH (09:18)
--- NOTE | 2018-04-21 10:27 | CP.PCM.PN ---
Subjective - Date & Time of Evaluation Date of Evaluation: 04/21/18 Time of Evaluation: 10:20 - Subjective Subjective: patient has no new complaints. s/p cardiac cath revealing no signficant CAD. Objective - Vital Signs/Intake and Output Vital Signs (last 24 hours): Temp Pulse Resp BP Pulse Ox 98.7 F 81 16 147/87 99 04/21/18 08:00 04/21/18 04:00 04/21/18 04:00 04/21/18 09:18 04/21/18 04:00 Intake and Output: 04/21/18 04/21/18 06:59 18:59 Intake Total 410 Output Total 600 Balance -190 - Medications Medications: Current Medications Albuterol Sulfate (Albuterol 0.083% Inhal Della (2.5 Mg/3 Ml) Ud) 2.5 mg INH RQ6 [facility] Last Admin: 04/21/18 08:16 Dose: 2.5 mg Aspirin (Aspirin Chewable) 81 mg PO DAILY [facility] Last Admin: 04/21/18 09:18 Dose: 81 mg Carvedilol (Coreg) 12.5 mg PO BID [facility] Last Admin: 04/21/18 09:18 Dose: 12.5 mg Furosemide (Lasix) 20 mg IVP DAILY [facility] Last Admin: 04/21/18 09:18 Dose: 20 mg Heparin Sodium (Porcine) (Heparin) 5,000 units SC Q8 [facility] Last Admin: 04/21/18 07:26 Dose: 5,000 units Cefepime HCl (Maxipime Iv 1 Gm Premix) 1 gm in 50 mls @ 100 mls/hr IVPB Q24H [facility] PRN Reason: Protocol Last Admin: 04/20/18 20:22 Dose: 100 mls/hr Insulin Aspart (Novolog) 0 unit SC ACHS [facility] PRN Reason: Protocol Last Admin: 04/21/18 08:08 Dose: Not Given Ipratropium Brogan (Atrovent) 0.5 mg IH RQ6 [facility] Last Admin: 04/21/18 08:16 Dose: 0.5 mg Pantoprazole Sodium (Protonix Ec Tab) 40 mg PO DAILY [facility] Last Admin: 04/21/18 09:18 Dose: 40 mg Rosuvastatin Calcium (Crestor) 5 mg PO HS [facility] Last Admin: 04/20/18 21:15 Dose: 5 mg - Labs Labs: 04/20/18 06:00 04/20/18 06:00 PT 15.0 SECONDS (9.7-12.2) H 04/17/18 13:41 INR 1.4 04/17/18 13:41 APTT 33 SECONDS (21-34) 04/21/18 05:54 - Constitutional Appears: Non-toxic - Head Exam Head Exam: NORMAL INSPECTION - Eye Exam Eye Exam: Normal appearance - ENT Exam ENT Exam: Mucous Membranes Moist - Neck Exam Neck Exam: Full ROM - Respiratory Exam Respiratory Exam: Decreased Breath Sounds - Cardiovascular Exam Cardiovascular Exam: REGULAR RHYTHM - GI/Abdominal Exam GI & Abdominal Exam: Normal Bowel Sounds - Rectal Exam Rectal Exam: Deferred - Extremities Exam Extremities Exam: absent: Pedal Edema - Back Exam Back Exam: NORMAL INSPECTION - Neurological Exam Neurological Exam: Alert - Psychiatric Exam Psychiatric exam: Normal Affect Assessment and Plan (1) Acute on chronic systolic and diastolic heart failure, NYHA class 2 Assessment & Plan: improved volume status will order repeat limited echo with Definity to evaluate LV function. If EF 35% or less patient requires AICD Status: Acute
[2018-04-21] MEDS ORDERED: Perflutren Lipid Microsphere 1.5 ML SUS IV ONE (11:14)
--- NOTE | 2018-04-21 13:16 | CP.PCM.PN ---
Subjective - Date & Time of Evaluation Date of Evaluation: 04/21/18 Time of Evaluation: 09:00 - Subjective Subjective: no fever less sob awake alert Objective - Vital Signs/Intake and Output Vital Signs (last 24 hours): Temp Pulse Resp BP Pulse Ox 98.7 F 93 H 16 147/87 99 04/21/18 08:00 04/21/18 10:00 04/21/18 04:00 04/21/18 09:18 04/21/18 04:00 Intake and Output: 04/21/18 04/21/18 06:59 18:59 Intake Total 410 120 Output Total 600 Balance -190 120 - Medications Medications: Current Medications Albuterol Sulfate (Albuterol 0.083% Inhal Della (2.5 Mg/3 Ml) Ud) 2.5 mg INH RQ6 [facility] Last Admin: 04/21/18 08:16 Dose: 2.5 mg Aspirin (Aspirin Chewable) 81 mg PO DAILY [facility] Last Admin: 04/21/18 09:18 Dose: 81 mg Carvedilol (Coreg) 12.5 mg PO BID [facility] Last Admin: 04/21/18 09:18 Dose: 12.5 mg Furosemide (Lasix) 20 mg IVP DAILY [facility] Last Admin: 04/21/18 09:18 Dose: 20 mg Heparin Sodium (Porcine) (Heparin) 5,000 units SC Q8 [facility] Last Admin: 04/21/18 07:26 Dose: 5,000 units Cefepime HCl (Maxipime Iv 1 Gm Premix) 1 gm in 50 mls @ 100 mls/hr IVPB Q24H [facility] PRN Reason: Protocol Last Admin: 04/20/18 20:22 Dose: 100 mls/hr Insulin Aspart (Novolog) 0 unit SC ACHS [facility] PRN Reason: Protocol Last Admin: 04/21/18 08:08 Dose: Not Given Ipratropium Soledad (Atrovent) 0.5 mg IH RQ6 [facility] Last Admin: 04/21/18 08:16 Dose: 0.5 mg Pantoprazole Sodium (Protonix Ec Tab) 40 mg PO DAILY [facility] Last Admin: 04/21/18 09:18 Dose: 40 mg Rosuvastatin Calcium (Crestor) 5 mg PO HS [facility] Last Admin: 04/20/18 21:15 Dose: 5 mg - Labs Labs: 04/20/18 06:00 04/20/18 06:00 PT 15.0 SECONDS (9.7-12.2) H 04/17/18 13:41 INR 1.4 04/17/18 13:41 APTT 33 SECONDS (21-34) 04/21/18 05:54 - Constitutional Appears: Non-toxic, Chronically Ill - Head Exam Head Exam: NORMOCEPHALIC - Eye Exam Eye Exam: PERRL - ENT Exam ENT Exam: Mucous Membranes Dry - Respiratory Exam Respiratory Exam: Decreased Breath Sounds - Cardiovascular Exam Cardiovascular Exam: REGULAR RHYTHM - GI/Abdominal Exam GI & Abdominal Exam: Distended, Soft - Rectal Exam Rectal Exam: Deferred - Exam Exam: NORMAL INSPECTION Assessment and Plan (1) Acute on chronic systolic and diastolic heart failure, NYHA class 2 Status: Acute (2) CHF (congestive heart failure) Status: Acute (3) DM type 2 (diabetes mellitus, type 2) Status: Acute
[2018-04-21] MEDS ORDERED: Gadodiamide 287 MG/ML VIAL (15ML) IV ONE (13:54)
--- NOTE | 2018-04-21 15:03 | MRI ---
PROCEDURE: MRI BRAIN WITH AND WITHOUT CONTRAST HISTORY: STROKE COMPARISON: Noncontrast head CT from 04/19/2018. TECHNIQUE: Multiplanar, multisequence MR images of the brain were obtained with and without intravenous contrast enhancement. FINDINGS: HEMORRHAGE: None DWI: No evidence of an acute or early subacute infarction. BRAIN PARENCHYMA: There is cystic encephalomalacia and gliosis in the right posterior parietal lobe and right occipital lobe. There are old lacunar infarctions in the right centrum semiovale and right cerebellar hemisphere. There are moderate chronic microangiopathic changes. There is no mass, mass effect or abnormal extra-axial fluid collection. The midline sagittal structures are normal. ENHANCEMENT: No abnormal intracranial enhancement. VENTRICLES: There is moderate age-related global parenchymal volume loss and proportionate enlargement of the ventricles and cortical sulci. CRANIUM: There is normal bone marrow signal pattern. ORBITS: Grossly unremarkable. PARANASAL SINUSES/MASTOIDS: There is mild mucosal thickening in the paranasal sinuses. The mastoid air cells are predominantly clear VASCULAR SYSTEM: There are normal signal voids in the larger intracranial arteries. . OTHER FINDINGS: None . IMPRESSION: 1. No acute intracranial abnormality. 2. 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 3. 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 4. Moderate chronic microangiopathic changes and moderate age-related global parenchymal volume loss.
--- NOTE | 2018-04-21 17:22 | CP.PCM.PN ---
Subjective - Date & Time of Evaluation Date of Evaluation: 04/21/18 Time of Evaluation: 10:30 - Subjective Subjective: patient seen and examined Patient is lying comfortably in no acute distress Status post cardiac cath with normal coronaries Continue treatment as per cardiology No active lung problem at this point Follow-up if necessary Objective - Vital Signs/Intake and Output Vital Signs (last 24 hours): Temp Pulse Resp BP Pulse Ox 98.5 F 93 H 16 147/87 99 04/21/18 16:00 04/21/18 10:00 04/21/18 04:00 04/21/18 09:18 04/21/18 04:00 Intake and Output: 04/21/18 04/21/18 06:59 18:59 Intake Total 410 120 Output Total 600 Balance -190 120 - Medications Medications: Current Medications Albuterol Sulfate (Albuterol 0.083% Inhal Della (2.5 Mg/3 Ml) Ud) 2.5 mg INH RQ6 [facility] Last Admin: 04/21/18 13:52 Dose: Not Given Aspirin (Aspirin Chewable) 81 mg PO DAILY [facility] Last Admin: 04/21/18 09:18 Dose: 81 mg Carvedilol (Coreg) 12.5 mg PO BID [facility] Last Admin: 04/21/18 09:18 Dose: 12.5 mg Furosemide (Lasix) 20 mg IVP DAILY [facility] Last Admin: 04/21/18 09:18 Dose: 20 mg Heparin Sodium (Porcine) (Heparin) 5,000 units SC Q8 [facility] Last Admin: 04/21/18 14:42 Dose: 5,000 units Cefepime HCl (Maxipime Iv 1 Gm Premix) 1 gm in 50 mls @ 100 mls/hr IVPB Q24H [facility] PRN Reason: Protocol Last Admin: 04/20/18 20:22 Dose: 100 mls/hr Insulin Aspart (Novolog) 0 unit SC ACHS [facility] PRN Reason: Protocol Last Admin: 04/21/18 16:32 Dose: Not Given Ipratropium [place] (Atrovent) 0.5 mg IH RQ6 [facility] Last Admin: 04/21/18 13:52 Dose: Not Given Pantoprazole Sodium (Protonix Ec Tab) 40 mg PO DAILY [facility] Last Admin: 04/21/18 09:18 Dose: 40 mg Rosuvastatin Calcium (Crestor) 5 mg PO HS [facility] Last Admin: 04/20/18 21:15 Dose: 5 mg - Labs Labs: 04/20/18 06:00 04/20/18 06:00 PT 15.0 SECONDS (9.7-12.2) H 04/17/18 13:41 INR 1.4 04/17/18 13:41 APTT 33 SECONDS (21-34) 04/21/18 05:54 Assessment and Plan (1) Acute on chronic systolic and diastolic heart failure, NYHA class 2 Status: Acute
--- NOTE | 2018-04-21 18:33 | CP.PCM.PN ---
Subjective - Date & Time of Evaluation Date of Evaluation: 04/21/18 Time of Evaluation: 12:40 - Subjective Subjective: clinically same Objective - Vital Signs/Intake and Output Vital Signs (last 24 hours): Temp Pulse Resp BP Pulse Ox 98.5 F 93 H 16 115/67 99 04/21/18 16:00 04/21/18 18:00 04/21/18 04:00 04/21/18 18:08 04/21/18 04:00 Intake and Output: 04/21/18 04/21/18 06:59 18:59 Intake Total 410 240 Output Total 600 Balance -190 240 - Medications Medications: Current Medications Albuterol Sulfate (Albuterol 0.083% Inhal Della (2.5 Mg/3 Ml) Ud) 2.5 mg INH RQ6 [facility] Last Admin: 04/21/18 13:52 Dose: Not Given Aspirin (Aspirin Chewable) 81 mg PO DAILY [facility] Last Admin: 04/21/18 09:18 Dose: 81 mg Carvedilol (Coreg) 12.5 mg PO BID [facility] Last Admin: 04/21/18 18:08 Dose: 12.5 mg Furosemide (Lasix) 20 mg IVP DAILY [facility] Last Admin: 04/21/18 09:18 Dose: 20 mg Heparin Sodium (Porcine) (Heparin) 5,000 units SC Q8 [facility] Last Admin: 04/21/18 14:42 Dose: 5,000 units Cefepime HCl (Maxipime Iv 1 Gm Premix) 1 gm in 50 mls @ 100 mls/hr IVPB Q24H [facility] PRN Reason: Protocol Last Admin: 04/20/18 20:22 Dose: 100 mls/hr Insulin Aspart (Novolog) 0 unit SC ACHS [facility] PRN Reason: Protocol Last Admin: 04/21/18 16:32 Dose: Not Given Ipratropium [place] (Atrovent) 0.5 mg IH RQ6 [facility] Last Admin: 04/21/18 13:52 Dose: Not Given Pantoprazole Sodium (Protonix Ec Tab) 40 mg PO DAILY [facility] Last Admin: 04/21/18 09:18 Dose: 40 mg Rosuvastatin Calcium (Crestor) 5 mg PO HS [facility] Last Admin: 04/20/18 21:15 Dose: 5 mg - Labs Labs: 04/20/18 06:00 04/20/18 06:00 PT 15.0 SECONDS (9.7-12.2) H 04/17/18 13:41 INR 1.4 04/17/18 13:41 APTT 33 SECONDS (21-34) 04/21/18 05:54 - Constitutional Appears: Well - Head Exam Head Exam: ATRAUMATIC, NORMAL INSPECTION, NORMOCEPHALIC - Eye Exam Eye Exam: EOMI, Normal appearance, PERRL Pupil Exam: NORMAL ACCOMODATION, PERRL - ENT Exam ENT Exam: Mucous Membranes Moist, Normal Exam - Neck Exam Neck Exam: Full ROM, Normal Inspection. absent: Lymphadenopathy - Respiratory Exam Respiratory Exam: Decreased Breath Sounds - Cardiovascular Exam Cardiovascular Exam: REGULAR RHYTHM, +S1, +S2 - GI/Abdominal Exam GI & Abdominal Exam: Soft, Diminished Bowel Sounds - Rectal Exam Rectal Exam: Deferred
[2018-04-21] MEDS: Cefepime IV 1 gm in Dextrose 1 GM/50 ML BAG IVPB SCH (20:06)
[2018-04-22] MEDS: Ipratropium 0.02% Inhal Soln (0.5 mg/2.5 ml) UD IH SCH ×3 (07:35→19:48)
[2018-04-22] MEDS: Albuterol 0.083% Inhal Sol (2.5 mg/3 mL) UD INH SCH ×3 (07:35→19:48)
[2018-04-22] MEDS: (Novolog) Insulin Aspart, Recombinant 100 u/ml 10 ml vial SC SCH ×4 (07:45→21:50)
--- NOTE | 2018-04-22 08:18 | CP.PCM.PN ---
Subjective - Date & Time of Evaluation Date of Evaluation: 04/22/18 Time of Evaluation: 08:00 - Subjective Subjective: patient has no chest pain. no dyspnea Objective - Vital Signs/Intake and Output Vital Signs (last 24 hours): Temp Pulse Resp BP Pulse Ox 97.9 F 77 20 139/96 H 99 04/21/18 23:20 04/22/18 07:57 04/21/18 23:20 04/21/18 23:20 04/21/18 23:20 Intake and Output: 04/22/18 04/22/18 06:59 18:59 Output Total 250 Balance -250 - Medications Medications: Current Medications Albuterol Sulfate (Albuterol 0.083% Inhal Della (2.5 Mg/3 Ml) Ud) 2.5 mg INH RQ6 [facility] Last Admin: 04/22/18 07:35 Dose: 2.5 mg Aspirin (Aspirin Chewable) 81 mg PO DAILY [facility] Last Admin: 04/21/18 09:18 Dose: 81 mg Carvedilol (Coreg) 12.5 mg PO BID [facility] Last Admin: 04/21/18 18:08 Dose: 12.5 mg Furosemide (Lasix) 20 mg IVP DAILY [facility] Last Admin: 04/21/18 09:18 Dose: 20 mg Heparin Sodium (Porcine) (Heparin) 5,000 units SC Q8 [facility] Last Admin: 04/22/18 07:43 Dose: 5,000 units Insulin Aspart (Novolog) 0 unit SC ACHS [facility] PRN Reason: Protocol Last Admin: 04/22/18 07:45 Dose: Not Given Ipratropium [place] (Atrovent) 0.5 mg IH RQ6 [facility] Last Admin: 04/22/18 07:35 Dose: 0.5 mg Pantoprazole Sodium (Protonix Ec Tab) 40 mg PO DAILY [facility] Last Admin: 04/21/18 09:18 Dose: 40 mg Rosuvastatin Calcium (Crestor) 5 mg PO HS [facility] Last Admin: 04/21/18 21:33 Dose: 5 mg - Labs Labs: 04/20/18 06:00 04/20/18 06:00 PT 15.0 SECONDS (9.7-12.2) H 04/17/18 13:41 INR 1.4 04/17/18 13:41 APTT 33 SECONDS (21-34) 04/21/18 05:54 - Constitutional Appears: Non-toxic - Head Exam Head Exam: NORMAL INSPECTION - Eye Exam Eye Exam: Normal appearance - ENT Exam ENT Exam: Mucous Membranes Moist - Neck Exam Neck Exam: Full ROM - Respiratory Exam Respiratory Exam: Decreased Breath Sounds - Cardiovascular Exam Cardiovascular Exam: REGULAR RHYTHM - GI/Abdominal Exam GI & Abdominal Exam: Normal Bowel Sounds - Rectal Exam Rectal Exam: Deferred - Extremities Exam Extremities Exam: absent: Pedal Edema - Back Exam Back Exam: NORMAL INSPECTION - Neurological Exam Neurological Exam: Alert - Psychiatric Exam Psychiatric exam: Normal Affect - Skin Skin Exam: Normal Color Assessment and Plan (1) Acute on chronic systolic and diastolic heart failure, NYHA class 2 Assessment & Plan: I reviewed echo with definity. this cofirms severe LV dsyfunction, EF 20-25%. Patient has persuistent LV dysfunction. recommend AICD. Status: Acute
[2018-04-22] MEDS: Pantoprazole 40 mg EC Tab PO SCH (10:03)
--- NOTE | 2018-04-22 11:53 | PN ---
DATE: 04/22/2018 TIME OF EVALUATION: 07:10 a.m. NEUROLOGICAL PROBLEM: Status post respiratory failure, been on intubation and extubated. PHYSICAL EXAMINATION: VITAL SIGNS: Blood pressure 139/96, mean artery pressure of 110, respiratory rate 16, temperature 97.9, with pulse rate 72. NEUROLOGIC: The patient is more awake, alert, and oriented to person, place, and time. No sign of hallucination, no sign of suicidal ideation, no sign of confabulation. The patient moves all 4 extremities against gravity. Speech is clear. The rest of the examination is unchanged. WORKUP: His recent MRI showed an old left TRAFFIC EXPERT territory ischemic process, which could be an embolic source. The patient also showed evidence of multiple periventricular ischemic changes, particularly seen on the right more than his left side. RECOMMENDATIONS: The patient to continue aspirin, statin, and angiotensin receptor blockers. Diabetic control should be followed. When medically stable, the patient will be discharged and should have followup visit with me as an outpatient. Adán Cheng MD
--- NOTE | 2018-04-22 13:11 | CARD ---
APPROVED REPORT EXAM: LIMITED Two-dimensional echocardiogram with contrast. Other Information Quality : GoodRhythm : INDICATION LV Function:Systolic Echo Enhancing Agent Indication: Endocardial border delineation Agent/Amount Used: Definity LEFT VENTRICLE The Left Ventricle is moderately dilated. The systolic function is moderately to severely impaired. no definite lv thrombus seen. definity contrast study was performed. limited study. <Conclusion> The Left Ventricle is moderately dilated. The systolic function is moderately to severely impaired. no definite lv thrombus seen. definity contrast study was performed. limited study.
--- NOTE | 2018-04-22 15:59 | CP.PCM.PN ---
Subjective - Date & Time of Evaluation Date of Evaluation: 04/22/18 Time of Evaluation: 10:00 - Subjective Subjective: awake alert less SOB Objective - Vital Signs/Intake and Output Vital Signs (last 24 hours): Temp Pulse Resp BP Pulse Ox 97.7 F 77 20 145/83 100 04/22/18 07:00 04/22/18 07:57 04/22/18 07:00 04/22/18 10:03 04/22/18 08:49 Intake and Output: 04/22/18 04/22/18 06:59 18:59 Output Total 250 Balance -250 - Medications Medications: Current Medications Albuterol Sulfate (Albuterol 0.083% Inhal Della (2.5 Mg/3 Ml) Ud) 2.5 mg INH RQ6 [facility] Last Admin: 04/22/18 13:27 Dose: 2.5 mg Aspirin (Aspirin Chewable) 81 mg PO DAILY [facility] Last Admin: 04/22/18 10:03 Dose: 81 mg Carvedilol (Coreg) 12.5 mg PO BID [facility] Last Admin: 04/22/18 10:03 Dose: 12.5 mg Furosemide (Lasix) 20 mg IVP DAILY [facility] Last Admin: 04/22/18 10:02 Dose: 20 mg Heparin Sodium (Porcine) (Heparin) 5,000 units SC Q8 [facility] Last Admin: 04/22/18 14:20 Dose: 5,000 units Insulin Aspart (Novolog) 0 unit SC ACHS [facility] PRN Reason: Protocol Last Admin: 04/22/18 12:24 Dose: 2 unit Ipratropium [place] (Atrovent) 0.5 mg IH RQ6 [facility] Last Admin: 04/22/18 13:28 Dose: 0.5 mg Losartan Potassium (Cozaar) 25 mg PO DAILY [facility] Last Admin: 04/22/18 10:03 Dose: 25 mg Pantoprazole Sodium (Protonix Ec Tab) 40 mg PO DAILY [facility] Last Admin: 04/22/18 10:03 Dose: 40 mg Rosuvastatin Calcium (Crestor) 5 mg PO HS [facility] Last Admin: 04/21/18 21:33 Dose: 5 mg - Labs Labs: 04/20/18 06:00 04/20/18 06:00 PT 15.0 SECONDS (9.7-12.2) H 04/17/18 13:41 INR 1.4 04/17/18 13:41 APTT 33 SECONDS (21-34) 04/21/18 05:54 - Constitutional Appears: Non-toxic, Chronically Ill - Head Exam Head Exam: NORMOCEPHALIC - Eye Exam Eye Exam: PERRL - ENT Exam ENT Exam: Mucous Membranes Dry - Neck Exam Neck Exam: absent: Lymphadenopathy - Respiratory Exam Respiratory Exam: Decreased Breath Sounds - Cardiovascular Exam Cardiovascular Exam: REGULAR RHYTHM - GI/Abdominal Exam GI & Abdominal Exam: Distended, Soft - Rectal Exam Rectal Exam: Deferred Assessment and Plan (1) Acute on chronic systolic and diastolic heart failure, NYHA class 2 Status: Acute (2) CHF (congestive heart failure) Status: Acute (3) DM type 2 (diabetes mellitus, type 2) Status: Acute
--- NOTE | 2018-04-22 17:26 | CP.PCM.PN ---
Subjective - Date & Time of Evaluation Date of Evaluation: 04/22/18 Time of Evaluation: 11:20 - Subjective Subjective: clinically same Objective - Vital Signs/Intake and Output Vital Signs (last 24 hours): Temp Pulse Resp BP Pulse Ox 98.0 F 73 18 125/72 98 04/22/18 15:35 04/22/18 15:35 04/22/18 15:35 04/22/18 15:35 04/22/18 15:35 Intake and Output: 04/22/18 04/22/18 06:59 18:59 Output Total 250 Balance -250 - Medications Medications: Current Medications Albuterol Sulfate (Albuterol 0.083% Inhal Della (2.5 Mg/3 Ml) Ud) 2.5 mg INH RQ6 [facility] Last Admin: 04/22/18 13:27 Dose: 2.5 mg Aspirin (Aspirin Chewable) 81 mg PO DAILY [facility] Last Admin: 04/22/18 10:03 Dose: 81 mg Carvedilol (Coreg) 12.5 mg PO BID [facility] Last Admin: 04/22/18 10:03 Dose: 12.5 mg Furosemide (Lasix) 20 mg IVP DAILY [facility] Last Admin: 04/22/18 10:02 Dose: 20 mg Heparin Sodium (Porcine) (Heparin) 5,000 units SC Q8 [facility] Last Admin: 04/22/18 14:20 Dose: 5,000 units Insulin Aspart (Novolog) 0 unit SC ACHS [facility] PRN Reason: Protocol Last Admin: 04/22/18 12:24 Dose: 2 unit Ipratropium [place] (Atrovent) 0.5 mg IH RQ6 [facility] Last Admin: 04/22/18 13:28 Dose: 0.5 mg Losartan Potassium (Cozaar) 25 mg PO DAILY [facility] Last Admin: 04/22/18 10:03 Dose: 25 mg Pantoprazole Sodium (Protonix Ec Tab) 40 mg PO DAILY [facility] Last Admin: 04/22/18 10:03 Dose: 40 mg Rosuvastatin Calcium (Crestor) 5 mg PO HS [facility] Last Admin: 04/21/18 21:33 Dose: 5 mg - Labs Labs: 04/20/18 06:00 04/20/18 06:00 PT 15.0 SECONDS (9.7-12.2) H 04/17/18 13:41 INR 1.4 04/17/18 13:41 APTT 33 SECONDS (21-34) 04/21/18 05:54 - Constitutional Appears: Well - Head Exam Head Exam: ATRAUMATIC, NORMAL INSPECTION, NORMOCEPHALIC - Eye Exam Eye Exam: EOMI, Normal appearance, PERRL Pupil Exam: NORMAL ACCOMODATION, PERRL - ENT Exam ENT Exam: Mucous Membranes Moist, Normal Exam - Neck Exam Neck Exam: Full ROM, Normal Inspection. absent: Lymphadenopathy - Respiratory Exam Respiratory Exam: Decreased Breath Sounds - Cardiovascular Exam Cardiovascular Exam: REGULAR RHYTHM, +S1, +S2 - GI/Abdominal Exam GI & Abdominal Exam: Soft, Diminished Bowel Sounds - Rectal Exam Rectal Exam: Deferred
[2018-04-23] MEDS: Albuterol 0.083% Inhal Sol (2.5 mg/3 mL) UD INH SCH ×4 (01:38→19:39)
[2018-04-23] MEDS: Ipratropium 0.02% Inhal Soln (0.5 mg/2.5 ml) UD IH SCH ×4 (01:38→19:39)
[2018-04-23] MEDS: (Novolog) Insulin Aspart, Recombinant 100 u/ml 10 ml vial SC SCH ×4 (08:03→21:34)
--- NOTE | 2018-04-23 09:38 | PN ---
DATE: 04/23/2018 TIME OF EVALUATION: 07:00 a.m. 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 PHYSICAL EXAMINATION: VITAL SIGNS: Blood pressure 117/68, mean arterial pressure of 84, respiratory rate 18, temperature 98.2. NEUROLOGIC: The patient is awake and alert, moving all 4 extremities. Speech is clear. The rest of the examination is unchanged. WORKUP: The patient did have electroencephalogram which was reviewed by me, showed bilateral cerebral dysfunction without any paroxysmal activities or focal slowing. From neurological point of view, the patient is cleared. He can be discharged if medically stable. The patient should have followup visit with me as an outpatient. Adán Cheng MD
--- NOTE | 2018-04-23 09:49 | PN ---
DATE: 04/23/2018 TIME OF EVALUATION: 07:00 a.m. 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 PHYSICAL EXAMINATION: VITAL SIGNS: Blood pressure 117/68, mean arterial pressure of 84, respiratory rate 18, temperature 98.2. NEUROLOGIC: The patient is awake and alert, moving all 4 extremities. Speech is clear. The rest of the examination is unchanged. The patient did have electroencephalogram which was reviewed by me, it showed bilateral cerebral dysfunction without any paroxysmal activities or focal slowing. From neurological point of view, the patient is cleared. He can be discharged if medically stable. The patient should have followup visit with me as an outpatient. Adán Cheng MD
--- NOTE | 2018-04-23 11:11 | CP.PCM.CON ---
History of Present Illness - History of Present Illness History of Present Illness: Dr. Quan has asked me to see this patient with CHF. EC04/14/18: ST at 100 26 184/102/466 NSRA Past Patient History - Infectious Disease Hx of Infectious Diseases: None - Past Medical History & Family History Past Medical History?: Yes - Past Social History Smoking Status: Former Smoker - CARDIAC Hx Congestive Heart Failure: Yes Hx Hypercholesterolemia: Yes Hx Hypertension: Yes - PULMONARY Hx Respiratory Disorders: No - NEUROLOGICAL Hx Neurological Disorder: No - HEENT Hx HEENT Problems: No - RENAL Hx Chronic Kidney Disease: No - ENDOCRINE/METABOLIC Hx Endocrine Disorders: Yes Hx Diabetes Mellitus Type 2: Yes - HEMATOLOGICAL/ONCOLOGICAL Hx Blood Disorders: No - INTEGUMENTARY Hx Dermatological Problems: No - MUSCULOSKELETAL/RHEUMATOLOGICAL Hx Arthritis: Yes - GASTROINTESTINAL Hx Gall Bladder Disease: Yes - GENITOURINARY/GYNECOLOGICAL Hx Genitourinary Disorders: No - PSYCHIATRIC Hx Substance Use: No - SURGICAL HISTORY Hx Cholecystectomy: Yes - ANESTHESIA Hx Anesthesia: Yes Hx Anesthesia Reactions: No Hx Malignant Hyperthermia: No Has any member of the family had a problem w/ anesthesia?: No Meds Allergies/Adverse Reactions: Allergies Allergy/AdvReac Type Severity Reaction Status Date / Time No Known Allergies Allergy Verified 04/15/18 10:49 - Medications Medications: Current Medications Albuterol Sulfate (Albuterol 0.083% Inhal Della (2.5 Mg/3 Ml) Ud) 2.5 mg INH RQ6 [facility] Last Admin: 04/23/18 07:35 Dose: 2.5 mg Aspirin (Aspirin Chewable) 81 mg PO DAILY [facility] Last Admin: 04/22/18 10:03 Dose: 81 mg Carvedilol (Coreg) 12.5 mg PO BID [facility] Last Admin: 04/22/18 17:59 Dose: 12.5 mg Furosemide (Lasix) 20 mg IVP DAILY [facility] Last Admin: 04/22/18 10:02 Dose: 20 mg Heparin Sodium (Porcine) (Heparin) 5,000 units SC Q8 [facility] Last Admin: 04/23/18 06:02 Dose: 5,000 units Insulin Aspart (Novolog) 0 unit SC ACHS [facility] PRN Reason: Protocol Last Admin: 04/23/18 08:03 Dose: Not Given Ipratropium [place] (Atrovent) 0.5 mg IH RQ6 [facility] Last Admin: 04/23/18 07:35 Dose: 0.5 mg Losartan Potassium (Cozaar) 25 mg PO DAILY [facility] Last Admin: 04/22/18 10:03 Dose: 25 mg Pantoprazole Sodium (Protonix Ec Tab) 40 mg PO DAILY [facility] Last Admin: 04/22/18 10:03 Dose: 40 mg Rosuvastatin Calcium (Crestor) 5 mg PO HS [facility] Last Admin: 04/22/18 22:02 Dose: 5 mg Results - Vital Signs Recent Vital Signs: Last Vital Signs Temp 98.2 F 04/23/18 08:43 Pulse 78 04/23/18 08:43 Resp 18 04/23/18 08:43 BP 139/86 04/23/18 08:43 Pulse Ox 96 04/23/18 08:43 - Labs Result Diagrams: 04/20/18 06:00 04/20/18 06:00 Labs: Laboratory Results - last 24 hr 04/20/18 04/22/18 04/22/18 07:34 06:25 11:18 POC Glucose (mg/dL) 96 229 H Mycoplasma pneumon IgG 2.06 H Mycoplasma pneumon IgM 60 04/22/18 04/22/18 04/23/18 16:33 20:58 01:52 POC Glucose (mg/dL) 236 H 155 H 187 H Mycoplasma pneumon IgG Mycoplasma pneumon IgM 04/23/18 06:24 POC Glucose (mg/dL) 139 H Mycoplasma pneumon IgG Mycoplasma pneumon IgM
[2018-04-23] MEDS: Pantoprazole 40 mg EC Tab PO SCH (11:29)
--- NOTE | 2018-04-23 19:27 | CP.PCM.PN ---
Subjective - Date & Time of Evaluation Date of Evaluation: 04/23/18 Time of Evaluation: 09:00 - Subjective Subjective: events noted IV rx in progress Objective - Vital Signs/Intake and Output Vital Signs (last 24 hours): Temp Pulse Resp BP Pulse Ox 97 F L 75 20 134/82 99 04/23/18 15:00 04/23/18 15:00 04/23/18 15:00 04/23/18 17:07 04/23/18 15:00 - Medications Medications: Current Medications Albuterol Sulfate (Albuterol 0.083% Inhal Della (2.5 Mg/3 Ml) Ud) 2.5 mg INH RQ6 [facility] Last Admin: 04/23/18 13:49 Dose: Not Given Aspirin (Aspirin Chewable) 81 mg PO DAILY [facility] Last Admin: 04/23/18 11:29 Dose: 81 mg Carvedilol (Coreg) 12.5 mg PO BID [facility] Last Admin: 04/23/18 17:07 Dose: 12.5 mg Furosemide (Lasix) 20 mg IVP DAILY [facility] Last Admin: 04/23/18 11:30 Dose: 20 mg Heparin Sodium (Porcine) (Heparin) 5,000 units SC Q8 [facility] Last Admin: 04/23/18 13:58 Dose: 5,000 units Insulin Aspart (Novolog) 0 unit SC ACHS [facility] PRN Reason: Protocol Last Admin: 04/23/18 17:04 Dose: 2 unit Ipratropium [place] (Atrovent) 0.5 mg IH RQ6 [facility] Last Admin: 04/23/18 13:49 Dose: Not Given Losartan Potassium (Cozaar) 25 mg PO DAILY [facility] Last Admin: 04/23/18 11:30 Dose: 25 mg Pantoprazole Sodium (Protonix Ec Tab) 40 mg PO DAILY [facility] Last Admin: 04/23/18 11:29 Dose: 40 mg Rosuvastatin Calcium (Crestor) 5 mg PO HS [facility] Last Admin: 04/22/18 22:02 Dose: 5 mg - Labs Labs: 04/20/18 06:00 04/20/18 06:00 PT 15.0 SECONDS (9.7-12.2) H 04/17/18 13:41 INR 1.4 04/17/18 13:41 APTT 33 SECONDS (21-34) 04/21/18 05:54 - Constitutional Appears: Non-toxic, Chronically Ill - Head Exam Head Exam: NORMOCEPHALIC - Eye Exam Eye Exam: PERRL - ENT Exam ENT Exam: Mucous Membranes Dry - Neck Exam Neck Exam: absent: Lymphadenopathy - Respiratory Exam Respiratory Exam: Decreased Breath Sounds - Cardiovascular Exam Cardiovascular Exam: REGULAR RHYTHM - GI/Abdominal Exam GI & Abdominal Exam: Distended - Rectal Exam Rectal Exam: Deferred Assessment and Plan (1) Acute on chronic systolic and diastolic heart failure, NYHA class 2 Status: Acute (2) CHF (congestive heart failure) Status: Acute (3) DM type 2 (diabetes mellitus, type 2) Status: Acute
--- NOTE | 2018-04-23 21:10 | CP.PCM.PN ---
Subjective - Date & Time of Evaluation Date of Evaluation: 04/23/18 Time of Evaluation: 10:00 - Subjective Subjective: clinically same Objective - Vital Signs/Intake and Output Vital Signs (last 24 hours): Temp Pulse Resp BP Pulse Ox 97 F L 75 20 134/82 99 04/23/18 15:00 04/23/18 15:00 04/23/18 15:00 04/23/18 17:07 04/23/18 15:00 - Medications Medications: Current Medications Albuterol Sulfate (Albuterol 0.083% Inhal Della (2.5 Mg/3 Ml) Ud) 2.5 mg INH RQ6 [facility] Last Admin: 04/23/18 19:39 Dose: 2.5 mg Aspirin (Aspirin Chewable) 81 mg PO DAILY [facility] Last Admin: 04/23/18 11:29 Dose: 81 mg Carvedilol (Coreg) 12.5 mg PO BID [facility] Last Admin: 04/23/18 17:07 Dose: 12.5 mg Furosemide (Lasix) 20 mg IVP DAILY [facility] Last Admin: 04/23/18 11:30 Dose: 20 mg Heparin Sodium (Porcine) (Heparin) 5,000 units SC Q8 [facility] Last Admin: 04/23/18 13:58 Dose: 5,000 units Insulin Aspart (Novolog) 0 unit SC ACHS [facility] PRN Reason: Protocol Last Admin: 04/23/18 17:04 Dose: 2 unit Ipratropium [place] (Atrovent) 0.5 mg IH RQ6 [facility] Last Admin: 04/23/18 19:39 Dose: 0.5 mg Losartan Potassium (Cozaar) 25 mg PO DAILY [facility] Last Admin: 04/23/18 11:30 Dose: 25 mg Pantoprazole Sodium (Protonix Ec Tab) 40 mg PO DAILY [facility] Last Admin: 04/23/18 11:29 Dose: 40 mg Rosuvastatin Calcium (Crestor) 5 mg PO HS [facility] Last Admin: 04/22/18 22:02 Dose: 5 mg - Labs Labs: 04/20/18 06:00 04/20/18 06:00 PT 15.0 SECONDS (9.7-12.2) H 04/17/18 13:41 INR 1.4 04/17/18 13:41 APTT 33 SECONDS (21-34) 04/21/18 05:54 - Constitutional Appears: Well - Head Exam Head Exam: ATRAUMATIC, NORMAL INSPECTION, NORMOCEPHALIC - Eye Exam Eye Exam: EOMI, Normal appearance, PERRL Pupil Exam: NORMAL ACCOMODATION, PERRL - ENT Exam ENT Exam: Mucous Membranes Moist, Normal Exam - Neck Exam Neck Exam: Full ROM, Normal Inspection. absent: Lymphadenopathy - Respiratory Exam Respiratory Exam: Decreased Breath Sounds - Cardiovascular Exam Cardiovascular Exam: REGULAR RHYTHM, +S1, +S2 - GI/Abdominal Exam GI & Abdominal Exam: Soft, Diminished Bowel Sounds - Rectal Exam Rectal Exam: Deferred
[2018-04-24] MEDS: Ipratropium 0.02% Inhal Soln (0.5 mg/2.5 ml) UD IH SCH ×2 (01:52→08:26)
[2018-04-24] MEDS: Albuterol 0.083% Inhal Sol (2.5 mg/3 mL) UD INH SCH ×2 (01:52→08:26)
[2018-04-24] MEDS: (Novolog) Insulin Aspart, Recombinant 100 u/ml 10 ml vial SC SCH ×2 (08:28→12:00)
[2018-04-24] MEDS: Pantoprazole 40 mg EC Tab PO SCH (09:15)
[2018-04-24 09:35] VITALS: RESP 18
--- NOTE | 2018-04-24 10:15 | PCM.HF ---
Heart Failure Core Measure - Heart Failure Ejection Fraction: Less Than 40 % WILL Inhibitor Prescribed: No Contraindication/Reason for not providing: on ARB Beta-Jay Jay Prescribed: Carvedilol Angiotensin II Receptor Jay Jay Prescribed: Yes AnticoagulationTherapy for Atrial Fibrillation/Atrialflutter: No Contraindication/Reason for not providing: no hx of a fib Aldosterone Antagonist Prescribed: No Contraindication/Reason for not providing: hyperkalemia Hydralazine Nitrate Prescribed: No Contraindication/Reason for not providing: bp running low Implantable Cardioverter Defibrillator Therapy: Yes Contraindication/Reason for not providing: pt for aicd today at [facility] [place] Cardiac Resynchronization Therapy Prescribed: Yes - Follow up Will be [facility] to[facility] (transfered to [facility] [place] for AICD)
[2018-04-24 11:49] VITALS: BP 148/85; TEMP 98.2; O2SAT 99
--- NOTE | 2018-04-24 13:18 | EEG ---
DATE: 04/20/2018 This is a 16-channel electroencephalogram of awake adult. During the study, photic stimulation was performed. Hyperventilation was not performed. The resting electroencephalogram consists of diffuse low amplitude delta mixed with theta activities seen at the parietal and occipital leads. Loose electrical artifacts contaminated the background rhythm in bilateral cortical leads. The photic stimulation did not evoke driving response noted at 2 to 20 Hz. IMPRESSION: This is an abnormal electroencephalogram because of persistent slowing throughout the record suggestive of bilateral cerebral dysfunction. This is probably secondary to metabolic, vascular, or degenerative process. Please correlate the findings with the neurological and the radiological studies. Adán Cheng MD
[2018-04-24 14:07] VITALS: PULSE 73
== END 2018-04-24 12:21 | disposition short-term general hospital (02) | DRG 286 ==
LOC: C.ER 10:25 → C.9E 12:54 → C.6T 13:54 → C.9I 04-17 11:58 → C.6T 04-21 21:05
PROVIDERS: ADMIT Internal Medicine Nephrology; ATTEND Internal Medicine Nephrology
PROC: 0BH17EZ Insertion of Endotracheal Airway into Trachea, Via Natural or Artificial Opening (ICD-10-PCS; 2018-04-17)
PROC: 5A1945Z Respiratory Ventilation, 24-96 Consecutive Hours (ICD-10-PCS; 2018-04-17)
PROC: 4A023N6 Measurement of Cardiac Sampling and Pressure, Right Heart, Percutaneous Approach (ICD-10-PCS; principal; 2018-04-20)
PROC: B211YZZ Fluoroscopy of Multiple Coronary Arteries using Other Contrast (ICD-10-PCS; 2018-04-20)
PROC: B215YZZ Fluoroscopy of Left Heart using Other Contrast (ICD-10-PCS; 2018-04-20)
DX: I11.0 Hypertensive heart disease with heart failure (principal); J96.91 Respiratory failure, unspecified with hypoxia; N17.9 Acute kidney failure, unspecified; I50.43 Acute on chronic combined systolic (congestive) and diastolic (congestive) heart failure; I69.311 Memory deficit following cerebral infarction; E11.9 Type 2 diabetes mellitus without complications; E78.00 Pure hypercholesterolemia, unspecified; E87.5 Hyperkalemia; F01.50 Vascular dementia, unspecified severity, without behavioral disturbance, psychotic disturbance, mood disturbance, and anxiety; I42.0 Dilated cardiomyopathy; Z87.891 Personal history of nicotine dependence; Z79.84 Long term (current) use of oral hypoglycemic drugs